=== PATIENT | female | born 1950 | race Caucasian/White ===

== ENCOUNTER 2022-09-18 20:44 | Outpatient (CLI) | payer MEDICARE, BC, SELFPAY ==
--- OUTSIDE RECORDS SUMMARY | 2022-09-18 20:46 | XMS_ITS | Encounter Summary ---
:1950 Author Organization [place] Address [address] [place] [address] Care Team Providers Name Role Phone Mahogany Peñaloza Primary Care Provider Lori Maloney MD Unavailable Marc Hicks PhD Unavailable Reason for Visit Reason Onset Date Comments Call Back 11/08/2021 mri today 11/08/21 Encounter Details Date Type Department Care Team Description 11/08/2021 [facility] Lori Maloney Call Back (mri today Neurology Clinic Kenny Brown 11/08/21 ) [address] Floor [id number] [place] [address] (Wo rk) [id number] [phone] Social History Tobacco Use Types Packs/Day Years Used Date Smoking Tobacco: Never Smokeless Tobacco: Never Alcohol Use Standard Drinks/Week Comments Not Currently 0 (1 standard drink = 0.6 oz pure alcoho l) Sex Assigned at Date Recorded Not on file documented as of this encounter Miscellaneous Notes Telephone Encounter - Naila Schwartz - 11/08/2021 12:14 PM CST [facility] Call Center Phone Message May a detailed message be left on voicemail: yes Reason for Call: Other: Pt callng in she has an MRI today and would like to know why the order is for W/O contrast when Dr Hicks recommended With contrast, please call back as soon as possible as MRI is today Action Taken: Message routed to: [facility] neurology Travel Screening: Not Applicable 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 documented in this encounter Plan of Treatment Upcoming Encounters Date Type Specialty Care Team Description 10/05/2022 Office Visit Neurology Lori Maloney Ma, MD [address] [place] [phone] (Wo rk) documented as of this encounter Visit Diagnoses Not on filedocumented in this encounter Care Teams Lumber Bearer Relationship Specialty Start Date End Date Mahogany Peñaloza PCP - General Internal Medicine 12/28/19 [facility] [address] [place] [address] Lori Maloney Assigned Neuroscience 08/12/20 MD Delisa Provider [address] [place] [address] Macr Hicks, Assigned Behavioral 09/10/21 PhD Health Provider [address] [place] [address] documented as of this encounter
--- OUTSIDE RECORDS SUMMARY | 2022-09-18 20:46 | XMS_ITS | Encounter Summary ---
:1950 Author Organization [place] Address [address] [place] [address]. [place] [address] Care Team Providers Name Role Phone Mahogany Peñaloza Primary Care Provider Lori Maloney MD Unavailable [phone] Encounter Details Date Type Department Care Team Description 07/28/2021 Travel Social History Tobacco Use Types Packs/Day Years Used Date Smoking Tobacco: Never Smokeless Tobacco: Never Alcohol Use Standard Drinks/Week Comments Not Currently 0 (1 standard drink = 0.6 oz pure alcoho l) Sex Assigned at Date Recorded Not on file COVID-19 Exposure Response Date Recorded In the last month, have you been in contact with No / Unsure 07/28/2021 12:11 PM CDT someone who was confirmed or suspected to have Coronavirus / COVID-19? documented as of this encounter Plan of Treatment Upcoming Encounters Date Type Specialty Care Team Description 10/05/2022 Office Visit Neurology Lori Maloney Ma, MD [address] [place] [address] (Wo rk) documented as of this encounter Visit Diagnoses Not on filedocumented in this encounter Care Teams Mammography Technician Relationship Specialty Start Date End Date Mahogany Peñaloza PCP - General Internal Medicine 12/28/19 [facility] [address] [place] [address] Lori Maloney Assigned Neuroscience 08/12/20 MD Delisa Provider [address] [place] [address] documented as of this encounter
--- OUTSIDE RECORDS SUMMARY | 2022-09-18 20:46 | XMS_ITS | Clinical Summary ---
:1950 Author Organization [place] Address [address] [place] [address] Care Team Providers Name Role Phone Anabela Mahogany Primary Care Provider Lori Maloney MD Unavailable [phone] Marc Hicks PhD Unavailable Allergies No known active allergies Medications Medication Sig Dispensed Refills Start Date End Date Status atenolol (TENORMIN) 25 0 11/30/2019 Active MG tablet lisinopril (ZESTRIL) 10 0 12/29/2019 Active MG tablet RESTASIS 0.05 % 0 07/16/2019 Act young ophthalmic emulsion ketoconazole (NIZORAL) 0 10/01/2019 Active 2 % external shampoo latanoprost (XALATAN) INSTILL 1 DROP IN 0 11/30/2019 Active 0.005 % ophthalmic BOTH EYES AT solution BEDTIME PAROEX 0.12 % solution 0 11/13/2019 Active betamethasone 0 10/01/2019 Activ e dipropionate (DIPROSONE) 0.05 % external lotion triamcinolone (KENALOG) APPLY TWICE DAILY 0 06/09/20 19 Active 0.1 % external cream TO RASH UP TO 2 WEEKS/MONTH NEEDED. amoxicillin-clavulanate Take 1 tablet by 20 tablet 0 0 Active (AUGMENTIN) 875-125 MG mouth 2 times tabletIndications: daily Throat pain Additional Information Patient not taking. Reported on 04/11/2021 diazepam (VALIUM) 2 MG Take one tab 30 2 tablet 0 09/18/2021 Active tabletIndications: Claustrophobia minutes before MRI. May repeat one tab in 30 min if needed. Do not drive arrange for a cdl b driver Active Problems Problem Noted Date Cognitive complaints 04/11/2021 Tinnitus 04/11/2021 Persistent insomnia 04/11/2021 Osteopenia 04/11/2021 Hypothyroidism 04/11/2021 Status post cataract extraction 04/11/2021 Chronically dry eyes 04/11/2021 Ascending aorta enlargement 04/11/2021 Anxiety 08/12/2013 Eczema 05/16/2010 Hyperlipidemia 02/20/2008 Episodic mood disorder 02/11/2008 Overview: Formatting of this note might be differe nt from the original. Seasonal affective d/o Malignant neoplasm of female breast 01/19/2003 Overview: Formatting of this note might be differe nt from the original. right lumpectomy 01/23 Family History Medical History Relation Comments Alzheimer Disease Brother Alzheimer Disease Mother Relation Status Comments Brother Mother Social History Tobacco Use Types Packs/Day Years Used Date Smoking Tobacco: Never Smokeless Tobacco: Never Alcohol Use Standard Drinks/Week Comments Not Currently 0 (1 standard drink = 0.6 oz pure alcoho l) Sex Assigned at Date Recorded Not on file Last Filed Vital Signs Vital Sign Reading Time Taken Comments Blood Pressure 135/78 04/11/2021 8:03 AM CDT Pulse 57 04/11/2021 8:03 AM CDT Temperature 37.3 ??C (99.2 ??F) 05/08/2020 10:55 AM CDT Respiratory Rate 16 12/29/2019 1:13 PM CDT Oxygen Saturation 100% 04/11/2021 8:03 AM CDT Inhaled Oxygen Concentration - - Weight 68 kg (149 lb 14.4 oz) 04/11/2021 8:03 AM CDT Height - - Body Mass Index - - Plan of Treatment Upcoming Encounters Date Type Specialty Care Team Description 10/05/2022 Office Visit Neurology Lori Maloney Ma, MD [address] [place], [place] [phone] (Wo rk) Health Maintenance Due Date Last Done Comments ADVANCE CARE PLANNING 1950 ANNUAL REVIEW OF HM ORDERS 1950 CT COLONOGRAPHY 1950 DEXA 1950 FIT-DNA (Cologuard) 1950 FIT 1950 FLEX SIG 1950 MAMMO SCREENING 1950 HEPATITIS C SCREENING 01/05/1970 LIPID 01/05/1997 MEDICARE ANNUAL WELLNESS 01/05/2017 VISIT FALL RISK ASSESSMENT 12/28/2020 12/29/2019, 12/29/2019 COVID-19 Vaccine (4 - 09/14/2021 07/20/2021, 12/31/2020, Booster for Pfizer series) 12/10/2020 PHQ-2 (once per calendar 10/21/2021 09/04/2021, 04/11/2021, year) 12/29/2019, Additional history exists INFLUENZA VACCINE (#1) 2022 08/08/2021, 07/27/2020, 08/24/2019, Additional history exists DTAP/TDAP/TD IMMUNIZATION 08/15/2022 08/15/2012, 08/15/2012 , (2 - Td or Tdap) 06/08/2003 COLONOSCOPY 09/28/2029 09/28/2019 COLORECTAL CANCER SCREENING 09/28/2029 Pneumococcal Vaccine: 65+ Completed 09/01/2018, 08/09/2017 Years ZOSTER IMMUNIZATION Completed 12/17/2018, 11/24/2018, 10/12/2018, Additional history exists IPV IMMUNIZATION Aged Out No longer eligi ble based on patient 's age to complete this topic MENINGITIS IMMUNIZATION Aged Out No longe r eligible based on patient 's age to complete this topic Insurance Payer Benefit Plan / Subscriber ID Effective Phone Address T ype Group Dates BC[employer] [place] [id number] 2017-Prese [phone] [address] [address] PPO BLUE nt 00 [place] [address] MEDICARE MEDICARE FOR HB [id number] 2019-Prese [phone] ATTN CLAIMS Medicare SUPPLEMENT nt 40 [address] [place] [address] Beatrice Hernandez Personal/Family Self 1950 [address] (Home) [address] [place] [address] Beatrice Hernandez Behavioral Self 1950 [address] (Home) [address] [place] [address] Care Teams Client Care Consultant Relationship Specialty Start Date End Date Mahogany Peñaloza PCP - General Internal Medicine 12/28/19 [facility] [address] [place] [address] Lori Maloney Assigned Neuroscience 08/12/20 MD Delisa Provider [address] [place] [id number] Marc Hicks, Christopher Behavioral 09/10/21 PhD Health Provider [address] [place] [phone]
--- OUTSIDE RECORDS SUMMARY | 2022-09-18 20:46 | XMS_ITS | Encounter Summary ---
:1950 Author Organization [place] Address [address] [place] [address] Care Team Providers Name Role Phone Prabha Peñalozaherine Primary Care Provider Lori Maloney MD Unavailable Reason for Referral Diagnostic Imaging MRI (Routine) - Closed Specialty Diagnoses / Procedures Referred By Contact Refer red To Contact Diagnoses Cognitive complaints Lori Maloney Procedures MRI Brain w/o contrast MD Delisa [address] [place] [address] Referral ID Status Reason Start Date Expiration Date Visits Requ ested Visits Authorized [id number] Closed 09/04/2021 09/04/2022 1 1 ERCIAL INSURANCE UNDERWRITER Reason for Visit Reason Comments RECHECK Family history of Alzheimer' s Encounter Details Date Type Department Care Team Description 09/04/2021 Virtual Visit [facility] Lori Maloney Cognitiv e complaints Neurology Clinic Kenny Brown (Primary Dx) [address] [place] [phone] Social History Tobacco Use Types Packs/Day Years Used Date Smoking Tobacco: Never Smokeless Tobacco: Never Alcohol Use Standard Drinks/Week Comments Not Currently 0 (1 standard drink = 0.6 oz pure alcoho l) Sex Assigned at Date Recorded Not on file documented as of this encounter Progress Lori Tenorio MD - 09/04/2021 1:00 PM CST Images from the original note were not included. Beatrice is a 71 year old who is being evaluated via a billable video visit. How would you like to obtain your AVS? MyChart If the video visit is dropped, the invitation should be resent by: Send to e- mail at: [email or web address] Will anyone else be joining your video visit? Yes: . How would they like to receive their invitation? Send to e-mail at: [email or web address] Video Start Time: 1:02 PM Video-Visit Details Type of service: Video Visit Video End Time: 1:36 PM Originating Location (pt. Location): Home Distant Location (provider location): [facility] Platform used for Video Visit: [employer] [facility] Physicians Beatrice Hernandez Age: [age] year old Date of : 1950 Requesting physician: Referred Self Mahogany Peñaloza Assessment and Plan: (R41.9) Cognitive complaints (primary encounter diagnosis) Comment: At this time the complaints seem to be mostly with visuospatial complexities. We will repeat MRI brain to look for cortical atrophy more prominent in the posterior circulation. No formal driving test for now the patient will avoid driving. I am not sure neuro-ophthalmology consult is needed as recommended by Dr Hicks and I know they are booked out a long ways and the patient has far to travel. I will send a message to Lory Elizabeth and Berny explaining the situation prior to ordering a consult. Total time caring for the patient on the day of the visit including video time and chart review was 49 minutes. Lori Maloney MD History of Present Illness: CC: Recheck Beatrice is a 71-year-old woman with some concerns about change in memory function that leads to a lot of anxiety. She has had a sleep study at home. 28 events per hour. She started on a CPAP and it helped. She was still waking up due to the pressure and gas. So she was switched to biPAP. Sleeping really well and much more tolerable. She feels more relaxed and less anxious. Downside she says her report events of awakening from sleep continue to occur. From a memory function standpoint she feels she is a little more forgetful. She is focusing a littlemore than she used to be. She is trying to say in the moment and doing one thing at a time. Trying to be more mindful. She sometimes has trouble remembering names. She often has to take a moment to focus her thoughts but when she does it is fine. She is self-limiting her driving. No driving at night, poor night vision. During the day she will avoid busy highways. Her drives her most places but if it is easy and close she might drive herself. Physical Exam: Pertinent History/Data for appointment: Neuropsych testing with Dr. Hicks results reviewed. Reports are abnormal. Mild changes with visually mediated abilities with deficits in complex visuospatial informaton. He recommended a neuro-ophtho consult but I amnot sure this is needed. The patient has an ophthalmologst who sees her regularly. I will review with Dr. Elizabeth and Berny. ERCIAL INSURANCE UNDERWRITER documented in this encounter Nursing Notes Chuck Brown - 09/04/2021 1:00 PM CST Patient stated that she has been seeing an ENT and was diagnosed with Sleep Apnea and has been on a BIPAP machine. Was on a CPAP but didn't work well for patient. ERCIAL INSURANCE UNDERWRITER documented in this encounter Plan of Treatment Upcoming Encounters Date Type Specialty Care Team Description 10/05/2022 Office Visit Neurology Lori Maloney Ma, MD [address] [place] [address] (Wo rk) documented as of this encounter Results MRI Brain w/o contrast (12/28/2021 3:11 PM COMMERCIAL INSURANCE UNDERWRITER) Anatomical Region Laterality Modality Head, SUBRAD MR NEURO, UMP MR NEURO, RAD MR Magnetic Resonance Specimen (Source) Anatomical Location Collection Method / Collectio n Time Received Time / Laterality Volume Impressions 12/29/2021 9:04 AM COMMERCIAL INSURANCE UNDERWRITER IMPRESSION: 1. No acute abnormality. 2. Volume loss and white matter T2 hyper intensities which likely represent chronic small vessel ischemic change. MACO LITTLEJOHN MD SYSTEM ID: ??[id number] Narrative 12/29/2021 9:04 AM COMMERCIAL INSURANCE UNDERWRITER MRI BRAIN WITHOUT CONTRAST ??12/28/2021 3:11 PM HISTORY: ??Memory loss; patient has some decline in visuospatial abilities. Cognitive complaints. TECHNIQUE: ??Multiplanar, multisequence MRI of the brain without gadolinium IV contrast material. ?? COMPARISON: ??Head MRI 01/10/2020. FINDINGS: Mild volume loss is present. S cattered frontoparietal predominantly matter T2 hyperintensities likely represent moderate chronic small vessel ischemic change. No evidence of acute ischemia, hemorrhage, mass, mass effect, or hydroc ephalus. Marrow signal is within normal limits. V isualized paranasal sinuses are unremarkable. Trace bilateral mastoi d cavity opacification. Procedure Note Maco Littlejohn MD - 12/29/2021F ormatting of this note might be different from the original. MRI BRAIN WITHOUT CONTRAST 12/28/2021 3:1 1 PM HISTORY: Memory loss; patient has some d ecline in visuospatial abilities. Cognitive complaints. TECHNIQUE: Multiplanar, multisequence MR I of the brain without gadolinium IV contrast material. COMPARISON: Head MRI 01/10/2020. FINDINGS: Mild volume loss is present. S cattered frontoparietal predominantly matter T2 hyperintensities likely represent moderate chronic small vessel ischemic change. No evidence of acute ischemia, hemorrhage, mass, mass effect, or hydroc ephalus. Marrow signal is within normal limits. V isualized paranasal sinuses are unremarkable. Trace bilateral mastoi d cavity opacification. IMPRESSION: 1. No acute abnormality. 2. Volume loss and white matter T2 hyper intensities which likely represent chronic small vessel ischemic change. MACO LITTLEJOHN MD SYSTEM ID: [id number] Lori Maloney MD IMG MRI ORDERABLES documented in this encounter Visit Diagnoses Diagnosis Cognitive complaints - Primary Other signs and symptoms involving cogni tion Cognitive complaints Other signs and symptoms involving cogni tion documented in this encounter Care Teams Business Process Lead Relationship Specialty Start Date End Date Mahogany Peñaloza PCP - General Internal Medicine 12/28/[address] [address] Lori Maloney Assigned Neuroscience 08/12/20 MD Delisa Provider [address] [place] [address] documented as of this encounter
--- OUTSIDE RECORDS SUMMARY | 2022-09-18 20:46 | XMS_ITS | Encounter Summary ---
:1950 Author Organization [place] Address [address] [place] [address] Care Team Providers Name Role Phone Mahogany Peñaloza Primary Care Provider Lori Maloney MD Unavailable [phone] Marc Hicks PhD Unavailable Encounter Details Date Type Department Care Team Description 01/10/2022 Travel Social History Tobacco Use Types Packs/Day Years Used Date Smoking Tobacco: Never Smokeless Tobacco: Never Alcohol Use Standard Drinks/Week Comments Not Currently 0 (1 standard drink = 0.6 oz pure alcoho l) Sex Assigned at Date Recorded Not on file COVID-19 Exposure Response Date Recorded In the last month, have you been in contact Unable to assess 01/10/2022 9:29 AM CDT with someone who was confirmed or suspected to have Coronavirus / COVID-19? documented as of this encounter Plan of Treatment Upcoming Encounters Date Type Specialty Care Team Description 10/05/2022 Office Visit Neurology Lori Maloney Ma, MD [address] [place], [place] [phone] (Wo rk) documented as of this encounter Visit Diagnoses Not on filedocumented in this encounter Care Teams Room Service Associate Relationship Specialty Start Date End Date Mahogany Peñaloza PCP - General Internal Medicine 12/28/19 [facility] [address] [place] [address] Lori Maloney Assigned Neuroscience 08/12/20 MD Delisa Provider [address] [place] [phone] Marc Hicks, Assigned Behavioral 09/10/21 PhD Health Provider [address] [place] [phone] documented as of this encounter
--- OUTSIDE RECORDS SUMMARY | 2022-09-18 20:46 | XMS_ITS | Encounter Summary ---
:1950 Author Organization [place] Address [address] [place] [address] Care Team Providers Name Role Phone Mahogany Peñaloza Primary Care Provider Lori Maloney MD Unavailable Marc Hicks PhD Unavailable Encounter Details Date Type Department Care Team Description 12/28/2021 Travel Social History Tobacco Use Types Packs/Day Years Used Date Smoking Tobacco: Never Smokeless Tobacco: Never Alcohol Use Standard Drinks/Week Comments Not Currently 0 (1 standard drink = 0.6 oz pure alcoho l) Sex Assigned at Date Recorded Not on file COVID-19 Exposure Response Date Recorded In the last month, have you been in contact with No / Unsure 12/28/2021 2:27 PM QUALITY TECHNICIAN [employer] someone who was confirmed or suspected to have Coronavirus / COVID-19? documented as of this encounter Plan of Treatment Upcoming Encounters Date Type Specialty Care Team Description 10/05/2022 Office Visit Neurology Lori Maloney Ma, MD [address] [place], [place] [phone] (Wo rk) documented as of this encounter Visit Diagnoses Not on filedocumented in this encounter Care Teams Auto Body Technician Relationship Specialty Start Date End Date Mahogany Peñaloza PCP - General Internal Medicine 12/28/19 [facility] [address] [place] [address] Lori Maloney Assigned Neuroscience 08/12/20 MD Delisa Provider [address] [place] [address] [phone] Marc Hicks, Assigned Behavioral 09/10/21 PhD Health Provider [address] [place] [address] documented as of this encounter
--- OUTSIDE RECORDS SUMMARY | 2022-09-18 20:46 | XMS_ITS | Encounter Summary ---
:1950 Author Organization [facility] Address [address] [place] [address] Care Team Providers Name Role Phone Prabha Peñalozaherine Primary Care Provider Lori Maloney MD Unavailable [phone] Reason for Visit Mental Health Outpatient (Routine) - Closed Specialty Diagnoses / Procedures Referred By Contact Refer red To Contact Diagnoses Cognitive complaints Lori Maloney MD [address] [place] [id number] Referral ID Status Reason Start Date Expiration Date Visits Requ ested Visits Authorized [id number] Closed 04/11/2021 04/11/2022 1 1 Encounter Details Date Type Department Care Team Description 07/28/2021 Office Visit [facility] Lori Maloney MD [address] [place] [id number] MCI (mild cognitive impairment) (Primary Dx); Neuropsychology Marc Hicks, PhD [address] [place] [address] Anxiety disorder, unspecified type [address] [place] [address] Social History Tobacco Use Types Packs/Day Years [...] / COVID-19? documented as of this encounter Progress Notes Marc Hicks, PhD - 07/28/2021 12:30 PM CDT Adult Neuropsychology Clinic [facility] NEUROPSYCHOLOGICAL EVALUATION RELEVANT HISTORY AND REASON FOR REFERRAL This is a report of neuropsychological consultation regarding Beatrice Hernandez, a 71-year-old, right-handed woman with 16 years of formal education. I saw her for an initial evaluation on 08/16/2020, onreferral from Dr. Lori Maloney. She had concerns about cognitive changes like forgetfulness, misplacing items, reduced sense of direction, and word-finding troubles. These issues have been noticed overrecent years, and there is a family history of Alzheimer's disease. Her mother at 88 after about 10 years of symptoms, and her brother had a very rapid course come on around age 70. More chronically, she suspects undiagnosed inattentive-type ADHD, given that her son carries this diagnosis and shesees many similarities in herself. Cognitive screening was within normal limits (Kokmen 35/38) [address] Dr[address] Lori Maloney for a neurologic evaluation in December 2019. My evaluation in July 2020 was via video. The data remained within normal limits, though there were few test results on the low end of average that I felt might represent a relative decline from premorbid functioning. She has an estimated [id number] cognitive baseline. There was also a question of the few lower scores being due to situational factors, like anxiousness or testing via video. Ms. Hernandez had specific concerns about poorer ability with directions, and her lowest performance was on a measure of visual reasoning. I wanted to see the data replicate in a second assessment before strongly inferring changes in cognitive capacity or presuming a decline in cerebral integrity. The differential included prodromal neurodegenerative syndromes versus normal aging with some interference from longstanding ADHD-like tende ncies, as well as somewhat anxious temperament. She saw Dr. Maloney for follow-up in March 2021. She agreed that reevaluation was warranted and placed the referral to see me again. In today???s interview, Ms. Hernandez tells me that she continues to have concerns about anxiety, though she does not feel like symptoms have changed to any degree. Anxiety is especially present at night and disrupts her sleep. She is especially nervous about developing Alzheimer???s disease, like hermother and brother. She has not pursued any treatments for anxiety. Cognitively, she finds herself to be scattered and easily off track, and she still has concerns about long-standing ADHD-like traits.She wonders if the typical stimulant medications used for ADHD could be helpful for somebody of her age. She also has concerns about word-finding lapses. She says the word might come to her a little more quickly if she is able to pull back for a second instead of trying to force it, but she still endsup having to give roundabout descriptions of many things instead of finding the exact word. Spatial reasoning skills are still poor, but this does not seem particularly different to her over the last year. She lives at home with her . He still works pressing department supervisor. She says she still doing the householdfinances well. She is managing her medications independently and says she has a good system for it. She still drives and has not had any accidents or near misses. She says she is no longer comfortable driving at night or in unfamiliar routes. She really does not drive to any extent outside of her hometown of [place]. Her drove her today but dropped her off and did not participate in the evaluation. She reports no neurologic events since I last saw her, such as stroke, seizure, or TBI. She occasionally has some stabbing pain near her forehead, but it is brief and minor. She does not have chronic migraines. She sometimes has some balance issues, but she thinks this is primarily a matter of visual concerns. She has double vision that is managed with prisms in her lenses. She also has dry eyes and glaucoma. She is having a harder time seeing at night and says she had to install higher wattage lightbulbs. At optometry evaluations, her eyeglasses prescription has not changed substantially. There have been no changes in her senses of smell or taste. Hearing acuity in her right ear seems to be worsethan that of the left ear. Her most recent neuroimaging is a brain MRI from 01/10/2020, which showed mild generalized cerebral atrophy and leukoaraiosis. She has been following the [employer] weight management program, and she is down about 10 pounds since May. She has not had a COVID-19 infection. She has been vaccinated and received a booster shot. She does not use tobacco, alcohol, or illicit drugs. She has not had any hallucinatory experiences. She uses CPAP at night area she says she takes his Zyrtec every night to try to help with sleep. Sheis again about trying to use something else. It is tough for her to get sleep because of anxious rumination. As noted, family history includes diagnoses of Alzheimer???s disease for her brother and mother. Hermother is was a slow and insidious onset. Her recollection is that her brother began showing signs in his late 60s, needed senior care placement because of significant problems with violent behavior s, and he around age 70. Additional psychosocial and educational background is available in my report from 08/16/2020. Her current medications include atenolol, lisinopril, latanoprost drops, and Restasis drops. BEHAVIORAL OBSERVATIONS Ms. Hernandez was polite and cooperative with the evaluation. She was mildly anxious and seemed fidgety in her chair. She was open and candid in the interview, and she demonstrated good insight into the referral concerns. Comprehension and retention of test instructions was normal. She consistently demonstrated significant difficulty on visually mediated tasks. Her effort and persistence were good. The test results are seen as valid estimations of her cognitive abilities. MEASURES ADMINISTERED The following measures were administered by a trained well drill operator helper cable tool, under my supervision: Orientation: Time, Place, Basic Personal Information, Recent US Presidents; Sarai Adult Intelligence Scales-IV: Vocabulary, Similarities, Matrix Reasoning, Digit Span, Coding; Prole Naming Test; Controlled Oral Word Association Test; Animal Naming Test; Complex Ideational Material; Karsten- Osterrieth Complex Figure Test; Clock Drawing; Judgment of Line Orientation; Claudia Visual Acuity Screen; [place]-Making Test; Test of Sustained Attention & Tracking; Repeatable Battery for the Assessment of Neuropsychological Status: Immediate and Delayed Stories; Laguna Verbal Learning Test-Revised; Ramírez Depression Inventory-II; Ramírez Anxiety Inventory; [place] Multiphasic Personality Inventory-3. RESULTS AND INTERPRETATION Orientation was within normal expectations for time, place, basic personal information, and basic cultural information. Abstract verbal analogical reasoning was average. Demonstrating vocabulary knowledge was high average. Visual reasoning through pattern identification was below average. Binocular, corrected, near-point visual acuity was 20/25 on Claudia screening. Visual perceptual matching and discrimination of variably oriented lines was average. Clock drawing was of borderline quality, with abnormal spacing of the numbers. Copying a complex geometric figure was exceptionally low, with errors in all areas of the figure, including gross distortions, lack of gestalt coherence, misplaced elements, incomplete elements, and missing elements. Speeded finger tapping was high average and bilaterally equivalent. Immediate auditory attention and working memory were average for repeating and rearranging digit strings. Oral comprehension and making inferences from sentences and brief paragraphs was normal. Confrontation naming was low normal. Category-based verbal fluency was low average, while letter-based verbal fluency was high average. Performances were average across a variety of brief verbal tasks requiring executive management of attention and concentration. Cognitive processing speed was below average on a timed curriculum development coordinator task. Visual scanning and graphomotor sequencing under simple conditions was low average. Scanning and sequencing under greater executive demands to control divided attention was low average. Immediate verbal memory for short stories was average, and delayed story recall was high average. Learning a word list over repeated readings was average. Delayed free recall of the list was average, and delayed recognition of the list was perfect. On brief self-report inventories, she endorsed minimal symptoms related to depression (BDI-II = 3) and minimal to borderline symptoms related to anxiety (ABELARDO = 6). Her response set to a longer questionnaire for objective assessment of personality functioning and emotional coping patterns (MMPI-3) was valid and interpretable, with no abnormal results among the embedded response validity scales. There were no elevations among the core clinical scales, but there were a few elevations across the varioussupplemental scales. She reported an above- average level of stress plus excessive worry and preoccupation. She is likely to ruminate or experience intrusive/obsessive thoughts, and she may feel incapable of controlling her anxiety levels. She reported being passive and submissive, not liking to be in charge, and being ready to give in to others. Overall, there were indications of generally being prone to negative emotional experiences like anxiety, insecurity, and worry. The primary diagnostic considerations would include generalized anxiety disorder, obsessive-compulsive disorder, and dependent personality disorder. The MMPI-3 does not independently render diagnoses but creates clinical hypotheses to be explored in the context of mental health treatments. IMPRESSIONS The neuropsychological results are abnormal. Baseline testing a year ago suggested mild changes in visually mediated abilities, and today???s data show clear and apparent deficits in complex visuospatial information processing and visuoconstructional capacity. The data strongly indicate that this is not a matter of visual acuity problems from glaucoma or needing prisms in her lenses, but instead reflects dysfunction in cortical processing. There has also been a notable change in her confrontation naming performance, which was nearly perfect last year but is now at the lower end of normal for her age. Her naming errors were not attributable to misperceptions and did not indicate visual agnosia; they were due to imprecise lexical retrieval. Basic attention, mental speed, and fine-motor speed are normal, though she has a harder time controlling attention and working quickly when there are visuospatial or graphomotor components. Likewise, executive functioning performances that are purely verbal are normal, while tests with visuospatial components yield notably poorer performances. Verbal intellect remains average to above average, while nonverbal reasoning is lower than expected. There are no indications of learning and memory dysfunction. She has long-standing concerns about anxiousness, likely consistent with generalized anxiety disorder, but I cannot rule out OCD. I am sure there are reciprocal interactions, but anxiety does not explain the demonstrated cognitive deficits. The data suggest changes in neurologic integrity primarily affecting posterior cortical visuospatialprocessing areas, or possibly deeper thalamic structures in the visual processing stream, along withleft anterior temporal cortical systems involved in lexical retrieval. Given the primacy of visuospatial concerns, evidence for growing executive functioning issues from frontal systems dysfunction is somewhat equivocal but cannot be excluded. The findings are concerning for an emerging neurologic syndrome, perhaps posterior cortical atrophy (ATTORNEY LAW CLERK, or ???visual variant Alzheimer???s?? ). Lewy body disease is less likely as she does not seem to show parkinsonism or other cardinal features of LBD, but the cognitive profile can be seen in that setting. Ms. Hernandez is not in a state of dementia. I think mild cognitive impairment (MCI) more closely matches the current situation. RECOMMENDATIONS 1. Continued neurologic care and monitoring are needed. I defer to Dr. Maloney on any additional workup, but I suggest a referral to Drs. Bridger Arrieta or [place] Elizabeth in Neuro-ophthalmology. Other considerations might include CSF evaluations to look for biomarkers of Alzheimer???s disease and updated neuroimaging with contrast and perhaps with post-processing analysis of regional brain volumes. 2. I am concerned about driving safety. I am glad she already limits the scope of her driving, but Ithink a formal driving safety evaluation through an Occupational Therapy clinic as necessary. 3. Oversight in medication management is encouraged. I would primarily be concerned about visuospatial issues interfering with setting up a pillbox or differentiating which pills she is selecting. 4. It would also be reasonable to have occasional oversight of complex tasks like her management of bill-paying. 5. I do not see anxiety as the primary factor behind her cognitive concerns, but her symptoms are still clinically significant and worthy of intervention. a. I would suggest referral to a psychiatrist about medication options, as well as referral to see apsychotherapist. b. She might benefit from seeing a provider in the Health Psychology division, as there are sure to be issues in adjustment to being diagnosed with a cognitive disorder. c. Sleep quality could also be addressed by psychiatric and psychotherapeutic care. 6. There are indications of changes in functioning over the last year. Continued serial evaluations in this clinic are encouraged. A return in about 12 months would be reasonable. Marc Hicks, PhD, LP, ABPP-CN Board Certified in Clinical Neuropsychology Licensed Psychologist [id number] Time spent: 44 minutes neurobehavioral status exam including interview, clinical assessment by licensed and board-certified neuropsychologist (CPT 77012, 18701). 118 minutes neuropsychological testing evaluation by licensed and board- certified neuropsychologist, including integration of patient data, i nterpretation of standardized test results and clinical data, clinical decision- making, treatment planning, report, and interactive feedback to the patient (CPT 01368, 07139). 235 minutes of psychological and neuropsychological test administration and scoring by special systems technician (CPT 23819, 55685). Diagnoses: G31.84, F41.9 documented in this encounter Nursing Notes Placido Tierney MA - 07/28/2021 12:30 PM CDT The patient was seen for neuropsychological evaluation at the request of Dr. Lori Maloney, for the purposes of diagnostic clarification and treatment planning. 235 minutes of test administration and scoring were provided by this check writer, Placido Tiernye. Please see Dr. Marc Hicks's report for a full interpretation of the findings. documented in this encounter Plan of Treatment Upcoming Encounters Date Type Specialty Care Team Description 10/05/2022 Office Visit Neurology Lori Maloney Ma, MD [address] [place] [address] [phone] (Wo rk) documented as of this encounter Procedures Procedure Name Priority Date/Time Associated Diagnosis Comme nts MD PSYCL/NRPSYCL TST TECH 2+ Routine 08/09/2021 1:24 PM MCI (m ild cognitive TST EA ADDL 30 MIN CDT impairment) Anxiety disorder, unspecified type MD PSYCL/NRPSYCL TST TECH 2+ Routine 08/09/2021 1:24 PM MCI (m ild cognitive TST 1ST 30 MIN CDT impairment) Anxiety disorder, unspecified type MD NEUROPSYCHOLOGICAL TST Routine 08/09/2021 1:24 PM MCI (mild cognitive EVAL PHYS/QHP EA ADDL HR CDT impairm ent) Anxiety disorder, unspecified type MD NEUROPSYCHOLOGICAL TST Routine 08/09/2021 1:24 PM MCI (mild cognitive EVAL PHYS/QHP 1ST HOUR CDT impairmen t) Anxiety disorder, unspecified type MD NEUROBEHAVIORAL STATUS Routine 08/09/2021 1:24 PM MCI (mild cognitive EXAM BY PHYS/OTHR HC CDT impairment) PROFESSIONAL, 1ST HOUR Anxiety disorder, unspecified type documented in this encounter Visit Diagnoses Diagnosis MCI (mild cognitive impairment) - Primar y Mild cognitive impairment, so stated Anxiety disorder, unspecified type documented in this encounter Care Teams Curb Machine Operator Relationship Specialty Start Date End Date Mahogany Peñaloza PCP - General Internal Medicine 12/28/19 [facility] [address] [place] [address] Lori Maloney Assigned Neuroscience 08/12/20 MD Delisa Provider [address] [place] [address] documented as of this encounter
--- OUTSIDE RECORDS SUMMARY | 2022-09-18 20:46 | XMS_ITS | Encounter Summary ---
:1950 Author Organization [facility] Address [address] [place] [address] Care Team Providers Name Role Phone Mahogany Peñaloza Primary Care Provider Lori Maloney MD Unavailable Marc Hicks PhD Unavailable Encounter Details Date Type Department Care Team Description 09/18/2021 [facility] Cassy Manjarrez rophobia (Primary Neurology Clinic Kailee Schmidt) [place] CUSTOMS OFFICER CLINICAL ASSOCIATE [id number] [place] [address] [phone] Social History Tobacco Use Types Packs/Day Years Used Date Smoking Tobacco: Never Smokeless Tobacco: Never Alcohol Use Standard Drinks/Week Comments Not Currently 0 (1 standard drink = 0.6 oz pure alcoho l) Sex Assigned at Date Recorded Not on file documented as of this encounter Plan of Treatment Upcoming Encounters Date Type Specialty Care Team Description 10/05/2022 Office Visit Neurology Lori Maloney Ma, MD [address] [place] [address] [phone] (Wo rk) documented as of this encounter Visit Diagnoses Diagnosis Claustrophobia - Primary Other isolated or specific phobias documented in this encounter Care Teams Aviation Ordnance Officer Relationship Specialty Start Date End Date Mahogany Peñaloza PCP - General Internal Medicine 12/28/19 [facility] [address] [place] [address] Lori Maloney Assigned Neuroscience 08/12/20 MD Delisa Provider [address] [place] [address] Marc Hicks, Assigned Behavioral 09/10/21 [facility] Health Provider [address] [place] [address] documented as of this encounter
--- OUTSIDE RECORDS SUMMARY | 2022-09-18 20:46 | XMS_ITS | Encounter Summary ---
:1950 Author Organization [place] Address [address] [place] [address] Care Team Providers Name Role Phone Mahogany Peñaloza Primary Care Provider Lori Maloney MD Unavailable Marc Hicks PhD Unavailable Reason for Referral Diagnostic Imaging MRI (Routine) - Closed Specialty Diagnoses / Procedures Referred By Contact Refer red To Contact Diagnoses Cognitive complaints Lori Maloney Procedures MRI Brain w/o contrast MD Delisa [address] [place] [address] 3765 5 Referral ID Status Reason Start Date Expiration Date Visits Requ ested Visits Authorized [id number] Closed 09/04/2021 09/04/2022 1 1 LE SELECTOR Reason for Visit Diagnostic Imaging MRI (Routine) - Closed Specialty Diagnoses / Procedures Referred By Contact Refer vanessa To Contact Diagnoses Cognitive complaints Lori Maloney Procedures MRI Brain w/o contrast MD Delisa [address] [place] [address] 5045 5 Referral ID Status Reason Start Date Expiration Date Visits Requ ested Visits Authorized [id number] Closed 09/04/2021 09/04/2022 1 1 Encounter Details Date Type Department Care Team Description 12/28/2021 Hospital Encounter [facility] Lori Maloney Cog nitive complaints [facility] [place] [address] [place] [address] [id number] Social History Tobacco Use Types Packs/Day Years Used Date Smoking Tobacco: Never Smokeless Tobacco: Never Alcohol Use Standard Drinks/Week Comments Not Currently 0 (1 standard drink = 0.6 oz pure alcoho l) Sex Assigned at Date Recorded Not on file COVID-19 Exposure Response Date Recorded In the last month, have you been in contact with No / Unsure 12/28/2021 2:27 PM BOTTLE SELECTOR someone who was confirmed or suspected to have Coronavirus / COVID-19? documented as of this encounter Medications at Time of Discharge Medication Sig Dispensed Refills Start Date End Date amoxicillin-clavulanate Take 1 tablet by 20 tablet 0 2019 (AUGMENTIN) 875-125 MG mouth 2 times daily tabletIndications: Throat pain atenolol (TENORMIN) 25 MG 0 11/30/2019 tablet betamethasone dipropionate 0 9 (DIPROSONE) 0.05 % external lotion diazepam (VALIUM) 2 MG Take one tab 30 2 tablet 0 09/18/20 21 tabletIndications: minutes before MRI. Claustrophobia May repeat one tab in 30 min if needed. Do not drive arrange for a gas truck driver ketoconazole (NIZORAL) 2 % 0 9 external shampoo latanoprost (XALATAN) 0.005 INSTILL 1 DROP IN 0 0 11/30/2019 % ophthalmic solution BOTH EYES AT BEDTIME lisinopril (ZESTRIL) 10 MG 0 0 tablet PAROEX 0.12 % solution 0 11/13/2019 RESTASIS 0.05 % ophthalmic 0 9 emulsion triamcinolone (KENALOG) 0.1 APPLY TWICE DAILY TO 0 06/09/2019 % external cream RASH UP TO 2 WEEKS/MONTH NEEDED. documented as of this encounter Plan of Treatment Upcoming Encounters Date Type Specialty Care Team Description 10/05/2022 Office Visit Neurology Lori Maloney Ma, MD [address] [place] [address] (Wo rk) documented as of this encounter Procedures Procedure Name Priority Date/Time Associated Diagnosis Comme nts MR BRAIN W/O Routine 12/28/2021 3:11 PM Cognitive complaints R esults for this CONTRAST BOTTLE SELECTOR procedure are i n the results section. documented in this encounter Results MRI Brain w/o contrast (12/28/2021 3:11 PM BOTTLE SELECTOR) Anatomical Region Laterality Modality Head, SUBRAD MR NEURO, UMP MR NEURO, RAD MR Magnetic Resonance Specimen (Source) Anatomical Location Collection Method / Collectio n Time Received Time / Laterality Volume Impressions 12/29/2021 9:04 AM BOTTLE SELECTOR IMPRESSION: 1. No acute abnormality. 2. Volume loss and white matter T2 hyper intensities which likely represent chronic small vessel ischemic change. MACO LITTLEJOHN MD SYSTEM ID: ??[id number] Narrative 12/29/2021 9:04 AM BOTTLE SELECTOR MRI BRAIN WITHOUT CONTRAST ??12/28/2021 3:11 PM [...] ischemic change. MACO LITTLEJOHN MD SYSTEM ID: [id number] Lori Maloney MD IMG MRI ORDERABLES documented in this encounter Visit Diagnoses Diagnosis Cognitive complaints Other signs and symptoms involving cogni tion documented in this encounter Care Teams Ventilating Engineer Relationship Specialty Start Date End Date Mahogany Peñaloza PCP - General Internal Medicine 12/28/19 [facility] [address] [place] [address] Lori Maloney Assigned Neuroscience 08/12/20 MD Delisa Provider [address] [place] [address] Marc Hicks, Assigned Behavioral 09/10/21 [facility] Health Provider [address] [place] [address] documented as of this encounter
--- OUTSIDE RECORDS SUMMARY | 2022-09-18 20:46 | XMS_ITS | Encounter Summary ---
:1950 Author Organization [place] Address [address] [place], [place] [id number] Care Team Providers Name Role Phone Mahogany Peñaloza Primary Care Provider Lori Maloney MD Unavailable [phone] Encounter Details Date Type Department Care Team Description 07/28/2021 [facility] Marc Hicks, Neuropsychology Ivette reece PhD [address] [place] [phone] [place] [address] [phone] Social History Tobacco Use Types Packs/Day Years [...] Progress Notes Marc Hicks, PhD - 07/28/2021 11:59 PM CDT NAME Beatrice Hernandez 1950 AGE 71 SEX F HANDEDNESS R EDUCATION 16 HU 07/28/2021 PROVIDER HUMBERTO ASKEW KB STATION OP ORIENTATION Time -1 Place Personal Info. Presidents WAIS-IV Raw SS Similarities 24 10 Vocabulary 47 13 Matrix Reasoning 7 6 Digit Span 27 11 RDS=9 Coding 30 5 COWAT PRW Raw 51 SS 14 %ile 90-94 ANIMAL FLUENCY Raw 16 SS 8 T 40 BOSTON NAMING TEST Raw 51 /60 SS 8 %ile 19-28 COMPLEX IDEATIONAL MATERIAL Raw 12 SS 12 T 53 CLOCK DRAWING Command Borderline NEVAEH H Raw 22 Ssa: 10 %ile 41-59 FINGER TAPPING Avg SSa T RH 53 10 62 LH 48.67 11 65 TRAIL MAKING TEST Time Errors SSa %ile A 52 0 7 11-18% B 151 0 7 11-18% PORTEUS MAZE TEST Test Age 7.5 NORBERTO-O COMPLEX FIGURE Raw T %ile Time to Copy 560 <1 Copy 9 <1 HVLT 6 Raw T Trial 1 5 Trial 2 9 Trial 3 9 Learning 4 Total Recall 23 48 Delayed Recall 8 48 Percent Retention 89% 51 True Positives 12 False Positives 0 Disc. Index 12 56 BDI-II Raw 3 Interp. Minimal ABELARDO Raw 6 Interp. Minimal MMPI-3 See report 0 RBANS Story B Raw Score zscore Imm. 20 11 0.46 Delay 11 13 0.81 TSAT Raw zscore Time 64 0.89 Error 3 -0.28 documented in this encounter Plan of Treatment Upcoming Encounters Date Type Specialty Care Team Description 10/05/2022 Office Visit Neurology Lori Maloney Ma, MD [address] [place] [address] (Wo rk) documented as of this encounter Visit Diagnoses Not on filedocumented in this encounter Care Teams Yarn Examiner Skeins Relationship Specialty Start Date End Date Mahogany Peñaloza PCP - General Internal Medicine 12/28/19 [facility] [address] [place] [address] Lori Maloney Assigned Neuroscience 08/12/20 MD Delisa Provider [address] [place] [address] documented as of this encounter
--- OUTSIDE RECORDS SUMMARY | 2022-09-18 20:47 | XMS_ITS | Encounter Summary ---
:1950 Author Organization [facility] Address [address] [place] [address]. [place] [address] Care Team Providers Name Role Phone Mahogany Peñaloza Primary Care Provider Lori Maloney MD Unavailable [phone] Encounter Details Date Type Department Care Team Description 11/05/2020 Travel Social History Tobacco Use Types Packs/Day Years Used Date Smoking Tobacco: Never Smokeless Tobacco: Never Alcohol Use Standard Drinks/Week Comments Not Currently 0 (1 standard drink = 0.6 oz pure alcoho l) Sex Assigned at Date Recorded Not on file COVID-19 Exposure Response Date Recorded In the last month, have you been in contact with No / Unsure 11/05/2020 9:29 PM SUPERVISOR ASSEMBLY someone who was confirmed or suspected to have Coronavirus / COVID-19? documented as of this encounter Plan of Treatment Upcoming Encounters Date Type Specialty Care Team Description 10/05/2022 Office Visit Neurology Lori Maloney Ma, MD [address] [place] [phone] (Wo rk) documented as of this encounter Visit Diagnoses Not on filedocumented in this encounter Care Teams Sales Representative [employer] Relationship Specialty Start Date End Date Mahogany Peñaloza PCP - General Internal Medicine 12/28/19 [facility] [address] [place] [address] Lori Maloney Assigned Neuroscience 08/12/20 MD Delisa Provider [address] [place] [address] documented as of this encounter
--- OUTSIDE RECORDS SUMMARY | 2022-09-18 20:47 | XMS_ITS | Encounter Summary ---
:1950 Author Organization [facility] Address [address] [place] [address]. [place] [address] Care Team Providers Name Role Phone Livangen Mahogany Primary Care Provider Reason for Visit Reason Comments Urgent Care Mass Swollen glands located on Lt lower jaw x5 days. Sx- hurts to swallow, hard lump, little p ain on Lt ear and side of tongue, sore throat. Denies fever Gastrointestinal Problem Diarrhea x1 yesterday Encounter Details Date Type Department Care Team Description 05/08/2020 Office Visit [facility] HowellHerber, Throat pain (Primary Urgent Care Tana sorto MD Dx) [address] [facility] [address] [place] [address] [id number] Social History Tobacco Use Types Packs/Day Years Used Date Smoking Tobacco: Never Smokeless Tobacco: Never Alcohol Use Standard Drinks/Week Comments Not Currently 0 (1 standard drink = 0.6 oz pure alcoho l) Sex Assigned at Date Recorded Not on file COVID-19 Exposure Response Date Recorded In the last month, have you been in contact with No / Unsure 05/08/2020 8:55 AM CDT someone who was confirmed or suspected to have Coronavirus / COVID-19? documented as of this encounter Last Filed Vital Signs Vital Sign Reading Time Taken Comments Blood Pressure 120/80 05/08/2020 10:55 AM CDT Pulse 78 05/08/2020 10:55 AM CDT Temperature 37.3 ??C (99.2 ??F) 05/08/2020 10:55 AM CDT Respiratory Rate - - Oxygen Saturation 100% 05/08/2020 10:55 AM CDT Inhaled Oxygen Concentration - - Weight - - Height - - Body Mass Index - - documented in this encounter Progress Notes Herber Howell MD - 05/08/2020 10:30 AM CDT SUBJECTIVE: Beatrice Hernandez is a 70 year old female presenting with a chief complaint of Chief Complaint Patient presents with ??? Urgent Care ??? Mass Swollen glands located on Lt lower jaw x5 days. Sx- hurts to swallow, hard lump, little pain on Lt ear and side of tongue, sore throat. Denies fever ??? Gastrointestinal Problem Diarrhea x1 yesterday No diarrhea today. She is having some problems swallowing because of the pain that she has a left side associated with this lump under her jaw. She also notes that her salivary gland seems to be elevated and twisted in her mouth under her tongue. She does not complain of significant pain when she is chewing chest when she swallows. No fever no chills She is an established patient of [facility]. Review of Systems HENT: Neck swelling All other systems reviewed and are negative. Past Medical History: Diagnosis Date ??? Glaucoma ??? Hypertension Family History Problem Relation Age of Onset ??? Alzheimer Disease Mother 65 ??? Alzheimer Disease Brother 65 Current Outpatient Medications Medication Sig Dispense Refill ??? amoxicillin-clavulanate (AUGMENTIN) 875-125 MG tablet Take 1 tablet by mouth 2 times daily 20 tablet 0 ??? atenolol (TENORMIN) 25 MG tablet ??? betamethasone dipropionate (DIPROSONE) 0.05 % external lotion ??? ketoconazole (NIZORAL) 2 % external shampoo ??? latanoprost (XALATAN) 0.005 % ophthalmic solution INSTILL 1 DROP IN BOTH EYES AT BEDTIME ??? lisinopril (ZESTRIL) 10 MG tablet ??? RESTASIS 0.05 % ophthalmic emulsion ??? triamcinolone (KENALOG) 0.1 % external cream APPLY TWICE DAILY TO RASH UP TO 2 WEEKS/MONTH NEEDED. ??? PAROEX 0.12 % solution Social History Tobacco Use ??? Smoking status: Never Smoker ??? Smokeless tobacco: Never Used Substance Use Topics ??? Alcohol use: Not Currently OBJECTIVE BP 120/80 (BP Location: Right arm, Patient Position: Chair, Cuff Size: Adult Large) Pulse 78 Temp 99.2 ??F (37.3 ??C) (Oral) SpO2 100% Physical Exam Vitals signs and nursing note reviewed. HENT: Nose: Nose normal. Eyes: Extraocular Movements: Extraocular movements intact. Pupils: Pupils are equal, round, and reactive to light. Neck: Musculoskeletal: Normal range of motion. Comments: [place] between the ear and the tip which underneath the jawline there is a swelling and tender firm mass. Oropharynx appears to be clear there does seem to be some deformity of the salivary opening under her tongue. She has no diffuse adenopathy in her neck. She is able to hold her oral secretions but she does have some pain when she does swallow. Cardiovascular: Rate and Rhythm: Normal rate. Pulmonary: Effort: Pulmonary effort is normal. Breath sounds: Normal breath sounds. Musculoskeletal: Normal range of motion. Skin: General: Skin is warm. Neurological: General: No focal deficit present. Mental Status: She is alert and oriented to person, place, and time. Psychiatric: Mood and Affect: Mood normal. Labs: Results for orders placed or performed in visit on 05/08/20 (from the past 24 hour(s)) Streptococcus A Rapid Scr w Reflx to PCR Specimen: Throat Result Value Ref Range Strep Specimen Description Throat Streptococcus Group A Rapid Screen Negative NEG^Negative X-Ray was not done. ASSESSMENT: ICD-10-CM 1. Throat pain R07.0 Streptococcus A Rapid Scr w Reflx to PCR Group A Streptococcus PCR Throat Swab amoxicillin-clavulanate (AUGMENTIN) 875-125 MG tablet Medical Decision Making: Differential Diagnosis: Salivary gland infection, abscess, infected congenital cyst, peritonsillar infection Serious Comorbid Conditions: Adult: None PLAN: 1. Augmentin 875 p.o. twice daily 10 days 2. She already has an ENT appointment in 3 days Followup: If not improving or if condition worsens, follow up with your Primary Care Provider Unknown whether the ENT at [facility] is connected to care everywhere. She does have an after visit summary that does show the medication she was placed on as well as her vital signs. There are no Patient Instructions on file for this visit. documented in this encounter Plan of Treatment Upcoming Encounters Date Type Specialty Care Team Description 10/05/2022 Office Visit Neurology Lori Maloney Ma, MD [address] [place] [address] (Wo rk) documented as of this encounter Procedures Procedure Name Priority Date/Time Associated Comments Diagnosis STREPTOCOCCUS A RAPID Routine 05/08/2020 11:00 Throat pain Re sults for this SCREEN W REFELX TO PCR AM CDT proce dure are in the results section. GROUP A STREPTOCOCCUS Routine 05/08/2020 11:00 Throat pain Re sults for this PCR THROAT SWAB AM CDT procedure ar e in the results section. documented in this encounter Results Group A Streptococcus PCR Throat Swab (05/08/2020 11:00 AM CDT) [facility]osp[facility] Method Time Signature Specimen Throat 05/08/2020 [place] Description 11:12 AM CLINICS CDT [place] Strep Group A Not Detected NDET^Not 05/08/2020 [place] O F PCR Detected 10:16 PM [facility] Comment: Group A Streptococcus DNA is not detecte d. FDA approved assay performed using [employer] id GeneXpert real-time PCR. Specimen Anatomical Collection Method Collection Time Receive d Time (Source) Location / / Volume Laterality Specimen from 05/08/2020 11:00 05/08/2020 throat AM CDT 11:01 AM CDT (specimen) Herber Howell MD LAB - MICRO GENERAL ORDERABL ES Performing Organization Address City/State/ZIP Code Phon e Number [facility] [address] [place] [address] [facility] [address] [place] [address] Streptococcus A Rapid Scr w Reflx to PCR (05/08/2020 11:00 AM CDT) [facility] Method Time Signature Strep Specimen Throat 05/08/2020 [place] Description 10:58 AM CDT [facility] Streptococcus Negative NEG^Negat 05/08/2020 [place] Group A Rapid young 11:12 AM CDT [facility] Comment: No Group A streptococcal antigen detecte d by immunoassay. Confirmatory testing in progress. Specimen Anatomical Collection Method Collection Time Receive d Time (Source) Location / / Volume Laterality Specimen from 05/08/2020 11:00 05/08/2020 throat AM CDT 11:01 AM CDT (specimen) Herber Howell MD LAB - MICRO GENERAL ORDERABL ES Performing Organization Address City/State/ZIP Code Phon e Number [facility] [address] [place] [address] documented in this encounter Visit Diagnoses Diagnosis Throat pain - Primary documented in this encounter Care Teams President & Ceo Relationship Specialty Start Date End Date Mahogany Peñaloza PCP - General Internal Medicine 12/28/19 [facility] [address] [place] [address] documented as of this encounter
--- OUTSIDE RECORDS SUMMARY | 2022-09-18 20:47 | XMS_ITS | Encounter Summary ---
:1950 Author Organization [place] Address [address] [place] [address] Care Team Providers Name Role Phone Mahogany Peñaloza Primary Care Provider Lori Maloney MD Unavailable [phone] Marc Hicks PhD Unavailable Reason for Visit Reason Onset Date Comments Forms 03/28/2020 medical records Encounter Details Date Type Department Care Team Description 03/28/2020 [facility] Neurology Lori Maloney Forms (medical [address] [facility] Debi Hercules MD records) 3rd Floor [address] [place] [address] [phone] (Wo rk) Social History Tobacco Use Types Packs/Day Years Used Date Smoking Tobacco: Never Smokeless Tobacco: Never Alcohol Use Standard Drinks/Week Comments Not Currently 0 (1 standard drink = 0.6 oz pure alcoho l) Sex Assigned at Date Recorded Not on file documented as of this encounter Miscellaneous Notes Telephone Encounter - Zhane Wing - 03/28/2020 2:19 PM CDT [facility] Call Center Phone Message May a detailed message be left on voicemail: yes Reason for Call: Other: Beatrice is calling in to check and see what information Dr Maloney needs from her past clinic. Please call back to discuss. Action Taken: Message routed to: [facility] neurology Travel Screening: Not Applicable documented in this encounter Plan of Treatment Upcoming Encounters Date Type Specialty Care Team Description 10/05/2022 Office Visit Neurology Lori Maloney Ma, MD [address] [place] [phone] (Wo rk) documented as of this encounter Visit Diagnoses Not on filedocumented in this encounter Care Teams Sdv Pilot/Navigator/Dds Operator Relationship Specialty Start Date End Date Mahogany Peñaloza PCP - General Internal Medicine 12/28/19 [facility] [address] [place] [address] Lori Maloney Assigned Neuroscience 08/12/20 MD Delisa Provider [address] [place] [phone] Marc Hicks, Assigned Behavioral 09/10/21 PhD Health Provider [address] [place] [phone] documented as of this encounter
--- OUTSIDE RECORDS SUMMARY | 2022-09-18 20:47 | XMS_ITS | Encounter Summary ---
:1950 Author Organization [facility] Address [address] [place] [address] Care Team Providers Name Role Phone Mahogany Peñaloza Primary Care Provider Reason for Visit Reason Onset Date Comments *-*INCOMING RECORDS*-* 12/29/2019 Encounter Details Date Type Department Care Team Description 12/29/2019 PRE VISIT [facility] Neurology Lori Maloney *-*INCOMING RECORDS*-* [address] [place] [address] Debi Hercules MD [address] [place] [address] [phone] (Wo rk) Social History Tobacco Use Types Packs/Day Years Used Date Smoking Tobacco: Never Smokeless Tobacco: Never Alcohol Use Standard Drinks/Week Comments Not Currently 0 (1 standard drink = 0.6 oz pure alcoho l) Sex Assigned at Date Recorded Not on file documented as of this encounter Miscellaneous Notes Telephone Encounter - Mayelin Keith - 12/28/2019 1:34 PM CDT RECORDS RECEIVED FROM: Self Date of Appt: 12/29/19 NOTES (FOR ALL VISITS) STATUS DETAILS OFFICE NOTE from referring provider N/A OFFICE NOTE from other specialist N/A DISCHARGE SUMMARY from hospital N/A DISCHARGE REPORT from the ER N/A OPERATIVE REPORT N/A MEDICATION LIST Care Everywhere IMAGING (FOR ALL VISITS) EMG N/A EEG N/A MRI (HEAD, NECK, SPINE) N/A LUMBAR PUNCTURE N/A [facility] Scan N/A CT (HEAD, NECK, SPINE) N/A Phone Call: 12/28/19 MV 1.43pm Contact Name Beatrice Hernandez Outcome Left voice mail for patient to see if she has outside neuro records documented in this encounter Plan of Treatment Upcoming Encounters Date Type Specialty Care Team Description 10/05/2022 Office Visit Neurology Lori Maloney Ma, MD [address] [place] [address] (Wo rk) documented as of this encounter Visit Diagnoses Not on filedocumented in this encounter Care Teams Marzipan Maker Relationship Specialty Start Date End Date Mahogany Peñaloza PCP - General Internal Medicine 12/28/19 [facility] [address] [place] [address] documented as of this encounter
--- OUTSIDE RECORDS SUMMARY | 2022-09-18 20:47 | XMS_ITS | Encounter Summary ---
:1950 Author Organization [facility] Address [address] [place] [address]. [place] [address] Care Team Providers Name Role Phone Mahogany Peñaloza Primary Care Provider Encounter Details Date Type Department Care Team Description 01/10/2020 Travel Social History Tobacco Use Types Packs/Day Years Used Date Smoking Tobacco: Never Smokeless Tobacco: Never Alcohol Use Standard Drinks/Week Comments Not Currently 0 (1 standard drink = 0.6 oz pure alcoho l) Sex Assigned at Date Recorded Not on file COVID-19 Exposure Response Date Recorded In the last month, have you been in contact with No / Unsure 01/10/2020 12:39 PM CDT someone who was confirmed or suspected to have Coronavirus / COVID-19? documented as of this encounter Plan of Treatment Upcoming Encounters Date Type Specialty Care Team Description 10/05/2022 Office Visit Neurology Lori Maloney Ma, MD [address] [place], [place] [phone] (Wo rk) documented as of this encounter Visit Diagnoses Not on filedocumented in this encounter Care Teams Power Shovel Operator Relationship Specialty Start Date End Date Mahogany Peñaloza PCP - General Internal Medicine 12/28/19 [facility] [address] [place] [address] documented as of this encounter
--- OUTSIDE RECORDS SUMMARY | 2022-09-18 20:47 | XMS_ITS | Encounter Summary ---
:1950 Author Organization [place] Address [address] [place] [address]. [place] [address] Care Team Providers Name Role Phone Mahogany Peñaloza Primary Care Provider Lori Maloney MD Unavailable [phone] Encounter Details Date Type Department Care Team Description 04/11/2021 Travel Social History Tobacco Use Types Packs/Day Years Used Date Smoking Tobacco: Never Smokeless Tobacco: Never Alcohol Use Standard Drinks/Week Comments Not Currently 0 (1 standard drink = 0.6 oz pure alcoho l) Sex Assigned at Date Recorded Not on file COVID-19 Exposure Response Date Recorded In the last month, have you been in contact with No / Unsure 04/11/2021 7:55 AM CDT someone who was confirmed or suspected to have Coronavirus / COVID-19? documented as of this encounter Plan of Treatment Upcoming Encounters Date Type Specialty Care Team Description 10/05/2022 Office Visit Neurology Lori Maloney Ma, MD [address] [place] [address] (Wo rk) documented as of this encounter Visit Diagnoses Not on filedocumented in this encounter Care Teams Radiochemical Technician Relationship Specialty Start Date End Date Mahogany Peñaloza PCP - General Internal Medicine 12/28/19 [facility] [address] [place] [address] Lori Maloney Assigned Neuroscience 08/12/20 MD Delisa Provider [address] [place] [address] documented as of this encounter
--- OUTSIDE RECORDS SUMMARY | 2022-09-18 20:47 | XMS_ITS | Encounter Summary ---
:1950 Author Organization [place] Address [address] [place] [id number] Care Team Providers Name Role Phone Mahogany Peñaloza Primary Care Provider Lori Maloney MD Unavailable Marc Hicks PhD Unavailable Reason for Visit Reason Onset Date Comments neuropsychological testing 06/21/2020 Encounter Details Date Type Department Care Team Description 06/21/2020 [facility] Neurology Lori Maloney neuropsychological testing 909 [facility] Debi Hercules MD 3rd Floor 909 [facility] [address] [place], [place] [phone] [facility] Social History Tobacco Use Types Packs/Day Years Used Date Smoking Tobacco: Never Smokeless Tobacco: Never Alcohol Use Standard Drinks/Week Comments Not Currently 0 (1 standard drink = 0.6 oz pure alcoho l) Sex Assigned at Date Recorded Not on file documented as of this encounter Miscellaneous Notes Telephone Encounter - Sandy Marcus - 06/21/2020 10:08 AM CDT [facility] Call Center Phone Message May a detailed message be left on voicemail: yes Reason for Call: Other: Patient calling in regards to neuropsychological testing that ordered last fall. Patient wondering if she can get scheduled. Sent over to the scheduling line but wanted to update Dr. Maloney that this still was not scheduled due to Covid. Patient is wondering if testing still needs to be done. Please advise. Action Taken: Other: NEUROLOGY Travel Screening: Not Applicable documented in this encounter Plan of Treatment Upcoming Encounters Date Type Specialty Care Team Description 10/05/2022 Office Visit Neurology Lori Maloney Ma, MD [address] [place] [address] (Wo rk) documented as of this encounter Visit Diagnoses Not on filedocumented in this encounter Care Teams Sprinkler Irrigation Equipment Mechanic Relationship Specialty Start Date End Date Mahogany Peñaloza PCP - General Internal Medicine 12/28/[address] [address] Lori Maloney Assigned Neuroscience 08/12/20 MD Delisa Provider [address] [place] [address] Marc Hicks, Assigned Behavioral 09/10/21 PhD Health Provider [address] [place] [address] documented as of this encounter
--- OUTSIDE RECORDS SUMMARY | 2022-09-18 20:47 | XMS_ITS | Clinical Summary ---
:1950 Author Organization [facility] [place] [address] Care Team Providers Name Role Phone Mahogany Peñaloza MD Primary Care Provider Allergies No known active allergies Medications Medication Sig Dispensed Refills Start Date End Date Status ASPIRIN 81 MG every other day 0 02/11/2008 Active TABIndications: Unspecified essential hypertension ORDER - MEDICATION Apply topically to affected area(s). Desonide LT/Ketoconzole CR 1:1 60 g 5 10/17/2011 Active ORDER Apply to affected area of face 1 to 2 times daily COMPOSERIndications: Eczema aspirin-acetaminophe Take 1 tablet by 0 08/06/2012 Active n-caffeine, mouth every 6 hours 250-250-65 mg, if needed for (EXCEDRIN) Headache. Max 250-250-65 mg tablet acetaminophen dose: 4000mg in 24 hrs. amitriptyline TAKE 1-4 TABLETS BY 360 tablet 3 06/29/2013 Active (ELAVIL) 10 mg MOUTH AT BEDTIME. tabletIndications: Insomnia, unspecified atenolol (TENORMIN) TAKE 1/2 TABLET BY 15 tablet 0 07/18/2013 Active 25 mg MOUTH ONCE DAILY. tabletIndications: Unspecified essential hypertension Calcium-Magnesium Take 2 tablets by 0 08/12/2013 Active tablet mouth. Eating more yogurt daily lisinopril Take 1 tablet by 90 tablet 3 08/12/2013 A ctive (PRINIVIL; ZESTRIL) mouth once daily. 10 mg tabletIndications: Unspecified essential hypertension atenolol (TENORMIN) Take 1 tablet by 90 tablet 3 08/12/2013 Active 25 mg mouth once daily. tabletIndications: Unspecified essential hypertension amitriptyline Take 1-4 tablets by 360 tablet 3 08/12/2013 Active (ELAVIL) 10 mg mouth at bedtime. tabletIndications: Anxiety ergocalciferol Take 1 capsule by 3 capsule 3 09/16/2013 Active (VITAMIN D) 50,000 mouth every 4 unit weeks. (dose capsuleIndications: decreased 09/16/13) Vitamin D deficiency rosuvastatin TAKE 1 TABLET(5 MG) 90 Tablet 0 08/08/2021 Active (CRESTOR) 5 mg BY MOUTH AT tabletIndications: BEDTIME. Hyperlipidemia, unspecified hyperlipidemia type Active Problems Problem Noted Date History of colon polyps 09/28/2019 Overview: Colonoscopy 09/2019 normal, repeat in 5 years Anxiety 08/12/2013 Eczema 05/16/2010 Contact dermatitis and other eczema, due to unspecifie d cause 03/03/2009 Overview: On face Disorder of bone and cartilage, unspecified 02/28/2008 Overview: Osteopenia 02/25 Other and unspecified hyperlipidemia 02/20/2008 Unspecified episodic mood disorder 02/11/2008 Overview: Seasonal affective d/o Malignant neoplasm of breast (female), unspecified sit e 01/19/2003 Overview: right lumpectomy 01/23 Unspecified essential hypertension Personal history of colonic polyps Overview: Hyperplastic polyps removed 08/24 Colonoscopy 05/2009 normal repeat in 5 ye ars Unspecified hypothyroidism Immunizations Name Administration Dates Next Due COVID-19 vaccine (SocialBro 12/31/2020, 12/10/2020 30mcg/0.3mL) PF, MDV Influenza A (H1N1), Inactivated 08/18/2009 Influenza RIV4 (Age 18+ Years) 08/24/2019 PRESERV FREE Influenza, High-dose Inactivated 09/01/2018, 08/09/2017 Influenza, High-dose Quadrivalent 07/27/2020 Inactivated Influenza, IIV3 (Age >=3 years) 07/17/2013, 08/06/2012, 07/22, 08/11/2010, 10/09/2005 Influenza, IIV4 10/02/2016 Pneumococcal Poly,23-Valent 09/01/2018 (Pneumovax) Pneumococcal conj 13-Valent (Prevnar 08/09/2017 13) Td (Age >=7 Years) 06/08/2003 Tdap 08/15/2012 Zoster (Shingrix-RZV, recombinant) 12/17/2018, 11/24/2018, 1 12/13/2017 Zoster (Zostavax-ZVL, live) 08/15/2012 Family History Medical History Relation Name Comments Psychiatric illness Brother 3 DEPRESSION, Alzheimer's Dz Cancer-prostate Brother 4 Cancer Father prostate d 93 yo Hypertension Father Stroke Mother TIA'S dementia d at 87 yo Relation Name Status Comments Brother 1 Alive Brother 2 Alive Brother 3 Brother 4 Father Maternal Grandfather Maternal Grandmother Mother Paternal Grandfather Paternal Grandmother Son Alive Social History Tobacco Use Types Packs/Day Years Used Date Never Smoker Smokeless Tobacco: Never Used Alcohol Use Standard Drinks/Week Comments Yes 1.7 (1 standard drink = 0.6 oz pure alco hol) once every 3 months Alcohol Habits Answer Date Recorded How often do you have a drink containing alcohol? Not asked How many drinks containing alcohol do you have on a Not aske d typical day when you are drinking? How often do you have six or more drinks on one Not asked occasion? Comment: once every 3 months 03/02/2009 Sex Assigned at Date Recorded Not on file Obstetrics History Para Term AB IAB SAB Ectopic Multiple Living Live Births 1 1 0 1 0 0 0 0 0 1 Date Outcome GA Total Labor/2nd/3rd Weight Sex Delivery Anes PTL Rosario A 1 A5 Name Clin Labor Last Filed Vital Signs Vital Sign Reading Time Taken Comments Blood Pressure 92/68 12/31/2013 5:15 PM CDT Pulse 69 12/31/2013 5:15 PM CDT Temperature 36.9 ??C (98.4 ??F) 12/31/2013 5:15 PM CDT Respiratory Rate 12 12/31/2013 5:15 PM CDT Oxygen Saturation 98% 10/11/2012 8:57 AM CORROSION CONTROL FITTER Inhaled Oxygen Concentration - - Weight 73.1 kg (161 lb 4 oz) 12/31/2013 5:15 PM CDT Height 159.4 cm (5' 2.75) 12/31/2013 5:15 PM CDT Body Mass Index 28.79 12/31/2013 5:15 PM CDT Plan of Treatment Health Maintenance Due Date Last Done Comments Depression screening for age 12+ 1964 BMI (ht and wt on same day) for 01/05/1970 age 18+ Hepatitis C screening for age 0301/05/1970 18-79 Mammogram for age 45-75 09/02/2015 09/02/2014, 08/12/2013, 08/20/2012, Additional history exists DEXA/DXA scan for age 65+ 01/05/2017 08/18/2013, 07/06/2010 , 02/20/2008 Medicare Wellness for age 65+ 01/05/2017 Lipids for age 45-75 08/12/2018 08/12/2013, 07/30/2012, 06/13/2011, Additional history exists COVID-19 vaccine series (4 - 09/14/2021 07/20/2021, 021, Booster for Pfizer series) 12/10/2020 Influenza for age 65+ 06/21/2022 07/27/2020, 08/24/2019, 09/01/2018, Additional history exists Tetanus booster 08/15/2022 08/15/2012, 06/08/2003 Colonoscopy through age 75 09/28/2024 09/28/2019, 9, 09/28/2019, Additional history exists Tdap Completed 08/15/2012 Pneumococcal series for age 65+ Completed 09/01/2018, 07/22 Zoster (shingles) series for age Completed 12/17/2018, 01/2019, 50+ 10/12/2018, Additional history exists Results Not on filefrom Last 3 Months Insurance Payer Benefit Plan / Subscriber ID Effective Dates Phone Addre ss Type Group BLUE CROSS BLUE CROSS [id number] 2017-Present [address] [address] [place], [place] MR PB ONLY [id number] [facility] [place]ZAN[place] (Home) [place], [place] [phone] (Work) Care Teams Media Technician Relationship Specialty Start Date End Date Mahogany Peñaloza MD PCP - General Internal Medicine 09/28/191999 [place] [address]
--- OUTSIDE RECORDS SUMMARY | 2022-09-18 20:47 | XMS_ITS | Encounter Summary ---
:1950 Author Organization [facility] Address [address] [place] [address]. [place] [address] Care Team Providers Name Role Phone Mahogany Peñaloza Primary Care Provider Lori Maloney MD Unavailable [phone] Encounter Details Date Type Department Care Team Description 02/24/2021 Travel Social History Tobacco Use Types Packs/Day Years Used Date Smoking Tobacco: Never Smokeless Tobacco: Never Alcohol Use Standard Drinks/Week Comments Not Currently 0 (1 standard drink = 0.6 oz pure alcoho l) Sex Assigned at Date Recorded Not on file COVID-19 Exposure Response Date Recorded In the last month, have you been in contact with No / Unsure 02/24/2021 5:01 PM CDT someone who was confirmed or suspected to have Coronavirus / COVID-19? documented as of this encounter Plan of Treatment Upcoming Encounters Date Type Specialty Care Team Description 10/05/2022 Office Visit Neurology Lori Maloney Ma, MD [address] [place] [address] (Wo rk) documented as of this encounter Visit Diagnoses Not on filedocumented in this encounter Care Teams Blade Aligner Relationship Specialty Start Date End Date Mahogany Peñaloza PCP - General Internal Medicine 12/28/19 [facility] [address] [place], [place] [id number] Lori Maloney Assigned Neuroscience 08/12/20 MD Delisa Provider [address] [place] [address] documented as of this encounter
--- OUTSIDE RECORDS SUMMARY | 2022-09-18 20:47 | XMS_ITS | Encounter Summary ---
:1950 Author Organization [facility] Address [address] [place] [address] Care Team Providers Name Role Phone Mahogany Peñaloza Primary Care Provider Reason for Referral Mental Health Outpatient (Routine) - Closed Specialty Diagnoses / Procedures Referred By Contact Refer red To Contact Diagnoses Cognitive changes Lori Maloney MD [address] [place] [address] Referral ID Status Reason Start Date Expiration Date Visits Requ ested Visits Authorized [id number] Closed 12/29/2019 12/28/2020 1 1 Diagnostic Imaging MRI (Routine) - Closed Specialty Diagnoses / Procedures Referred By Contact Refer red To Contact Diagnoses Cognitive changes Lori Maloney Procedures MRI Brain w/o contrast MD Delisa [address] [place] [address] 5 Referral ID Status Reason Start Date Expiration Date Visits Requ ested Visits Authorized [id number] Closed 12/29/2019 12/28/2020 1 1 Reason for Visit Reason Comments New Patient UMP NEW MEMORY LOSS ALZHEIME RS Encounter Details Date Type Department Care Team Description 12/29/2019 Office Visit Health Neurology Lori Maloney Cognitive changes [address] [place] [address] Debi Hercules MD (Primary Dx) 3rd Floor [address] [place] [address] [place], [place] [phone] (Wo rk) Social History Tobacco Use Types Packs/Day Years Used Date Smoking Tobacco: Never Smokeless Tobacco: Never Alcohol Use Standard Drinks/Week Comments Not Currently 0 (1 standard drink = 0.6 oz pure alcoho l) Sex Assigned at Date Recorded Not on file documented as of this encounter Last Filed Vital Signs Vital Sign Reading Time Taken Comments Blood Pressure 137/78 12/29/2019 1:13 PM CDT Pulse 59 12/29/2019 1:13 PM CDT Temperature - - Respiratory Rate 16 12/29/2019 1:13 PM CDT Oxygen Saturation 99% 12/29/2019 1:13 PM CDT Inhaled Oxygen Concentration - - Weight - - Height - - Body Mass Index - - documented in this encounter Patient Instructions Patient InstructionsLori Maloney MD - 12/29/2019 1:30 PM CDT We will send you for an MRI brain and neuropsychological testing and then we will review at your next appointment. documented in this encounter Progress Notes Lori Maloney MD - 12/29/2019 1:30 PM CDT Images from the original note were not included. [facility] Physicians Beatrice Hernandez Age: [age] year old Date of : 1950 Requesting physician: Referred Self Mahogany Peñaloza Chief Complaint: I am worried I have Alzheimers disease History of Present Illness: Ms Hernandez is a 69-year-old woman who presents today due to concerns regarding possible Alzheimersdisease. She is accompanied by her , Kavon. She is self-referred herself due to concern both she and her have for some change in memory function. She reports the following symptoms: She reports her concerns are that she doesn't have the balance she used to have She has poor night vision and she finds she has balance problems them and needs to be walked. No problems during te day She has trouble findings things around the house a such as her phone. She reports she doesn't put things in unusual places. She and her moved to [place] in 2002. She reports several years ago she lost her way downtown. Just one episode. She feels her sense of direction is worse. Her reports [place] walking trails and sometimes she gets she gets confused about which pond trail they are on within the last year. She reports she has a family history of Alzheimers in her mother and brother. Retired in 2017 a little prematurely because she noted that in the last 2-3 years of working she wasmaking mistakes. 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 She chose to retire. In the last year she notes trouble finding the right word. She couldn't remember the name paper clip. Her notes she recently will work around a word she can't find. Normal bladder function She is not sleeping well at night. She has a hard time turning her brain off and it has always been that way. This is not a new symptom. She is managing the family finances and is not making any mistakes. She has a BA from [employer]. She thinks she has ADD never diagnosed. She is driving in town only where she feels comfortable. This has been over the last year. She is tense when she drives and her reports he has noted her running a stop sign a time or two. Past Medical History: Diagnosis Date ??? Hypertension Glaucoma Past Surgical History: Procedure Laterality Date ??? CATARACT IOL, RT/LT ??? LASIK BILATERAL Social History Socioeconomic History ??? Marital status: Spouse name: Not on file ??? Number of children: Not on file ??? Years of education: Not on file ??? Highest education level: Not on file Occupational History ??? Not on file Social Needs ??? Financial resource strain: Not on file ??? Food insecurity Worry: Not on file Inability: Not on file ??? Transportation needs Medical: Not on file Non-medical: Not on file Tobacco Use ??? Smoking status: Never Smoker ??? Smokeless tobacco: Never Used Substance and Sexual Activity ??? Alcohol use: Not Currently ??? Drug use: Never ??? Sexual activity: Not on file Lifestyle ??? Physical activity Days per week: Not on file Minutes per session: Not on file ??? Stress: Not on file Relationships ??? Social connections Talks on phone: Not on file Gets together: Not on file Attends restoration service: Not on file Active member of club or organization: Not on file Attends meetings of clubs or organizations: Not on file Relationship status: Not on file ??? Intimate partner violence Fear of current or ex partner: Not on file Emotionally abused: Not on file Physically abused: Not on file Forced sexual activity: Not on file Other Topics Concern ??? Not on file Social History Narrative ??? Not on file Family History Problem Relation Age of Onset ??? Alzheimer Disease Mother 65 ??? Alzheimer Disease Brother 65 Current Outpatient Medications Medication Sig ??? atenolol (TENORMIN) 25 MG tablet ??? betamethasone dipropionate (DIPROSONE) 0.05 % external lotion ??? ketoconazole (NIZORAL) 2 % external shampoo ??? latanoprost (XALATAN) 0.005 % ophthalmic solution INSTILL 1 DROP IN BOTH EYES AT BEDTIME ??? lisinopril (ZESTRIL) 10 MG tablet ??? PAROEX 0.12 % solution ??? RESTASIS 0.05 % ophthalmic emulsion ??? triamcinolone (KENALOG) 0.1 % external cream APPLY TWICE DAILY TO RASH UP TO 2 WEEKS/MONTH NEEDED. No current facility-administered medications for this visit. No Known Allergies ROS: Please see HPI all other systems review and negative. See list at end of note Physical Examination: BP 137/78 (BP Location: Left arm, Patient Position: Chair, Cuff Size: Adult Regular) Pulse 59 Resp 16 SpO2 99% General Appearance: The patient is well groomed and cooperative with examination. She is in no acute distress Neurological Examination Cognition: oriented x3, attention and recall intact. No aphasia or dysarthria. Kokmen short test of mental status 8/8 orientation, 6/7 attention, 4/4 (1) registration, 3/4 calculation, 4/4 info, 3/3 abstract thinking, 4/4 construction, 3/4 recall total score 35/38 Cranial Nerves: 2-12 intact. Funduscopic examination is normal with sharp disc margins bilaterally. General Motor Survey: Normal muscle bulk, tone and strength in all four ext. No tremor Coordination: Finger to nose and heel knee huerta normal bilaterally. Normal alternating movements. Reflexes: Upper and lower extremity reflexes are within normal limits (+2) and bilaterally symmetric. Sensory Examination: Vibration: early extinction in the toes bilaterally, normal at ankles. Pinprick: normal Joint Position Sense: normal in all four ext Light Touch: normal in all four ext Gait: Normal gait which is stable on turns. Normal arm swing. Romberg negative. Cardiovascular Examination: Heart is regular in rate and rhythm to auscultation. No significant murmurs. No carotid bruits. No significant peripheral edema. Pedal pulses are palpable bilaterally. Musculoskeletal Examination: Neck is supple with full range of motion. No tenderness to palpation. Investigations: TSH 2.180 Free T4 1.09 Vitamin B12 686 NORA w/ reflex Detected. <1:80 Folate 08/27 Impression/Recommendations: 1. Cognitive changes, concern for MCI Ms. Hernandez is presenting with one years worth of slight change sin her cognition and a family history of Alzheimers disease. I am concerned this may represent the start of MCI. Considering her balance complaint we will also screen for NPH. I have ordered an MRI brain dn neuropsychological testing. No other testing needed at this time. She will continue to limit her driving. I will see her back after testing to review results. Lori Maloney MD [facility] Department of Neurology Pager [phone] Answers for HPI/ROS submitted by the patient on 12/29/2019 General Symptoms: No Skin Symptoms: No HENT Symptoms: No EYE SYMPTOMS: No HEART SYMPTOMS: No LUNG SYMPTOMS: No INTESTINAL SYMPTOMS: No URINARY SYMPTOMS: No GYNECOLOGIC SYMPTOMS: No BREAST SYMPTOMS: No SKELETAL SYMPTOMS: No BLOOD SYMPTOMS: No NERVOUS SYSTEM SYMPTOMS: No MENTAL HEALTH SYMPTOMS: No documented in this encounter Nursing Notes Kirsten Valdes - 12/29/2019 1:30 PM CDT Chief Complaint Patient presents with ??? New Patient UMP NEW MEMORY LOSS ALZHEIMERS Kirsten Valdes CMA documented in this encounter Plan of Treatment Upcoming Encounters Date Type Specialty Care Team Description 10/05/2022 Office Visit Neurology Amara Lori Ky Hercules MD [address] [place] [address] (Wo rk) Scheduled Referrals Name Type Priority Associated Diagnoses Order S chedule NEUROPSYCHOLOGY REFERRAL Referral Routine Cognitive change s Ordered: 12/29/2019 documented as of this encounter Results MRI Brain w/o contrast (01/10/2020 1:21 PM CDT) Anatomical Region Laterality Modality Head, SUBRAD MR NEURO, UMP MR NEURO, RAD MR Magnetic Resonance Specimen (Source) Anatomical Location Collection Method / Collectio n Time Received Time / Laterality Volume Impressions 01/10/2020 1:46 PM CDT Impression: 1. ??No acute intracranial pathology. 2. ??Leukoaraiosis with mild generalized cerebral atrophy. I have personally reviewed the examinati on and initial interpretation and I agree with the findings. PUNEET DUKES MD Narrative 01/10/2020 1:46 PM CDT MR BRAIN W/O CONTRAST 01/10/2020 1:21 PM Provided History: memory loss, and veda ce problems. ? NPH; Cognitive changes ICD-10: Cognitive changes Comparison: ??None available Technique: Sagittal T1-weighted and axia l T2-weighted, turboFLAIR and diffusion-weighted with ADC map images o f the brain were obtained without intravenous contrast. Findings: These images reveal no intracr anial mass lesion, mass effect, midline shift or abnormal extraa xial fluid collection. Moderate periventricular, subcortical an d deep white matter T2 hyperintensities, nonspecific which like ly represent chronic small vessel ischemic disease. Incidental cavu m septi pellucidi et vergae. The ventricles and sulci are normal for age. No abnormality of reduced diffusion. ??Normal intravascular flow v oids. Procedure Note Puneet Dukes MD - 01/10/2020Formatt ing of this note might be different from the original. MR BRAIN W/O CONTRAST 01/10/2020 1:21 PM Provided History: memory loss, and veda ce problems. ? NPH; Cognitive changes ICD-10: Cognitive changes Comparison: None available Technique: Sagittal T1-weighted and axia l T2-weighted, turboFLAIR and diffusion-weighted with ADC map images o f the brain were obtained without intravenous contrast. Findings: These images reveal no intracr anial mass lesion, mass effect, midline shift or abnormal extraa xial fluid collection. Moderate periventricular, subcortical an d deep white matter T2 hyperintensities, nonspecific which like ly represent chronic small vessel ischemic disease. Incidental cavu m septi pellucidi et vergae. The ventricles and sulci are normal for age. No abnormality of reduced diffusion. Normal intravascular flow voi ds. Impression: 1. No acute intracranial pathology. 2. Leukoaraiosis with mild generalized c erebral atrophy. I have personally reviewed the examinati on and initial interpretation and I agree with the findings. PUNEET DUKES MD Lori Maloney MD IMG MRI ORDERABLES documented in this encounter Visit Diagnoses Diagnosis Cognitive changes - Primary Other signs and symptoms involving cogni tion Cognitive changes Other signs and symptoms involving cogni tion documented in this encounter Care Teams Spares Scheduler Relationship Specialty Start Date End Date Mahogany Pñealoza PCP - General Internal Medicine 12/28/19 [facility] [address] [place] [address] documented as of this encounter
--- OUTSIDE RECORDS SUMMARY | 2022-09-18 20:47 | XMS_ITS | Encounter Summary ---
:1950 Author Organization [place] Address [address] [place] [address]. [place] [address] Care Team Providers Name Role Phone Mahogany Peñaloza Primary Care Provider Encounter Details Date Type Department Care Team Description 04/01/2020 Telephone [facility] Neuropsycho logLuda Grimaldo [address] [facility] 3rd Floor [place], [place] [phone] Social History Tobacco Use Types Packs/Day Years [...] Visit Neurology Lori Maloney Ma, MD [address] [place], [place] [phone] (Wo rk) documented as of this encounter Visit Diagnoses Not on filedocumented in this encounter Care Teams Vending Machine Collector Relationship Specialty Start Date End Date Mahogany Peñaloza PCP - General Internal Medicine 12/28/19 [facility] [address] [place] [address] documented as of this encounter
--- OUTSIDE RECORDS SUMMARY | 2022-09-18 20:47 | XMS_ITS | Encounter Summary ---
:1950 Author Organization [place] Address [address] [place] [id number] Care Team Providers Name Role Phone Anablea Mahogany Primary Care Provider Lori Maloney MD Unavailable [phone] Encounter Details Date Type Department Care Team Description 08/16/2020 Abstract [facility] Marc Hicks, Neuropsychology Ivette reece PhD [address] [place] [id number] [place] [phone] Social History Tobacco Use Types Packs/Day Years Used Date Smoking Tobacco: Never Smokeless Tobacco: Never Alcohol Use Standard Drinks/Week Comments Not Currently 0 (1 standard drink = 0.6 oz pure alcoho l) Sex Assigned at Date Recorded Not on file documented as of this encounter Progress Notes Marc Hicks, PhD - 08/16/2020 11:59 PM CDT Patient: Beatrice Hernandez : 54 [facility]: 08/16/20 Education: 16 Handedness: Right Provider: HUMBERTO Tabulating Supervisor: ALFIE Station: Outpatient Age: 70 Visit Type: (tel/vid) Video Platform (if video) [place] ORIENTATION WRAT-4 WAIS-IV Raw SS RDS Personal Info 3 Raw 70 Digit Span [address] 141 Vocabulary 47 13 Time 0 %ile 99.7 Matrix Reasoning 9 7 Est VIQ Presidents 4 Grade Equivalence >12.9 Similarities 23 9 105 [place] NAMING TEST COWAT ANIMAL FLUENCY Raw 59 Form CFL Raw 19 SS/MAS 16.00 Raw 42 SS/z 10 T/%ile 98 SS/MAS/z 12 T 48 Total Stim Correct 0 T/%ile 72-81 Total Phonemic Correct 0 COMPLEX IDEATIONAL MATERIAL CLOCK DRAWING RBANS LINE ORIENTATION Raw 12 Command 1-Normal Raw 17 SS 12 z 0.14 T 53 %ile 51-75 TSAT Total time 60 Z 1.00 Total Errors 0 Z 0.92 HVLT Trial 1 6 T-Score T-Score Trial 2 7 Total Recall 22 46 True Positives 11 Trial 3 9 Delayed Recall 6 40 False Positives 0 Learning 3 Percent Retention 67 40 Discrim. Index 11 53 RBANS STORY Total Immediate 21 z Score 0.74 Scaled Score 11 Total Delay 10 z Score 0.33 Scaled Score 11 BDI-II Total 0 Interpretation Minimal ABELARDO Total 7 Interpretation Minimal ER MINER BLASTING documented in this encounter Plan of Treatment Upcoming Encounters Date Type Specialty Care Team Description 10/05/2022 Office Visit Neurology Lori Maloney Ma, MD [address] [place] [phone] (Wo rk) documented as of this encounter Visit Diagnoses Not on filedocumented in this encounter Care Teams Director Of Adult Epilepsy Relationship Specialty Start Date End Date Mahogany Peñaloza PCP - General Internal Medicine 12/28/19 [facility] [address] [place] [address] Lori Maloney Assigned Neuroscience 08/12/20 MD Delisa Provider [address] [place] [phone] documented as of this encounter
--- OUTSIDE RECORDS SUMMARY | 2022-09-18 20:47 | XMS_ITS | Encounter Summary ---
:1950 Author Organization [place] Address [address] [place] [address]. [place] [address] Care Team Providers Name Role Phone Mahogany Peñaloza Primary Care Provider Encounter Details Date Type Department Care Team Description 12/29/2019 Travel Social History Tobacco Use Types Packs/Day [...] Visit Neurology Lori Maloney Ma, MD [address] [place], [place] [phone] (Wo rk) documented as of this encounter Visit Diagnoses Not on filedocumented in this encounter Care Teams Bulker Relationship Specialty Start Date End Date Mahogany Peñaloza PCP - General Internal Medicine 12/28/19 [facility] [address] [place] [address] documented as of this encounter
--- OUTSIDE RECORDS SUMMARY | 2022-09-18 20:47 | XMS_ITS | Encounter Summary ---
:1950 Author Organization [place] Address [address] [place] [address] Care Team Providers Name Role Phone Prabha Peñalozaherine Primary Care Provider Reason for Visit Diagnostic Imaging MRI (Routine) - Closed Specialty Diagnoses / Procedures Referred By Contact Refer red To Contact Diagnoses Cognitive changes Lori Maloney Procedures MRI Brain w/o contrast MD Delisa [address] [place] [address] Referral ID Status Reason Start Date Expiration Date Visits Requ ested Visits Authorized [id number] Closed 12/29/2019 12/28/2020 1 1 Encounter Details Date Type Department Care Team Description 01/10/2020 Ancillary Procedure [facility]ori Maloney [facility] MRI Debi Hercules MD [address] [place] [address] [place] [address] [phone] Social History Tobacco Use Types Packs/Day Years [...] / COVID-19? documented as of this encounter Miscellaneous Notes Result Encounter Note - Lori Maloney MD - 01/10/2020 1:00 PM CDT See My chart comment to patient Lori Maloney MD 01/12/2020 4:42 PM documented in this encounter Plan of Treatment Upcoming Encounters Date Type Specialty Care Team Description 10/05/2022 Office Visit Neurology Lori Maloney Ma, MD [address] [place] [address] (Wo rk) documented as of this encounter Procedures Procedure Name Priority Date/Time Associated Diagnosis Comme nts MR BRAIN W/O Routine 01/10/2020 1:21 PM Cognitive changes Resu lts for this CONTRAST CDT procedure are i n the results section. [...] with the findings. PUNEET DUKES MD Lori Debi Maloney MD IMG MRI ORDERABLES documented in this encounter Visit Diagnoses Diagnosis Cognitive changes Other signs and symptoms involving cogni tion documented in this encounter Care Teams Spiritual Minister Relationship Specialty Start Date End Date Mahogany Peñaloza PCP - General Internal Medicine 12/28/19 [facility] [address] [place] [address] documented as of this encounter
--- OUTSIDE RECORDS SUMMARY | 2022-09-18 20:47 | XMS_ITS | Encounter Summary ---
:1950 Author Organization [place] Address [address] [place] [address] Care Team Providers Name Role Phone Prabha Peñalozaherine Primary Care Provider Lori Maloney MD Unavailable [phone] Reason for Referral Mental Health Outpatient (Routine) - Closed Specialty Diagnoses / Procedures Referred By Contact Refer red To Contact Diagnoses Cognitive complaints Lori Maloney MD [address] [place] [address] Referral ID Status Reason Start Date Expiration Date Visits Requ ested Visits Authorized [id number] Closed 04/11/2021 04/11/2022 1 1 Reason for Visit Reason Comments RECHECK F/u after neuropsych testing Encounter Details Date Type Department Care Team Description 04/11/2021 Office Visit [facility] Lori Maloney Cognitive complaints Neurology [facility] Kenny Brown (Primary Dx) [address] [place] [address] [phone] Social History Tobacco Use Types Packs/Day Years [...] Pulse 57 04/11/2021 8:03 AM CDT Temperature - - Respiratory Rate - - Oxygen Saturation 100% 04/11/2021 8:03 AM CDT Inhaled Oxygen Concentration - - Weight 68 kg (149 lb 14.4 oz) 04/11/2021 8:03 AM CDT Height - - Body Mass Index - - documented in this encounter Progress Notes Lori Maloney MD - 04/11/2021 8:30 AM CDT Images from the original note were not included. [facility] Physicians Beatrice Hernandez Age: [age] year old Date of : 1950 Requesting physician: Referred Self Mahogany Peñaloza Assessment and Plan: (R41.9) Cognitive complaints (primary encounter diagnosis) Comment: I do not believe the patient has dementia. She sloan snot have significant impairment of iADLS. She has balance problems and visual problems that could be due to her visual problems. She will repeat testing with Dr Hicks to make sure aren't missing anything. I spent over 45 minutes iwith the patient in person reviewing her results and reassuring her that I see no dementia. She mentions a letter she received an I am not sure what she is reporting but I think it is a copy of the initial consult where I mentioned possibility of MCI and need for testing. I explained I do not see MCI as the diagnosis at this time. Plan: 1. NEUROPSYCHOLOGY REFERRAL Dr Hicks July 2022 Follow up with me afterwards to review results. Overall today I spent 56 minutes caring for the patient including record review, patient visit and documentation time. Lori Maloney MD History of Present Illness: CC: Return appointment Ms Hernandez is a 71-year-old who was seen last December with concerns on her part for failing memory in the setting of a a family history of dementia. Last year I ordered MRI brain and neuropsychological testing. Today I reviewed those results. No dementing illness nor MCI was confirmed. Dr Hicks did recommend repeat testing to see if the areas of poor performance were related to anxiety/ ADHD vs worsening degenerative disease. MRI brain showed a fair amount of vascular disease. No hydrocephalus. Current symptoms: She reports eye issues and problems with depth perception and reading issues due to needing prisms. She also reports her peripheral vision is narrowed and she has dry eyes. She has glaucoma. She reports she slips and falls more than she used to. She slips on icy side walks. When asked how many falls 2-3/ in a year. Some on ice, sometimes she trips of raised side walks. She has learned to take things slower. She notices she bites her tongue more than she used to. Can be either side or tip of tongue. She has a tendency looking for something but she has a hard time seeing it. Newer problem according to . May be vision related dark object on counter. Sometimes can't see something in refrigerator. Loses car keys, glasses and phone. She reports an episode of with cinder worker. Can't see battery wasn't in there. Went to ask for help and he pointed out it wasn't there. She is using CPAP. She thinks the CPAP helps her insomnia, RLS. She tolerates the mask. Sometimes forgetting words of things. Example: couldn't remember word for paperclip. Instead she describes the object. Her spouse, Kavon, reports she sometimes thinks he says something when he doesn't. Often at night when she is sleeping in front of TV and then she wakes up and asks him what he said. Physical Exam: BP 135/78 Pulse 57 Wt 68 kg (149 lb 14.4 oz) SpO2 100% 05/28 orientation 03/27 attention 01/22 information 01/22 registration 12/22 calculation 12/21 Abstract thinking 11/24 construction 11/24 Recall [place] Short test of Mental Status: 32 Pertinent History/Data for appointment: MR BRAIN W/O CONTRAST 01/10/2020 1:21 PM ?? Provided History: memory loss, and balance problems. ? NPH; Cognitive changes ICD-10: Cognitive changes ?? Comparison: None available ?? Technique: Sagittal T1-weighted and axial T2-weighted, turboFLAIR and diffusion-weighted with ADC map images of the brain were obtained without intravenous contrast. ?? Findings: These images reveal no intracranial mass lesion, mass effect, midline shift or abnormal extraaxial fluid collection. Moderate periventricular, subcortical and deep white matter T2 hyperintensities, nonspecific which likely represent chronic small vessel ischemic disease. Incidental cavum septi pellucidi et vergae. The ventricles and sulci are normal for age. No abnormality of reduced diffusion. Normal intravascular flow voids. ?? Impression: 1. No acute intracranial pathology. 2. Leukoaraiosis with mild generalized cerebral atrophy. ?? I have personally reviewed the examination and initial interpretation and I agree with the findings. ?? CRIS SNEED MD documented in this encounter Nursing Notes Mu Velasquez CMA - 04/11/2021 8:30 AM CDT Chief Complaint Patient presents with ??? RECHECK F/u after neuropsych testing Mu Velasquez CMA documented in this encounter Plan of Treatment Upcoming Encounters Date Type Specialty Care Team Description 10/05/2022 Office Visit Neurology Lori Maloney Ma, MD [address] [place] [phone] (Wo rk) Scheduled Referrals Name Type Priority Associated Diagnoses Order S chedule NEUROPSYCHOLOGY REFERRAL Referral Routine Cognitive compla ints Ordered: 04/11/2021 documented as of this encounter Visit Diagnoses Diagnosis Cognitive complaints - Primary Other signs and symptoms involving cogni tion documented in this encounter Care Teams Resource Manager Forester Relationship Specialty Start Date End Date Mahogany Peñaloza PCP - General Internal Medicine 12/28/19 [facility] [address] [place] [address] Lori Maloney Assigned Neuroscience 08/12/20 MD Delisa Provider [address] [place] [phone] documented as of this encounter
--- OUTSIDE RECORDS SUMMARY | 2022-09-18 20:47 | XMS_ITS | Encounter Summary ---
:1950 Author Organization [facility] Address [address] [place] [address] Care Team Providers Name Role Phone Mahogany Peñaloza Primary Care Provider Lori Maloney MD Unavailable [phone] Reason for Visit Mental Health Outpatient (Routine) - Closed Specialty Diagnoses / Referred By Referred To Procedures Contact Contact Clinical Neuropsychologist / Diagnoses Cognitive changes Confirmed email: [email or web address] Marc Redd Neuropsychology Procedures VIDEO VISIT LIAM Arellano, [address] [place] [phone] Referral ID Status Reason Start Date Expiration Date Visits Requ ested Visits Authorized [id number] Closed 08/16/2020 10/20/2020 1 1 Encounter Details Date Type Department Care Team Description 08/16/2020 Virtual Visit [facility] Lori Maloney MD [address] [place] [id number] Complaints of Neuropsychology Marc Hicks, PhD [address] [place] [phone] memory disturbance Gary (Primary Dx) [address] [place] [address] [address] [place] [address] Social History Tobacco Use Types Packs/Day Years Used Date Smoking Tobacco: Never Smokeless Tobacco: Never Alcohol Use Standard Drinks/Week Comments Not Currently 0 (1 standard drink = 0.6 oz pure alcoho l) Sex Assigned at Date Recorded Not on file documented as of this encounter Progress Notes Marc Hicks, PhD - 08/16/2020 8:00 AM CDT Beatrice Hernandez is a 70-year-old woman who is being evaluated via a billable video visit. Telemedicine services are necessary because of the COVID-19 pandemic. The patient has been notified of following: This video visit will be conducted via a call between you and your physician/provider. We have found that certain health care needs can be provided without the need for an in-person exam. This servicelets us provide the care you need with a video conversation. Video visits are billed at different rates depending on your insurance coverage. Please reach out to your insurance provider with any questions. If during the course of the call the provider feels a video visit is not appropriate, you will not be charged for this service. Patient has given verbal consent for Video visit? Yes Patient would like the video invitation sent by: Send to e-mail at: [email or web address] Will anyone else be joining your video visit? No Video-Visit Details Type of service: Video Conference Interview: Video Start Time: 8:11 AM Video End Time: 8:40 AM Formal Testing: Video Start Time: 8:43 AM Video End Time: 10:15 AM Originating Location (pt. Location): Home Distant Location (provider location): [facility] Platform used for Video Visit: [facility] NAME: Beatrice Hernandez : 1950 HU: 08/16/2020 Neuropsych[address] [id number] NEUROPSYCHOLOGICAL EVALUATION RELEVANT HISTORY AND REASON FOR REFERRAL This is a report of neuropsychological consultation regarding Beatrice Hernandez, a 70-year-old, right-handed woman with 16 years of formal education. She presents with concerns about cognitive changes like forgetfulness, misplacing items, reduced sense of direction, and word-finding troubles. These issues have been noticed over recent years, and there is a family history of Alzheimer's disease. Her mother at 88 after about 10 years of symptoms, and her brother had a very rapid course come on around age 70. More chronically, she suspects undiagnosed inattentive-type ADHD, given that her son carries this diagnosis and she sees many similarities in herself. Cognitive screening was within normal mendoza its (Kokmen 35/38) [address] Dr[address] Lori Maloney for a neurologic evaluation in December of this year. Dr. Maloney ordered neuropsychological evaluation of brain functioning in this context, to aid with diagnosis and treatment planning. In interview, Ms. Hernandez describes her presenting concerns as above. Of note, with Dr. 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 Today, she indicates this was not a matter of cognitive decline but more a matter of a new travel information center supervisor who had an incompatible personality and poor relationship with her. She tells me that her cognitive concerns began after her [facility]. They are not clearly progressive to her, and she feels like she is starting to develop strategies to better keep track of things. She lives at home with her of 29 years. She has a 26-year-old son who lives nearby, and her son has not made any comments about cognitive concerns. There have been no changes in her ability to manage the household finances. She remains independent for all medical management. She limits her driving because of changes in night vision, but she is otherwise comfortable with driving during the day. She does dislike heavy or dense traffic and has always been made nervous by coming through the [facility] area. Doing today's visit via video is better for her than driving into campus. She describes some concerns about changes with her balance. Mainly, she says she does not look whereshe is going and tends to trip or stumble. She twisted her ankle on some steps recently, and she attributes this to being overly distracted. She also recently switched from riding a bicycle to a recumbent tricycle, because she felt too unstable on a two-wheeled set up. There are no indications of tremors or parkinsonism. She has never had a stroke. She has never had a seizure. There is no history of TBI. She does not have problems with migraines. There is no known history of neurologic infections. She thinks her senses of smell and taste have maybe become a little less intense or dulled, but she isnot really sure. She reports some limited changes in hearing acuity that do not require hearing aids. She recently had a cataract surgery, with mixed results. 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 She has lost about 20 pounds since 2017, because she is less sedentary now that she is retired. She started using CPAP overnight this year, and her energy levels have also improved. She does not have problems with chronic pain. She frequently bicycles and has done long-distance events (e.g., RAGBRAI).She reports hypertension treated with medications since she was in her 20s, having a slightly enlarged heart, and a history of tachycardia. She occasionally experiences chest tightness. Sometimes it isquite short and sometimes it lasts up to 30 minutes and may include hyperventilation. With one of the longer events, she reportedly had a negative cardiac workup. She says the events do not correlate to stressors or other anxiety-inducing situations. She reports no history of clinically significant mental health concerns, though she says she probably should have sought out counseling or other help in 2017, due to increased stress with her boss and the rough end to her career. Presently, she just reports a fear of cognitive decline, though she saysit is not a severe issue. She has never had hallucinatory experiences. She reports brief issues withsuicidal ideation in the setting, but never any desires and certainly no actions. She reports no alcohol use and no history of alcohol problems. She does not use tobacco or illicit drugs. Regarding sleep, she says it has always been hard for her to calm her mind at night. CPAP has been helpful for sleep quality and restless legs. She does not have any sleep medications. There is no known history of early life medical complications or developmental abnormalities. She says there were never any specific academic delays, though as noted, she suspects inattentive-type ADHDthat was never diagnosed. She had to work harder than most students and felt she needed a lot of repetition of materials to be learned. Overall, she feels she did okay in school. She earned a bachelor's degree at [employer], usually earning Bs or Cs in most courses, but also some As in [place] courses. 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 As noted, family history includes diagnoses of Alzheimer's disease for her mother and brother, and adiagnosis of ADHD for her son. Her father at age 93, cognitively intact. There is no known history of psychiatric disease or significant mental health concerns of the family. BEHAVIORAL OBSERVATIONS Ms. Hernandez was polite and cooperative with the evaluation. She was open and candid in the interview, and she appeared to be a good historian. Her insight into the referral concern was good. Speech production was normal. Language comprehension was normal. She was alert and attentive. Thought processes were linear and goal-directed. Mood was neutral to slightly tense. Affective display was mood-congruent. Her effort and persistence were good throughout the evaluation. The test results may provide reasonable reflections of her cognitive abilities. However, the conditions of the assessment are not standard as the visit was conducted by videoconference instead of in person, which may render inaccurate any comparisons to standard normative data. MEASURES ADMINISTERED The following measures were administered by a trained precision market insights, under my direct supervision: Orientation: Time, Place, Basic Personal Information, Recent US Presidents; Wide Range Achievement Test 4: Word Reading; Sarai Adult Intelligence Scales-IV: Vocabulary, Similarities, Matrix Reasoning, Digit Span; Controlled Oral Word Association Test; Animal Naming Test; [place] Naming Test; ComplexIdeational Material; Test of Sustained Attention & Tracking; Clock Drawing; Laguna Verbal Learning Test-Revised; Repeatable Battery for the Assessment of Neuropsychological Status: Immediate and Delayed Stories, Judgment of Line Orientation; Ramírez Depression Inventory-II; Ramírez Anxiety Inventory. RESULTS AND INTERPRETATION Orientation was normal for time and place. For basic personal information, she misstated her age by 1 year. She was able to name 4 of the last 6 US presidents. Performance on a reading and pronunciation test that is validated for estimating premorbid intelligence was exceptionally high (>99th %ile). Demonstrating vocabulary knowledge was high average. Abstract verbal analogical reasoning was middle average. Visual reasoning through pattern identification was low average. Clock drawing was normal.Visual perceptual matching and discrimination of variably oriented lines was upper average. Immediate auditory attention and working memory were average for repeating and rearranging digit strings. Perf ormances were high average across a variety of brief verbal tasks requiring executive management of attention and concentration. Confrontation naming was strongly above average. Letter-based verbal fluency was high average. Category- based verbal fluency was average. Oral comprehension and making inferences from sentences and brief paragraphs was intact. Immediate verbal memory for short stories was average, and delayed story recall was average. Learning a word list over repeated readings was average. Delayed free recall of the list was low average and delayed recognition of the list was average. On brief self-report inventories, she endorsed no symptoms related to depression (BDI-II = 0) and minimal to borderline symptoms related to anxiety (ABELARDO = 7). IMPRESSIONS AND RECOMMENDATIONS In the context of nonstandard and limited assessment via video conference instead of in person (as necessitated by the current COVID-19 situation), the cognitive test results are within normal limits. She has an estimated utuf-gvzmr-bhqsfdm cognitive baseline (despite reported ADHD-based interference to academic achievement), and many results today are above average. They could be due to situational factors, but the few test results that are on the low end of average might represent a relative decline from premorbid functioning. Among her presenting concerns is a sense of poorer ability with directions, and her lowest performance today is on a measure of visual reasoning. I would want to see the data replicate in a second assessment before strongly inferring changes in cognitive capacity or presuming a decline in cerebral integrity. Prodromal neurologic conditions cannot be ruled out, but it is also possible that her presenting concerns are more about normal aging with some interference from erasmo gstanding ADHD-like tendencies, as well as somewhat anxious temperament. I defer to Dr. Maloney regarding any treatment options or further clinical workups. I cannot opine oncauses for her growing sense of imbalance. She should continue to stay as healthy and active as possible, and to continue using her CPAP overnight. She should keep working with her physicians to control cardiovascular risk factors. She reports no significant loss of ADL management, plus some development of strategies for getting around her cognitive concerns. Given her reported lifelong traits, she might want to look for additional tips and workarounds by self-directed study of books like Taking Charge of Adult ADHD by Dr. Trevon Winchester or Mastering Your Adult ADHD from [employer]?Treatments That Work?? series. I would like to reevaluate Ms. Hernandez against today???s baseline in about 9- 12 months, to assess for stability versus change in her test performances. I would always be happy to see her sooner or later than that, as clinically indicated. Marc Hicks, PhD, LP, ABPP-CN Board Certified in Clinical Neuropsychology Licensed Psychologist [id number] [address] [place] Department of Rehabilitation Medicine Division of Adult Neuropsychology [facility] Time spent: One hour neurobehavioral status exam including interview, clinical assessment by licensed and board-certified neuropsychologist (CPT 95765). 110 minutes neuropsychological testing evaluation by licensed and board-certified neuropsychologist, including integration of patient data, interpretation of standardized test results and clinical data, clinical decision-making, treatment planning, report, and interactive feedback to the patient (CPT 67489, 49457). 141 minutes of psychological and neuropsychological test administration and scoring by research laboratory technician (CPT 58723, CPT 77317). 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 Lori Maloney, for the purposes of diagnostic clarification and treatment planning. 141 minutes of test administration and scoring were provided by this data analyst report writer, Placido Tierney. Please see Dr. Marc Hicks's report for a full interpretation of the findings. documented in this encounter Plan of Treatment Upcoming Encounters Date Type Specialty Care Team Description 10/05/2022 Office Visit Neurology Lori Maloney Ma, MD [address] [place] [phone] (Wo rk) documented as of this encounter Procedures Procedure Name Priority Date/Time Associated Diagnosis Comme nts CT PSYCL/NRPSYCL TST TECH 2+ Routine 08/23/2020 4:34 PM Compla ints of memory TST EA ADDL 30 MIN ANALYTICAL CHEMISTRY TEACHER disturbance CT PSYCL/NRPSYCL TST TECH 2+ Routine 08/23/2020 4:34 PM Compla ints of memory TST 1ST 30 MIN ANALYTICAL CHEMISTRY TEACHER disturbance CT NEUROPSYCHOLOGICAL TST Routine 08/23/2020 4:34 PM Complaint s of memory EVAL PHYS/QHP EA ADDL HR ANALYTICAL CHEMISTRY TEACHER disturbance CT NEUROPSYCHOLOGICAL TST Routine 08/23/2020 4:34 PM Complaint s of memory EVAL PHYS/QHP 1ST HOUR ANALYTICAL CHEMISTRY TEACHER disturbance CT NEUROBEHAVIORAL STATUS Routine 08/23/2020 4:34 PM Complaint s of memory EXAM BY PHYS/OTHR HC ANALYTICAL CHEMISTRY TEACHER disturbance PROFESSIONAL, 1ST HOUR documented in this encounter Visit Diagnoses Diagnosis Complaints of memory disturbance - Prima ry Memory loss documented in this encounter Care Teams Resource Teacher Relationship Specialty Start Date End Date Mahogany Peñaloza PCP - General Internal Medicine 12/28/19 [facility] [address] [place] [address] Lori Maloney Assigned Neuroscience 08/12/20 MD Delisa Provider [address] [place], [place] [address] documented as of this encounter
--- OUTSIDE RECORDS SUMMARY | 2022-09-18 20:47 | XMS_ITS | Encounter Summary ---
:1950 Author Organization [facility] Address [address] [place] [address] Care Team Providers Name Role Phone Mahogany Peñaloza Primary Care Provider Lori Maloney MD Unavailable [phone] Marc Hicks PhD Unavailable Reason for Visit Reason Onset Date Comments Call Back 07/24/2021 Encounter Details Date Type Department Care Team Description 07/24/2021 [facility] Marc Hicks, Call Back Neuropsychology Ivette reece PhD [address] [place] [phone] Social History Tobacco Use Types Packs/Day Years Used Date Smoking Tobacco: Never Smokeless Tobacco: Never Alcohol Use Standard Drinks/Week Comments Not Currently 0 (1 standard drink = 0.6 oz pure alcoho l) Sex Assigned at Date Recorded Not on file documented as of this encounter Miscellaneous Notes Telephone Encounter - Samantha Kelley - 07/26/2021 4:39 PM CDT [facility] 07/26. Confirm pt is seeing Dr. Hicks. She saw Dr. Hicks last July. Telephone Encounter - Jean Sarah - 07/24/2021 9:08 AM CDT [facility] Phone Message May a detailed message be left on voicemail: yes Reason for Call: Other: Pt want to discuss getting Neuropsych test form the same person that gave test to her last time. Pt requests call back to discuss. Action Taken: Message routed to: [facility] Neuropsych Travel Screening: Not Applicable documented in this encounter Plan of Treatment Upcoming Encounters Date Type Specialty Care Team Description 10/05/2022 Office Visit Neurology Lori Maloney Ma, MD [address] [place] [phone] (Wo rk) documented as of this encounter Visit Diagnoses Not on filedocumented in this encounter Care Teams Junior Systems Administrator Relationship Specialty Start Date End Date Mahogany Peñaloza PCP - General Internal Medicine 12/28/19 [facility] [address] [place] [address] Lori Maloney Assigned Neuroscience 08/12/20 MD Delisa Provider [address] [place] [phone] Marc Hicks, Assigned Behavioral 09/10/21 [facility] [address] [place] [phone] documented as of this encounter
--- OUTSIDE RECORDS SUMMARY | 2022-09-18 20:47 | XMS_ITS | Encounter Summary ---
:1950 Author Organization [facility] Address [address] [place] [address]. [place] [address] Care Team Providers Name Role Phone Mahogany Peñaloza Primary Care Provider Encounter Details Date Type Department Care Team Description 05/08/2020 Travel Social History Tobacco Use Types Packs/Day [...] Visit Neurology Lori Maloney Ma, MD [address] [place], [place] [phone] (Wo rk) documented as of this encounter Visit Diagnoses Not on filedocumented in this encounter Care Teams Cardiopulmonary Technologist Chief Relationship Specialty Start Date End Date Mahogany Peñaloza PCP - General Internal Medicine 12/28/19 [facility] [address] [place] [address] documented as of this encounter
--- OUTSIDE RECORDS SUMMARY | 2022-09-18 20:47 | XMS_ITS | Encounter Summary ---
:1950 Author Organization [facility] Address [address] [facility] [place] [address] Care Team Providers Name Role Phone Unavailable Primary Care Provider Unavailable Encounter Details Date Type Department Care Team Description 12/31/[address] [facility] [employer] Nina Beltran, RN [address] [place] [address] Social History Tobacco Use Types Packs/Day Years Used Date Smoking Tobacco: Never Assessed Sex Assigned at Date Recorded Not on file documented as of this encounter Miscellaneous Notes Telephone Encounter - Nina Beltran, RN - 12/31/2015 12:39 AM CST Call Type: Triage Call Presenting Problem: Patient calling stating that suddenly in the last one hour she felt her heart beating faster and pounding in her chest. states feels some chest pain from this change but is not able to describe it. States they are in the process of moving and she hasn't had much sleep, has been working hard getting ready, also has decrease fluid intake. 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 Stated it was hard to read as it was very fast and irregular. Patient recently took 2 Amitriptyline and 1 atenolol. Patient hasn't slept yet tonight. They will head on in to ED. Triage Note: Guideline Title: Irregular Heartbeat Recommended Disposition: See ED Immediately Original Inclination: Wanted to speak with a nurse Override Disposition: Intended Action: Follow advice given Physician Contacted: No New onset of rapid pulse (greater than 120 beats/minute at rest) OR slow pulse (less than 50 beats per minute at rest) ? YES Loss of consciousness for any period of time ? NO New or worsening signs and symptoms that may indicate shock ? NO Signs of dehydration and pulse rate at rest greater than 100 beats/minute ? NO Currently having palpitations/irregular heartbeats AND severe breathing problems ? NO Has a pacemaker AND new symptoms of decreased cardiac output (episode of feeling faint, dizzy or fatigue, sudden slowing of pulse, or shortness of breath) ? NO Any other cardiac signs/symptoms for more than 5 minutes, now or within last hour. Pain is NOT associated with taking a deep breath or a productive cough, movement, or touch to a localized area on the chest or upper body. ? NO Known heart failure (HF) and new onset of palpitations or irregular pulse ? NO Sudden onset of rapid pulse (greater than 120 beats/minute at rest) OR slow pulse (less than 50 beats per minute at rest) with heat exposure (high temperature, high humidity, strenuous exercise) ? NO Physician Instructions: Care Advice: Another adult should drive. RONMENTAL SPECIALIST documented in this encounter Plan of Treatment Upcoming Encounters Date Type Specialty Care Team Description 10/05/2022 Office Visit Neurology Lori Maloney Ma, MD [address] [place], [place] [phone] (Wo rk) documented as of this encounter Visit Diagnoses Not on filedocumented in this encounter
--- OUTSIDE RECORDS SUMMARY | 2022-09-18 20:47 | XMS_ITS | Encounter Summary ---
:1950 Author Organization [facility] Address [address] [place] [address]. [place] [address] Care Team Providers Name Role Phone Mahogany Peñaloza Primary Care Provider Encounter Details Date Type Department Care Team Description 12/28/2019 Travel Social History Tobacco Use Types Packs/Day Years Used Date Smoking Tobacco: Never Assessed Sex Assigned at Date Recorded Not on file documented as of this encounter Plan of Treatment Upcoming Encounters Date Type Specialty Care Team Description 10/05/2022 Office Visit Neurology Lori Maloney Ma, MD [address] [place] [address] (Wo rk) documented as of this encounter Visit Diagnoses Not on filedocumented in this encounter Care Teams Animal Husbandman Relationship Specialty Start Date End Date Mahogany Peñaloza PCP - General Internal Medicine 12/28/19 [facility] [address] [place] [address] documented as of this encounter
--- NOTE | 2022-10-09 08:33 | W.PM.SLEEP ---
Sleep Study Details Details Interpreting Provider: Sean Garcia MD Date of Sleep Study: 09/18/22 Sleep Study Details: STUDY TYPE:? Hospital with CPAP ? BMI:? 21 ORDERING PROVIDER:? Amado INDICATION:? Previous positive sleep study ? SLEEP SUMMARY:? Total sleep time 387, efficiency 82.3, arousal index 16.9 RESPIRATORY SUMMARY:? Mean oxygen awake 98 asleep 96 minimum 79. 5.1 minutes oxygen between 80 and 88% The overall AHI for this study is 7.4 Titration was achieved at EPAP of 8, minimum pressure support 3 maximum pressure support of 15 this decreased AHI to 2.8 and included nonsupine REM sleep PERIODIC LIMB MOVEMENTS OF SLEEP:? Index 62.4, index with arousal 5.3 CARDIAC:? Awake 59, asleep 51. No arrhythmias noted IMPRESSION:? This is a relatively successful titration and EPAP of 8 with minimum pressure support 3 max pressure support of 15. This decreased AHI to 2.8 and included REM stage sleep but in the nonsupine position RECOMMENDATION: Initiate ASV with EPAP of 8, minimum pressure support 3 max of 15 backup rate of 12. Close follow-up is recommended as we did not obtain a lot of supine sleep during this titration study
== END 2022-09-18 20:45 | disposition home or self-care (01) ==
LOC: SLEEP 20:45
PROVIDERS: PCP Internal Medicine; Visit Provider Otolaryngology
DX: G47.33 Obstructive sleep apnea (adult) (pediatric) (principal)
CPT/HCPCS: 95810; 95811

== ENCOUNTER 2022-10-25 10:51 | Outpatient (CLI) | payer MEDICARE, BC, SELFPAY ==
[2022-10-25 12:24] LABS: Cholesterol* 153 mg/dL (90-199); HDL Cholesterol* 60 mg/dL (>=50); LDL Cholesterol Calculated 79 mg/dL (<100); Triglycerides* 68 mg/dL (40-149)
[2022-10-25 17:45] LABS: Chloride* 105 mmol/L (96-114)
[2022-10-25 17:46] LABS: Potassium* 4.9 mmol/L (3.6-5.1); Sodium* 141 mmol/L (135-149)
[2022-10-25 17:48] LABS: Creatinine* 0.8 mg/dL (0.5-1.5); Estimated Glomerular Filt Rate 79 ml/min
[2022-10-25 17:49] LABS: Blood Urea Nitrogen* 24 mg/dL (7-30); Calcium* 9.9 mg/dL (8.4-10.6); Carbon Dioxide* 29 mmol/L (20-32); Glucose* 103 mg/dL (60-115)
== END 2022-10-25 10:52 | disposition home or self-care (01) ==
PROVIDERS: PCP Internal Medicine; Visit Provider Internal Medicine
DX: I10 Essential (primary) hypertension (principal); M81.0 Age-related osteoporosis without current pathological fracture; Z13.6 Encounter for screening for cardiovascular disorders
CPT/HCPCS: 80048; 80061

== ENCOUNTER 2023-01-09 13:26 | Outpatient (CLI) | payer MEDICARE, BC, SELFPAY ==
--- NOTE | 2023-01-09 13:45 | MR_ITS ---
[address] [address] Phone:?[phone] Fax:?[phone] Referring Physician Information: Darnell Navarro M.D. [address] [facility] [address] Phone:?[phone] Fax:?[phone] Patient:Shayy Hernandez D.O.B:?1950 Sex:?Female Phone:?[phone] [facility] MRN:?[id number] Exam Date:?01/09/2023 ? EXAM: MRI of the LEFT KNEE, without contrast CLINICAL HISTORY: Left knee pain. Evaluate for meniscal tear. COMPARISONS: Plain radiographs 01/02/2023. TECHNICAL: MR sequences of the left knee: sagittals: PD, PDFS coronals: PD, STIR axials: PD, T2 FS CONTRAST: None SEDATION: None FINDINGS: Bones: No fracture, bone marrow contusion, or other suspicious bone marrow signal abnormality. 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 Retinacula: The medial and lateral retinacula are intact. Fat pads: The infrapatellar, quadriceps, and prefemoral fat pads are unremarkable. Knee joint: Effusion: Physiologic amount of joint fluid. Popliteal cyst: None. Intra-articular bodies: None. Posteromedial corner: The semimembranosus and pes anserine tendons are intact. Medial compartment: Medial meniscus: Free edge fraying of the body and posterior horn of the medial meniscus. No unstable medial meniscal tear is seen. Cartilage: Intact. Lateral compartment: Lateral meniscus: Free edge fraying of the body and posterior horn of the lateral meniscus. No unstable lateral meniscal tear is seen. Cartilage: 1.0 x 1.0 cm area of full-thickness chondral loss over the posterior portion of the lateral tibial plateau without bony reactive changes. Ligaments: Anterior cruciate ligament: Intact. Posterior cruciate ligament: Intact. Medial collateral ligament: Thickening of the proximal portion of the superficial component of the medial collateral ligament. An associated 1.1 x 1.1 x 0.5 cm calcification posterior to this is consistent with Hany-Stieda. Posterior oblique ligament: Intact. Fibular collateral ligament: Intact. Posterolateral corner: The distal biceps femoris tendon, iliotibial band, popliteus tendon, popliteus muscle, popliteofibular ligament, and arcuate ligament are intact. Extensor mechanism: Patellar tendon: Intact. Quadriceps tendon: Intact. IMPRESSION: 1. 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 2. 1.0 x 1.0 cm area of full-thickness chondral loss over the posterior portion of the lateral tibial plateau without bony reactive changes. 3. Free edge fraying of the body and posterior horn of the medial meniscus. No unstable medial meniscal tear. 4. Free edge fraying of the body and posterior horn of the lateral meniscus. No unstable lateral meniscal tear. 5. Sequela of chronic sprain/partial tear injury of the proximal portion of the superficial component of the medial collateral ligament with associated Hany-Stieda. No acute ligamentous injury. RCB Electronically signed on 01/09/2023 3:38:00 PM by Bran Caldwell M.D.
== END 2023-01-09 13:27 | disposition home or self-care (01) ==
LOC: MRI 13:27
PROVIDERS: PCP Internal Medicine; Visit Provider Orthopaedic Surgery
DX: M25.562 Pain in left knee (principal); M22.42 Chondromalacia patellae, left knee; S83.412A Sprain of medial collateral ligament of left knee, initial encounter
CPT/HCPCS: 73721

== ENCOUNTER 2023-03-20 09:22 | Outpatient (CLI) | payer MEDICARE, BC, SELFPAY ==
--- NOTE | 2023-03-20 09:45 | CRLHL7_ITS ---
For Patients: As a result of the Cures Act, medical imaging exams and procedure reports are released immediately into your electronic medical record. You may view this report before your referring provider. If you have questions, please contact your health care provider. DIGITAL DIAGNOSTIC BILATERAL MAMMOGRAM USING TOMOSYNTHESIS AND COMPUTER-AIDED DETECTION CLINICAL HISTORY: RIGHT breast lump. COMPARISON: 11/20/2021, 12/22/2020, 03/21/2020, 01/14/2019. TECHNIQUE: Digital BILATERAL mammogram in four projections. Tomosynthesis and CAD utilized. BREAST COMPOSITION: There are areas of scattered fibroglandular density. FINDINGS: 3D CC/MLO BILATERAL mammogram images submitted. Post lumpectomy changes on the RIGHT with dystrophic calcification associated with chronic fat necrosis. No suspicious findings. Negative LEFT breast mammogram. IMPRESSION: No evidence of malignancy. Stable densely calcified fat necrosis RIGHT breast. RECOMMENDATIONS: Clinical follow-up and annual mammogram. Results and recommendations discussed with the patient. BI-RADS Category 2: Benign A lay language report of this examination will be provided to the patient. Dictated by Hema Lowe MD @ 03/20/2023 10:48:01 AM jj/Dictated by: Hema Lowe MD @ 03/20/2023 10:48:00 AM (Electronically Signed)
== END 2023-03-20 09:23 | disposition home or self-care (01) ==
PROVIDERS: PCP Internal Medicine; Visit Provider Internal Medicine
DX: N63.10 Unspecified lump in the right breast, unspecified quadrant (principal); Z85.3 Personal history of malignant neoplasm of breast
CPT/HCPCS: 77066; G0279

== ENCOUNTER 2023-11-18 07:00 | Outpatient (CLI) | payer MEDICARE, BC, SELFPAY ==
--- OUTSIDE RECORDS SUMMARY | 2023-11-18 07:03 | XMS_ITS | Encounter Summary ---
Author Name Unknown Organization [facility] Address [address] [place] [address] Care Team Providers Care Rod Welder Name Role Phone Mahogany Peñaloza MD Primary Care Provider Lori Maloney MD Unavailable [phone] Marc Hicks PhD Unavailable [phone] Abdiel Harris MD Unavailable Encounter Details Date Type Department Care Team (Late st Contact Info) Description 04/24/2022 [facility] Medical Advice [facility] Clinic [address] [place] [address] Maria R Soto, AUSTEN Social History Tobacco Use Types Packs/Day Years Used Date Smoking Tobacco: Never Smokeless Tobacco: Never Alcohol Use Standard Drinks/Week Comments Not Currently 0 (1 standard drink = 0.6 oz pur e alcohol) PHQ-2 Answer Date Recorded PHQ-2 Score 0 09/04/2021 Sex and Gender Information Value Date Recorded Sex Assigned at Not on file Gender Identity Female 09/24/2021 9:02 PM COLOR STRAINER Sexual Orientation Not on file documented as of this encounter Plan of Treatment Not on file documented as of this encounter Visit Diagnoses Not on filedocumented in this encounter Care Teams Rod Welder Relationship Specialty Start Date End Date Mahogany Peñaloza MD [facility] [address] [place] [address] PCP - General Internal Medicine 12/28/19 Lori Maloney MD [address] [place] [address] [phone] Assigned Neuroscience Provider 08/12/20 03/08/23 Marc Hicks, PhD [address] [place] [address] [id number] Assigned Behavioral Health Provider 09/10/21 01/25/23 Abdiel Harris MD [facility] NEUROLOGICAL [facility] [address] [address] [address] Physician Neurology 06/06/23 documented as of this encounter
--- OUTSIDE RECORDS SUMMARY | 2023-11-18 07:03 | XMS_ITS | Encounter Summary ---
Author Name Unknown Organization [facility] Address [address] [place] [address] Care Team Providers Care Head Of Cytogenetics Name Role Phone Mahogany Peñaloza MD Primary Care Provider Lori Maloney MD Unavailable [phone] Marc Hicks PhD Unavailable [phone] Abdiel Harris MD Unavailable Reason for Visit * Reason Onset Date Comments Forms 03/28/2020 medical records Encounter Details Date Type Department Care Team (Late st Contact Info) Description 03/28/2020 [facility] Neurology [address] [place] [address] [address] [place] [address] Lori Maloney MD [address] [place] [address] [phone] Forms (medical records) Social History Tobacco Use Types Packs/Day Years Used Date Smoking Tobacco: Never Smokeless Tobacco: Never Alcohol Use Standard Drinks/Week Comments Not Currently 0 (1 standard drink = 0.6 oz pur e alcohol) PHQ-2 Answer Date Recorded PHQ-2 Score 0 12/29/2019 Sex and Gender Information Value Date Recorded Sex Assigned at Not on file Gender Identity Female 09/24/2021 9:02 PM FIRE PROTECTION SPECIALIST Sexual Orientation Not on file documented as of this encounter Miscellaneous Notes * Telephone Encounter - Zhane Wing - 03/28/2020 2:19 PM CDT Health Call Center Phone Message May a detailed message be left on voicemail: yes Reason for Call: Other: Beatrice is calling in to check and see what information Dr Maloney needs from her past clinic. Please call back to discuss. Action Taken: Message routed to: [facility] neurology Travel Screening: Not Applicable documented in this encounter Plan of Treatment Not on file documented as of this encounter Visit Diagnoses Not on filedocumented in this encounter Care Teams Head Of Cytogenetics Relationship Specialty Start Date End Date Mahogany Peñaloza MD [facility] [address] [place] [address] PCP - General Internal Medicine 12/28/19 Lori Maloney MD [address] [place] [phone] Assigned Neuroscience Provider 08/12/20 03/08/23 Marc Hicks, PhD [address] [place] [address] Assigned Behavioral Health Provider 09/10/21 01/25/23 Abdiel Harris MD [facility] NEUROLOGICAL [facility] [address] [address] Physician Neurology 06/06/23 documented as of this encounter
--- OUTSIDE RECORDS SUMMARY | 2023-11-18 07:03 | XMS_ITS | Encounter Summary ---
Author Name Unknown Organization [facility] Address [address] [place] [address] Care Team Providers Care Engraver Copperplate Name Role Phone Mahogany Peñaloza MD Primary Care Provider Lori Maloney MD Unavailable [phone] Marc Hicks PhD Unavailable [phone] Abdiel Harris MD Unavailable Encounter Details Date Type Department Care Team (Late st Contact Info) Description 01/12/2020 [facility] Medical Advice [facility] Neurology [address] [place] [address] 3rd [place] [address] Lori Maloney MD [address] [place] [address] Social History Tobacco Use Types Packs/Day Years Used Date Smoking Tobacco: Never Smokeless Tobacco: Never Alcohol Use Standard Drinks/Week Comments Not Currently 0 (1 standard drink = 0.6 oz pur e alcohol) PHQ-2 Answer Date Recorded PHQ-2 Score 0 12/29/2019 Sex and Gender Information Value Date Recorded Sex Assigned at Not on file Gender Identity Female 09/24/2021 9:02 PM PRINT CONTROLLER Sexual Orientation Not on file COVID-19 Exposure Response Date Recorded In the last month, have you been in contact with someone who was confirmed or suspected to have Coronavirus / COVID-19? No / Unsure 01/10/2020 12:39 PM CDT documented as of this encounter Plan of Treatment Not on file documented as of this encounter Visit Diagnoses Not on filedocumented in this encounter Care Teams Engraver Copperplate Relationship Specialty Start Date End Date Mahogany Peñaloza MD [facility] [address] [place] [address] PCP - General Internal Medicine 12/28/19 Lori Maloney MD [address] [place] [address] [id number] Assigned Neuroscience Provider 08/12/20 03/08/23 Marc Hicks, PhD [address] [place] [address] [id number] Assigned Behavioral Health Provider 09/10/21 01/25/23 Abdiel Harris MD [facility] NEUROLOGICAL [facility] [address] [address] Physician Neurology 06/06/23 documented as of this encounter
--- OUTSIDE RECORDS SUMMARY | 2023-11-18 07:03 | XMS_ITS | Encounter Summary ---
Author Name Unknown Organization [facility] Address [address] [place] [address] Care Team Providers Care Singer And Unloader Name Role Phone Mahogany Peñaloza MD Primary Care Provider Abdiel Harris MD Unavailable Reason for Visit * Reason Onset Date Comments Call Back 06/20/2023 Questions regard ing appointment Encounter Details Date Type Department Care Team (Late st Contact Info) Description 06/20/2023 [facility] Neuropsychology [address] [address] Marc Hicks, PhD [address] [place] [address] Call Back (Questions regarding appointment) Social History Tobacco Use Types Packs/Day Years Used Date Smoking Tobacco: Never Smokeless Tobacco: Never Alcohol Use Standard Drinks/Week Comments Not Currently 0 (1 standard drink = 0.6 oz pur e alcohol) PHQ-2 Answer Date Recorded PHQ-2 Score 0 09/04/2021 Sex and Gender Information Value Date Recorded Sex Assigned at Not on file Gender Identity Female 09/24/2021 9:02 PM SLATE WORKER Sexual Orientation Not on file documented as of this encounter Miscellaneous Notes * Telephone Encounter - Paty Davis Fransico - 06/20/2023 9:31 AM CDT [facility] Call Center Phone Message May a detailed message be left on voicemail: yes Reason for Call: Other: Patient is wondering if large print materials would be available and also she needs light at 75 watt or higher for reading and can bring her own lamp if needed. Action Taken: Other: Neuropsychology Travel Screening: Not Applicable documented in this encounter Plan of Treatment Not on file documented as of this encounter Visit Diagnoses Not on filedocumented in this encounter Care Teams Singer And Unloader Relationship Specialty Start Date End Date Mahogany Peñaloza MD [facility] [address] [address] PCP - General Internal Medicine 12/28/19 Abdiel Harris MD [facility] NEUROLOGICAL [facility] [address] [address] [address] Physician Neurology 06/06/23 documented as of this encounter
--- OUTSIDE RECORDS SUMMARY | 2023-11-18 07:03 | XMS_ITS | Encounter Summary ---
Author Name Unknown Organization [facility] Address [address] [place] [address] Care Team Providers Care Postmaster Name Role Phone Mahogany Peñaloza MD Primary Care Provider Lori Maloney MD Unavailable [phone] Marc Hicks PhD Unavailable [phone] Abdiel Harris MD Unavailable Encounter Details Date Type Department Care Team (Late st Contact Info) Description 09/11/2021 [facility] Medical Advice [facility] Neurology Clinic [address] [place] [address] Maria R Soto, AUSTEN Social [...] file Gender Identity Female 09/24/2021 9:02 PM PIANO AND ORGAN REFINISHER Sexual Orientation Not on file documented as of this encounter Plan of Treatment Not on file documented as of this encounter Visit Diagnoses Not on filedocumented in this encounter Care Teams Postmaster Relationship Specialty Start Date End Date Mahogany Peñaloza MD [facility] [address] [place] [address] PCP - General Internal Medicine 12/28/19 Lori Maloney MD [address] [place] [address] [phone] Assigned Neuroscience Provider 08/12/20 03/08/23 Marc Hicks, PhD [address] [place] [address] [phone] Assigned Behavioral Health Provider 09/10/21 01/25/23 Abdiel Harris MD [facility] NEUROLOGICAL [facility] [address] [address] [address] Physician Neurology 06/06/23 documented as of this encounter
--- OUTSIDE RECORDS SUMMARY | 2023-11-18 07:03 | XMS_ITS | Encounter Summary ---
Author Name Unknown Organization [facility] Address [address] [place] [address] Care Team Providers Care Braid Folder Name Role Phone Mahogany Peñaloza MD Primary Care Provider [phone] Abdiel Harris MD Unavailable Reason for Visit * Reason Onset Date Comments Appointment 06/17/2023 Scheduling evalu ation Encounter Details Date Type Department Care Team (Late st Contact Info) Description 06/17/2023 Telephone [facility] Neuropsychology [address] [address] None Appointment (Scheduling evaluation) Social History Tobacco Use Types Packs/Day Years Used Date Smoking Tobacco: Never Smokeless Tobacco: Never Alcohol Use Standard Drinks/Week Comments Not Currently 0 (1 standard drink = 0.6 oz pur e alcohol) PHQ-2 Answer Date Recorded PHQ-2 Score 0 09/04/2021 Sex and Gender Information Value Date Recorded Sex Assigned at Not on file Gender Identity Female 09/24/2021 9:02 PM FLUTE POLISHER Sexual Orientation Not on file documented as of this encounter Miscellaneous Notes * Telephone Encounter - Javed Wing - 06/18/2023 1:13 PM CDT Per Eldon Schilling, airfield operations specialist - We can try and accommodate that request. However, since the appointment isn't for seven months, we won't have our staffing schedule solidified until much closer to the appointment. Called patient to relay above. Left detailed message. Javed Wing on 06/18/2023 at 1:16 PM * Telephone Encounter - Donnyhuan Javed - 06/17/2023 10:52 AM CDT Patient Contacted to schedule the following: Appointment type: Neuropsych Eval Provider: Dr. Hicks, [facility] or Return date: First available Specialty phone number: [phone] Additional appointment(s) needed: N/A Additional Notes: N/A Spoke with patient, scheduled on 01/17/2024 at 12:30pm with Dr. Hicks at the [facility]. Patient requestedthe same tech as last time. Processing Lead found Placido Bone in the notes. Forwarding to clinical team to seeif we can accommodate this request. Javed Wing on 06/17/2023 at 10:57 AM * Telephone Encounter - Paulina Denny - 06/17/2023 8:42 AM CDT [facility] Phone Message May a detailed message be left on voicemail: yes Reason for Call: Other: Patient called requesting to schedule Neuropsychology evaluation from referral, patient states she is available for a phone call before 12 pm. Patient states she would like toschedule with the same permit technician she had seen last time. Action Taken: Message routed to: [facility] ([facility]): Neuropsychology Travel Screening: Not Applicable documented in this encounter Plan of Treatment Not on file documented as of this encounter Visit Diagnoses Not on filedocumented in this encounter Care Teams Braid Folder Relationship Specialty Start Date End Date Mahogany Peñaloza MD [facility] [address] [place] [address] PCP - General Internal Medicine 12/28/19 Abdiel Harris MD [facility] NEUROLOGICAL [facility] [id number] [address] Physician Neurology 06/06/23 documented as of this encounter
--- OUTSIDE RECORDS SUMMARY | 2023-11-18 07:03 | XMS_ITS | Encounter Summary ---
Author Name Unknown Organization [facility] Address [address] [place] [address] Care Team Providers Care Homicide Investigator Name Role Phone Mahogany Peñaloza MD Primary Care Provider Abdiel Harris MD Unavailable Encounter Details Date Type Department Care Team (Late st Contact Info) Description 11/01/2023 Telephone [facility] Neuropsychology [address] [address] Marc Hicks, PhD [address] [place] [address] Social History Tobacco Use Types Packs/Day Years Used Date Smoking Tobacco: Never Smokeless Tobacco: Never Alcohol Use Standard Drinks/Week Comments Not Currently 0 (1 standard drink = 0.6 oz pur e alcohol) PHQ-2 Answer Date Recorded PHQ-2 Score 0 09/04/2021 Adolescent Education Answer Date Record ed Getting School Help Needed Not on file 08/06 Sex and Gender Information Value Date Recorded Sex Assigned at Not on file Gender Identity Female 09/24/2021 9:02 PM INSTALLATION SERVICE REPRESENTATIVE Sexual Orientation Not on file documented as of this encounter Miscellaneous Notes * Telephone Encounter - Jacqueline Correa - 11/01/2023 11:36 AM CST Spoke to patient in regards canceling and reschedule appointment with . Station Worker not jaqui toschedule patient referral expiring soon. Pt aware stated she will reach out to ordering provider torequest a new referral. Jacqueline Correa on 11/01/2023 at 11:38 AM ALLATION SERVICE REPRESENTATIVE documented in this encounter Plan of Treatment Not on file documented as of this encounter Visit Diagnoses Not on filedocumented in this encounter Care Teams Homicide Investigator Relationship Specialty Start Date End Date Mahogany Peñaloza MD [facility] [address] [place] [address] PCP - General Internal Medicine 12/28/19 Abdiel Harris MD [facility]ICAL [facility] [address] [address] [address] Physician Neurology 06/06/23 documented as of this encounter
--- OUTSIDE RECORDS SUMMARY | 2023-11-18 07:03 | XMS_ITS | Encounter Summary ---
Author Name Unknown Organization [facility] Address [address] [place] [address] Care Team Providers Care Capture Manager Name Role Phone Mahogany Peñaloza MD Primary Care Provider Lori Maloney MD Unavailable [phone] Marc Hicks PhD Unavailable [phone] Abdiel Harris MD Unavailable Reason for Visit * Reason Onset Date Comments neuropsychological testing 06/21/2020 Encounter Details Date Type Department Care Team (Late st Contact Info) Description 06/21/2020 [facility] Neurology [address] [place] [address] [address] [place] [address] Lori Maloney MD [address] [place] [address] [phone] neuropsychological testing Social History Tobacco Use Types Packs/Day Years Used Date Smoking Tobacco: Never Smokeless Tobacco: Never Alcohol Use Standard Drinks/Week Comments Not Currently 0 (1 standard drink = 0.6 oz pur e alcohol) PHQ-2 Answer Date Recorded PHQ-2 Score 0 12/29/2019 Sex and Gender Information Value Date Recorded Sex Assigned at Not on file Gender Identity Female 09/24/2021 9:02 PM BUSINESS PERFORMANCE ANALYST Sexual Orientation Not on file documented as of this encounter Miscellaneous Notes * Telephone Encounter - Sandy Marcus - 06/21/2020 10:08 AM CDT Health Call Center Phone Message May [...] on filedocumented in this encounter Care Teams Capture Manager Relationship Specialty Start Date End Date Mahogany Peñaloza MD [facility] [address] [address] PCP - General Internal Medicine 12/28/19 Lori Maloney MD [address] [place] [address] Assigned Neuroscience Provider 08/12/20 03/08/23 Marc Hicks, PhD [address] [place] [address] Assigned Behavioral Health Provider 09/10/21 01/25/23 Abdiel Harris MD [facility]UR[facility]ICAL [facility]IC [address] [address] Physician Neurology 06/06/23 documented as of this encounter
--- OUTSIDE RECORDS SUMMARY | 2023-11-18 07:03 | XMS_ITS | Encounter Summary ---
Author Name Unknown Organization [facility] Address [address] [place] [address] Care Team Providers Care Director Product Safety Name Role Phone Mahogany Peñaloza MD Primary Care Provider [phone] Lori Maloney MD Unavailable [phone] Marc Hicks PhD Unavailable [phone] Abdiel Harris MD Unavailable Encounter Details Date Type Department Care Team (Late st Contact Info) Description 11/13/2021 [facility] [address] [place] [address] Maria R Soto, [place] Social [...] file Gender Identity Female 09/24/2021 9:02 PM BIOASSAYIST Sexual Orientation Not on file documented as of this encounter Plan of Treatment Not on file documented as of this encounter Visit Diagnoses Not on filedocumented in this encounter Care Teams Director Product Safety Relationship Specialty Start Date End Date Mahogany Peñaloza MD [facility] [address] [place] [address] PCP - General Internal Medicine 12/28/19 Lori Maloney MD [address] [place] [address] [id number] Assigned Neuroscience Provider 08/12/20 03/08/23 Marc Hicks, PhD [address] [place] [address] [id number] Assigned Behavioral Health Provider 09/10/21 01/25/23 Abdiel Harris MD [facility] NEUROLOGICAL [facility] [address] [address] Physician Neurology 06/06/23 documented as of this encounter
--- OUTSIDE RECORDS SUMMARY | 2023-11-18 07:03 | XMS_ITS | Clinical Summary ---
Author Name Unknown Organization [facility] Address [address] [place] [address] Care Team Providers Care Imaging System Administrator Name Role Phone Mahogany Peñaloza MD Primary Care Provider Abdiel Harris MD Unavailable Allergies No known active allergies Medications Medication Sig Dispensed Refills Start Date End Date Status atenolol (TENORMIN) 25 MG tablet 0 11/30/2019 Active lisinopril (ZESTRIL) 10 MG tablet 0 12/29/2019 Active RESTASIS 0.05 % ophthalmic emulsion 0 07/16/2019 Activ e ketoconazole (NIZORAL) 2 % external shampoo 0 10/01/2019 Active latanoprost (XALATAN) 0.005 % ophthalmic solution INSTILL 1 DROP IN BOTH EYES AT BEDTIME 0 11/30/2019 Active PAROEX 0.12 % solution 0 11/13/2019 Active betamethasone dipropionate (DIPROSONE) 0.05 % external lotion 0 10/01/2019 Active triamcinolone (KENALOG) 0.1 % external cream APPLY TWICE DAILY TO RASH UP TO 2 WEEKS/MONTH NEEDED. 0 06/09/2019 Active amoxicillin-clavulan ate (AUGMENTIN) 875-125 MG tabletIndications:Th roat pain Take 1 tablet by mouth 2 times daily 20 tablet 0 05/08/2020 Active Additional Information Patient not taking.Reported on 04/11/2021 diazepam (VALIUM) 2 MG tabletIndications:Cl austrophobia Take one tab 30 minutes before MRI. May repeat one tab in 30 min if needed. Do not drive arrange for a route delivery service driver 2 tablet 0 09/18/2021 Active Active Problems Problem Noted Date Diagnosed Date Cognitive complaints 04/11/2021 Tinnitus 04/11/2021 Persistent insomnia 04/11/2021 Osteopenia 04/11/2021 Hypothyroidism 04/11/2021 Status post cataract extraction 04/11/2021 Chronically dry eyes 04/11/2021 Ascending aorta enlargement (H24) 04/11/2021 Anxiety 08/12/2013 Eczema 05/16/2010 Hyperlipidemia 02/20/2008 Episodic mood disorder (H24) 02/11/2008 Overview: Seasonal affective d/o Malignant neoplasm of female breast 01/19/2003 Overview: right lumpectomy 01/23 Encounters Date Type Department Care Team Description 11/01/2023 Telephone [facility] Neuropsychology [address] [address] Marc Hicks, PhD from Last 3 Months Family History Medical History Relation Comments Alzheimer [...] file Gender Identity Female 09/24/2021 9:02 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 Sexual Orientation Not on file Last Filed Vital Signs Vital Sign Reading Time Taken Comments Blood Pressure 135/78 04/11/2021 8:03 AM CDT Pulse 57 04/11/2021 8:03 AM CDT Temperature 37.3 ??C (99.2 ??F) 05/08/2020 10:55 AM C DT Respiratory Rate 16 12/29/2019 1:13 PM CDT Oxygen Saturation 100% 04/11/2021 8:03 AM CDT Inhaled Oxygen Concentration - - Weight 68 kg (149 lb 14.4 oz) 04/11/2021 8:03 AM CDT Height - - Body Mass Index - - Plan of Treatment Health Maintenance Due Date Last Done Comments ADVANCE CARE PLANNING 1950 ANNUAL REVIEW OF HM ORDERS 1952 CT COLONOGRAPHY 1952 DEXA 1952 FIT 1952 FLEX SIG 1950 MAMMO SCREENING 1952 sDNA (Cologuard) 1952 HEPATITIS C SCREENING 01/05/1970 LIPID 01/05/1997 RSV VACCINE ( & 60+) (1 - 1-dose 60+ series) 2012 MEDICARE ANNUAL WELLNESS VISIT 01/05/2017 FALL RISK ASSESSMENT 12/28/2020 12/29/2019, 12/29/19 INFLUENZA VACCINE (#1) 2023 , 08/08/2021, 07/27/2020, Additional history exists COVID-19 Vaccine (2022- season) 2023 05/09/2023, 07/23/2022, 04/11/2022, Additional history exists PHQ-2 (once per calendar year) 2023 09/04/2021, 04/11/2021, 12/29/2019, Additional history exists COLONOSCOPY 09/28/2029 09/28/2019 COLORECTAL CANCER SCREENING 09/28/2029 DTAP/TDAP/TD IMMUNIZATION (4 - Td or Tdap) 01/09/2032 01/08/2022, 08/15/2012, 08/15/2012, Additional history exists Pneumococcal Vaccine: 65+ Years Completed 09/01/2018, 08/09/2017 ZOSTER IMMUNIZATION Completed 12/17/2018, 11/24/2018, 10/12/2018, Additional history exists HPV IMMUNIZATION Aged Out No longer e ligible based on patient's age to complete this topic IPV IMMUNIZATION Aged Out No longer e ligible based on patient's age to complete this topic MENINGITIS IMMUNIZATION Aged Out No l onger eligible based on patient's age to complete this topic RSV MONOCLONAL ANTIBODY Aged Out No l onger eligible based on patient's age to complete this topic Care Teams Imaging System Administrator Relationship Specialty Start Date End Date Mahogany Peñaloza MD [facility] [address] [place] [address] PCP - General Internal Medicine 12/28/19 Abdiel Harris MD [facility] NEUROLOGICAL [facility] [address] [address] Physician Neurology 06/06/23
--- OUTSIDE RECORDS SUMMARY | 2023-11-18 07:03 | XMS_ITS | Referral Summary ---
Author Name Unknown Organization [facility] Address [address] [place] [address] Care Team Providers Care Warp Coiler Name Role Phone Mahogany Peñaloza MD Primary Care Provider [phone] Abdiel Harris MD Unavailable Encounters Date Type Department Care Team Description 11/01/2023 Telephone [facility] Neuropsychology [address] [place] [address] Marc Hicks, PhD from Last 3 Months Allergies No known active allergies Medications Medication [...] needed. 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 [address] [place] [address] PCP - General Internal Medicine 12/28/19 Abdiel Harris MD [facility] [address] [address] [address] Physician Neurology 06/06/23
--- OUTSIDE RECORDS SUMMARY | 2023-11-18 07:03 | XMS_ITS | Encounter Summary ---
Author Name Unknown Organization [facility] Address [address] [place] [address] Care Team Providers Care Electrical Design Technician Name Role Phone Mahogany Peñaloza MD Primary Care Provider Abdiel Harris MD Unavailable Reason for Referral * Mental Health Outpatient (Routine: Next available opening) - Pending Review Specialty Diagnoses / Procedures Referred By Tamanna hector Referred To Contact Neuropsychology Diagnoses Mild cognitive impairment Mild dementia (H) Visual disturbance Abdiel Harris MD [facility] [address] [address] [facility] Neuropsychology [address] [place] [id number] Referral ID Status Reason Start Date Expiration Date V isits Requested Visits Authorized [id number] Pending Review 06/06/2023 06/05/2024 1 1 Question Answer Preferred Location: [facility] Neuropsychology [facility] Scheduling Instructions: Please call to schedule your appointment Additional Information: Neuropsychology Evaluation ? compare prior NPT results / Mild cognitive impairment vs mild dementia. Visual disturbance ? 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 Comments Referred by: Dr. Abdiel Harris @ [facility] Neurological [facility] Fx: [phone] Please call to schedule your appointment Encounter Details Date Type Department Care Team (Late st Contact Info) Description 06/06/2023 Transcribe Orders GENERIC EXTERNAL DATA DEPARTMENT Provider, Generic External Data Mild cognitive impairment (Primary Dx); Mild dementia (H); Visual disturbance Social History Tobacco Use Types Packs/Day Years Used Date Smoking Tobacco: Never Smokeless Tobacco: Never Alcohol Use Standard Drinks/Week Comments Not Currently 0 (1 standard drink = 0.6 oz pur e alcohol) PHQ-2 Answer Date Recorded PHQ-2 Score 0 09/04/2021 Sex and Gender Information Value Date Recorded Sex Assigned at Not on file Gender Identity Female 09/24/2021 9:02 PM 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 Sexual Orientation Not on file documented as of this encounter Plan of Treatment Scheduled Referrals Name Type Priority Associated Diagnoses Order Schedule Adult Neuropsychology Referral Referral Routine: Next available opening Mild cognitive impairment Mild dementia (H) Visual disturbance Expected: 06/06/2023 (Approximate), Expires: 06/06/2024 documented as of this encounter Visit Diagnoses Diagnosis Mild cognitive impairment- Primary Mild cognitive impairment, so stated Mild dementia (H) Dementia, unspecified, without behavioral disturbance Visual disturbance Unspecified visual disturbance documented in this encounter Care Teams Electrical Design Technician Relationship Specialty Start Date End Date Mahogany Peñaloza MD [facility] [address] [place] [address] PCP - General Internal Medicine 12/28/19 Abdiel Harris MD [facility] [address] [address] Physician Neurology 06/06/23 documented as of this encounter
--- OUTSIDE RECORDS SUMMARY | 2023-11-18 07:03 | XMS_ITS | Encounter Summary ---
Author Name Unknown Organization [facility] Address [address] [place] [address] Care Team Providers Care Division Operations Specialist Name Role Phone Mahgoany Peñaloza MD Primary Care Provider Lori Maloney MD Unavailable [phone] Marc Hicks PhD Unavailable [phone] Abdiel Harris MD Unavailable Reason for Visit * Reason Onset Date Comments Call Back 11/08/2021 mri today Encounter Details Date Type Department Care Team (Late st Contact Info) Description 11/08/2021 Telephone [facility] [address] [place] [address] Lori Maloney MD [address] [place] [address] Call Back (mri today 11/08/21 ) Social History Tobacco Use Types Packs/Day Years Used Date Smoking Tobacco: Never Smokeless Tobacco: Never Alcohol Use Standard Drinks/Week Comments Not Currently 0 (1 standard drink = 0.6 oz pur e alcohol) PHQ-2 Answer Date Recorded PHQ-2 Score 0 09/04/2021 Sex and Gender Information Value Date Recorded Sex Assigned at Not on file Gender Identity Female 09/24/2021 9:02 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 Sexual Orientation Not on file documented as of this encounter Miscellaneous Notes * Telephone Encounter - Naila Schwartz - 11/08/2021 12:14 PM CST M [facility] Call Center Phone Message May a detailed [...] Center ([facility]): neurology Travel Screening: Not Applicable LLATE CONFEREE documented in this encounter Plan of Treatment Not on file documented as of this encounter Visit Diagnoses Not on filedocumented in this encounter Care Teams Division Operations Specialist Relationship Specialty Start Date End Date Mahogany Peñaloza MD [facility] [address] [place] [address] PCP - General Internal Medicine 12/28/19 Lori Maloney MD [address] [place] [address] Assigned Neuroscience Provider 08/12/20 03/08/23 Marc Hicks, PhD [address] [place] [address] Assigned Behavioral Health Provider 09/10/21 01/25/23 Abdiel Harris MD [facility] [address] [address] Physician Neurology 06/06/23 documented as of this encounter
--- OUTSIDE RECORDS SUMMARY | 2023-11-18 07:03 | XMS_ITS | Clinical Summary ---
Author Name Unknown Organization [facility] Address [place], [place] [address] Care Team Providers Care Garnishment Specialist Name Role Phone Mahogany Peñaloza MD Primary Care Provider [phone] Allergies No known active allergies Medications Medication Sig Dispensed Refills Start Date End Date Status ASPIRIN 81 MG TABIndications:Unspe cified essential hypertension every other day 0 02/11/2008 Active ORDER - MEDICATION ORDER COMPOSERIndications: Eczema Apply topically to affected area(s). Desonide LT/Ketoconzole CR 1:1 Apply to affected area of face 1 to 2 times daily 60 g 5 10/17/2011 Active aspirin-acetaminophe n-caffeine, 250-250-65 mg, (EXCEDRIN) 250-250-65 mg tablet Take 1 tablet by mouth every 6 hours if needed for Headache. Max acetaminophen dose: 4000mg in 24 hrs. 0 08/06/2012 Active amitriptyline (ELAVIL) 10 mg tabletIndications:In somnia, unspecified TAKE 1-4 TABLETS BY MOUTH AT BEDTIME. 360 tablet 3 06/29/2013 Active atenolol (TENORMIN) 25 mg tabletIndications:Un specified essential hypertension TAKE 1/2 TABLET BY MOUTH ONCE DAILY. 15 tablet 0 07/18/2013 Active Calcium-Magnesium tablet Take 2 tablets by mouth. Eating more yogurt daily 0 08/12/2013 Active lisinopril (PRINIVIL; ZESTRIL) 10 mg tabletIndications:Un specified essential hypertension Take 1 tablet by mouth once daily. 90 tablet 3 08/12/2013 Active atenolol (TENORMIN) 25 mg tabletIndications:Un specified essential hypertension Take 1 tablet by mouth once daily. 90 tablet 3 08/12/2013 Active amitriptyline (ELAVIL) 10 mg tabletIndications:An xiety Take 1-4 tablets by mouth at bedtime. 360 tablet 3 08/12/2013 Active ergocalciferol (VITAMIN D) 50,000 unit capsuleIndications:V itamin D deficiency Take 1 capsule by mouth every 4 weeks. (dose decreased 09/16/13) 3 capsule 3 09/16/2013 Active rosuvastatin (CRESTOR) 5 mg tabletIndications:Hy perlipidemia, unspecified hyperlipidemia type TAKE 1 TABLET(5 MG) BY MOUTH AT BEDTIME. 90 Tablet 0 08/08/2021 Active Active Problems Problem Noted Date Diagnosed Date History of colon polyps 09/28/2019 Overview: Colonoscopy 09/2019 normal, repeat in 5 years Anxiety 08/12/2013 Eczema 05/16/2010 Contact dermatitis and other eczema, due to unspecified cause 03/03/2009 Overview: On face Disorder of bone and cartilage, unspecified 02/18 Overview: Osteopenia 02/25 Other and unspecified hyperlipidemia 02/20/2008 Unspecified episodic mood disorder 02/11/2008 Overview: Seasonal affective d/o Malignant neoplasm of breast (female), unspecifi ed site 01/19/2003 Overview: right lumpectomy 01/23 Unspecified essential hypertension Personal history of colonic polyps Overview: Hyperplastic polyps removed 08/24 Colonoscopy 05/2009 normal repeat in 5 years Unspecified hypothyroidism Immunizations Name Administration Dates Next Due COVID-19 vaccine (Channel Breeze 30mcg/0.3mL) HARPAL JOHNSON 12/31/2020,12/10/2020 Influenza A (H1N1), Inactivated 08/18/2009 Influenza RIV4 (Age 18+ Year s) PRESERV FREE 08/24/2019 Influenza, High-dose Inactivated 09/01/2018,07/22 Influenza, High-dose Quadriv alent Inactivated 07/27/2020 Influenza, IIV3 (Age >=3 years) 07/17/20 13,08/06/2012,08/09/2011,2009,10/09/2005 Influenza, IIV4 10/02/2016 Pneumococcal Poly,23-Valent (Pneumovax) 09/01/2018 Pneumococcal conj 13-Valent (Prevnar 13) 08/09/2017 Td (Age >=7 Years) 06/08/2003 Tdap 08/15/2012 Zoster (Shingrix-RZV, recombinant) 12/17/2018,,10/12/2018 Zoster (Zostavax-ZVL, live) 08/15/2012 Family History Medical History Relation Name Comments Psychiatric illness Brother 3 DEPRESSI ON, Alzheimer's Dz Cancer-prostate Brother 4 Cancer Father prostate d 93 y o Hypertension Father Stroke Mother TIA'S dementia d at 87 yo Relation Name Status Comments Brother 1 Alive Brother 2 Alive Brother 3 Brother 4 Father Maternal Grandfather Maternal Grandmother Mother Paternal Grandfather Paternal Grandmother Son Alive Social History Tobacco Use Types Packs/Day Years Used Date Smoking Tobacco: Never Smokeless Tobacco: Never Alcohol Use Standard Drinks/Week Comments Yes 1.7 (1 standard drink = 0.6 oz p ure alcohol) once every 3 months Social Connections Answer Date Recorded Frequency of Communication with Friends and Fami ly Not on file 10/21/2021 Financial Resource Strain Answer Date R ecorded Difficulty of Paying Living Expenses Not on file 10/21/2021 Difficulty of Paying Living Expenses Not on file 10/21/2021 Sex and Gender Information Value Date Recorded Sex Assigned at Not on file Gender Identity Not on file Sexual Orientation Not on file Obstetrics History Para Term AB IAB SAB Ectopic Multiple Livin g Live Births 1 1 0 1 0 0 0 0 0 1 Date Outcome GA Total Labor Labor/2nd/3rd Weight Sex Delivery Anes PTL Rosario A1 A5 Name Cl in Last Filed Vital Signs Vital Sign Reading Time Taken Comments Blood Pressure 92/68 12/31/2013 5:15 PM CDT Pulse 69 12/31/2013 5:15 PM CDT Temperature 36.9 ??C (98.4 ??F) 12/31/2013 5:15 PM CD T Respiratory Rate 12 12/31/2013 5:15 PM CDT Oxygen Saturation 98% 10/11/2012 8:57 AM POWER DISTRIBUTOR Inhaled Oxygen Concentration - - Weight 73.1 kg (161 lb 4 oz) 12/31/2013 5:15 PM CDT Height 159.4 cm (5' 2.75) 12/31/2013 5:15 PM CD T Body Mass Index 28.79 12/31/2013 5:15 PM CDT Plan of Treatment Health Maintenance Due Date Last Done Comments Depression screening for age 12+ 1964 BMI (ht and wt on same day) for age 18+ 01/05/1970 Hepatitis C screening for ag e 18-79 01/05/1970 Mammogram for age 45-75 09/02/2015 09/02/20 14, 08/12/2013, 08/20/2012, Additional history exists DEXA/DXA scan for age 65+ 01/05/20172012, 07/06/2010, 02/20/2008 Medicare Wellness for age 65+ 01/05/2017 Lipids for age 45-75 08/12/2018 08/12/2013, 07/30/2012, 06/13/2011, Additional history exists Tetanus booster 08/15/2022 08/15/2012, 06/08/2003 COVID-19 vaccine series ( season) 2023 07/20/2021, 12/31/2020, 12/10/2020 Influenza for age 65+ 06/21/2023 07/27/2020 , 08/24/2019, 09/01/2018, Additional history exists Colonoscopy through age 75 09/28/202409/28, 09/28/2019, 09/28/2019, Additional history exists Tdap Completed 08/15/2012 Pneumococcal series for age 65+ Completed , 08/09/2017 Zoster (shingles) series for age 50+ Completed 12/17/2018, 11/24/2018, 10/12/2018, Additional history exists Care Teams Garnishment Specialist Relationship Specialty Start Date End Date Mahogany Peñaloza MD [address] [facility][1] [place] [address] PCP - General Internal Medicine 09/28/19
--- OUTSIDE RECORDS SUMMARY | 2023-11-18 07:03 | XMS_ITS | Encounter Summary ---
Author Name Unknown Organization [facility] Address [address] [place] [address] Care Team Providers Care Glycerin Operator Name Role Phone Mahogany Peñaloza MD Primary Care Provider [phone] Abdiel Harris MD Unavailable Encounter Details Date Type Department Care Team (Late st Contact Info) Description 06/05/2023 Medical Correspondence [facility] [address] [place] [address] Outside, Provider Social History Tobacco Use Types Packs/Day Years Used Date Smoking Tobacco: Never Smokeless Tobacco: Never Alcohol Use Standard Drinks/Week Comments Not Currently 0 (1 standard drink = 0.6 oz pur e alcohol) PHQ-2 Answer Date Recorded PHQ-2 Score 0 09/04/2021 Sex and Gender Information Value Date Recorded Sex Assigned at Not on file Gender Identity Female 09/24/2021 9:02 PM 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 Sexual Orientation Not on file documented as of this encounter Plan of Treatment Not on file documented as of this encounter Visit Diagnoses Not on filedocumented in this encounter Care Teams Glycerin Operator Relationship Specialty Start Date End Date Mahogany Peñaloza MD [facility] [address] [place] [address] PCP - General Internal Medicine 12/28/19 Abdiel Harris MD [facility] NEUROLOGICAL [facility] [id number] [place] [address] Physician Neurology 06/06/23 documented as of this encounter
--- OUTSIDE RECORDS SUMMARY | 2023-11-18 07:03 | XMS_ITS | Encounter Summary ---
Author Name Unknown Organization [facility] Address [address] [place] [address] Care Team Providers Care Member Services Representative Name Role Phone Mahogany Peñaloza MD Primary Care Provider Lori Maloney MD Unavailable [phone] Marc Hicks PhD Unavailable [phone] Abdiel Harris MD Unavailable Reason for Visit * Reason Onset Date Comments Call Back 07/24/2021 Encounter Details Date Type Department Care Team (Late st Contact Info) Description 07/24/2021 Telephone [facility] Neuropsychology [address] [address] Marc Hicks, PhD [address] [place] [address] Call Back Social History Tobacco Use Types Packs/Day Years Used Date Smoking Tobacco: Never Smokeless Tobacco: Never Alcohol Use Standard Drinks/Week Comments Not Currently 0 (1 standard drink = 0.6 oz pur e alcohol) PHQ-2 Answer Date Recorded PHQ-2 Score 0 04/11/2021 Sex and Gender Information Value Date Recorded Sex Assigned at Not on file Gender Identity Female 09/24/2021 9:02 PM GEOTHERMAL OPERATIONS 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 Confirm pt is seeing Dr. Hicks. She saw Dr. Hicks last July. * Telephone Encounter - Jean Sarah - 07/24/2021 9:08 AM CDT [facility] Call Center Phone Message May a [...] on filedocumented in this encounter Care Teams Member Services Representative Relationship Specialty Start Date End Date Mahogany Peñaloza MD [facility] [address] [address] PCP - General Internal Medicine 12/28/19 Lori Maloney MD [address] [place] [address] Assigned Neuroscience Provider 08/12/20 03/08/23 Marc Hicks, PhD [address] [place] [address] Assigned Behavioral Health Provider 09/10/21 01/25/23 Abdiel Harris MD [facility] NEUROLOGICAL [facility] [address] [address] Physician Neurology 06/06/23 documented as of this encounter
--- OUTSIDE RECORDS SUMMARY | 2023-11-18 07:03 | XMS_ITS | Encounter Summary ---
Author Name Unknown Organization [facility] Address [address] [place] [address] Care Team Providers Care Validation Engineer Name Role Phone Mahogany Peñaloza MD Primary Care Provider Lori Maloney MD Unavailable Marc Hicks PhD Unavailable [phone] Abdiel Harris MD Unavailable Encounter Details Date Type Department Care Team (Late st Contact Info) Description 01/03/2022 [facility] [facility] [address] [place] [address] Maria R Soto, AUSTEN Social [...] file Gender Identity Female 09/24/2021 9:02 PM EMERGENCY WORKER Sexual Orientation Not on file COVID-19 Exposure Response Date Recorded In the last month, have you been in contact with someone who was confirmed or suspected to have Coronavirus / COVID-19? No / Unsure 12/28/2021 2:27 PM EMERGENCY WORKER documented as of this encounter Plan of Treatment Not on file documented as of this encounter Visit Diagnoses Not on filedocumented in this encounter Care Teams Validation Engineer Relationship Specialty Start Date End Date Mahogany Peñaloza MD [facility] [address] [place] [address] PCP - General Internal Medicine 12/28/19 Lori Maloney MD [address] [place] [address] Assigned Neuroscience Provider 08/12/20 03/08/23 Marc Hicks, PhD [address] [place] [address] Assigned Behavioral Health Provider 09/10/21 01/25/23 Abdiel Harris MD [facility] [address] [address] Physician Neurology 06/06/23 documented as of this encounter
--- NOTE | 2023-11-18 07:15 | CRLHL7_ITS ---
For Patients: As a result of the Century Cures Act, medical imaging exams and procedure reports are released immediately into your electronic medical record. You may view this report before your referring provider. If you have questions, please contact your health care provider. INDICATION: Low back pain. COMPARISON: 10/11/2023. Technique Sagittal T1, T2, and STIR sequences. Axial T1 and T2 weighted sequences. FINDINGS: Lumbar scoliotic curvature convex to the right. In sagittal plane, normal alignment. No fractures. No vertebral body loss of height. No spondylolisthesis. No ligamentous injury. No suspicious osseous lesions. Normal conus terminates at L2. [id number] L1-2: No spinal canal neural foraminal narrowing. L2-3: Disc degeneration posted disc bulge. No narrowing of spinal canal. No neural foraminal narrowing. Mild facet arthropathy. L3-4: Disc degeneration. Loss disc height. Diffuse disc bulge eccentric to the right. No narrowing of the spinal canal. Mild narrowing of bilateral foramina. Mild facet arthropathy. L4-5: Disc degeneration and loss disc height. Diffuse disc bulge eccentric to the right. Superimposed right paracentral disc protrusion measures approximately 3 mm short axis. No narrowing of spinal canal. Mild narrowing of the right neural foramen. No narrowing of the left neural foramen. Mild facet arthropathy. L5-S1: Disc degeneration. Diffuse disc bulge eccentric to the right. No narrowing of the spinal canal. No impingement of the traversing S1 nerve roots. Mild narrowing of the right neural foramen. No narrowing of the left neural foramen. Degenerative changes of the SI joints. IMPRESSION: 1. Lumbar curve convex to the right. 2. Otherwise normal alignment. No fractures. 3. Lumbar spondylosis. 4. At L3-4, mild narrowing of the bilateral neural foramina 5. At L4-5, disc degeneration. Diffuse disc bulge. Right paracentral disc protrusion. No narrowing of the spinal canal. Mild narrowing of the right neuroforamen. 6. At L5-S1, mild narrowing of the right neural foramina Dictated by Darío Elizabeth MD @ 11/18/2023 12:12:47 PM (Electronically Signed)
== END 2023-11-18 07:01 | disposition home or self-care (01) ==
LOC: MRI 07:01
PROVIDERS: PCP Internal Medicine; Visit Provider Family Medicine
DX: M54.50 Low back pain, unspecified (principal); M47.896 Other spondylosis, lumbar region; M51.36 Other intervertebral disc degeneration, lumbar region; M51.26 Other intervertebral disc displacement, lumbar region
CPT/HCPCS: 72148

== ENCOUNTER 2023-12-31 06:45 | Outpatient (CLI) | payer MEDICARE, BC, SELFPAY ==
[2023-12-31 07:58] LABS: Chloride* 105 mmol/L (96-114); Potassium* 4.2 mmol/L (3.6-5.1); Sodium* 139 mmol/L (135-149)
[2023-12-31 08:01] LABS: Anion Gap 10 mEq/L (7-15); Blood Urea Nitrogen* 21 mg/dL (7-30); Calcium* 10.1 mg/dL (8.4-10.6); Carbon Dioxide* 24 mmol/L (20-32); Cholesterol* 171 mg/dL (90-199); Creatinine* 0.6 mg/dL (0.5-1.5); Estimated Glomerular Filt Rate 96 ml/min; Glucose* 100 mg/dL (60-115); Triglycerides* 81 mg/dL (40-149)
[2023-12-31 08:02] LABS: HDL Cholesterol* 55 mg/dL (>=50); LDL Cholesterol Calculated 99 mg/dL (<100)
[2023-12-31 08:19] LABS: Vitamin D 25 Hydroxy* 92 ng/mL (30-80)
== END 2023-12-31 06:46 | disposition home or self-care (01) ==
PROVIDERS: PCP Internal Medicine; Visit Provider Internal Medicine
DX: M81.0 Age-related osteoporosis without current pathological fracture (principal); I67.9 Cerebrovascular disease, unspecified; I10 Essential (primary) hypertension
CPT/HCPCS: 36415; 80048; 80061; 82306

== ENCOUNTER 2024-01-27 09:00 | Outpatient (RCR) | payer MEDICARE, BC, SELFPAY ==
--- NOTE | 2023-12-20 12:46 | PT.OPEX ---
PT [place] Outpatient Eval PT [facility] Outpatient Eval Start: 12/20/23 07:50 Freq: Status: Active Protocol: Document 12/20/23 07:56 GERMANIA (Rec: 12/20/23 12:11 GERMANIA [id number]) E-signed By Kristine Burch, PT Physical Therapy Outpatient Evaluation Insurance Information Recert Due Date 03/15/24 Insurance Name Medicare B,Blue Cross/Blue Shield Medical Diagnosis Back pain Treating Diagnosis Back pain, poor postural positioning, core and LE weakness, limited lumbar ROM Referring MD Taveras Subjective Subjective Beatrice reports to PT with primary complaint of low back pain with initial onset around the middle of October following repetitive lifting. She was seen in urgent care and by Dr. Taveras. Nitin prescribed tylenol 2x/day and flexeril. She continues to still take the tylenol which has been helping some with pain about 3-4/10 at the worst . She denies radicular symptoms at this time however was present during initial onset of pain. Pain now localized to L lower lumbar region. She has continued to do exercises for core, low back and knee that she was given in the past however would like to make sure those are what she should continue to do at this time. Currently having difficulty with dressing/bathing and repetitive lifting. She is very cautious when she moves or picks objects up now in order to not flare up her back . PMH: unremarkable MRI 11/18/23: 1. Lumbar curve convex to the right. 2. Otherwise normal alignment. No fractures. 3. Lumbar spondylosis. 4. At L3-4, mild narrowing of the bilateral neural foramina 5. At L4-5, disc degeneration. Diffuse disc bulge. Right paracentral disc protrusion. No narrowing of the spinal canal. Mild narrowing of the right neuroforamen. 6. At L5-S1, mild narrowing of the right neural foramina Pain Comments Date of Last Physician Visit 11/28/23 Current Work Status Retired Precautions Therapy Limitations/Systems Review Not Limited Objective Other/Pertinent Objective Standing: R ASIS ~1 higher than L, R lateral shift, flexed hip posturing, slight rounded shoulders with thoracic kyphosis Lumbar ROM: -Flx: mid huerta -Ext: 50% -R Rot: 50% -L Rot: 100% -R Sidebend: 50% -L Sidebend: 100% Hip ROM: grossly WNL except tight into terminal hip extension Selwyn test: + psoas and rectus femoris L LE Strength (R/L): -Hip Abd: R: 4-/5, L: 3+/5 -Hip Add: R: 4+/5, L: 4+/5 -Hip Ext: R: 4/5, L: 4-/5 -Hip Flx: R: 4-/5, L: 4-/5 Functional Test Performed & Score Oswestry: 15, 30% Assessment Assessment/Impression Patient is a 73 year old female presenting to physical therapy for evaluation and treatment of low back pain. Patient presents with back pain, poor postural positioning with leg length discrepency and R lateral shift, core and LE weakness, limited lumbar ROM. These impairments are limiting the patients ability to stand, walk, squat/bend repetitively and play with grandchildren. Patient appears motivated to participate in PT and presents with good prognosis to improve mobility, strength, proprioception and return to functional activities with skilled physical therapy intervention. Primary Functional Limitations stand, walk, squat/bend repetitively and play with grandchildren Plan of Care Rehabilitation Potential Good Physical Therapy Goals In 6 weeks (01/31/24) Pt will demonstrate good squatting mechanics without cuing and with <2/10 pain in order to lift and play with grandchildren Pt will be able to perform all ADLs with <2/10 low back pain In 12 weeks (03/13/24) Pt will demonstrate at least 4 /5 hip strength in order to reduce strain to lumbar Pt will be independent with HEP and self management of symptoms Pt will exhibit 20% improvement on the Modified Oswestry Outcome measure to demonstrate functional improvement and progress towards goals. Treatment Plan/Direct Interventions Ice/Cold/Vasopneumatic,Joint Mobilization,Manual Therapy, Neuromuscular Re-ed,Self-Care/ Home Management,Therapeutic Activities,Therapeutic Exercises Frequency/Duration Every other week for 3-4 sessions Patient Will Be Discharged From Therapy Completion of LTG(s), Independent w/HEP, Independently Progressing Evaluation Billing Untimed Code Treatment Minutes 28 Complexity Low Certification Information Initial Certification Date 12/20/23 Ending Certification Date 03/15/24 Provider Signature Shows Agreement With POC & Medical Necessity Physician Signature & Date Requested Please Sign/Date Here Physician Comment/Change : Physician NPI Number #
== END 2024-01-27 10:40 | disposition home or self-care (01) ==
PROVIDERS: PCP Internal Medicine; Visit Provider Family Medicine
DX: M54.9 Dorsalgia, unspecified (principal); R29.3 Abnormal posture; Z74.09 Other reduced mobility; R29.898 Other symptoms and signs involving the musculoskeletal system; M62.81 Muscle weakness (generalized); Z51.89 Encounter for other specified aftercare
CPT/HCPCS: 97110; 97161

== ENCOUNTER 2024-04-01 13:26 | Outpatient (CLI) | payer MEDICARE, BC, SELFPAY ==
--- OUTSIDE RECORDS SUMMARY | 2024-04-01 13:28 | XMS_ITS | Encounter Summary ---
Author Organization [facility] Address [address] [place] [address] Care Team Providers Care Coat Examiner Name Role Phone Mahogany Peñaloza MD Primary Care Provider Lori Maloney MD Unavailable [phone] Marc Hicks PhD Unavailable [phone] Abdiel Harris MD Unavailable Reason for Visit * Reason Onset Date Comments Call Back 11/08/2021 mri today Encounter Details Date Type Department Care Team (Late st Contact Info) Description 11/08/2021 Telephone [facility] [address] [place] [address] Lori Maloney MD [address] [place] [address] Call Back (mri today 11/08/21 ) [...] file Gender Identity Female 09/24/2021 9:02 PM COUNTER HELPER Sexual Orientation Not on file documented as of this encounter Miscellaneous Notes * Telephone Encounter - Naila Schwartz - 11/08/2021 12:14 PM CST [facility] Call Center Phone Message May a [...] Center ([facility]): neurology Travel Screening: Not Applicable TER HELPER documented in this encounter Plan of Treatment Not on file documented as of this encounter Visit Diagnoses Not on filedocumented in this encounter Care Teams Coat Examiner Relationship Specialty Start Date End Date Mahogany Peñaloza MD [facility] [address] [place] [address] PCP - General Internal Medicine 12/28/19 Lori Maloney MD [address] [place] [address] Assigned Neuroscience Provider 08/12/20 03/08/23 Marc Hicks, PhD [address] [place] [address] Assigned Behavioral Health Provider 09/10/21 01/25/23 Abdiel Harris MD [facility] [address] [address] Physician Neurology 06/06/23 documented as of this encounter
--- OUTSIDE RECORDS SUMMARY | 2024-04-01 13:28 | XMS_ITS | Encounter Summary ---
Author Organization [facility] Address [address] [place] [address] Care Team Providers Care Lock Stitch Channeler Name Role Phone Mahogany Peñaloza MD Primary Care Provider Lori Maloney MD Unavailable [phone] Marc Hicks PhD Unavailable [phone] Abdiel Harris MD Unavailable Encounter Details Date Type Department Care Team (Late st Contact Info) Description 01/03/2022 [facility] [address] [place] [address] Maria R Soto, AUSTEN Social [...] file Gender Identity Female 09/24/2021 9:02 PM RESPIRATORY SUPERVISOR Sexual Orientation Not on file COVID-19 Exposure Response Date Recorded In the last month, have you been in contact with someone who was confirmed or suspected to have Coronavirus / COVID-19? No / Unsure 12/28/2021 2:27 PM RESPIRATORY SUPERVISOR documented as of this encounter Plan of Treatment Not on file documented as of this encounter Visit Diagnoses Not on filedocumented in this encounter Care Teams Lock Stitch Channeler Relationship Specialty Start Date End Date Mahogany Peñaloza MD [facility] [address] [place] [address] PCP - General Internal Medicine 12/28/19 Lori Maloney MD [address] [place] [address] Assigned Neuroscience Provider 08/12/20 03/08/23 Marc Hicks, PhD [address] [place] [address] Assigned Behavioral Health Provider 09/10/21 01/25/23 Abdiel Harris MD [facility] [address] [address] Physician Neurology 06/06/23 documented as of this encounter
--- OUTSIDE RECORDS SUMMARY | 2024-04-01 13:28 | XMS_ITS | Encounter Summary ---
Author Organization [facility] Address [address] [place] [address] Care Team Providers Care Residential Manager Name Role Phone Mahogany Peñaloza MD Primary Care Provider Lori Maloney MD Unavailable [phone] Marc Hicks PhD Unavailable [phone] Abdiel Harris MD Unavailable Reason for Visit * Reason Onset Date Comments neuropsychological testing 06/21/2020 Encounter Details Date Type Department Care Team (Late st Contact Info) Description 06/21/2020 [facility] Neurology [address] [facility] [facility] [address]rd [place] [address] Lori Maloney MD [address] [place] [id number] neuropsychological testing Social History Tobacco Use Types Packs/Day Years Used Date Smoking Tobacco: Never Smokeless Tobacco: Never Alcohol Use Standard Drinks/Week Comments Not Currently 0 (1 standard drink = 0.6 oz pur e alcohol) PHQ-2 Answer Date Recorded PHQ-2 Score 0 12/29/2019 Sex and Gender Information Value Date Recorded Sex Assigned at Not on file Gender Identity Female 09/24/2021 9:02 PM DOCK SUPERINTENDENT Sexual Orientation Not on file documented as [...] on filedocumented in this encounter Care Teams Residential Manager Relationship Specialty Start Date End Date Mahogany Peñaloza MD [facility] & [address] [address] PCP - General Internal Medicine 12/28/19 Lori Maloney MD [address] [place] [address] Assigned Neuroscience Provider 08/12/20 03/08/23 Marc Hicks, PhD [address] [place] [address] Assigned Behavioral Health Provider 09/10/21 01/25/[address] [facility] [address] [address] [address] Physician Neurology 06/06/23 documented as of this encounter
--- OUTSIDE RECORDS SUMMARY | 2024-04-01 13:28 | XMS_ITS | Encounter Summary ---
Author Organization [facility] Address [address] [place] [address] Care Team Providers Care Special Education Preschool Teacher Name Role Phone Mahogany Peñaloza MD Primary Care Provider [phone] Lori Maloney MD Unavailable [phone] Marc Hicks PhD Unavailable [phone] Abdiel Harris MD Unavailable Encounter Details Date Type Department Care Team (Late st Contact Info) Description 09/11/2021 [facility] [address] [address] Maria R Soto, AUSTEN Social History [...] file Gender Identity Female 09/24/2021 9:02 PM EQUIPMENT MONITOR PHOTOTYPESETTING Sexual Orientation Not on file documented as of this encounter Plan of Treatment Not on file documented as of this encounter Visit Diagnoses Not on filedocumented in this encounter Care Teams Special Education Preschool Teacher Relationship Specialty Start Date End Date Mahogany Peñaloza MD [facility] [address] [place], [place] [phone] PCP - General Internal Medicine 12/28/19 Lori Maloney MD [address] [place] [address] Assigned Neuroscience Provider 08/12/20 03/08/23 Marc Hicks, PhD [address] [place] [address] Assigned Behavioral Health Provider 09/10/21 01/25/23 Abdiel Harris MD [facility] NEUROLOGICAL [facility] [address] [address] [address] Physician Neurology 06/06/23 documented as of this encounter
--- OUTSIDE RECORDS SUMMARY | 2024-04-01 13:28 | XMS_ITS | Clinical Summary ---
Author Organization [facility] Address [address] [place] [address] Care Team Providers Care Electronic Security Specialist Name Role Phone Mahogany Peñaloza MD Primary Care Provider Abdiel Harris MD Unavailable Allergies No known active allergies Medications Medication Sig Dispensed Refills Start Date End Date Status atenolol (TENORMIN) 25 MG tablet 11/30/2019 Active lisinopril (ZESTRIL) 10 MG tablet 12/29/2019 Active RESTASIS 0.05 % ophthalmic emulsion 07/16/2019 Activ e ketoconazole (NIZORAL) 2 % external shampoo 10/01/2019 Active latanoprost (XALATAN) 0.005 % ophthalmic solution INSTILL 1 DROP IN BOTH EYES AT BEDTIME 11/30/2019 Active PAROEX 0.12 % solution 11/13/2019 Active betamethasone dipropionate (DIPROSONE) 0.05 % external lotion 10/01/2019 Active triamcinolone (KENALOG) 0.1 % external cream APPLY TWICE DAILY TO RASH UP TO 2 WEEKS/MONTH NEEDED. 06/09/2019 Active amoxicillin-clavulan ate (AUGMENTIN) 875-125 MG tabletIndications:Th roat pain Take 1 tablet by mouth 2 times daily 20 tablet 05/08/2020 Active Additional Information Patient not taking.Reported on 04/11/2021 diazepam (VALIUM) 2 MG tabletIndications:Cl austrophobia Take one tab 30 minutes before MRI. May repeat one tab in 30 min if needed. Do not drive arrange for a catering truck driver 2 tablet 09/18/2021 Active Active Problems Problem Noted Date Diagnosed Date Cognitive complaints 04/11/2021 Tinnitus 04/11/2021 Persistent insomnia 04/11/2021 Osteopenia 04/11/2021 Hypothyroidism 04/11/2021 Status post cataract extraction 04/11/2021 Chronically dry eyes 04/11/2021 Ascending aorta enlargement (H24) 04/11/2021 Anxiety 08/12/2013 Eczema 05/16/2010 Hyperlipidemia 02/20/2008 Episodic mood disorder (H24) 02/11/2008 Overview: Seasonal affective d/o Malignant neoplasm of female breast 01/19/2003 Overview: right lumpectomy 01/23 Family History Medical History [...] file Gender Identity Female 09/24/2021 9:02 PM SUPERVISOR [employer]BESTOS TEXTILE Sexual Orientation Not on file Last Filed [...] DEXA 1952 FIT 1952 FLEX SIG 1952 GLUCOSE 1952 LIPID 1952 MAMMO SCREENING 1952 sDNA (Cologuard) 1952 HEPATITIS C SCREENING 01/05/1970 RSV VACCINE ( & 60+) (1 - 1-dose 60+ series) 2012 MEDICARE ANNUAL WELLNESS VISIT 01/05/2017 FALL RISK ASSESSMENT 12/28/2020 12/29/2019, 12/29/19 COVID-19 Vaccine ( season) 2023 05/09/2023, 07/23/2022, 04/11/2022, Additional history exists PHQ-2 (once per calendar year) 2023 09/04/2021, 04/11/2021, 12/29/2019, Additional history exists INFLUENZA VACCINE (Season Ended) 2024 07/23/2022, 08/08/2021, 07/27/2020, Additional history exists COLONOSCOPY 09/28/2029 09/28/2019 COLORECTAL [...] age to complete this topic Care Teams Electronic Security Specialist Relationship Specialty Start Date End Date Mahogany Peñaloza MD [facility] [address] [place] [address] PCP - General Internal Medicine 12/28/[address] [facility] NEUROLOGICAL [facility] [address] [address] Physician Neurology 06/06/23
--- OUTSIDE RECORDS SUMMARY | 2024-04-01 13:28 | XMS_ITS | Clinical Summary ---
Author Organization [facility] Address [place], [place] [address] Care Team Providers Care Supervisor Picking Crew Name Role Phone Mahogany Peñaloza MD Primary Care Provider [phone] Allergies No known active allergies Medications Medication [...] MG) BY MOUTH AT BEDTIME. 90 Tablet 08/08/2021 Active Active Problems Problem Noted Date [...] Name Administration Dates Next Due COVID-19 vaccine (InHomeVest 30mcg/0.3mL) HARPAL JOHNSON 12/31/2020,12/10/2020 Influenza A (H1N1), [...] Outcome GA Total Labor Labor/2nd/3rd Weight Sex Type Anes PTL Rosario A1 A5 Name Clin Last Filed Vital Signs Vital Sign Reading Time Taken Comments Blood Pressure 92/68 12/31/2013 5:15 PM CDT Pulse 69 12/31/2013 5:15 PM CDT Temperature 36.9 ??C (98.4 ??F) 12/31/2013 5:15 PM CD T Respiratory Rate 12 12/31/2013 5:15 PM CDT Oxygen Saturation 98% 10/11/2012 8:57 AM INVOICE CLERK Inhaled Oxygen Concentration - - Weight 73.1 kg (161 lb 4 oz) 12/31/2013 5:15 PM CDT Height 159.4 cm (5' 2.75) 12/31/2013 5:15 PM CD T Body Mass Index 28.79 12/31/2013 5:15 PM CDT Plan of Treatment Upcoming Encounters Date Type Department Care Team (Late st Contact Info) Description 04/01/2024 3:00 PM CDT Ancillary Procedure [facility] [address] [place] [id number] Health Maintenance Due Date Last Done Comments [...] 07/20/2021, 12/31/2020, 12/10/2020 Influenza for age 65+ 06/21/2024 07/27/2020 , 08/24/2019, 09/01/2018, Additional history exists Colonoscopy through age 75 09/28/202409/28, 09/28/2019, 09/28/2019, Additional history exists Tdap Completed 08/15/2012 Pneumococcal series for age 65+ Completed 8, 08/09/2017 Zoster (shingles) series for age 50+ Completed 12/17/2018, 11/24/2018, 10/12/2018, Additional history exists Procedures Procedure Name Priority Date/Time Associated Diagnosis Comments COLONOSCOPY SCREENING Routine 09/28/2019 10:17 AM INVOICE CLERK History of colon polyps SCAN-MAMMOGRAPHY REPORT 09/02/2014 12:00 AM INVOICE CLERK XR DXA BONE DENSITY 2 SITES AXIAL Routine 08/18/2013 4:48 PM CDT DISORDER BONE AND CARTILAGE, UNSPEC LDL CHOLESTEROL,DIRECT Routine 08/12/2013 8:08 PM CDT HYPERLIPIDEMIA from Last 3 Months or Most Recently Relevant to Health Maintenance Results * COLONOSCOPY SCREENING (09/28/2019 10:17 AM INVOICE CLERK) Adan Valenzuela MD GI PROCEDURE ORD * SCAN-MAMMOGRAPHY REPORT (09/02/2014 12:00 AM INVOICE CLERK) Anatomical Region Laterality Modality Other Narrative 09/07/2014 6:43 AM INVOICE CLERK Procedure Note Scanner - 09/02/2014 12:00 AM CST Scanner OTHER * (ABNORMAL) XR DXA BONE DENSITY 2 SITES (08/18/2013 4:48 PM CDT) Anatomical Region Laterality Modality Spine, HIPS, HIPL, HIPR Other Narrative 08/19/2013 4:49 PM CDT Please see scanned document for results of this study. Procedure Note Ibis Peña - 08/19/2013 Please see scanned document for results of this study. Shireen Lewis NP DEXA * LDL CHOLESTEROL,DIRECT (08/12/2013 8:08 PM CDT) LDL CHOLESTEROL,D IRECT 138 Undefined mg/dL [facility] Comment: ?RISK CATEGORY LDL GOAL ?(mg/dL) ? Vascular disease and/or diabetes (<100) ? Multiple (2+) risk factors ? (<130) ? 0-1 risk factor ?(<160) Blood specimen (specimen) BLOOD SPECIMEN / Unknown 08/12/2013 8:08 PM CDT 08/12/2013 7:48 PM CDT Shireen Lewis ADVICE NURSE CHEMISTRY [facility] INTERNAL ZIP [address] [place] [address] from Last 3 Months or Most Recently Relevant to Health Maintenance Care Teams Supervisor Picking Crew Relationship Specialty Start Date End Date Mahogany Peñaloza MD [address] [facility] [place] [address] PCP - General Internal Medicine 09/28/19
--- OUTSIDE RECORDS SUMMARY | 2024-04-01 13:28 | XMS_ITS | Encounter Summary ---
Author Organization [place] Address [address] [place] [address] Care Team Providers Care Welding Supervisor Name Role Phone Mahogany Peñaloza MD Primary Care Provider [phone] Lori Maloney MD Unavailable [phone] Marc Hicks PhD Unavailable [phone] Abdiel Harris MD Unavailable Reason for Visit * Reason Onset Date Comments Forms 03/28/2020 medical records Encounter Details Date Type Department Care Team (Late st Contact Info) Description 03/28/2020 [facility] Neurology [address] [place] [address] [address] [place] [address] Lori Maloney MD [address] [place] [address] [phone] Forms (medical records) Social History Tobacco Use Types Packs/Day Years Used Date Smoking Tobacco: Never Smokeless Tobacco: Never Alcohol Use Standard Drinks/Week Comments Not Currently 0 (1 standard drink = 0.6 oz pur e alcohol) PHQ-2 Answer Date Recorded PHQ-2 Score 0 12/29/2019 Sex and Gender Information Value Date Recorded Sex Assigned at Not on file Gender Identity Female 09/24/2021 9:02 PM COSMETIC COUNSELOR Sexual Orientation Not on file documented as [...] on filedocumented in this encounter Care Teams Welding Supervisor Relationship Specialty Start Date End Date Mahogany Peñaloza MD [facility] [address] [place] [address] PCP - General Internal Medicine 12/28/19 Lori Maloney MD [address] [place] [address] [phone] Assigned Neuroscience Provider 08/12/20 03/08/23 Marc Hicks, PhD [address] [place] [address] [phone] Assigned Behavioral Health Provider 09/10/21 01/25/23 Abdiel Harris MD [facility] NEUROLOGICAL [facility] [address] [address] [address] Physician Neurology 06/06/23 documented as of this encounter
--- OUTSIDE RECORDS SUMMARY | 2024-04-01 13:28 | XMS_ITS | Referral Summary ---
Author Organization [place] Address [address] [place] [address] Care Team Providers Care Manufacturing Recruiter Name Role Phone Mahogany Peñaloza MD Primary [...] needed. Do not drive arrange for a tractor driver 2 tablet 09/18/2021 Active Active Problems [...] file Gender Identity Female 09/24/2021 9:02 PM PIE CRUST MIXER Sexual Orientation Not on file Last Filed [...] of Treatment Not on file Care Teams Manufacturing Recruiter Relationship Specialty Start Date End Date Mahogany Peñaloza MD [facility] [address] [place] [address] PCP - General Internal Medicine 12/28/19 Abdiel Harris MD [facility] NEUROLOGICAL [facility] [address] [address] [facility] [address] [place] [address] Physician Neurology 06/06/23
--- OUTSIDE RECORDS SUMMARY | 2024-04-01 13:28 | XMS_ITS | Encounter Summary ---
Author Organization [place] Address [address] [place] [address] Care Team Providers Care Set Up Mechanic Name Role Phone Mahogany Peñaloza MD Primary Care Provider [phone] Lori Maloney MD Unavailable [phone] Marc Hicks PhD Unavailable [phone] Abdiel Harris MD Unavailable Encounter Details Date Type Department Care Team (Late st Contact Info) Description 04/24/2022 [facility] [place] [place] [facility] Neurology Clinic [address] [address] Maria R Soto, [place] Social [...] file Gender Identity Female 09/24/2021 9:02 PM BIOLOGICAL SCIENCE TECHNICIAN FISH Sexual Orientation Not on file documented as of this encounter Plan of Treatment Not on file documented as of this encounter Visit Diagnoses Not on filedocumented in this encounter Care Teams Set Up Mechanic Relationship Specialty Start Date End Date Mahogany Peñaloza MD [facility] [address] [place], [place] [phone] PCP - General Internal Medicine 12/28/19 Lori Maloney MD [address] [place] [address] Assigned Neuroscience Provider 08/12/20 03/08/23 Marc Hicks, PhD [address] [place] [address] Assigned Behavioral Health Provider 09/10/21 01/25/23 Abdiel Harris MD [facility] NEUROLOGICAL [facility] [address] [address] Physician Neurology 06/06/23 documented as of this encounter
--- OUTSIDE RECORDS SUMMARY | 2024-04-01 13:28 | XMS_ITS | Encounter Summary ---
Author Organization [place] Address [address] [place] [address] Care Team Providers Care Handle Sewer Name Role Phone Mahogany Peñaloza MD Primary Care Provider Lori Maloney MD Unavailable + [phone] Marc Hicks PhD Unavailable [phone] Abdiel Harris MD Unavailable Encounter Details Date Type Department Care Team (Late st Contact Info) Description 01/12/2020 [facility] Medical Advice [facility] Neurology [address] [place] [address] 3rd [place] [address] Lori Maloney MD [address] [place] [address] [phone] Social History Tobacco Use Types Packs/Day Years Used Date Smoking Tobacco: Never Smokeless Tobacco: Never Alcohol Use Standard Drinks/Week Comments Not Currently 0 (1 standard drink = 0.6 oz pur e alcohol) PHQ-2 Answer Date Recorded PHQ-2 Score 0 12/29/2019 Sex and Gender Information Value Date Recorded Sex Assigned at Not on file Gender Identity Female 09/24/2021 9:02 PM PHLEBOTOMY DIRECTOR Sexual Orientation Not on file COVID-19 Exposure [...] on filedocumented in this encounter Care Teams Handle Sewer Relationship Specialty Start Date End Date Mahogany Peñaloza MD [facility] [address] [place] [address] PCP - General Internal Medicine 12/28/19 Lori Maloney MD [address] [place] [address] [phone] Assigned Neuroscience Provider 08/12/20 03/08/23 Marc Hicks, PhD [address] [place] [address] [id number] Assigned Behavioral Health Provider 09/10/21 01/25/23 Abdiel Harirs MD [facility] NEUROLOGICAL [facility] [address] [address] Physician Neurology 06/06/23 documented as of this encounter
--- OUTSIDE RECORDS SUMMARY | 2024-04-01 13:28 | XMS_ITS | Encounter Summary ---
Author Organization [place] Address [address] [place] [address] Care Team Providers Care Oncology Admin Name Role Phone Mahogany Peñaloza MD Primary Care Provider [phone] Lori Maloney MD Unavailable [phone] Marc Hicks PhD Unavailable [phone] Abdiel Harris MD Unavailable Reason for Visit * Reason Onset Date Comments Call Back 07/24/2021 Encounter Details Date Type Department Care Team (Late st Contact Info) Description 07/24/2021 Telephone [facility] Neuropsychology [address] [address] Marc Hicks, PhD [address] [place] [address] [phone] Call Back Social History Tobacco Use Types Packs/Day Years Used Date Smoking Tobacco: Never Smokeless Tobacco: Never Alcohol Use Standard Drinks/Week Comments Not Currently 0 (1 standard drink = 0.6 oz pur e alcohol) PHQ-2 Answer Date Recorded PHQ-2 Score 0 04/11/2021 Sex and Gender Information Value Date Recorded Sex Assigned at Not on file Gender Identity Female 09/24/2021 9:02 PM FRONT OFFICE REPRESENTATIVE Sexual Orientation Not on file documented as of this encounter Miscellaneous Notes * Telephone Encounter - Samantha Kelley - 07/26/2021 4:39 PM CDT LVM 07/26. Confirm pt is seeing Dr. Hicks. She saw Dr. Hicks last July. * Telephone Encounter - Jean Sarah - 07/24/2021 9:08 AM CDT [facility] Call Center Phone Message May a [...] on filedocumented in this encounter Care Teams Oncology Admin Relationship Specialty Start Date End Date Mahogany Peñaloza MD [facility] & [address] [address] PCP - General Internal Medicine 12/28/19 Lori Maloney MD [address] [place] [address] Assigned Neuroscience Provider 08/12/20 03/08/23 Marc Hicks, PhD [address] [place] [address] Assigned Behavioral Health Provider 09/10/21 01/25/23 Abdiel Harris MD [facility] NEUROLOGICAL [address] [address] Physician Neurology 06/06/23 documented as of this encounter
--- NOTE | 2024-04-01 14:00 | CRLHL7_ITS ---
For Patients: As a result of the Century Cures Act, medical imaging exams and procedure reports are released immediately into your electronic medical record. You may view this report before your referring provider. If you have questions, please contact your health care provider. BILATERAL SCREENING MAMMOGRAM WITH COMPUTER-AIDED DETECTION AND TOMOSYNTHESIS TECHNIQUE: CC and MLO views were obtained. These mammographic images have been obtained using full-field digital technique. These mammographic images were interpreted with the benefit of computer-aided detection. Breast Tomosynthesis was used in this interpretation. COMPARISON FILM: 03/20/23, 11/20/21, 12/22/20. FINDINGS: There are scattered areas of fibroglandular density. IMPRESSION: There is no radiographic evidence for malignancy. ASSESSMENT: BI-RADS Category 2: Benign RECOMMENDATION: Routine screening mammogram in 1 year. A lay language report of this examination will be provided to the patient. Hema Lowe M.D. Diagnostic Radiologist [email or web address] SP/Dictated by: Hema Lowe MD @ 04/06/2024 10:30:00 AM (Electronically Signed)
== END 2024-04-01 13:27 | disposition home or self-care (01) ==
PROVIDERS: PCP Internal Medicine; Visit Provider Internal Medicine
DX: I77.89 Other specified disorders of arteries and arterioles (principal); Z12.31 Encounter for screening mammogram for malignant neoplasm of breast; I34.0 Nonrheumatic mitral (valve) insufficiency; I71.9 Aortic aneurysm of unspecified site, without rupture
CPT/HCPCS: 77063; 77067; 93306

== ENCOUNTER 2024-10-23 22:01 | Observation (INO) | payer MEDICARE, BC, SELFPAY ==
--- OUTSIDE RECORDS SUMMARY | 2024-10-23 22:04 | XMS_ITS | Clinical Summary ---
Author Organization [employer] [facility] Address [place], [place] [address] Care Team Providers Care Sculpture Conservator Name Role Phone Mahogany Peñaloza MD Primary Care Provider [phone] Allergies No known active allergies Medications ASPIRIN 81 MG TABIndications:Uns pecified essential hypertension every other day 0 02/11/20 08 Active ORDER - MEDICATION ORDER COMPOSERIndication s:Eczema Apply topically to affected area(s). Desonide LT/Ketoconzole CR 1:1 Apply to affected area of face 1 to 2 times daily 60 g 5 10/17/20 11 Active aspirin-acetaminop hen-caffeine, 250-250-65 mg, (EXCEDRIN) 250-250-65 mg tablet Take 1 tablet by mouth every 6 hours if needed for Headache. Max acetaminophen dose: 4000mg in 24 hrs. 0 08/06/20 12 Active amitriptyline (ELAVIL) 10 mg tabletIndications: Insomnia, unspecified TAKE 1-4 TABLETS BY MOUTH AT BEDTIME. 360 tablet 3 06/29/20 13 Active atenolol (TENORMIN) 25 mg tabletIndications: Unspecified essential hypertension TAKE 1/2 TABLET BY MOUTH ONCE DAILY. 15 tablet 0 07/18/20 13 Active Calcium-Magnesium tablet Take 2 tablets by mouth. Eating more yogurt daily 0 08/12/20 13 Active lisinopril (PRINIVIL; ZESTRIL) 10 mg tabletIndications: Unspecified essential hypertension Take 1 tablet by mouth once daily. 90 tablet 3 08/12/20 13 Active atenolol (TENORMIN) 25 mg tabletIndications: Unspecified essential hypertension Take 1 tablet by mouth once daily. 90 tablet 3 08/12/20 13 Active amitriptyline (ELAVIL) 10 mg tabletIndications: Anxiety Take 1-4 tablets by mouth at bedtime. 360 tablet 3 08/12/20 13 Active ergocalciferol (VITAMIN D) 50,000 unit capsuleIndications :Vitamin D deficiency Take 1 capsule by mouth every 4 weeks. (dose decreased 09/16/13) 3 capsule 3 09/16/20 13 Active rosuvastatin (CRESTOR) 5 mg tabletIndications: Hyperlipidemia, unspecified hyperlipidemia type TAKE 1 TABLET(5 MG) BY MOUTH AT BEDTIME. 90 Tablet 08/08/20 21 Active polyethylene glycol-electrolyte (GOLYTELY) 236-22.74-6.74 -5.86 gram suspensionIndicati ons:Encounter for screening colonoscopy Drink 2 liters (half the bottle) the day before colonoscopy and 2 liters (remaining prep) 6 hours prior to colonoscopy appointment. 4000 mL 09/23/20 24 Active Active Problems Problem Noted Date Diagnosed Date History of colon polyps 09/28/2019 Overview (09/28/2019): Colonoscopy 09/2019 normal, repeat in 5 years Anxiety 08/12/2013 Eczema 05/16/2010 Contact dermatitis and other eczema, due to unspecified cause 03/03/2009 Overview (03/03/2009): On face Disorder of bone and cartilage, unspecified 02/18 Overview (02/28/2008): Osteopenia 02/25 Other and unspecified hyperlipidemia 02/20/2008 Unspecified episodic mood disorder 02/11/2008 Overview (02/11/2008): Seasonal affective d/o Malignant neoplasm of breast (female), unspecifi ed site 01/19/2003 Overview (03/02/2009): right lumpectomy 01/23 Unspecified essential hypertension Personal history of colonic polyps Overview (06/14/2009): Hyperplastic polyps removed 08/24 Colonoscopy 05/2009 normal repeat in 5 years Unspecified hypothyroidism Encounters Date Type Department Care Team Description 10/20/2024 Telephone [facility] [address] [place] [address] Adan Valenzuela MD Appointment Reminder (Colonoscopy at [facility]) 09/23/2024 Telephone [facility] [address] [place] [address] Adan Valenzuela MD Need Meds 09/02/2024 Orders Only [facility] [address] [facility] [address] Adan Valenzuela MD <No scans attached> from Last 3 Months Immunizations Name Administration Dates Next Due COVID-19 vaccine (Concept.io 30mcg/0.3mL) HARPAL JOHNSON 12/31/2020,12/10/2020 Influenza A (H1N1), [...] Paying Living Expenses Not on file 10/21/2021 Comments No Sex and Gender Information Value Date Recorded Sex Assigned at Not on file Legal Sex Female 6:13 AM BUSINESS MANAGEMENT INTERN Gender Identity Not on file Sexual Orientation Not on file 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 Not on file Not on file Not on file Obstetrics History Para Term [...] 69 12/31/2013 5:15 PM CDT Temperature 36.9 C (98.4 F) 12/31/2013 5:15 PM CDT Respiratory Rate 12 12/31/2013 5:15 PM CDT Oxygen Saturation 98% 10/11/2012 8:57 AM BUSINESS MANAGEMENT INTERN Inhaled Oxygen Concentration - - Weight 73.1 kg (161 lb 4 oz) 12/31/2013 5:15 PM CDT Height 159.4 cm (5' 2.75) 12/31/2013 5:15 PM CD T Body Mass Index 28.79 12/31/2013 5:15 PM CDT Plan of Treatment Scheduled Procedures Name Priority Associated Diagnoses Date/Ti me SURGICAL PROCEDURE (TYPE PROCEDURE DESCRIPTION BELOW) Encounter for screening colonoscopy Health Maintenance Due Date Last Done Comments [...] 08/15/2012, 06/08/2003 COVID-19 vaccine series ( season) 2024 07/20/2021, 12/31/2020, 12/10/2020 Influenza for age 65+ 06/21/2024 07/27/2020 , 08/24/2019, 09/01/2018, Additional history exists Colonoscopy through age 75 09/28/202409/28, 09/28/2019, 09/28/2019, Additional history exists RSV vaccine for adults or (1 - 1-dose 75+ series) 01/05/2027 Tdap Completed 08/15/2012 Pneumococcal series for age 50+ Completed 8, 08/09/2017 Zoster (shingles) series for age 50+ Completed 12/17/2018, 11/24/2018, 10/12/2018, Additional history exists Procedures Procedure Name Priority Date/Time Associated Diagnosis Comments COLONOSCOPY SCREENING Routine 09/28/2019 10:17 AM BUSINESS MANAGEMENT INTERN History of colon polyps SCAN-MAMMOGRAPHY REPORT 09/02/2014 12:00 AM BUSINESS MANAGEMENT INTERN XR DXA BONE DENSITY 2 SITES AXIAL Routine 08/18/2013 4:48 PM CDT DISORDER BONE AND CARTILAGE, UNSPEC LDL CHOLESTEROL,DIRECT Routine 08/12/2013 8:08 PM CDT HYPERLIPIDEMIA from Last 3 Months or Most Recently Relevant to Health Maintenance Results * COLONOSCOPY SCREENING (09/28/2019 10:17 AM BUSINESS MANAGEMENT INTERN) us Adan Valenzuela MD GI PROCEDURE ORD Final Re sult * SCAN-MAMMOGRAPHY REPORT (09/02/2014 12:00 AM BUSINESS MANAGEMENT INTERN) Anatomical Region Laterality Modality Other Narrative 09/07/2014 6:43 AM BUSINESS MANAGEMENT INTERN Procedure Note Scanner - 09/02/2014 12:00 AM CST us Scanner OTHER Final Result * (ABNORMAL) XR DXA BONE DENSITY 2 SITES (08/18/2013 4:48 PM CDT) Anatomical Region Laterality Modality Spine, HIPS, HIPL, HIPR Other Narrative 08/19/2013 4:49 PM CDT Please see scanned document for results of this study. Procedure Note Ibis Peña E - 08/19/2013 Please see scanned document for results of this study. Shireen Lewis NP DEXA Final Result * LDL CHOLESTEROL,DIRECT (08/12/2013 8:08 PM CDT) LDL CHOLESTEROL,D IRECT 138 Undefined mg/dL [facility] Comment: RISK CATEGORY LDL GOAL (mg/dL) Vascular disease and/or diabetes (<100) Multiple (2+) risk factors (<130) 0-1 risk factor (<160) Blood specimen (specimen) BLOOD SPECIMEN / Unknown 08/12/2013 8:08 PM CDT 08/12/2013 7:48 PM CDT Shireen Lewis NP CHEMISTRY Final Result [facility] INTERNAL ZIP [address] [place] [address] from Last 3 Months or Most Recently Relevant to Health Maintenance Insurance [employer] [place] [employer] [place] ONLY Care Teams Sculpture Conservator Relationship Specialty Start Date End Date Mahogany Peñaloza MD [address] [place] [address] [phone] PCP - General Internal Medicine 09/28/19
--- OUTSIDE RECORDS SUMMARY | 2024-10-23 22:04 | XMS_ITS | Encounter Summary ---
Author Organization [place] Address [address] [place] [address] Care Team Providers Care Induction Furnace Operator Name Role Phone Mahogany Peñaloza MD Primary Care Provider Lori Maloney MD Unavailable [phone] Marc Hicks PhD Unavailable [phone] Abdiel Harris MD Unavailable Reason for Visit * Reason Onset Date Comments Call Back 07/24/2021 Encounter Details Date Type Department Care Team (Late st Contact Info) Description 07/24/2021 Telephone [facility] Neuropsychology [address] [address] Marc Hicks, PhD [address] [place] [address] Call Back Social History Tobacco Use Types Packs/Day Years Used Date Smoking Tobacco: Never Smokeless Tobacco: Never Alcohol Use Standard Drinks/Week Comments Not Currently 0 (1 standard drink = 0.6 oz pur e alcohol) PHQ-2 Answer Date Recorded PHQ-2 Score 0 04/11/2021 Comments Unknown Sex and Gender Information Value Date Recorded Sex Assigned at Not on file Legal Sex Female 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 Confirm pt is seeing Dr. Hicks. She saw Dr. Hicks last July. * Telephone Encounter - Jean Sarah - 07/24/2021 9:08 AM CDT Health Call Center Phone Message [...] on filedocumented in this encounter Care Teams Induction Furnace Operator Relationship Specialty Start Date End Date Mahogany Peñaloza MD [facility] [address] [place] [address] PCP - General Internal Medicine 12/28/19 Lori Maloney MD [address] [place] [address] Assigned Neuroscience Provider 08/12/20 03/08/23 Marc Hicks, PhD [address] [place] [address] Assigned Behavioral Health Provider 09/10/21 01/25/23 Abdiel Harris MD [facility] NEUROLOGICAL [facility] [address] [address] [address] Physician Neurology 06/06/23 documented as of this encounter
--- OUTSIDE RECORDS SUMMARY | 2024-10-23 22:04 | XMS_ITS | Encounter Summary ---
Author Organization [place] Address [address] [place] [address] Care Team Providers Care Forcer Maker Name Role Phone Mahogany Peñaloza MD Primary Care Provider [phone] Abdiel Harris MD Unavailable Reason for Visit * Reason Onset Date Comments Call Back 06/20/2023 Questions regard ing appointment Encounter Details Date Type Department Care Team (Late st Contact Info) Description 06/20/2023 [facility] [place] [facility] Neuropsychology [address] [address] Marc Hicks, PhD [address] [place] [address] Call Back (Questions regarding appointment) Social History Tobacco Use Types Packs/Day Years Used Date Smoking Tobacco: Never Smokeless Tobacco: Never Alcohol Use Standard Drinks/Week Comments Not Currently 0 (1 standard drink = 0.6 oz pur e alcohol) PHQ-2 Answer Date Recorded PHQ-2 Score 0 09/04/2021 Comments Unknown Sex and Gender Information Value Date Recorded Sex Assigned at Not on file Legal Sex Female 4:38 AM JOURNALISTS AND OTHER WRITERS Gender Identity Female 09/24/2021 9:02 PM JOURNALISTS AND OTHER WRITERS Sexual Orientation Not on file Occupation Industry Job Start Date Job End Date retired Not on file Not on file Not on file documented as of this encounter Miscellaneous Notes * Telephone Encounter - Paty Davis Fransico - 06/20/2023 9:31 AM CDT [facility] Call Center Phone Message May a [...] on filedocumented in this encounter Care Teams Forcer Maker Relationship Specialty Start Date End Date Mahogany Peñaloza MD [facility] [address] [place] [address] PCP - General Internal Medicine 12/28/19 Abdiel Harris MD [facility] NEUROLOGICAL [facility] [id number] [address] Physician Neurology 06/06/23 documented as of this encounter
--- OUTSIDE RECORDS SUMMARY | 2024-10-23 22:04 | XMS_ITS | Encounter Summary ---
Author Organization [place] Address [address] [place] [address] Care Team Providers Care Diesel Maintenance Technician Name Role Phone Mahogany Peñaloza MD Primary Care Provider Lori Maloney MD Unavailable [phone] Marc Hicks PhD Unavailable [phone] Abdiel Harris MD Unavailable Reason for Visit * Reason Onset Date Comments neuropsychological testing 06/21/2020 Encounter Details Date Type Department Care Team (Late st Contact Info) Description 06/21/2020 Telephone [facility] Neurology [address] [facility] 3rd [place] [address] Lori Maloney MD [address] [place] [address] neuropsychological testing Social History Tobacco Use Types Packs/Day Years Used Date Smoking Tobacco: Never Smokeless Tobacco: Never Alcohol Use Standard Drinks/Week Comments Not Currently 0 (1 standard drink = 0.6 oz pur e alcohol) PHQ-2 Answer Date Recorded PHQ-2 Score 0 12/29/2019 Comments Unknown Sex and Gender Information Value Date Recorded Sex Assigned at Not on file Legal Sex Female 4:38 AM BEHAVIORAL HEALTH ASSOCIATE Gender Identity Female 09/24/2021 9:02 PM BEHAVIORAL HEALTH ASSOCIATE Sexual Orientation Not on file Occupation Industry Job Start Date Job End Date retired Not on file Not on file Not on file documented as of this encounter Miscellaneous Notes * Telephone Encounter - Sandy Marcus - 06/21/2020 10:08 AM CDT [facility] Call Center Phone Message May a [...] on filedocumented in this encounter Care Teams Diesel Maintenance Technician Relationship Specialty Start Date End Date Mahogany Peñaloza MD [address] [address] PCP - General Internal Medicine 12/28/19 Lori Maloney MD [address] [place] [address] [phone] Assigned Neuroscience Provider 08/12/20 03/08/23 Marc Hicks, PhD [address] [place] [address] [phone] Assigned Behavioral Health Provider 09/10/21 01/25/23 Abdiel Harris MD [facility] NEUROLOGICAL [facility] [address] [address] [address] Physician Neurology 06/06/23 documented as of this encounter
--- OUTSIDE RECORDS SUMMARY | 2024-10-23 22:04 | XMS_ITS | Encounter Summary ---
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 Gender Identity Female 09/24/2021 9:02 PM SHORT STORY WRITER Sexual Orientation Not on file Occupation Industry Job Start Date Job End Date retired Not on file Not on file Not on file documented as of this encounter Plan of Treatment Not on file documented as of this encounter Visit Diagnoses Not on filedocumented in this encounter Care Teams Distillery Manager Relationship Specialty Start Date End Date Mahogany Peñaloza MD [facility] [address] [place] [address] PCP - General Internal Medicine 12/28/19 Lori Maloney MD [address] [place] [address] Assigned Neuroscience Provider 08/12/20 03/08/23 Marc Hicks, PhD [address] [place] [address] Assigned Behavioral Health Provider 09/10/21 01/25/23 Abdiel Harris MD [facility] [address] [address] Physician Neurology 06/06/23 documented as of this encounter
--- OUTSIDE RECORDS SUMMARY | 2024-10-23 22:04 | XMS_ITS | Encounter Summary ---
Author Organization [place] Address [address] [place] [address] Care Team Providers Care Lab Courier Name Role Phone Mahogany Peñaloza MD Primary Care Provider [phone] Loir Maloney MD Unavailable [phone] Marc Hicks PhD Unavailable [phone] Abdiel Harris MD Unavailable Encounter Details Date Type Department Care Team (Late st Contact Info) Description 01/12/2020 [facility] [place] Medical Advice [facility] Neurology [address] [place] [address] [address] [place] [address] Lori Maloney MD [address] [place] [address] Social History Tobacco Use Types Packs/Day Years Used Date Smoking Tobacco: Never Smokeless Tobacco: Never Alcohol Use Standard Drinks/Week Comments Not Currently 0 (1 standard drink = 0.6 oz pur e alcohol) PHQ-2 Answer Date Recorded PHQ-2 Score 0 12/29/2019 Comments Unknown Sex and Gender Information Value Date Recorded Sex Assigned at Not on file Legal Sex Female 4:38 AM SKIP PIT WORKER Gender Identity Female 09/24/2021 9:02 PM SKIP PIT WORKER Sexual Orientation Not on file Occupation Industry Job Start Date Job End Date retired Not on file Not on file Not on file COVID-19 Exposure Response Date Recorded In the last month, have you been in contact with someone who was confirmed or suspected to have Coronavirus / COVID-19? No / Unsure 01/10/2020 12:39 PM CDT documented as of this encounter Plan of Treatment Not on file documented as of this encounter Visit Diagnoses Not on filedocumented in this encounter Care Teams Lab Courier Relationship Specialty Start Date End Date Mahogany Peñaloza MD [facility] [address] [place] [address] PCP - General Internal Medicine 12/28/19 Lori Maloney MD [address] [place] [address] 419355 Assigned Neuroscience Provider 08/12/20 03/08/23 Marc Hicks, PhD [address] [place] [address] Assigned Behavioral Health Provider 09/10/21 01/25/23 Abdiel Harris MD [facility] NEUROLOGICAL [facility] [address] [address] Physician Neurology 06/06/23 documented as of this encounter
--- OUTSIDE RECORDS SUMMARY | 2024-10-23 22:04 | XMS_ITS | Referral Summary ---
Author Organization [place] Address [address] [place] [address] Care Team Providers Care Fulling Mill Operator Name Role Phone Mahogany Peñaloza MD Primary Care Provider Abdiel Harris MD Unavailable Allergies No known active allergies Medications atenolol (TENORMIN) 25 MG tablet 0 Active lisinopril (ZESTRIL) 10 MG tablet 0 Active RESTASIS 0.05 % ophthalmic emulsion 9 Active ketoconazole (NIZORAL) 2 % external shampoo 9 Active latanoprost (XALATAN) 0.005 % ophthalmic solution INSTILL 1 DROP IN BOTH EYES AT BEDTIME 0 Active PAROEX 0.12 % solution 0 Active betamethasone dipropionate (DIPROSONE) 0.05 % external lotion 9 Active triamcinolone (KENALOG) 0.1 % external cream APPLY TWICE DAILY TO RASH UP TO 2 WEEKS/MONTH NEEDED. 9 Active amoxicillin-clav ulanate (AUGMENTIN) 875-125 MG tabletIndication s:Throat pain Take 1 tablet by mouth 2 times daily 20 tablet 0 Active Additional Information Patient not taking.Reported on 04/11/2021 diazepam (VALIUM) 2 MG tabletIndication s:Claustrophobia Take one tab 30 minutes before MRI. May repeat one tab in 30 min if needed. Do not drive arrange for a ice cream truck driver 2 tablet 1 Active Active Problems Problem Noted Date Diagnosed Date Cognitive complaints 04/11/2021 Tinnitus 04/11/2021 Persistent insomnia 04/11/2021 Osteopenia 04/11/2021 Hypothyroidism 04/11/2021 Status post cataract extraction 04/11/2021 Chronically dry eyes 04/11/2021 Ascending aorta enlargement 04/11/2021 Anxiety 08/12/2013 Eczema 05/16/2010 Hyperlipidemia 02/20/2008 Episodic mood disorder 02/11/2008 Overview (04/11/2021): Seasonal affective d/o Malignant neoplasm of female breast 01/19/2003 Overview (04/11/2021): right lumpectomy 01/23 Social History Tobacco Use Types Packs/Day Years Used Date Smoking Tobacco: Never Smokeless Tobacco: Never Alcohol Use Standard Drinks/Week Comments Not Currently 0 (1 standard drink = 0.6 oz pur e alcohol) PHQ-2 Answer Date Recorded PHQ-2 Score 0 09/04/2021 Adolescent Education Answer Date Record ed Getting School Help Needed Not on file 08/06 Comments Unknown Sex and Gender Information Value Date Recorded Sex Assigned at Not on file Legal Sex Female 4:38 AM FABRIC SOURCER Gender Identity Female 09/24/2021 9:02 PM FABRIC SOURCER Sexual Orientation Not on file Occupation Industry Job Start Date Job End Date retired Not on file Not on file Not on file Last Filed Vital Signs Vital Sign Reading Time Taken Comments Blood Pressure 135/78 04/11/2021 8:03 AM CDT Pulse 57 04/11/2021 8:03 AM CDT Temperature 37.3 C (99.2 F) 05/08/2020 10:55 AM CDT Respiratory Rate 16 12/29/2019 1:13 PM CDT Oxygen Saturation 100% 04/11/2021 8:03 AM CDT Inhaled Oxygen Concentration - - Weight 68 kg (149 lb 14.4 oz) 04/11/2021 8:03 AM CDT Height - - Body Mass Index - - Plan of Treatment Not on file Insurance [facility] [place] [facility]UE MEDICARE [facility]UE MEDICARE BCBS [place] [employer] MEDICARE Care Teams Fulling Mill Operator Relationship Specialty Start Date End Date Mahogany Peñaloza MD [facility] [address] [place] [address] PCP - General Internal Medicine 12/28/19 Abdiel Harris MD [facility] [address] [address] [address] Physician Neurology 06/06/23
--- OUTSIDE RECORDS SUMMARY | 2024-10-23 22:04 | XMS_ITS | Encounter Summary ---
Author Organization [place] Address [address] [place] [address] Care Team Providers Care Slide Machine Tender Name Role Phone Mahogany Peñaloza MD Primary Care Provider Lori Maloney MD Unavailable [phone] Marc Hicks PhD Unavailable [phone] Abdiel Harris MD Unavailable Reason for Visit * Reason Onset Date Comments Forms 03/28/2020 medical records Encounter Details Date Type Department Care Team (Late st Contact Info) Description 03/28/2020 Telephone [facility] Neurology [address] [facility] [address] 3rd [place] [address] Lori Maloney MD [address] [place] [phone] Forms (medical records) Social History Tobacco Use Types Packs/Day Years Used Date Smoking Tobacco: Never Smokeless Tobacco: Never Alcohol Use Standard Drinks/Week Comments Not Currently 0 (1 standard drink = 0.6 oz pur e alcohol) PHQ-2 Answer Date Recorded PHQ-2 Score 0 12/29/2019 Comments Unknown Sex and Gender Information Value Date Recorded Sex Assigned at Not on file Legal Sex Female 4:38 AM LAST TRIMMER Gender Identity Female 09/24/2021 9:02 PM LAST TRIMMER Sexual Orientation Not on file Occupation Industry Job Start Date Job End Date retired Not on file Not on file Not on file documented as of this encounter Miscellaneous Notes * Telephone Encounter - Zhane Wing - 03/28/2020 2:19 PM CDT [facility] Call Center Phone Message May a [...] on filedocumented in this encounter Care Teams Slide Machine Tender Relationship Specialty Start Date End Date Mahogany Peñaloza MD [facility] [address] [place] [address] PCP - General Internal Medicine 12/28/19 Lori Maloney MD [address] [place] [address] Assigned Neuroscience Provider 08/12/20 03/08/23 Marc Hicks, PhD [address] [place] [address] Assigned Behavioral Health Provider 09/10/21 01/25/23 Abdiel Harris MD [facility] [address] [address] Physician Neurology 06/06/23 documented as of this encounter
--- OUTSIDE RECORDS SUMMARY | 2024-10-23 22:04 | XMS_ITS | Encounter Summary ---
Author Organization [place] Address [address] [place] [address] Care Team Providers Care Returned Telephone Equipment Appraiser Name Role Phone Mahogany Peñaloza MD Primary Care Provider Lori Maloney MD Unavailable [phone] Marc Hicks PhD Unavailable [phone] Abdiel Harris MD Unavailable Encounter Details Date Type Department Care Team (Late st Contact Info) Description 04/24/2022 [facility] Medical Advice [facility]rology Clinic [address] [place] [address] Maria R Soto, [place] Social [...] on file Legal Sex Female 4:38 AM PHYSICIANS ASSISTANT Gender Identity Female 09/24/2021 9:02 PM PHYSICIANS ASSISTANT Sexual Orientation Not on file Occupation Industry Job Start Date Job End Date retired Not on file Not on file Not on file documented as of this encounter Plan of Treatment Not on file documented as of this encounter Visit Diagnoses Not on filedocumented in this encounter Care Teams Returned Telephone Equipment Appraiser Relationship Specialty Start Date End Date Mahogany Peñaloza MD [facility] [address] [place] [address] PCP - General Internal Medicine 12/28/19 Lori Maloney MD [address] [place] [address] Assigned Neuroscience Provider 08/12/20 03/08/23 Marc Hicks, PhD [address] [place] [address] Assigned Behavioral Health Provider 09/10/21 01/25/23 Abdiel Harris MD [facility] NEUROLOGICAL [facility] [address] [address] Physician Neurology 06/06/23 documented as of this encounter
--- OUTSIDE RECORDS SUMMARY | 2024-10-23 22:04 | XMS_ITS | Encounter Summary ---
Author Organization [place] Address [address] [place] [address] Care Team Providers Care Hospitality Director Name Role Phone Mahogany Peñaloza MD Primary Care Provider [phone] Lori Maloney MD Unavailable [phone] Marc Hicks PhD Unavailable [phone] Abdiel Harris MD Unavailable Encounter Details Date Type Department Care Team (Late st Contact Info) Description 01/03/2022 [facility] [place] Medical Advice [facility] [address] [place] [address] Maria R Soto, [place] Social [...] on file Legal Sex Female 4:38 AM LURER Gender Identity Female 09/24/2021 9:02 PM LURER Sexual Orientation Not on file Occupation Industry Job Start Date Job End Date retired Not on file Not on file Not on file COVID-19 Exposure Response Date Recorded In the last month, have you been in contact with someone who was confirmed or suspected to have Coronavirus / COVID-19? No / Unsure 12/28/2021 2:27 PM LURER documented as of this encounter Plan of Treatment Not on file documented as of this encounter Visit Diagnoses Not on filedocumented in this encounter Care Teams Hospitality Director Relationship Specialty Start Date End Date Mahogany Peñaloza MD [facility] [address] [place] [address] PCP - General Internal Medicine 12/28/19 Lori Maloney MD [address] [place] [address] Assigned Neuroscience Provider 08/12/20 03/08/23 Marc Hicks, PhD [address] [place] [address] Assigned Behavioral Health Provider 09/10/21 01/25/23 Abdiel Harris MD [facility] NEUROLOGICAL [facility] [address] [address] [address] Physician Neurology 06/06/23 documented as of this encounter
--- OUTSIDE RECORDS SUMMARY | 2024-10-23 22:04 | XMS_ITS | Encounter Summary ---
Author Organization [place] Address [address] [place] [address] Care Team Providers Care Paying Teller Name Role Phone Mahogany Peñaloza MD Primary Care Provider Lori Maloney MD Unavailable [phone] Marc Hicks PhD Unavailable [phone] Abdiel Harris MD Unavailable Encounter Details Date Type Department Care Team (Late st Contact Info) Description 09/11/2021 [facility] [place] Medical Advice [facility] [address] [place] [address] Maria R Soto, [place] Social [...] on file Legal Sex Female 4:38 AM CHERRY SORTER Gender Identity Female 09/24/2021 9:02 PM CHERRY SORTER Sexual Orientation Not on file Occupation Industry Job Start Date Job End Date retired Not on file Not on file Not on file documented as of this encounter Plan of Treatment Not on file documented as of this encounter Visit Diagnoses Not on filedocumented in this encounter Care Teams Paying Teller Relationship Specialty Start Date End Date Mahogany Peñaloza MD [facility] [address] [place] [address] PCP - General Internal Medicine 12/28/19 Lori Maloney MD [address] [place] [address] Assigned Neuroscience Provider 08/12/20 03/08/23 Marc Hicks, PhD [address] [place] [address] Assigned Behavioral Health Provider 09/10/21 01/25/23 Abdiel Harris MD [facility]UROLOGICAL [facility] [address] [address] Physician Neurology 06/06/23 documented as of this encounter
--- OUTSIDE RECORDS SUMMARY | 2024-10-23 22:04 | XMS_ITS | Continuity of Care Document ---
Author Name [email or web address] Address Unknown Organization Unknown Address Unknown Procedures FILTER APPLIED:Only known Procedures with Onset Date within the last 5 years Procedure Date Procedure Provider Magen marte Information Status ROUTINE VENIPUNCTURE (36925) Completed LIPID PANEL (99036) Comp leted METABOLIC PANEL TOTAL CA (97206) Completed VITAMIN D 25 HYDROXY (10722) Completed PT EVAL LOW COMPLEX 20 MIN (96089) Completed THERAPEUTIC EXERCISES (78616) Completed MRI LUMBAR SPINE W/O DYE (16635) Completed Encounters FILTER APPLIED:Only known Encounters with Admission Date within the last 5 years Encounter Location Admission Discharge Billing Code Life Insurance Agent Ada guzman Outpatient [facility] Outpatient [facility] Peñaloza Outpatient [facility] Outpatient Outpatient [facility]
--- OUTSIDE RECORDS SUMMARY | 2024-10-23 22:04 | XMS_ITS | Clinical Summary ---
Author Organization [place] Address [address] [place] [address] Care Team Providers Care Communications Supervisor Name Role Phone Mahogany Peñaloza MD Primary Care Provider [phone] Abdiel Harris MD Unavailable Allergies No known [...] needed. Do not drive arrange for a otr company driver 2 tablet 1 Active Active Problems Problem Noted Date Diagnosed Date Cognitive complaints 04/11/2021 Tinnitus 04/11/2021 Persistent insomnia 04/11/2021 Osteopenia 04/11/2021 Hypothyroidism 04/11/2021 Status post cataract extraction 04/11/2021 Chronically dry eyes 04/11/2021 Ascending aorta enlargement 04/11/2021 Anxiety 08/12/2013 Eczema 05/16/2010 Hyperlipidemia 02/20/2008 Episodic mood disorder 02/11/2008 Overview (04/11/2021): Seasonal affective d/o Malignant neoplasm of female breast 01/19/2003 Overview (04/11/2021): right lumpectomy 01/23 Family History Medical History [...] on file Legal Sex Female 4:38 AM BALLOON ARTIST Gender Identity Female 09/24/2021 9:02 PM BALLOON ARTIST Sexual Orientation Not on file Occupation Industry [...] GLUCOSE 1952 LIPID 1952 MAMMO SCREENING 1952 TSH W/FREE T4 REFLEX 1952 sDNA (Cologuard) 1950 HEPATITIS C SCREENING 01/05/1970 MEDICARE ANNUAL WELLNESS VISIT 01/05/2017 FALL RISK ASSESSMENT 12/28/2020 12/29/2019, 12/29/19 20 PHQ-2 (once per calendar year) 2023 09/04/2021, 04/11/2021, 12/29/2019, Additional history exists COVID-19 Vaccine ( season) 2024 01/09/2024, 08/29/2023, 05/09/2023, Additional history exists INFLUENZA VACCINE (#1) 2024 , 07/23/2022, 08/08/2021, Additional history exists RSV VACCINE (1 - 1-dose 75+ series) 01/05/2027 COLONOSCOPY 09/28/2029 09/28/2019 COLORECTAL CANCER SCREENING 09/28/2029 DTAP/TDAP/TD IMMUNIZATION (3 - Td or Tdap) 01/09/2032 01/08/2022, 08/15/2012, 06/08/2003 Pneumococcal Vaccine: 50+ Years Completed 09/01/2018, 08/09/2017 ZOSTER IMMUNIZATION Completed 12/17/2018, 11/24/2018, 10/12/2018, Additional history exists HPV IMMUNIZATION Aged Out No longer e ligible based on patient's age to complete this topic MENINGITIS IMMUNIZATION Aged Out No l onger eligible based on patient's age to complete this topic RSV MONOCLONAL ANTIBODY Aged Out No l onger eligible based on patient's age to complete this topic Insurance BCBS [place] [employer] MEDICARE [facility] MEDICARE BC [place] [employer] MEDICARE Care Teams Communications Supervisor Relationship Specialty Start Date End Date Mahogany Peñaloza MD [facility] [address] [place] [address] PCP - General Internal Medicine 12/28/19 Abdiel Harris MD [facility] NEUROLOGICAL [facility] [address] [address] Physician Neurology 06/06/23
--- OUTSIDE RECORDS SUMMARY | 2024-10-23 22:04 | XMS_ITS | Encounter Summary ---
Author Organization [place] Address [address] [place] [address] Care Team Providers Care Coffee Roaster Helper Name Role Phone Mahogany Peñaloza MD Primary Care Provider Lori Maloney MD Unavailable [phone] Marc Hicks PhD Unavailable [phone] Abdiel Harris MD Unavailable Reason for Visit * Reason Onset Date Comments Call Back 11/08/2021 mri today Encounter Details Date Type Department Care Team (Late st Contact Info) Description 11/08/2021 Telephone [facility] Neurology Clinic [address] [address] Lori Maloney MD [address] [place] [address] Call Back (mri today 11/08/21 ) [...] on file Legal Sex Female 4:38 AM DIRECTOR PAYER Gender Identity Female 09/24/2021 9:02 PM DIRECTOR PAYER Sexual Orientation Not on file Occupation Industry Job Start Date Job End Date retired Not on file Not on file Not on file documented as of this encounter Miscellaneous Notes * Telephone Encounter - Naila Schwartz - 11/08/2021 12:14 PM CST [facility] Call Center Phone Message May a [...] Center ([facility]): neurology Travel Screening: Not Applicable CTOR PAYER documented in this encounter Plan of Treatment Not on file documented as of this encounter Visit Diagnoses Not on filedocumented in this encounter Care Teams Coffee Roaster Helper Relationship Specialty Start Date End Date Mahogany Peñaloza MD [facility] & [address] [address] PCP - General Internal Medicine 12/28/19 Lori Maloney MD [address] [place] [address] Assigned Neuroscience Provider 08/12/20 03/08/23 Marc Hicks, PhD [address] [place] [address] Assigned Behavioral Health Provider 09/10/21 01/25/23 Abdiel Harris MD [facility] NEUROLOGICAL [facility] [address] [address] Physician Neurology 06/06/23 documented as of this encounter
[2024-10-23 22:08] VITALS: BP 131/80; PULSE 61; RESP 16; O2SAT 95; BMI 22.1
--- NOTE | 2024-10-23 22:25 | CRLHL7_ITS ---
For Patients: As a result of the Century Cures Act, medical imaging exams and procedure reports are released immediately into your electronic medical record. You may view this report before your referring provider. If you have questions, please contact your health care provider. Indication: Left-sided symptoms, slurred speech Technique: Noncontrast CT through the head with multiplanar reformats Comparison: None Findings: Brain: No acute hemorrhage. No acute infarct. No significant mass effect or midline shift. No gross evidence of a mass lesion or cerebral edema. Severe chronic microvascular ischemic disease. Mild global parenchymal volume loss. Ventricles: No acute abnormality appreciated. Orbits, sinuses, mastoids: No acute abnormality appreciated. Calvarium and soft tissues: No acute abnormality appreciated. Impression: Severe chronic senescent changes with no acute intracranial abnormality appreciated. If there is continued clinical concern for significant intracranial pathology, MRI would be recommended for further evaluation. Please note that all CT scans at this facility use dose modulation, iterative reconstruction, and/or weight-based dosing when appropriate to reduce radiation dose to as low as reasonably achievable. Dictated by Monroe Oneal MD @ 10/23/2024 11:57:57 PM (Electronically Signed)
--- NOTE | 2024-10-23 22:37 | CRLHL7_ITS ---
For Patients: As a result of the Century Cures Act, medical imaging exams and procedure reports are released immediately into your electronic medical record. You may view this report before your referring provider. If you have questions, please contact your health care provider. CLINICAL HISTORY: Left-sided stroke symptoms with slurred speech. TECHNIQUE: Standard helical CT image acquisition through the head following the administration of intravenous contrast was performed. 3D and MIP reconstructions were performed at a separate workstation and permanently archived. COMPARISON: None available. FINDINGS: Scattered intracranial atherosclerotic disease without proximal large vessel occlusion or flow-limiting luminal stenosis. No evidence of cerebral aneurysm. No findings to suggest an arterial-venous shunting lesion. The major dural venous sinuses and deep venous system are patent. IMPRESSION: Scattered intracranial atherosclerotic disease without proximal large vessel occlusion or flow-limiting luminal stenosis. Please note that all CT scans at this facility use dose modulation, iterative reconstruction, and/or weight-based dosing when appropriate to reduce radiation dose to as low as reasonably achievable. Dictated by Jb Bustos MD @ 10/24/2024 10:57:34 AM (Electronically Signed)
--- NOTE | 2024-10-23 22:37 | CRLHL7_ITS ---
For Patients: As a result of the Century Cures Act, medical imaging exams and procedure reports are released immediately into your electronic medical record. You may view this report before your referring provider. If you have questions, please contact your health care provider. CLINICAL HISTORY: Left-sided stroke symptoms, slurred speech. TECHNIQUE: Standard helical CT image acquisition through the neck was performed after intravenous contrast bolus enhancement. 3D and MIP reconstructions were performed at a separate workstation and permanently archived. COMPARISON: None available. FINDINGS: The origins of the great vessels from the aortic arch are patent. The common carotid arteries are patent. Mild (<50%) stenoses of the bilateral proximal ICAs, by NASCET criteria, with an ulcerative plaque of the proximal right ICA just distal carotid bulb. The more distal cervical segments of the ICAs are patent. The origins and cervical segments of the vertebral arteries are patent. IMPRESSION: Mild (<50%) stenoses of the bilateral proximal ICAs, by NASCET criteria, with an ulcerative plaque of the proximal right ICA just distal carotid bulb. Please note that all CT scans at this facility use dose modulation, iterative reconstruction, and/or weight-based dosing when appropriate to reduce radiation dose to as low as reasonably achievable. Dictated by bJ Bustos MD @ 10/24/2024 10:53:44 AM (Electronically Signed)
[2024-10-23 23:08] LABS: Basophils Absolute Auto 0.02 K/uL (0.00-0.30); Basophils Percent Auto 0.3 % (0.0-3.0); Eosinophils Percent Auto 1.4 % (0.0-7.0); Hematocrit 41.7 % (33.0-51.0); Hemoglobin* 13.2 gm/dL (12.0-16.0); Immature Granulocytes Abs Auto 0.01 K/uL (0.00-0.30); Immature Granulocytes Pct Auto 0.1 %; Lymphocytes Absolute Auto 2.21 K/uL (0.90-2.90); Lymphocytes Percent Auto 31.7 % (20-44); Mean Corpuscular HGB Conc 32 gm/dL (32-36); Mean Corpuscular Hemoglobin 31 pg (26-34); Mean Corpuscular Volume 97 fL (80-100); Neutrophils Absolute Auto 3.94 K/uL (1.7-7.0); Neutrophils Percent Auto 56.5 % (42.0-72.0); Platelet Count* 264 K/uL (140-440); RDW Coefficient of Variation % 12.8 % (11.5-15.5); Red Blood Count 4.32 m/uL (4.00-5.20); White Blood Count* 6.98 K/uL (4.50-11.00)
[2024-10-23 23:11] LABS: Slide Review Reflex No
--- NOTE | 2024-10-23 23:24 | ED.GENADULT ---
HPI - General Adult General Date Seen: 10/23/24 <Emmanuelle Cheng MD - Last Filed: 10/31/24 11:32> Chief complaint: Neuro Symptoms/Altered Deficit <Emmanuelle Cheng MD - Last Filed: 10/31/24 11:32> Stated complaint: Chest pain, sudden weakness, sweating <Emmanuelle Cheng MD - Last Filed: 10/31/24 11:32> Time Seen by Provider: 10/23/24 22:09 <Emmanuelle Cheng MD - Last Filed: 10/31/24 11:32> History of Present Illness HPI narrative: Patient is a 74-year-old woman here with her for evaluation of some left-sided symptoms that started around 915 or 930 when they were walking through [place]. She notes that she felt suddenly weak on the left side, she continued to walk but her says it seem like her left knee was giving out on her and she had to hold onto the cart. She feels like the weakness is somewhat improved but continues to feel like there is tingling on the left side and that her tremor is worse on the left. She notes that the left side of her face feels kind of tingly as well although there has not been any noted weakness there. She has not had speech difficulties. Denies headache. No trauma. She is not anticoagulated, denies prior history of stroke for cardiovascular disease. She does have a history of hypertension. She notes that at the time of onset of these symptoms she broke out into a sweat. She had a fleeting pain in her left chest although this resolved. <Emmanuelle Cheng MD - Last Filed: 10/31/24 11:32> Related Data Home medications: Home Medications ?Medication ?Instructions ?Recorded ?Confirmed cyclosporine 0.05 % eye drops in a 1 drp ophthalmic (eye) BID 10/25/22 10/24/24 dropperette (Restasis) latanoprost 0.005 % eye drops 1 drp ophthalmic (eye) HS 10/25/22 10/24/24 melatonin 5 mg tablet,immediate 5 mg PO HS 10/25/22 10/24/24 and extended release multivitamin (Multiple Vitamins 1 tab PO QAM 10/25/22 10/24/24 tablet) omega-3 fatty acids 1,250 mg 1,250 mg PO BID 10/25/22 10/24/24 capsule donepezil 10 mg tablet 10 mg PO DAILY 05/14/24 10/24/24 sennosides 8.6 mg tablet (senna) 8.6 mg PO DAILY PRN 05/14/24 10/24/24 gabapentin 100 mg capsule 400 mg PO HS 10/06/24 10/24/24 acetaminophen 500 mg tablet 1,000 mg PO DAILY 10/24/24 10/24/24 atenolol 25 mg tablet 100 mg PO DAILY 10/24/24 10/24/24 diphenhydramine 25 2 tab PO HS 10/24/24 10/24/24 mg-acetaminophen 500 mg tablet (Tylenol PM Extra Strength) lecanemab-irmb IV Q14D 10/24/24 lisinopril 10 mg tablet 10 mg PO DAILY 10/24/24 10/24/24 rosuvastatin 5 mg tablet 5 mg PO DAILY 10/24/24 10/24/24 Previous Rx's ?Medication ?Instructions ?Recorded alendronate 70 mg tablet 70 mg PO QWEEK #12 tabs 01/07/24 <Emmanuelle Cheng MD - Last Filed: 10/31/24 11:32> Allergies/adverse reactions: Allergies Allergy/AdvReac Type Severity Reaction Status Date / Time amoxicillin Allergy Intermediate vomiting Verified 10/24/24 00:37 diarrhea clavulanic acid Allergy Mild Verified 10/24/24 00:37 <Emmanuelle Cheng MD - Last Filed: 10/31/24 11:32> Review of Systems Status of ROS: Reports: 10 or more systems reviewed and unremarkable except as noted in History and below <Emmanuelle Cheng MD - Last Filed: 10/31/24 11:32> [facility] Surgical History: Surgical History 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 - Corneal transplant status (ICD-10) History of bilateral cataract extraction ?Z98.41 - Cataract extraction status, right eye (ICD-10) ?Z98.42 - Cataract extraction status, left eye (ICD-10) History of tonsillectomy ?Z90.89 - Acquired absence of other organs (ICD-10) History of hemorrhoidectomy ?Z98.890 - Other specified postprocedural states (ICD-10) <Emmanuelle Cheng MD - Last Filed: 10/31/24 11:32> Family History: Family History Brother Alzheimers disease, Onset Age: 50 Mother Alzheimers disease, Onset Age: 80 <Emmanuelle Cheng MD - Last Filed: 10/31/24 11:32> Social History: Social History What is your current living situation?: I presently have a place to live Problems where you live: no known problems Problems where you live details: N/A In the past 12 months, utilities in danger of being shut off: no In past 12 months, lack of transportation kept you from medical appts, meetings, work, or getting things needed for daily living: no In the past 12 mos, have been you worried that your food would run out before you had money to buy more?: never true In the past 12 mos, the food you bought just didn't last and you didn't have money to buy more?: never true Highest level of school completed/degree received: Bachelor's degree Smoking Status: Never smoker Second hand tobacco smoke exposure: No How often do you have a drink containing alcohol: never How often do you have six or more drinks on one occasion: Never AUDIT-C Alcohol total score: 0 Non-prescribed substance use: denies use How often does anyone, including family, friends and others, physically hurt you: never How often does anyone, including family, friends and others, insult or talk down to you: never How often does anyone, including family, friends and others, threaten you with harm: never How often does anyone, including family, friends and others, scream or curse at you: never service: No <Emmanuelle Cheng MD - Last Filed: 10/31/24 11:32> Exam Narrative: Exam Narrative: Vital signs reviewed In general, alert, nontoxic elderly woman. She is conversant and cooperative. Head: Normocephalic, atraumatic. Eyes: Sclera clear. Pupils equal and reactive. Extraocular movements are full. ENT: Mucous membranes moist. Neck: Supple without adenopathy. Heart: Regular rate and rhythm without murmur. Lungs: Clear. No increased work of breathing, crackles or wheezes. Abdomen: Soft, nontender to palpation. Extremities: Well perfused, pulses intact. No significant edema. Neurologic: Alert, conversant. Speech fluent, face symmetric. Her strength is 5 of 5 in bilateral upper and lower extremities. On finger-nose testing, she has tremulousness noted primarily in the left hand an arm, less so on the right. She does not have ataxia however. In the legs, she has difficulty with heel-huerta testing due to tremulousness in both legs. The left may be slightly worse than the right. Strength is intact. She notes paresthesias with light touch over her face, arm and leg on the left. She does not have any true numbness. Skin: Warm, dry well perfused. Affect: Normal. <Emmanuelle Cheng MD - Last Filed: 10/31/24 11:32> Const: Vital Signs, click to edit/add: Vital Signs - 24 hr 10/23/24 22:08 10/24/24 01:32 10/24/24 01:32 Pulse Rate [Pulse Oximeter] 61 61 60 Respiratory Rate 16 16 Blood Pressure [Ri ght Upper Arm] 131/80 135/69 Pulse Oximetry 95 97 Oxygen Delivery Me thod Room Air Room Air <Emmanuelle Cheng MD - Last Filed: 10/31/24 11:32> Vital Signs, click to edit/add: Vital Signs - 24 hr 10/23/24 22:08 10/24/24 01:32 10/24/24 01:32 Pulse Rate [Pulse Oximeter] 61 61 60 Respiratory Rate 16 16 Blood Pressure [Ri ght Upper Arm] 131/80 135/69 Pulse Oximetry 95 97 Oxygen Delivery Me thod Room Air Room Air <Chuck Felder MD - Last Filed: 10/24/24 02:36> Course Course ED Course: Following initial evaluation, I did elect to call a stroke code. She went over for noncontrast head CT, we did not have an IV in place at that time as she notes she is a ?hard stick. Initial attempt at IV had failed. I spoke with Dr. Joseph, on-call for Neurology. I reviewed her noncontrast head CT which did not show evidence of intracranial hemorrhage by my review. Dr. Joseph likewise felt it was negative. Final radiology read is pending. Dr. Joseph evaluated her as well. I ordered an EKG which by my review shows a sinus rhythm, ventricular rate of 63. Her T-wave amplitude in V2 relative to the QRS complex is large, but I do not see T-wave changes in any other anterior leads, I do not see any ST elevation or depression. Troponin is pending. She does not have chest pain at this time. Dr. Joseph does not feel there is anything here that suggests need for thrombolytics. She did suggest starting her on a baby aspirin, admission overnight with MRI tomorrow. She understands that we may or may not have the ability to do an MRI tomorrow depending on radiology staffing. If MRI is not available, then neuro can reassess tomorrow and if she is stable and improving, this could be arranged for as an outpatient. CT angiogram is still pending and if there findings here we will reassess. Labs thus far show a white blood cell count of 7 and a normal hemoglobin. Everything else is pending at this time. Remainder of her labs are unremarkable. Metabolic panel shows BUN of 17, creatinine of 1.2, normal electrolytes including magnesium at 1.9. Will get a 2nd troponin. Still working on IV. She has been accepted by the hospitalist pending normal CTA without acute large vessel occlusion. <Emmanuelle Cheng MD - Last Filed: 10/31/24 11:32> Reevaluation(s) Time of Reevaluation #1: 01:50 <Chuck Felder MD - Last Filed: 10/24/24 02:36> Reevaluation #1: CTA without evidence for large vessel occlusion, stable for admission. <Chcuk Felder MD - Last Filed: 10/24/24 02:36> Vital Signs Vital signs: Initial Vital Signs Pulse Rate 61 10/23/24 22:08 Respiratory Rate 16 10/23/24 22:08 Blood Pressure 131/80 10/23/24 22:08 Blood Pressure Mean 97 10/23/24 22:08 Blood Pressure Position Supine 10/23/24 22:08 Pulse Oximetry 95 10/23/24 22:08 Oxygen Delivery Method Room Air 10/23/24 22:08 Vital Signs Pulse Rate 61 10/23/24 22:08 Respiratory Rate 16 10/23/24 22:08 Blood Pressure 131/80 10/23/24 22:08 Pulse Oximetry 95 10/23/24 22:08 Oxygen Delivery Method Room Air 10/23/24 22:08 Temperature 98.5 F 10/24/24 11:20 Pulse Rate 58 L 10/24/24 11:20 Respiratory Rate 14 10/24/24 11:20 Blood Pressure 133/75 10/24/24 11:20 Pulse Oximetry 98 10/24/24 11:20 Oxygen Delivery Method Room Air 10/24/24 11:20 <Emmanuelle Cheng MD - Last Filed: 10/31/24 11:32> Initial Vital Signs Pulse Rate 61 10/23/24 22:08 Respiratory Rate 16 10/23/24 22:08 Blood Pressure 131/80 10/23/24 22:08 Blood Pressure Mean 97 10/23/24 22:08 Blood Pressure Position Supine 10/23/24 22:08 Pulse Oximetry 95 10/23/24 22:08 Oxygen Delivery Method Room Air 10/23/24 22:08 Vital Signs Pulse Rate 61 10/23/24 22:08 Respiratory Rate 16 10/23/24 22:08 Blood Pressure 131/80 10/23/24 22:08 Pulse Oximetry 95 10/23/24 22:08 Oxygen Delivery Method Room Air 10/23/24 22:08 Temperature 98.5 F 10/24/24 11:20 Pulse Rate 58 L 10/24/24 11:20 Respiratory Rate 14 10/24/24 11:20 Blood Pressure 133/75 10/24/24 11:20 Pulse Oximetry 98 10/24/24 11:20 Oxygen Delivery Method Room Air 10/24/24 11:20 <Chuck Felder MD - Last Filed: 10/24/24 02:36> Medications Administered Medications: Discontinued Medications Generic Name Dose Route Start Last Admin Trade Name Darnellq PRN Reason Stop Dose Admin Aspirin 81 mg 10/24/24 00:39 10/24/24 01:16 Aspirin 81 Mg Tab.Chew PO 10/24/24 00:40 81 mg ONCE ONE Administration Aspirin 81 mg 10/24/24 09:00 10/24/24 08:46 Aspirin 81 Mg Tab.Chew PO 81 mg DAILY HOSSEIN Administration Sodium Chloride 5 ml 10/24/24 09:00 10/24/24 08:46 Sodium Chloride 0.9 % (Flush) 10 Ml Syringe IVF 5 ml BID HOSSEIN Administration <Emmanuelle Cheng MD - Last Filed: 10/31/24 11:32> Discontinued Medications Generic Name Dose Route Start Last Admin Trade Name Epifanio PRN Reason Stop Dose Admin Aspirin 81 mg 10/24/24 00:39 10/24/24 01:16 Aspirin 81 Mg Tab.Chew PO 10/24/24 00:40 81 mg ONCE ONE Administration Aspirin 81 mg 10/24/24 09:00 10/24/24 08:46 Aspirin 81 Mg Tab.Chew PO 81 mg DAILY HOSSEIN Administration Sodium Chloride 5 ml 10/24/24 09:00 10/24/24 08:46 Sodium Chloride 0.9 % (Flush) 10 Ml Syringe IVF 5 ml BID HOSSEIN Administration <Chuck Felder MD - Last Filed: 10/24/24 02:36> Medical Decision Making Lab Data Labs: Lab Results 10/23/24 10/24/24 10/24/24 Range/Units 23:00 01:11 01:23 WBC 6.98 (4.50-11.00) K/uL RBC 4.32 (4.00-5.20) m/uL Hgb 13.2 (12.0-16.0) gm/dL Hct 41.7 (33.0-51.0) % MCV 97 (80-100) fL MCH 31 (26-34) pg MCHC 32 (32-36) gm/dL RDW Coeff of Jacek 12.8 (11.5-15.5) % Plt Count 264 (140-440) K/uL Neut % (Auto) 56.5 (42.0-72.0) % Lymph % (Auto) 31.7 (20-44) % [place] % (Auto) 10.0 (0.0-11.0) % Eos % (Auto) 1.4 (0.0-7.0) % Baso % (Auto) 0.3 (0.0-3.0) % Neut # (Auto) 3.94 (1.7-7.0) K/uL Lymph # (Auto) 2.21 (0.90-2.90) K/uL [place] # (Auto) 0.70 (0.00-0.90) K/UL Eos # (Auto) 0.10 (0.00-0.50) K/uL Baso # (Auto) 0.02 (0.00-0.30) K/uL Abs Immat Gran (auto) 0.01 (0.00-0.30) K/uL Imm/Tot Granulo (auto) 0.1 % Sodium 135 (135-149) mmol/L Potassium 4.2 (3.6-5.1) mmol/L Chloride 104 (96-114) mmol/L Carbon Dioxide 21 (20-32) mmol/L Anion Gap 10 (7-15) mEq/L BUN 17 (7-30) mg/dL Creatinine 1.2 (0.5-1.5) mg/dL Estimated Creat Clear 35.05 Estimated GFR 48 ml/min Glucose 114 (60-115) mg/dL Hemoglobin A1c 5.5 (0-5.6) % Calcium 9.1 (8.4-10.6) mg/dL Magnesium 1.9 (1.5-2.6) mg/dL Troponin I < 0.01 L (0.01-0.04) ng/mL Triglycerides 150 H (40-149) mg/dL Cholesterol 180 (90-199) mg/dL LDL Cholesterol, Calc 99 (<100) mg/dL HDL Cholesterol 51 (>=50) mg/dL POC Troponin I Cancelled <Emmanuelle Cheng MD - Last Filed: 10/31/24 11:32> Lab Results 10/23/24 10/24/24 10/24/24 Range/Units 23:00 01:11 01:23 WBC 6.98 (4.50-11.00) K/uL RBC 4.32 (4.00-5.20) m/uL Hgb 13.2 (12.0-16.0) gm/dL Hct 41.7 (33.0-51.0) % MCV 97 (80-100) fL MCH 31 (26-34) pg MCHC 32 (32-36) gm/dL RDW Coeff of Jacek 12.8 (11.5-15.5) % Plt Count 264 (140-440) K/uL Neut % (Auto) 56.5 (42.0-72.0) % Lymph % (Auto) 31.7 (20-44) % [place] % (Auto) 10.0 (0.0-11.0) % Eos % (Auto) 1.4 (0.0-7.0) % Baso % (Auto) 0.3 (0.0-3.0) % Neut # (Auto) 3.94 (1.7-7.0) K/uL Lymph # (Auto) 2.21 (0.90-2.90) K/uL [place] # (Auto) 0.70 (0.00-0.90) K/UL Eos # (Auto) 0.10 (0.00-0.50) K/uL Baso # (Auto) 0.02 (0.00-0.30) K/uL Abs Immat Gran (auto) 0.01 (0.00-0.30) K/uL Imm/Tot Granulo (auto) 0.1 % Sodium 135 (135-149) mmol/L Potassium 4.2 (3.6-5.1) mmol/L Chloride 104 (96-114) mmol/L Carbon Dioxide 21 (20-32) mmol/L Anion Gap 10 (7-15) mEq/L BUN 17 (7-30) mg/dL Creatinine 1.2 (0.5-1.5) mg/dL Estimated Creat Clear 35.05 Estimated GFR 48 ml/min Glucose 114 (60-115) mg/dL Hemoglobin A1c 5.5 (0-5.6) % Calcium 9.1 (8.4-10.6) mg/dL Magnesium 1.9 (1.5-2.6) mg/dL Troponin I < 0.01 L (0.01-0.04) ng/mL Triglycerides 150 H (40-149) mg/dL Cholesterol 180 (90-199) mg/dL LDL Cholesterol, Calc 99 (<100) mg/dL HDL Cholesterol 51 (>=50) mg/dL POC Troponin I Cancelled <Chuck Felder MD - Last Filed: 10/24/24 02:36> Discharge Plan Discharge Clinical Impression: Weakness of left side of body <Emmanuelle Cheng MD - Last Filed: 10/31/24 11:32> Patient Disposition: Admitted As Observation <Emmanuelle Cheng MD - Last Filed: 10/31/24 11:32> Condition: Improved <Emmanuelle Cheng MD - Last Filed: 10/31/24 11:32> Activity Level: Activity as Tolerated <Emmanuelle Cheng MD - Last Filed: 10/31/24 11:32> Activity as Tolerated <Chuck Felder MD - Last Filed: 10/24/24 02:36> Discharge Diet: Regular <Emmanuelle Cheng MD - Last Filed: 10/31/24 11:32> Regular <Chuck Felder MD - Last Filed: 10/24/24 02:36>
[2024-10-23 23:41] LABS: Chloride* 104 mmol/L (96-114); Potassium* 4.2 mmol/L (3.6-5.1); Sodium* 135 mmol/L (135-149)
[2024-10-23 23:44] LABS: Anion Gap 10 mEq/L (7-15); Blood Urea Nitrogen* 17 mg/dL (7-30); Calcium* 9.1 mg/dL (8.4-10.6); Carbon Dioxide* 21 mmol/L (20-32); Creatinine* 1.2 mg/dL (0.5-1.5); Est. Creatinine Clearance* 35.05; Estimated Glomerular Filt Rate 48 ml/min; Glucose* 114 mg/dL (60-115)
[2024-10-23 23:45] LABS: Magnesium* 1.9 mg/dL (1.5-2.6)
--- OUTSIDE RECORDS SUMMARY | 2024-10-23 23:45 | XMS_ITS | Encounter Summary ---
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 [address] [place] [address] PCP - General Internal Medicine 12/28/19 Lori Maloney MD [address] [place] [id number] Assigned Neuroscience Provider 08/12/20 03/08/23 Marc Hicks, PhD [address] [place] [id number] Assigned Behavioral Health Provider 09/10/21 01/25/23 Abdiel Harris MD [facility] NEUROLOGICAL [facility] [address] [address] Physician Neurology 06/06/23 documented as of this encounter
--- OUTSIDE RECORDS SUMMARY | 2024-10-23 23:45 | XMS_ITS | Encounter Summary ---
Author Organization [facility] Address [address] [place] [address] Care Team Providers Care Legal Administrative Assistant Name Role Phone Mahogany Peñaloza MD Primary Care Provider [phone] Abdiel Harris MD Unavailable Reason for Visit * Reason Onset Date Comments Call Back 06/20/2023 Questions regard ing appointment Encounter Details Date Type Department Care Team (Late st Contact Info) Description 06/20/2023 [facility] Neuropsychology [address] [address] Marc Hicks, PhD [address] [place] [address] Call Back (Questions regarding appointment) Social [...] on file 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 [address] [place] [address] PCP - General Internal Medicine 12/28/19 Abdiel Harris MD [facility] NEUROLOGICAL [facility] [id number] [address] Physician Neurology 06/06/23 documented as of this encounter
--- OUTSIDE RECORDS SUMMARY | 2024-10-23 23:45 | XMS_ITS | Encounter Summary ---
Author Organization [facility] Address [address] [place] [address] Care Team Providers Care Lapel Padder Name Role Phone Mahogany Peñaloza MD Primary Care Provider [phone] Lori Maloney MD Unavailable [phone] Marc Hicks PhD Unavailable [phone] Abdiel Harris MD Unavailable Encounter Details Date Type Department Care Team (Late st Contact Info) Description 04/24/2022 [facility] [place] [facility] [place] [facility] [address] [place] [address] Maria R Soto, [place] Social [...] on file 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 Gender Identity Female 09/24/2021 9:02 PM PUBLIC WELFARE WORKER Sexual Orientation Not on file Occupation Industry Job Start Date Job End Date retired Not on file Not on file Not on file documented as of this encounter Plan of Treatment Not on file documented as of this encounter Visit Diagnoses Not on filedocumented in this encounter Care Teams Lapel Padder Relationship Specialty Start Date End Date Mahogany Peñaloza MD [facility] [address] [place] [address] PCP - General Internal Medicine 12/28/19 Lori Maloney MD [address] [place] [address] Assigned Neuroscience Provider 08/12/20 03/08/23 Marc Hicks, PhD [address] [place] [id number] Assigned Behavioral Health Provider 09/10/21 01/25/23 Abdiel Harris MD [facility] NEUROLOGICAL [facility] [address] [address] Physician Neurology 06/06/23 documented as of this encounter
--- OUTSIDE RECORDS SUMMARY | 2024-10-23 23:45 | XMS_ITS | Clinical Summary ---
Author Organization [facility] Address [place], [place] [address] Care Team Providers Care Park Worker Name Role Phone Mahogany Peñaloza MD Primary Care Provider [phone] Allergies No known active allergies Medications ASPIRIN [...] Encounters Date Type Department Care Team Description 10/23/2024 Office Visit [facility] [address] [place] [address] Latasha Gifford MD Telehealth ([facility]) 10/20/2024 Telephone [facility] [address] [place] [address] Adan Valenzuela MD Appointment Reminder (Colonoscopy at [facility]) 09/23/2024 Telephone [facility] [address] [place] [address] Adan Valenzuela MD Need Meds 09/02/2024 Orders Only [facility] [address] [place] [address] Adan Valenzuela MD <No scans attached> from Last 3 Months Immunizations Name Administration Dates Next Due COVID-19 vaccine (Pixelpipe 30mcg/0.3mL) HARPAL JOHNSON 12/31/2020,12/10/2020 Influenza A (H1N1), [...] on file Legal Sex Female 6:13 AM STACKER OPERATOR Gender Identity Not on file Sexual Orientation Not on file 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 on file [...] CDT Oxygen Saturation 98% 10/11/2012 8:57 AM STACKER OPERATOR Inhaled Oxygen Concentration - - Weight 73.1 [...] Comments COLONOSCOPY SCREENING Routine 09/28/2019 10:17 AM STACKER OPERATOR History of colon polyps SCAN-MAMMOGRAPHY REPORT 09/02/2014 12:00 AM STACKER OPERATOR XR DXA BONE DENSITY 2 SITES AXIAL Routine 08/18/2013 4:48 PM CDT DISORDER BONE AND CARTILAGE, UNSPEC LDL CHOLESTEROL,DIRECT Routine 08/12/2013 8:08 PM CDT HYPERLIPIDEMIA from Last 3 Months or Most Recently Relevant to Health Maintenance Results * COLONOSCOPY SCREENING (09/28/2019 10:17 AM STACKER OPERATOR) us Adan Valenzuela MD GI PROCEDURE ORD Final Re sult * SCAN-MAMMOGRAPHY REPORT (09/02/2014 12:00 AM STACKER OPERATOR) Anatomical Region Laterality Modality Other Narrative 09/07/2014 6:43 AM STACKER OPERATOR Procedure Note Scanner - 09/02/2014 12:00 AM CST us Scanner OTHER Final Result * (ABNORMAL) XR DXA BONE DENSITY 2 SITES (08/18/2013 4:48 PM CDT) Anatomical Region Laterality Modality Spine, HIPS, HIPL, HIPR Other Narrative 08/19/2013 4:49 PM CDT Please see scanned document for results of this study. Procedure Note AydinDevinmichael Ibis Jaret - 08/19/2013 Please see scanned document for results of this study. us Shireen Lewis LINE MANAGER DEXA Final Result * LDL CHOLESTEROL,DIRECT (08/12/2013 8:08 PM CDT) LDL CHOLESTEROL,D IRECT 138 Undefined mg/dL [facility] Comment: RISK CATEGORY LDL GOAL (mg/dL) Vascular disease and/or diabetes (<100) Multiple (2+) risk factors (<130) 0-1 risk factor (<160) Blood specimen (specimen) BLOOD SPECIMEN / Unknown 08/12/2013 8:08 PM CDT 08/12/2013 7:48 PM CDT us Shireen Lewis LINE MANAGER CHEMISTRY Final Result [facility] INTERNAL ZIP [id number] [place] [address] from Last 3 Months or Most Recently Relevant to Health Maintenance Insurance [employer]UE [employer] [place] BLUE MR PB ONLY Care Teams Park Worker Relationship Specialty Start Date End Date Mahogany Peñaloza MD [address] [place] [address] PCP - General Internal Medicine 09/28/19
--- OUTSIDE RECORDS SUMMARY | 2024-10-23 23:45 | XMS_ITS | Encounter Summary ---
Author Organization [facility] Address [address] [place] [address] Care Team Providers Care Box Closing Machine Operator Name Role Phone Mahogany Pñealoza MD Primary Care Provider Lori Maloney MD Unavailable [phone] Marc Hicks PhD Unavailable [phone] Abdiel Harris MD Unavailable Encounter Details Date Type Department Care Team (Late st Contact Info) Description 01/03/2022 [facility] [address] [place] [address] Maria R Soto, AUSTEN Social [...] on file Legal Sex Female 4:38 AM PLATE STACKER Gender Identity Female 09/24/2021 9:02 PM PLATE STACKER Sexual Orientation Not on file Occupation Industry Job Start Date Job End Date retired Not on file Not on file Not on file COVID-19 Exposure Response Date Recorded In the last month, have you been in contact with someone who was confirmed or suspected to have Coronavirus / COVID-19? No / Unsure 12/28/2021 2:27 PM PLATE STACKER documented as of this encounter Plan of Treatment Not on file documented as of this encounter Visit Diagnoses Not on filedocumented in this encounter Care Teams Box Closing Machine Operator Relationship Specialty Start Date End Date Mahogany Peñaloza MD [facility] [address] [place] [address] PCP - General Internal Medicine 12/28/19 Lori Maloney MD [address] [place] [address] Assigned Neuroscience Provider 08/12/20 03/08/23 Marc Hicks, PhD [address] [place] [address] Assigned Behavioral Health Provider 09/10/21 01/25/23 Abdiel Harris MD [facility] NEUROLOGICAL [facility] [address] [address] [address] Physician Neurology 06/06/23 documented as of this encounter
--- OUTSIDE RECORDS SUMMARY | 2024-10-23 23:45 | XMS_ITS | Encounter Summary ---
Author Organization [facility] Address [address] [place] [address] Care Team Providers Care Hot Stone Setter Name Role Phone Mahogany Peñaloza MD Primary Care Provider Lori [place] MD Unavailable [phone] Marc Hicks PhD Unavailable [phone] Abdiel Harris MD Unavailable Encounter Details Date Type Department Care Team (Late st Contact Info) Description 11/13/2021 [facility] Medical Advice [facility] Neurology Clinic [address] [place] [address] Maria R Soto, AUSTEN Social [...] on file Legal Sex Female 4:38 AM LIQUID LOADER Gender Identity Female 09/24/2021 9:02 PM LIQUID LOADER Sexual Orientation Not on file Occupation Industry Job Start Date Job End Date retired Not on file Not on file Not on file documented as of this encounter Plan of Treatment Not on file documented as of this encounter Visit Diagnoses Not on filedocumented in this encounter Care Teams Hot Stone Setter Relationship Specialty Start Date End Date Mahogany Peñaloza MD [facility] [address] [place] [address] PCP - General Internal Medicine 12/28/19 Lori Maloney MD [address] [place] [address] Assigned Neuroscience Provider 08/12/20 03/08/23 Marc Hicks, PhD [address] [place] [address] Assigned Behavioral Health Provider 09/10/21 01/25/23 Abdiel Harris MD [facility] NEUROLOGICAL [facility] [address] [address] Physician Neurology 06/06/23 documented as of this encounter
--- OUTSIDE RECORDS SUMMARY | 2024-10-23 23:45 | XMS_ITS | Encounter Summary ---
Author Organization [facility] Address [address] [place] [address] Care Team Providers Care Hospital Technician Name Role Phone Mahogany Peñaloza MD Primary Care Provider [phone] Lori Mal[place] MD Unavailable [phone] Marc Hicks PhD Unavailable [phone] Abdiel Harris MD Unavailable Reason for Visit * Reason Onset Date Comments Call Back 11/08/2021 mri today Encounter Details Date Type Department Care Team (Late st Contact Info) Description 11/08/[address] [facility] Neurology Clinic [address] [address] Lori Maloney MD [address] [place] [address] Call Back (mri today 11/08/21 ) [...] on file Legal Sex Female 4:38 AM BLOCKER AND POLISHER Gender Identity Female 09/24/2021 9:02 PM BLOCKER AND POLISHER Sexual Orientation Not on file Occupation Industry Job Start Date Job End Date retired Not on file Not on file Not on file documented as of this encounter Miscellaneous Notes * Telephone Encounter - Naila Schwartz - 11/08/2021 12:14 PM CST [facility] Call Center Phone Message May [...] Center ([facility]): neurology Travel Screening: Not Applicable KER AND POLISHER documented in this encounter Plan of Treatment Not on file documented as of this encounter Visit Diagnoses Not on filedocumented in this encounter Care Teams Hospital Technician Relationship Specialty Start Date End Date Mahogany Peñaloza MD [facility] & [address] [address] PCP - General Internal Medicine 12/28/19 Lori Maloney MD [address] [place] [address] Assigned Neuroscience Provider 08/12/20 03/08/23 Marc Hicks, PhD [address] [place] [address] Assigned Behavioral Health Provider 09/10/21 01/25/23 Abdiel Harris MD [facility] NEUROLOGICAL [facility] [address] [address] Physician Neurology 06/06/23 documented as of this encounter
--- OUTSIDE RECORDS SUMMARY | 2024-10-23 23:45 | XMS_ITS | Clinical Summary ---
Author Organization [facility] Address [address] [place] [address] Care Team Providers Care Software Project Lead Name Role Phone Mahogany Peñaloza MD Primary [...] needed. Do not drive arrange for a transit bus driver 2 tablet 1 Active Active Problems [...] on file Legal Sex Female 4:38 AM CLOSING SUPERVISOR Gender Identity Female 09/24/2021 9:02 PM CLOSING SUPERVISOR Sexual Orientation Not on file Occupation Industry [...] age to complete this topic Insurance BCBS [place] BLUE MEDICARE [facility] MEDICARE BC [place] BLUE MEDICARE Care Teams Software Project Lead Relationship Specialty Start Date End Date Mahogany Peñaloza MD [facility] [address] [place] [address] PCP - General Internal Medicine 12/28/19 Abdiel Harris MD [facility] NEUROLOGICAL [facility] [address] [address] Physician Neurology 06/06/23
--- OUTSIDE RECORDS SUMMARY | 2024-10-23 23:45 | XMS_ITS | Referral Summary ---
Author Organization [facility] Address [address] [place] [address] Care Team Providers Care On Air Host Name Role Phone Mahogany Peñaloza MD Primary Care Provider [phone] Abdiel Harris MD Unavailable Allergies No known [...] needed. Do not drive arrange for a delivery driver/customer service 2 tablet 1 Active Active Problems Problem [...] on file Legal Sex Female 4:38 AM EVP Gender Identity Female 09/24/2021 9:02 PM EVP Sexual Orientation Not on file Occupation Industry [...] Plan of Treatment Not on file Insurance [facility] [place] BLUE MEDICARE [facility] [place] BLUE MEDICARE BCBS [place] MEDICARE Care Teams On Air Host Relationship Specialty Start Date End Date Mahogany Peñaloza MD [facility] [address] [place] [address] PCP - General Internal Medicine 12/28/19 Abdiel Harris MD [facility] NEUROLOGICAL [facility] [address] [address] [address] Physician Neurology 06/06/23
--- OUTSIDE RECORDS SUMMARY | 2024-10-23 23:46 | XMS_ITS | Encounter Summary ---
Author Organization [facility] Address [address] [place] [address] Care Team Providers Care Dot Compliance Specialist Name Role Phone Mahogany Peñaloza MD Primary Care Provider Lori Mal[place] MD Unavailable [phone] Marc Hicks PhD Unavailable [phone] Abdiel Harris MD Unavailable Encounter Details Date Type Department Care Team (Late st Contact Info) Description 01/12/2020 [facility] Medical Advice [facility] Neurology [address] [place] [address] [address] [place] [address] Lori Maloney MD [address] [place] [address] Social History Tobacco Use Types Packs/Day Years Used Date Smoking Tobacco: Never Smokeless Tobacco: Never Alcohol Use Standard Drinks/Week Comments Not Currently 0 (1 standard drink = 0.6 oz pur e alcohol) PHQ-2 Answer Date Recorded PHQ-2 Score 0 12/29/2019 Comments Unknown Sex and Gender Information Value Date Recorded Sex Assigned at Not on file Legal Sex Female 4:38 AM VISUAL SPECIALIST Gender Identity Female 09/24/2021 9:02 PM VISUAL SPECIALIST Sexual Orientation Not on file Occupation Industry [...] on filedocumented in this encounter Care Teams Dot Compliance Specialist Relationship Specialty Start Date End Date Mahogany Peñaloza MD [facility] [address] [place] [address] PCP - General Internal Medicine 12/28/19 Lori Maloney MD [address] [place] [address] 159035 Assigned Neuroscience Provider 08/12/20 03/08/23 Marc Hicks, PhD [address] [place] [address] Assigned Behavioral Health Provider 09/10/21 01/25/23 Abdiel Harris MD [facility] NEUROLOGICAL [facility] [address] [address] [address] Physician Neurology 06/06/23 documented as of this encounter
--- OUTSIDE RECORDS SUMMARY | 2024-10-23 23:46 | XMS_ITS | Encounter Summary ---
Author Organization [facility] Address [address] [place] [address] Care Team Providers Care Personal Trainer Name Role Phone Mahogany Peñaloza MD Primary Care Provider Lori Maloney MD Unavailable [phone] Marc Hicks PhD Unavailable [phone] Abdiel Harris MD Unavailable Reason for Visit * Reason Onset Date Comments neuropsychological testing 06/21/2020 Encounter Details Date Type Department Care Team (Late st Contact Info) Description 06/21/2020 Telephone [facility] Neurology [address] [facility] 3rd [place] [address] Lori Maloney MD [address] [place] [address] neuropsychological testing Social History Tobacco [...] on file Legal Sex Female 4:38 AM SEWER 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 LAYER HELPER Gender Identity Female 09/24/2021 9:02 PM SEWER PIPE LAYER HELPER Sexual Orientation Not on file Occupation Industry Job Start Date Job End Date retired Not on file Not on file Not on file documented as of this encounter Miscellaneous Notes * Telephone Encounter - Sandy Marcus - 06/21/2020 10:08 AM CDT [facility] Call Center Phone Message May a [...] on filedocumented in this encounter Care Teams Personal Trainer Relationship Specialty Start Date End Date Mahogany Peñaloza MD [address] [address] PCP - General Internal Medicine 12/28/19 Lori Maloney MD [address] [place] [address] 740555 Assigned Neuroscience Provider 08/12/20 03/08/23 Marc Hicks, PhD [address] [place] [address] Assigned Behavioral Health Provider 09/10/21 01/25/23 Abdiel Harris MD [facility] NEUROLOGICAL [facility] [address] [address] [address] Physician Neurology 06/06/23 documented as of this encounter
--- OUTSIDE RECORDS SUMMARY | 2024-10-23 23:46 | XMS_ITS | Continuity of Care Document ---
Author Name [email or web address] Address Unknown Organization Unknown Address Unknown Procedures FILTER APPLIED:Only known Procedures with Onset Date within the last 5 years Procedure Date Procedure Provider Magen marte Information Status ROUTINE VENIPUNCTURE (04366) Completed LIPID PANEL (53789) Comp leted METABOLIC PANEL TOTAL CA (60681) Completed VITAMIN D 25 HYDROXY (61996) Completed PT EVAL LOW COMPLEX 20 MIN (70767) Completed THERAPEUTIC EXERCISES (56292) Completed MRI LUMBAR SPINE W/O DYE (61236) Completed Encounters FILTER APPLIED:Only known Encounters with Admission Date within the last 5 years Encounter Location Admission Discharge Billing Code Urban Designer Ada guzman Outpatient [facility] Outpatient Roro Peñaloza Outpatient [facility] Outpatient Outpatient [facility]
--- OUTSIDE RECORDS SUMMARY | 2024-10-23 23:46 | XMS_ITS | Encounter Summary ---
Author Organization [facility] Address [address] [place] [address] Care Team Providers Care Roller Checker Name Role Phone Mahogany Peñaloza MD Primary Care Provider Lori Maloney MD Unavailable [phone] Marc Hicks PhD Unavailable [phone] Abdiel Harris MD Unavailable Reason for Visit * Reason Onset Date Comments Forms 03/28/2020 medical records Encounter Details Date Type Department Care Team (Late st Contact Info) Description 03/28/2020 Telephone [facility] Neurology [address] [facility] 3rd [place] [address] Lori Maloney MD [address] [place] [phone] Forms (medical records) Social History Tobacco Use Types Packs/Day Years Used Date Smoking Tobacco: Never Smokeless Tobacco: Never Alcohol Use Standard Drinks/Week Comments Not Currently 0 (1 standard drink = 0.6 oz pur e alcohol) PHQ-2 Answer Date Recorded PHQ-2 Score 0 12/29/2019 Comments Unknown Sex and Gender Information Value Date Recorded Sex Assigned at Not on file Legal Sex Female 4:38 AM RV BODY MECHANIC Gender Identity Female 09/24/2021 9:02 PM RV BODY MECHANIC Sexual Orientation Not on file Occupation Industry Job Start Date Job End Date retired Not on file Not on file Not on file documented as of this encounter Miscellaneous Notes * Telephone Encounter - Zhane Wing - 03/28/2020 2:19 PM CDT [facility] Call Center Phone Message May [...] on filedocumented in this encounter Care Teams Roller Checker Relationship Specialty Start Date End Date Mahogany Peñaloza MD [facility] [address] [place] [address] PCP - General Internal Medicine 12/28/19 Lori Maloney MD [address] [place] [address] Assigned Neuroscience Provider 08/12/20 03/08/23 Marc Hicks, PhD [address] [place] [address] Assigned Behavioral Health Provider 09/10/21 01/25/23 Abdiel Harris MD [facility] [address] [address] Physician Neurology 06/06/23 documented as of this encounter
--- OUTSIDE RECORDS SUMMARY | 2024-10-23 23:46 | XMS_ITS | Encounter Summary ---
Author Organization [facility] Address [address] [place] [address] Care Team Providers Care Transmission Inspector Name Role Phone Mahogany Peñaloza MD Primary Care Provider Lori Maloney MD Unavailable [phone] Marc Hicks PhD Unavailable [phone] Abdiel Harris MD Unavailable Reason for Visit * Reason Onset Date Comments Call Back 07/24/2021 Encounter Details Date Type Department Care Team (Late st Contact Info) Description 07/24/2021 Telephone [facility] Neuropsychology [address] [address] Marc Hicks, PhD [address] [place] [address] Call Back Social History Tobacco Use Types Packs/Day Years Used Date Smoking Tobacco: Never Smokeless Tobacco: Never Alcohol Use Standard Drinks/Week Comments Not Currently 0 (1 standard drink = 0.6 oz pur e alcohol) PHQ-2 Answer Date Recorded PHQ-2 Score 0 04/11/2021 Comments Unknown Sex and Gender Information Value Date Recorded Sex Assigned at Not on file Legal Sex Female 4:38 AM NURSERY ATTENDANT Gender Identity Female 09/24/2021 9:02 PM NURSERY ATTENDANT Sexual Orientation Not on file Occupation Industry [...] on filedocumented in this encounter Care Teams Transmission Inspector Relationship Specialty Start Date End Date Mahogany Peñaloza MD [facility] [address] [place] [address] PCP - General Internal Medicine 12/28/19 Lori Maloney MD [address] [place] [address] Assigned Neuroscience Provider 08/12/20 03/08/23 Marc Hicks, PhD [address] [place] [address] Assigned Behavioral Health Provider 09/10/21 01/25/23 Abdiel Harris MD [facility] NEUROLOGICAL [facility] [address] [address] Physician Neurology 06/06/23 documented as of this encounter
[2024-10-24] VITALS (12 sets, daily range): BP systolic 114–144; BP diastolic 59–79; PULSE 57–62; RESP 14–16; TEMP 36.3–36.9; O2SAT 97–100; BMI 22.2
--- NOTE | 2024-10-24 00:54 | CRLHL7_ITS ---
For Patients: As a result of the Century Cures Act, medical imaging exams and procedure reports are released immediately into your electronic medical record. You may view this report before your referring provider. If you have questions, please contact your health care provider. INDICATION: Stroke. TECHNIQUE: Multiplanar multisequence noncontrast MR images of the brain. COMPARISON: CT brain 10/23/2024. FINDINGS: Mild to moderate diffuse cerebral volume loss. No mass effect or midline shift. Cavum septum pellucidum. Patchy FLAIR hyperintensities in the supratentorial white-matter, typical for moderate chronic microvascular ischemic changes. No diffusion restriction to suggest acute infarction. Punctate susceptibility right middle frontal gyrus may represent a chronic microhemorrhage or mineralization. No recent intracranial hemorrhage or pathologic extra-axial fluid collection. The major arterial flow voids of the skullbase are preserved. Thinning of the ocular lenses. Mild paranasal sinus mucosal thickening. Trace mastoid fluid bilaterally. IMPRESSION: 1. No acute intracranial abnormality. 2. Moderate chronic microvascular ischemic changes and mild to moderate diffuse cerebral volume loss. Dictated by Eleazar Lee MD @ 10/24/2024 1:12:36 PM (Electronically Signed)
--- NOTE | 2024-10-24 00:59 | W.PM.THH&P_ITS ---
Telehealth- H&P: HPI History of Present Illness Date Seen: 10/24/24 Chief complaint: Chest pain, sudden weakness, sweating Narrative: Beatrice Hernandez is seen as an Interactive Telehealth visit. Beatrice Hernandez is a 74 year old female who has a past medical history notable for essential tremor, mild dementia, hypertension and LEON who presented for left-sided weakness. the patient reports that when she was in her usual state of health until around 7 PM this evening. She was at [employer] when she suddenly had difficulty using her left side. She broke out into a sweat. She felt her left side was clumsy and felt like she was about to give out. She grabbed onto the shopping cart and was able to stop from falling. Her drove her from the [employer] to the emergency department, upon arrival to the emergency department she was back to her baseline. She denies any headache. She denies any visual changes. She denies any trouble with speech. She did not have any numbness in the little left side although she noted some tingling/paresthesias on that side. She also feels like she had a bit of a tremor in her left upper extremity. No prior history of stroke or TIA. She did report to the ER that she had a fleeting pain sensation in the left side of her chest but this resolved with the numbness. Of note she reports she is on a clinical trial for Alzheimer's and they are monitoring closely for intracranial hemorrhage. Review of Systems Status of ROS: Reports: 10 or more systems reviewed and unremarkable except as noted in History and below PFSH PFS Surgical History 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 - Corneal transplant status (ICD-10) History of bilateral cataract extraction ?Z98.41 - Cataract extraction status, right eye (ICD-10) ?Z98.42 - Cataract extraction status, left eye (ICD-10) History of tonsillectomy ?Z90.89 - Acquired absence of other organs (ICD-10) History of hemorrhoidectomy ?Z98.890 - Other specified postprocedural states (ICD-10) Family History Brother Alzheimers disease, Onset Age: 50 Mother Alzheimers disease, Onset Age: 80 Social History What is your current living situation?: I presently have a place to live Problems where you live: no known problems Problems where you live details: N/A In the past 12 months, utilities in danger of being shut off: no In past 12 months, lack of transportation kept you from medical appts, meetings, work, or getting things needed for daily living: no In the past 12 mos, have been you worried that your food would run out before you had money to buy more?: never true In the past 12 mos, the food you bought just didn't last and you didn't have money to buy more?: never true Highest level of school completed/degree received: Bachelor's degree Smoking Status: Never smoker Second hand tobacco smoke exposure: No How often do you have a drink containing alcohol: never How often do you have six or more drinks on one occasion: Never AUDIT-C Alcohol total score: 0 Non-prescribed substance use: denies use How often does anyone, including family, friends and others, physically hurt you : never How often does anyone, including family, friends and others, insult or talk down to you: never How often does anyone, including family, friends and others, threaten you with harm: never How often does anyone, including family, friends and others, scream or curse at you: never service: No Meds Home Medications and Allergies Home Medications ?Medication ?Instructions ?Recorded ?Confirmed ?Type cyclosporine 0.05 % eye drops in a 1 drp ophthalmic (eye) BID 10/25/22 10/06/24 History dropperette (Restasis) latanoprost 0.005 % eye drops 1 drp ophthalmic (eye) 10/25/22 10/06/24 History melatonin 5 mg tablet,immediate 5 mg PO QHS 10/25/22 10/06/24 History and extended release multivitamin (Multiple Vitamins 1 tab PO QAM 10/25/22 10/06/24 History tablet) omega-3 fatty acids 1,250 mg 1,250 mg PO QDAY 10/25/22 10/06/24 History capsule donepezil 10 mg tablet 5 mg PO QHS 05/14/24 10/06/24 History sennosides 8.6 mg tablet (senna) 8.6 mg PO QDAY PRN 05/14/24 10/06/24 History acetaminophen [Tylenol 8 Hour] 2 tab PO BID 10/06/24 10/06/24 History gabapentin 100 mg capsule mg PO 10/06/24 10/06/24 History Allergies Allergy/AdvReac Type Severity Reaction Status Date / Time amoxicillin Allergy Intermediate vomiting Verified 10/24/24 00:37 diarrhea clavulanic acid Allergy Mild Verified 10/24/24 00:37 Exam Narrative Exam Narrative: Physical Exam GENERAL: ?vital signs reviewed, well developed and nourished, in no distress HEENT: pupils are equal round and reactive to light, extraocular movements are grossly within normal limits and oral mucosa is moist. NECK: Supple without lymphadenopathy or thyromegaly according to nursing staff examination observation HEART: Regular rate and rhythm without any rubs, murmurs, or gallops. LUNGS: Clear to auscultation bilaterally with good air movement throughout ABDOMEN: Observation from nurse assisted exam, abdomen appears soft, nontender, and nondistended with Positive bowel sounds noted. EXTREMITIES: Strength and sensation is observed to be grossly within normal limits in the upper and lower extremities.? No focal strength deficit is observed. SKIN:? Observed warm and dry with color normal Const Vital Signs, click to edit/add: Vital Signs - 24 hr 10/23/24 22:08 Pulse Rate [Pulse Oximeter] 61 Respiratory Rate 16 Blood Pressure [Right Upper Arm] 131/80 Pulse Oximetry 95 Oxygen Delivery Method Room Air Hospitalist - H&P: Result Labs Labs: Short CBC 10/23/24 Range/Units 23:00 WBC 6.98 (4.50-11.00) K/uL Hgb 13.2 (12.0-16.0) gm/dL Hct 41.7 (33.0-51.0) % Plt Count 264 (140-440) K/uL BMP 10/23/24 23:00 Sodium 135 Potassium 4.2 Chloride 104 Carbon Dioxide 21 BUN 17 Creatinine 1.2 Glucose 114 Calcium 9.1 Assessment and Plan Assessment and plan (1) Weakness of left side of body: Status: Acute (2) Essential tremor: Problem comment: Diagnosed by Dr. Abdiel Harris [facility], 02/10 (who increased her atenolol) Status: Chronic (3) Dementia: Problem comment: Started with subjective memory complaints, seen 01/08, MMSE 29/30 with normal clock face 01/17/21, seen by Dr. Lori Maloney, [facility], 01/07 and 04/10 who felt that she did not have dementia, and had her seen by Marc Hicks, PhD, Clinical neuropsychiatry at the [facility] 09/09, who felt that the probable diagnosis was concerns about normal aging with some interference from longstanding ADHD like tendencies as well as somewhat anxious temperament, Dementia diagnosed with Neuropsychometric testing through [facility] 05/13 (and they started Donepezil 05/13), being assessed by [facility] 06/13 for lecanemab infusion which started Fall 2023 Status: Acute (4) Essential hypertension: Problem comment: Dxed in her 's Status: Acute (5) Obstructive sleep apnea treated with continuous positive airway pressure (CPAP): Problem comment: Followed by Dr. Garcia, ENT/Sleep, since home sleep study 06/09, AHI 28, on CPAP, now on BiPap Status: Chronic Plan Suspected ischemic stroke Left-sided weakness Patient seen by neurology via telehealth, per ER provider report plan for aspirin, statin, typical post ischemic stroke care CTA head and neck are pending CT head with no acute bleed Permissive hypertension with a goal blood pressure 220/120 or lower Patient was not a candidate for thrombolytics due to resolution of symptoms MRI in a.m. Monitor on telemetry Echocardiogram Check A1c and lipid panel Aspirin 81 mg daily, atorvastatin After MRI discussed with stroke neurology regarding dual antiplatelet therapy Essential hypertension Hold home medicines for permissive hypertension Alzheimer's dementia Currently on a clinical trial, she request that details of this hospitalization before done to Dr. Harris her neurologist LEON CPAP Prior to admission home medications that were felt to be needed immediately have been ordered. The remainder of the home medications will await pharmacy reconciliation and will be ordered by the attending provider in the a.m. Telehealth Visit: Today's History and Physical is provided via interactive telehealth by Dr. Judd Brian MD. Patient is located at [facility]. Provider is located at [facility]. Nursing staff assisted with the patient's exam. The visit being done today meets criteria for a telehealth visit and the patient or patients parent/guardian is aware the visit is a telehealth visit. Start Time: 321 End Time: 337 Medical Complexity: High ~~~~~~~~~~~~~~~~ Dr. Judd Brian ~~~~~~~~~~~~~~~~ Disclaimer: This note may contain dictation using voice recognition software. As a result, there may be errors that have gone undetected. Please consider this when interpreting information found in this note. Telehealth: Statement Statement Telehealth Visit: Today's History and Physical is provided via interactive telehealth by Judd Brian MD.? Patient is located at [facility].? Provider is located at [facility].? Nursing staff assisted with the patient's exam. The visit being done today meets criteria for a telehealth visit and the patient or patient?s parent/guardian is aware the visit is a telehealth visit.
[2024-10-24] MEDS: ASPIRIN 81 MG TAB.CHEW PO ×2 (01:16→08:46)
[2024-10-24 01:26] LABS: Cholesterol* 180 mg/dL (90-199); HDL Cholesterol* 51 mg/dL (>=50); Hemoglobin A1C* 5.5 % (0-5.6); LDL Cholesterol Calculated 99 mg/dL (<100); Triglycerides* 150 mg/dL (40-149)
[2024-10-24 01:40] LABS: Troponin I* < 0.01 ng/mL (0.01-0.04)
--- NOTE | 2024-10-24 03:47 | PM.IMHP1 ---
Hospitalist- H&P: HPI History of Present Illness Date Seen: 10/24/24 Chief complaint: Chest pain, sudden weakness, sweating Narrative: Beatrice Hernandez is a 74 year old female [facility] Surgical History 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 - Corneal transplant status (ICD-10) History of bilateral cataract extraction ?Z98.41 - Cataract extraction status, right eye (ICD-10) ?Z98.42 - Cataract extraction status, left eye (ICD-10) History of tonsillectomy ?Z90.89 - Acquired absence of other organs (ICD-10) History of hemorrhoidectomy ?Z98.890 - Other specified postprocedural states (ICD-10) Family History Brother Alzheimers disease, Onset Age: 50 Mother Alzheimers disease, Onset Age: 80 Social History What is your current living situation?: I presently have a place to live Problems where you live: no known problems Problems where you live details: N/A In the past 12 months, utilities in danger of being shut off: no In past 12 months, lack of transportation kept you from medical appts, meetings, work, or getting things needed for daily living: no In the past 12 mos, have been you worried that your food would run out before you had money to buy more?: never true In the past 12 mos, the food you bought just didn't last and you didn't have money to buy more?: never true Highest level of school completed/degree received: Bachelor's degree Smoking Status: Never smoker Second hand tobacco smoke exposure: No How often do you have a drink containing alcohol: never How often do you have six or more drinks on one occasion: Never AUDIT-C Alcohol total score: 0 Non-prescribed substance use: denies use How often does anyone, including family, friends and others, physically hurt you: never How often does anyone, including family, friends and others, insult or talk down to you: never How often does anyone, including family, friends and others, threaten you with harm: never How often does anyone, including family, friends and others, scream or curse at you: never service: No Meds Home Medications and Allergies Home Medications ?Medication ?Instructions ?Recorded ?Confirmed ?Type cyclosporine 0.05 % eye drops in a 1 drp ophthalmic (eye) BID 10/25/22 07/04/25 History dropperette (Restasis) latanoprost 0.005 % eye drops 1 drp ophthalmic (eye) HS 10/25/22 07/04/25 History melatonin 5 mg tablet,immediate 5 mg PO HS 10/25/22 07/04/25 History and extended release multivitamin (Multiple Vitamins 1 tab PO QAM 10/25/22 07/04/25 History tablet) omega-3 fatty acids 1,250 mg 1,250 mg PO BID 10/25/22 07/04/25 History capsule donepezil 10 mg tablet 10 mg PO DAILY 05/14/24 07/04/25 History sennosides 8.6 mg tablet (senna) 8.6 mg PO DAILY PRN 05/14/24 07/04/25 History gabapentin 100 mg capsule 400 mg PO HS 10/06/24 07/04/25 History acetaminophen 500 mg tablet 1,000 mg PO DAILY 10/24/24 07/04/25 History diphenhydramine 25 2 tab PO HS 10/24/24 07/04/25 History mg-acetaminophen 500 mg tablet (Tylenol PM Extra Strength) lecanemab-irmb IV Q14D 10/24/24 07/04/25 History alendronate 70 mg tablet 70 mg PO QWEEK #12 tabs 02/11/25 07/04/25 Rx lisinopril 10 mg tablet 10 mg PO DAILY #90 tabs 02/11/25 07/04/25 Rx propylene glycol [Systane Balance] ophthalmic (eye) QID 02/11/25 07/04/25 History atenolol 100 mg tablet 100 mg PO QDAY #90 tabs 03/02/25 07/04/25 Rx prednisolone acetate 1 % eye 1 drp ophthalmic (eye) QAM 04/20/25 07/04/25 History drops,suspension hydrocortisone 2.5 % topical cream 1 applic topical BID PRN itching 07/03/25 07/04/25 Rx #20 grams Allergies Allergy/AdvReac Type Severity Reaction Status Date / Time amoxicillin Allergy Intermediate vomiting Verified 07/04/25 09:18 diarrhea clavulanic acid Allergy Mild Verified 07/04/25 09:18 Exam Const: Vital Signs, click to edit/add: Vital Signs - 24 hr 10/23/24 22:08 10/24/24 01:32 10/24/24 01:45 Temperature Pulse Rate [Pulse Oximeter] 61 60 61 Respiratory Rate 16 16 16 Blood Pressure [Le ft Arm] Blood Pressure [Ri ght Upper Arm] 131/80 135/69 133/76 Pulse Oximetry 95 97 97 Oxygen Delivery Me thod Room Air Room Air Room Air 10/24/24 02:10 10/24/24 02:49 10/24/24 02:49 Temperature 97.4 F L Pulse Rate [Pulse Oximeter] 61 58 L Respiratory Rate 16 16 16 Blood Pressure [Le ft Arm] 142/79 H Blood Pressure [Ri ght Upper Arm] 115/69 Pulse Oximetry 97 100 100 Oxygen Delivery Me thod Room Air Room Air Room Air Hospitalist - H&P: Result Labs Labs: Short CBC 10/23/24 Range/Units 23:00 WBC 6.98 (4.50-11.00) K/uL Hgb 13.2 (12.0-16.0) gm/dL Hct 41.7 (33.0-51.0) % Plt Count 264 (140-440) K/uL BMP 10/23/24 23:00 Sodium 135 Potassium 4.2 Chloride 104 Carbon Dioxide 21 BUN 17 Creatinine 1.2 Glucose 114 Calcium 9.1 Cardiac Enzymes 10/24/24 Range/Units 01:11 Troponin I < 0.01 L (0.01-0.04) ng/mL
--- NOTE | 2024-10-24 05:48 | PC.NURSE ---
Shift note: Patient arrived at the unit at 0230 on a wheelchair. Conscious, alert and oriented 4x. Presented with hx of left sided weakness which resolved before she arrived. Neuro checks intact, able to close and open eyes, smile with symmetrical facial expression,no facial droop or weakness at one side, equal strength in all extremities, and intact mental status though baseline dementia. She denied any pain, SOB, difficulty swallowing. Systolic Bp has been with 140s. No fever recorded. Pt has adequate sleep.
[2024-10-24] MEDS: SODIUM CHLORIDE 0.9 % (FLUSH) 10 ML SYRINGE 5 ML IVF (08:46)
--- NOTE | 2024-10-24 14:03 | P.DS_ITS ---
DS: Providers Provider Date Seen: 10/24/24 Date of admission: 10/24/24 02:32 Primary care physician: Mahogany Peñaloza MD Admitting Clinician: Judd Brian MD Consults: 10/24/24 00:51 Consult to Physical Therapy [CONS] Routine Comment: Reason(s) for PT Consult:: Evaluate and Treat Any Restrictions?:: No Restrictions Consult to Speech Therapy [CONS] Routine Comment: Reason(s) for Speech Consult:: Speech/Swallowing Eval 10/24/24 00:52 Consult to Occupational Therapy [CONS] Routine Comment: Reason(s) for OT Consult:: Evaluate and Treat Any Restrictions?:: No Restrictions Attending Physician on discharge: Judd Brian MD DS: Diagnosis Discharge Diagnosis (1) Weakness of left side of body: Status: Acute Problem details: Uncertain whether this was true weakness. By arrival in the hospital no objective neurologic findings. No symptoms since hospitalization. CT, CTA, MRI of the brain all normal except for chronic changes. (2) Essential tremor: Status: Chronic Problem details: Diagnosed by Dr. Abdiel Harris, [facility], 02/10 (who increased her atenolol) (3) Dementia: Status: Acute Problem details: Started with subjective memory complaints, seen 01/08, MMSE 29/30 with normal clock face 01/17/21, seen by Dr. Lori Maloney, [facility], 01/07 and 04/10 who felt that she did not have dementia, and had her seen by Marc Hicks, PhD, Clinical neuropsychiatry at the [facility] 09/09, who felt that the probable diagnosis was concerns about normal aging with some interference from longstanding ADHD like tendencies as well as somewhat anxious temperament, Dementia diagnosed with Neuropsychometric testing through [facility] 05/13 (and they started Donepezil 05/13), being assessed by [facility] 06/13 for lecanemab infusion which started Fall 2023 DS: Summary Hospital Course Hospital Course: Beatrice Hernandez is seen as an Interactive Telehealth visit. Beatrice Hernandez is a 74 year old female who has a past medical history notable for essential tremor, mild dementia, hypertension and LEON who presented for left-sided weakness. the patient reports that when she was in her usual state of health until around 7 PM this evening. She was at [employer] when she suddenly had difficulty using her left side. She broke out into a sweat. She felt her left side was clumsy and felt like she was about to give out. She grabbed onto the shopping cart and was able to stop from falling. Her drove her from the [facility] to the emergency department, upon arrival to the emergency department she was back to her baseline. She denies any headache. She denies any visual changes. She denies any trouble with speech. She did not have any numbness in the little left side although she noted some tingling/paresthesias on that side. She also feels like she had a bit of a tremor in her left upper extremity. No prior history of stroke or TIA. She did report to the ER that she had a fleeting pain sensation in the left side of her chest but this resolved with the numbness. Of note she reports she is on a clinical trial for Alzheimer's treatment with lecanumab and they are monitoring with serial MRI. Next MRI is due this week. 10/24/2024: She reports since being in the hospital she has been feeling fine. She has had no weakness or clumsiness with her left hand or leg. She is not having any troubles with speech or swallowing. She reports feeling entirely well. No fever, cold, cough, shortness of breath, chest pain, palpitations, nausea, vomiting, abdominal pain. She is anxious to go home Status at Discharge Functional status at discharge: independent ambulation Overall status at discharge: patient is back to baseline Time Spent with Patient Time attestation: Total time spent providing and/or coordinating discharge services: 45 minutes Exam Narrative: Exam Narrative: She is alert and appears in no distress. Speech is normal. She has surprisingly good recall of recent events given diagnosis of dementia. Speech is fluent. Head is without trauma. Pupils are equal round reactive to light. Extraocular movements are full. Visual hernandez intact. No facial asymmetry. Oropharynx is normal. Respirations unlabored. Cardiovascular: Regular rate and rhythm. Abdomen is soft without tenderness. Upper extremities have symmetric and full strength in shoulder flexion and extension, wrist flexion extension, elbow flexion and extension, finger extension. Ubwhqg-vyyb-xyfkeo is accurate. She has a fine resting tremor of her left upper extremity predominantly. Lower extremity strength testing shows 5/5 strength in hip flexion, knee flexion and extension, ankle dorsiflexion and plantar flexion bilaterally. Const: Vital Signs, click to edit/add: Vital Signs - 24 hr 10/23/24 22:08 10/24/24 01:32 10/24/24 01:45 Temperature Pulse Rate Pulse Rate [Pulse Oximeter] 61 60 61 Respiratory Rate 16 16 16 Blood Pressure [Le ft Arm] Blood Pressure [Ri ght Upper Arm] 131/80 135/69 133/76 Pulse Oximetry 95 97 97 [facility] Room [facility] Room Air 10/24/24 02:10 10/24/24 02:38 10/24/24 02:49 Temperature 97.4 F L 97.4 F L Pulse Rate 59 L Pulse Rate [Pulse Oximeter] 61 58 L 58 L Respiratory Rate 16 16 16 Blood Pressure [Le ft Arm] 142/79 H 142/79 H Blood Pressure [Ri ght Upper Arm] 115/69 Pulse Oximetry 97 98 100 Oxygen Delivery [facility] Room Air Room Air Room Air 10/24/24 02:49 10/24/24 03:00 10/24/24 03:38 Temperature 97.5 F L Pulse Rate Pulse Rate [Pulse Oximeter] 59 L Respiratory Rate 16 16 Blood Pressure [Le ft Arm] 142/78 H Blood Pressure [Ri ght Upper Arm] Pulse Oximetry 100 97 98 Oxygen Delivery [facility] Room Air Room Air 10/24/24 03:38 10/24/24 03:38 10/24/24 03:55 Temperature 97.7 F Pulse Rate 59 L 59 L Pulse Rate [Pulse Oximeter] 59 L Respiratory Rate 16 16 Blood Pressure [Le ft Arm] 144/78 H Blood Pressure [Ri ght Upper Arm] Pulse Oximetry 98 98 Oxygen Delivery [facility] Room Air Room Air 10/24/24 05:17 10/24/24 07:00 10/24/24 08:07 Temperature 97.5 F L 98.3 F Pulse Rate 59 L 59 L Pulse Rate [Pulse Oximeter] 59 L 62 Respiratory Rate 16 14 Blood Pressure [Le ft Arm] 142/78 H 114/59 L Blood Pressure [Ri ght Upper Arm] Pulse Oximetry 97 97 [facility] Room Air 10/24/24 08:07 10/24/24 08:07 10/24/24 08:07 Temperature 98.3 F Pulse Rate Pulse Rate [Pulse Oximeter] 62 62 Respiratory Rate 14 14 Blood Pressure [Le ft Arm] 114/59 L Blood Pressure [Ri ght Upper Arm] Pulse Oximetry 97 97 Oxygen Delivery [facility] Room Air 10/24/24 11:20 Temperature 98.5 F Pulse Rate Pulse Rate [Pulse Oximeter] 58 L Respiratory Rate 14 Blood Pressure [Le ft Arm] 133/75 Blood Pressure [Ri ght Upper Arm] Pulse Oximetry 98 Oxygen Delivery [facility] Room Air Documenting provider has reviewed patient's vital signs: yes DS: Data Data Completed and Pending Labs on day of discharge: Labs from last 24 hours 10/24/24 10/24/24 10/23/24 01:23 01:11 23:00 WBC 6.98 RBC 4.32 Hgb 13.2 Hct 41.7 MCV 97 MCH 31 MCHC 32 RDW Coeff of Jacek 12.8 Plt Count 264 Neut % (Auto) 56.5 Lymph % (Auto) 31.7 Irwin % (Auto) 10.0 Eos % (Auto) 1.4 Baso % (Auto) 0.3 Neut # (Auto) 3.94 Lymph # (Auto) 2.21 Irwin # (Auto) 0.70 Eos # (Auto) 0.10 Baso # (Auto) 0.02 Abs Immat Gran (auto) 0.01 Imm/Tot Granulo (auto) 0.1 Sodium 135 Potassium 4.2 Chloride 104 Carbon Dioxide 21 Anion Gap 10 BUN 17 Creatinine 1.2 Estimated Creat Clear 35.05 Estimated GFR 48 Glucose 114 Hemoglobin A1c 5.5 Calcium 9.1 Magnesium 1.9 Troponin I < 0.01 L Triglycerides 150 H Cholesterol 180 LDL Cholesterol, Calc 99 HDL Cholesterol 51 POC Troponin I Cancelled Imaging CTA head: Radiologist's impression: CLINICAL HISTORY: Left-sided stroke symptoms with slurred speech. TECHNIQUE: Standard helical CT image acquisition through the head following the administration of intravenous contrast was performed. 3D and MIP reconstructions were performed at a separate workstation and permanently archived. COMPARISON: None available. FINDINGS: Scattered intracranial atherosclerotic disease without proximal large vessel occlusion or flow-limiting luminal stenosis. No evidence of cerebral aneurysm. No findings to suggest an arterial-venous shunting lesion. The major dural venous sinuses and deep venous system are patent. IMPRESSION: Scattered intracranial atherosclerotic disease without proximal large vessel occlusion or flow-limiting luminal stenosis. CTA neck: Radiologist's impression: CLINICAL HISTORY: Left-sided stroke symptoms, slurred speech. TECHNIQUE: Standard helical CT image acquisition through the neck was performed after intravenous contrast bolus enhancement. 3D and MIP reconstructions were performed at a separate workstation and permanently archived. COMPARISON: None available. FINDINGS: The origins of the great vessels from the aortic arch are patent. The common carotid arteries are patent. Mild (<50%) stenoses of the bilateral proximal ICAs, by NASCET criteria, with an ulcerative plaque of the proximal right ICA just distal carotid bulb. The more distal cervical segments of the ICAs are patent. The origins and cervical segments of the vertebral arteries are patent. IMPRESSION: Mild (<50%) stenoses of the bilateral proximal ICAs, by NASCET criteria, with an ulcerative plaque of the proximal right ICA just distal carotid bulb. MRI brain: Radiologist's impression: INDICATION: Stroke. TECHNIQUE: Multiplanar multisequence noncontrast MR images of the brain. COMPARISON: CT brain 10/23/2024. FINDINGS: Mild to moderate diffuse cerebral volume loss. No mass effect or midline shift. Cavum septum pellucidum. Patchy FLAIR hyperintensities in the supratentorial white-matter, typical for moderate chronic microvascular ischemic changes. No diffusion restriction to suggest acute infarction. Punctate susceptibility right middle frontal gyrus may represent a chronic microhemorrhage or mineralization. No recent intracranial hemorrhage or pathologic extra-axial fluid collection. The major arterial flow voids of the skullbase are preserved. Thinning of the ocular lenses. Mild paranasal sinus mucosal thickening. Trace mastoid fluid bilaterally. IMPRESSION: 1. No acute intracranial abnormality. 2. Moderate chronic microvascular ischemic changes and mild to moderate diffuse cerebral volume loss. Discharge Plan Discharge Disposition: Home, Self-Care Date of Admission: 10/24/24 02:32 Attending Provider on Discharge: Selwyn Sims Primary Care Provider: Mahogany Peñaloza Condition: Improved Anticipated Discharge Date/Time: 10/24/24 13:59 Discharge Medications: Continued latanoprost 0.005 % drops 1 drp ophthalmic (eye) HS cyclosporine [Restasis] 0.05 % dropperette 1 drp ophthalmic (eye) BID alendronate 70 mg tablet 70 mg PO QWEEK Qty: 12 3RF Patient Comments: Takes on weekend, Saturday or Saturday sennosides [senna] 8.6 mg tablet 8.6 mg PO DAILY PRN donepezil 10 mg tablet 10 mg PO DAILY omega-3 fatty acids 1,250 mg capsule 1,250 mg PO BID multivitamin [Multiple Vitamins] Tablet 1 tab PO QAM melatonin 5 mg tablet, IR and ER, biphasic 5 mg PO HS gabapentin 100 mg capsule 400 mg PO HS acetaminophen 500 mg tablet 1,000 mg PO DAILY diphenhydramine-acetaminophen [Tylenol PM Extra Strength] 25-500 mg tablet 2 tab PO HS lecanemab-irmb IV Q14D Rx Instructions: EVERY OTHER WEEK, CLINICAL TRIAL atenolol 25 mg tablet 100 mg PO DAILY lisinopril 10 mg tablet 10 mg PO DAILY rosuvastatin 5 mg tablet 5 mg PO DAILY Discharge Orders: Discharge Order (Routine); Ordered 10/24/24 Ordered By: Selwyn Sims Additional Instructions: [facility] to see if you need a repeat MRI of your brain. If you continue to have left-sided symptoms make an appointment with [facility] as well. Activity Level: Activity as Tolerated Discharge Diet: Regular Follow Up Appointments: Mahogany Peñaloza MD [Primary Care Provider] - (as needed) Forms: [facility] Info Instructions
--- NOTE | 2024-10-24 14:38 | REH.OT ---
OT unable to see as Pt has discharged.
--- NOTE | 2024-10-24 15:10 | PC.NURSE ---
Discharge: Patient appropriate and cooperative, alert and oriented, slightly off on time. Patient vitally stable, lungs clear, BS WNL, IV removed, catheter intact. Neuros intact. Patient denies pain and is independent in room. Patient tolerating regular diet, urinating well, and had 1 BM. Tele=NSR. Patient signed belongings sheet and discharge form. Patient has no further questions regarding discharge. Patient left the floor by foot, picked up by her son at 1457.
== END 2024-10-24 14:57 | disposition home or self-care (01) ==
LOC: ED 10-24 00:50 → MEDSURG 10-24 02:32
PROVIDERS: Admitting Provider Internal Medicine; Emergency Provider Emergency Medicine; PCP Internal Medicine; Visit Provider Internal Medicine
DX: R53.1 Weakness (principal); F03.90 Unspecified dementia, unspecified severity, without behavioral disturbance, psychotic disturbance, mood disturbance, and anxiety; G25.0 Essential tremor; I10 Essential (primary) hypertension; G47.33 Obstructive sleep apnea (adult) (pediatric)
CPT/HCPCS: 36415; 70450; 70496; 70498; 70551; 80048; 80061; 83036; 83735; 84484; 85025; 93005; 97110; 97162; 99284; 99285; A9270; G0378; Q9967

== ENCOUNTER 2024-12-25 17:54 | Emergency (ER) | payer MEDICARE, BC, SELFPAY ==
--- OUTSIDE RECORDS SUMMARY | 2024-12-25 17:56 | XMS_ITS | Encounter Summary ---
Author Organization [place] Address [address] [address] Care Team Providers Care Natural Resources Technician Name Role Phone Mahogany Peñaloza MD Primary Care Provider [phone] Abdiel Harris MD Unavailable Reason for Referral * Consultation (Routine) - Pending Review Specialty Diagnoses / Procedures Referred By Contac t Referred To Contact Diagnoses Alzheimer's disease, familial (H) Abdiel Harris MD [facility] NEUROLOGICAL [facility] [address] [address] [address] Phone: tel: fax: Referral ID Status Reason Start Date Expiration Date V isits Requested Visits Authorized [id number] Pending Review 12/11/2024 12/11/2025 1 1 Scheduling Instructions Call patient to schedule Question Answer Preferred Location: [facility] [phone] Scheduling Instructions: Please call to schedule your appointment Has the patient been diagnosed with any positive neuro-cognitive impairment?: No Primary objective or goal of consultation: Other - Use Comments - Referral/Consultation What is the name of the person that should be contacted to schedule the appt? Please call patient to schedule What is the relationship to the patient? Self What is the best number to reach them at?: [phone] Additional Information: Patient's secondary number is [phone] Comments Please be aware that coverage of these services is subject to the terms and limitations of your health insurance plan. Call member services at your health plan with any benefit or coverage questions. 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 Sexual Orientation Not on file Occupation Industry Job Start Date Job End Date retired Not on file Not on file Not on file documented as of this encounter Plan of Treatment Scheduled Referrals Name Type Priority Associated Diagnoses Orde r Schedule Memory Clinic Referral Referral Routine Alzheimer's disease, familial (H) Ordered: 12/11/2024 documented as of this encounter Visit Diagnoses Diagnosis Alzheimer's disease, familial (H)- Primary Alzheimer's disease documented in this encounter Care Teams Natural Resources Technician Relationship Specialty Start Date End Date Mahogany Peñaloza MD [facility] [address] [place] [address] PCP - General Internal Medicine 12/28/19 Abdiel Harris MD [facility] NEUROLOGICAL [address] [address] Physician Neurology 06/06/23 documented as of this encounter
--- OUTSIDE RECORDS SUMMARY | 2024-12-25 17:57 | XMS_ITS | Encounter Summary ---
Author Organization [place] Address [address] [place] [address] Care Team Providers Care Retirement Officer Name Role Phone Mahogany Peñaloza MD Primary Care Provider Lori Maloney MD Unavailable [phone] Marc Hicks PhD Unavailable [phone] Abdiel Harris MD Unavailable Reason for Visit * Reason Onset Date Comments Call Back 07/24/2021 Encounter Details Date Type Department Care Team (Late st Contact Info) Description 07/24/2021 Telephone [facility] Neuropsychology [address] [address] Marc Hicks, PhD [address] [place] [address] Call Back Social History Tobacco Use Types Packs/Day Years Used Date Smoking Tobacco: Never Smokeless Tobacco: Never Alcohol Use Standard Drinks/Week Comments Not Currently 0 (1 standard drink = 0.6 oz pur e alcohol) PHQ-2 Answer Date Recorded PHQ-2 Score 0 04/11/2021 Comments Unknown Sex and Gender Information Value Date Recorded Sex Assigned at Not on file 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 Gender Identity Female 09/24/2021 9:02 PM SPECIALIZED DEVELOPER Sexual Orientation Not on file Occupation Industry [...] on filedocumented in this encounter Care Teams Retirement Officer Relationship Specialty Start Date End Date Mahogany Peñaloza MD [facility] [address] [place] [address] PCP - General Internal Medicine 12/28/19 Lori Maloney MD [address] [place] [address] Assigned Neuroscience Provider 08/12/20 03/08/23 Marc Hicks, PhD [address] [place] [address] Assigned Behavioral Health Provider 09/10/21 01/25/23 Abdiel Harris MD [facility] NEUROLOGICAL [facility] [address] [address] [address] Physician Neurology 06/06/23 documented as of this encounter
--- OUTSIDE RECORDS SUMMARY | 2024-12-25 17:57 | XMS_ITS | Clinical Summary ---
Author Organization [facility] Address [address] [place] [address] Care Team Providers Care Belt Worker Name Role Phone Mahogany Peñaloza MD Primary Care Provider [phone] Allergies No known active allergies Medications ASPIRIN [...] Date History of colon polyps 09/28/2019 Overview (10/28/2024): Colonoscopy 09/2019 normal, repeat in 5 years Colonoscopy 10/2024 normal, repeat in 7 years Anxiety 08/12/2013 Eczema 05/16/2010 Contact dermatitis [...] Encounters Date Type Department Care Team Description 10/28/2024 7:45 AM DIAMOND SAW OPERATOR - 10/28/2024 11:59 PM DIAMOND SAW OPERATOR Hospital Encounter Adan Valenzuela MD 10/28/2024 [facility] [address] [place] [address] Adan Valenzuela MD 1 scan: (1-Ord) [facility] 10/28/2024 Orders Only [facility] [address] [facility] [address] [place] [id number] Adan Valenzuela MD <No scans attached> 10/28/2024 Surgery [facility] [address] [facility] [address] [place] [address] Adan Valenzuela MD colonoscopy, screening 10/27/2024 Telephone [facility] [address] [place] [address] Adan Valenzuela MD Questions 10/23/2024 Office Visit [facility] [address] [place] [address] Latasha Gifford MD Telehealth ([facility]) 10/20/2024 Telephone [facility] [address] [place] [address] Adan Valenzuela MD Appointment Reminder (Colonoscopy at [facility]) from Last 3 Months Immunizations Name Administration Dates Next Due COVID-19 vaccine ([employer] 30mcg/0.3mL) HARPAL JOHNSON 12/31/2020,12/10/2020 Influenza A (H1N1), [...] on file Legal Sex Female 6:13 AM DIAMOND SAW OPERATOR Gender Identity Not on file Sexual Orientation Not on file 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 on file Not on file [...] CDT Oxygen Saturation 98% 10/11/2012 8:57 AM DIAMOND SAW OPERATOR Inhaled Oxygen Concentration - - Weight [...] 01/05/1970 Hepatitis C screening for ag e 18[birth year]01[birth year]05[birth year]1970 RSV vaccine for adults or (1 - Risk 60-74 years 1-dose series) 2012 Mammogram for age 45-75 09/02/2015 09/02/20 14, [...] Additional history exists Colonoscopy through age 75 10/28/203110/28, 09/28/2019, 09/28/2019, Additional history exists Tdap Completed 08/15/2012 Pneumococcal series for age 50+ Completed 8, 08/09/2017 Zoster (shingles) series for age 50+ Completed 12/17/2018, 11/24/2018, 10/12/2018, Additional history exists Procedures Procedure Name Priority Date/Time Associated Diagnosis Comments COLONOSCOPY SCREENING Routine 10/28/2024 12:00 AM DIAMOND SAW OPERATOR Encounter for screening colonoscopy SCAN-MAMMOGRAPHY REPORT 09/02/2014 12:00 AM DIAMOND SAW OPERATOR XR DXA BONE DENSITY 2 SITES AXIAL Routine 08/18/2013 4:48 PM CDT DISORDER BONE AND CARTILAGE, UNSPEC LDL CHOLESTEROL,DIRECT Routine 08/12/2013 8:08 PM CDT HYPERLIPIDEMIA SURGICAL PROCEDURE (TYPE PROCEDURE DESCRIPTION BELOW) Encounter for screening colonoscopy from Last 3 Months or Most Recently Relevant to Health Maintenance Results * COLONOSCOPY SCREENING (10/28/2024 12:00 AM DIAMOND SAW OPERATOR) us Adan Valenzuela MD GI PROCEDURE ORD Final Re sult * SCAN-MAMMOGRAPHY REPORT (09/02/2014 12:00 AM DIAMOND SAW OPERATOR) Anatomical Region Laterality Modality Other Narrative 09/07/2014 6:43 AM DIAMOND SAW OPERATOR Procedure Note Scanner - 09/02/2014 12:00 [...] results of this study. us Shireen Lewis NP DEXA Final Result * LDL CHOLESTEROL,DIRECT (08/12/2013 8:08 PM CDT) LDL CHOLESTEROL,D IRECT 138 Undefined mg/dL [facility] Comment: RISK CATEGORY LDL GOAL (mg/dL) Vascular disease and/or diabetes (<100) Multiple (2+) risk factors (<130) 0-1 risk factor (<160) Blood specimen (specimen) BLOOD SPECIMEN / Unknown 08/12/2013 8:08 PM CDT 08/12/2013 7:48 PM CDT Shireen Lewis COMPLIANCE ENG[employer] CHEMISTRY Final Result [facility] INTERNAL ZIP [id number] [place] [address] from Last 3 Months or Most Recently Relevant to Health Maintenance Insurance [employer] BLUE MR [place] ONLY Care Teams Belt Worker Relationship Specialty Start Date End Date Mahogany Peñaloza MD [address] [place] [address] PCP - General Internal Medicine 09/28/19
--- OUTSIDE RECORDS SUMMARY | 2024-12-25 17:57 | XMS_ITS | Encounter Summary ---
Author Organization [place] Address [address] [place] [address] Care Team Providers Care Security And Privacy Consultant Name Role Phone Mahogany Peñaloza MD Primary Care Provider Lori Maloney MD Unavailable [phone] Marc Hicks PhD Unavailable [phone] Abdiel Harris MD Unavailable Encounter Details Date Type Department Care Team (Late st Contact Info) Description 09/11/2021 [facility] Medical Advice [facility] [address] [place] [address] Maria R Soto, [place] Social [...] on file Legal Sex Female 4:38 AM INTERNAL MEDICINE VETERINARY TECHNICIAN Gender Identity Female 09/24/2021 9:02 PM INTERNAL MEDICINE VETERINARY TECHNICIAN Sexual Orientation Not on file Occupation Industry Job Start Date Job End Date retired Not on file Not on file Not on file documented as of this encounter Plan of Treatment Not on file documented as of this encounter Visit Diagnoses Not on filedocumented in this encounter Care Teams Security And Privacy Consultant Relationship Specialty Start Date End Date Mahogany Peñaloza MD [facility] [address] [place] [address] PCP - General Internal Medicine 12/28/19 Lori Maloney MD [address] [place] [address] Assigned Neuroscience Provider 08/12/20 03/08/23 Marc Hicks, PhD [address] [place] [address] Assigned Behavioral Health Provider 09/10/21 01/25/23 Abdiel Harris MD [facility] NEUROLOGICAL [facility] [address] [address] Physician Neurology 06/06/23 documented as of this encounter
--- OUTSIDE RECORDS SUMMARY | 2024-12-25 17:57 | XMS_ITS | Encounter Summary ---
Author Organization [facility] Address [address] [place] [address] Care Team Providers Care Helpdesk Analyst Name Role Phone Mahogany Peñaloza MD Primary Care Provider [phone] Lori Maloney MD Unavailable [phone] Marc Hicks PhD Unavailable [phone] Abdiel Harris MD Unavailable Encounter Details Date Type Department Care Team (Late st Contact Info) Description 01/12/2020 [facility] [place] [facility] Neurology [address] [place] [address] [address] [place] [address] Lori Maloney MD [address] [place] [address] Social History Tobacco Use Types Packs/Day Years Used Date Smoking Tobacco: Never Smokeless Tobacco: Never Alcohol Use Standard Drinks/Week Comments Not Currently 0 (1 standard drink = 0.6 oz pur e alcohol) PHQ-2 Answer Date Recorded PHQ-2 Score 0 12/29/2019 Comments Unknown Sex and Gender Information Value Date Recorded Sex Assigned at Not on file Legal Sex Female 4:38 AM OPERATIONS PROFESSIONAL Gender Identity Female 09/24/2021 9:02 PM OPERATIONS PROFESSIONAL Sexual Orientation Not on file Occupation Industry [...] on filedocumented in this encounter Care Teams Helpdesk Analyst Relationship Specialty Start Date End Date Mahogany Peñaloza MD [facility] [address] [place] [address] PCP - General Internal Medicine 12/28/19 Lori Maloney MD [address] [place] [address]385 Assigned Neuroscience Provider 08/12/20 03/08/23 Marc Hicks, PhD [address] [place] [address] Assigned Behavioral Health Provider 09/10/21 01/25/23 Abdiel Harris MD [facility] NEUROLOGICAL [facility] [address] [address] [address] Physician Neurology 06/06/23 documented as of this encounter
--- OUTSIDE RECORDS SUMMARY | 2024-12-25 17:57 | XMS_ITS | Clinical Summary ---
Author Organization [facility] Address [address] [facility] , [address] [place] [address] Phone Care Team Providers Care Fire Control Technician Name Role Phone Chico Reid MD [phone] Conditions or Problems Problem Name Problem Code Onset Date Status Entry Date Provider Comment Standard Description Annotate Dementia in other diseases classified elsewhere, mild, without behavioral disturbance, psychotic disturbance, mood disturbance, and anxiety 97281047 (SNOMED CT) 04/16 Active 05/06 Sury Julieta Dementia Alzheimer's disease - and family h/o AD G30.8 (ICD-10-CM ) 02/13 Active 02/13 Abdiel Harris MD Other Alzheimer's disease Unspecified dementia, mild, without behavioral disturbance, psychotic disturbance, mood disturbance, and anxiety 87301351 (SNOMED CT) 04/16 Inactive 05/06 Margaret Jaime Dementia Dementia in conditions classified elsewhere without behavioral disturbance 322609108 (SNOMED CT) 04/16 Inactive 05/06 Emmanuelle Frances Armerding Dementia associated with another disease Mild cognitive impairment vs mild dementia 262162206 (SNOMED CT) 06/05 Active 06/05 Abdiel Harris MD Mild neurocognitive disorder Other Alzheimer's disease - in her family 04703875 (SNOMED CT) 02/13 Inactive 02/13 Abdiel Harris MD Alzheimer's disease 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 In addition take 100 mg per night and may increase by 100 mg per night as needed until restless leg and anxiety controlled or until 600 mg/night. Maximum dose of 900/day gabapentin [id number] Denise MIKE-Alfredo CETIRIZINE HCL 10 MG TABS cetirizine 13353106956 Denise MIKE-Alfredo GABAPENTIN 100 MG CAPS Take 3 caps in the morning, 1 cap midday and 2 caps in the evening. gabapentin 57880582737 Denise MIKE-Alfredo GABAPENTIN 100 MG CAPS 1 capsule by mouth as directed : 1 to 3 caps during the day time as needed anxiety and tremor. In addition take 100 mg per night and may increase by 100 mg per night as needed until restless leg and anxiety controlled or until 600 mg/night gabapentin 04715795209 Abdiel Harris MD GABAPENTIN 100 MG CAPS Take 1 to 3 caps during the day time as needed for anxiety and tremor. In addition take 100 mg per night and may increase by 100 mg per night as needed until restless leg and anxiety controlled or until 600 mg/night. Maximum dose of 900/day gabapentin 18031673958 Abdiel Harris MD DONEPEZIL HCL 10 MG TABS (one) tablet by mouth every morning by mouth donepezil 77435996818 Abdiel Harris MD GABAPENTIN 100 MG CAPS 1 capsule by mouth as directed : 1 to 3 caps during the day time as needed anxiety and tremor. In addition take 100 mg per night and may increase by 100 mg per night as needed until restless leg and anxiety controlled or until 600 mg/night gabapentin 42480928932 Abdiel Harris MD ATENOLOL 25 MG TABS Take 4 tablet by mouth once a day atenolol 47997698569 Denise Adiaroel Stewartil PA-C DONEPEZIL HCL 10 MG TABS Take 1/2 tablet by mouth every night at bedtime for 30 days, then take 1 tablet by mouth every night at bedtime donepezil 06459777740 Denise Adiasury Stewartil PA-C LISINOPRIL 2.5 MG TABS lisinopril 37493563010 Denisesatinder SunAdia Terryil PA-C ATENOLOL 50 MG TABS Take 2 tablet by mouth every evening or 100 mg per night atenolol 88701742209 Denise Adiasury Stewartil PA-C LISINOPRIL 2.5 MG TABS lisinopril 65588229815 Denise Adiasury Stewartil PA-C ROSUVASTATIN CALCIUM 5 MG TABS rosuvastatin 90445671711 Denise Adiasury Talamantes PA-C RESTASIS 0.05 % EMUL INSTILL 1 DROP INTO BOTH EYES TWICE DAILY cyclosporine 24303017564 Denise Adiabrian Talamantes PA-C LISINOPRIL 10 MG TABS lisinopril 58632832097 Denise Talamantes PA-C LATANOPROST 0.005 % SOLN latanoprost 00114460113 Denise Adiasury Stewartil PA-C ATENOLOL 25 MG TABS Take 3 tablet by mouth every evening atenolol 16866020471 Denise Adiabrian Talamantes PA-C ALENDRONATE SODIUM 70 MG TABS Take 1 tablet by mouth once a week alendronate 25872118921 Denise Talamantes PA-C TYLENOL 325 MG TABS 2 tab BID acetaminophen 03510803683 Denise Talamantes PA-C ASPIRIN 325 MG TABS 1 tab daily aspirin 88829582562 Denise Talamantes PA-C CETIRIZINE HCL 10 MG TABS cetirizine 82654620604 Denise Talamantes PA-C MULTI-VITAMIN TABS multivitamin 41431242244 Denise Talamantes PA-C FISH OIL 500 MG CAPS omega 0-tqv-qkj-fish oil 23272367449 Dneise Talamantes PA-C MELATONIN TR 1 MG CR-TABS 5 mg qhs melatonin 94557854273 Denise Talamantes PA-C ATENOLOL 25 MG TABS TAKE THREE TABLETS BY MOUTH DAILY atenolol 28963674283 Abdiel Harris MD ATENOLOL 50 MG TABS Take 2 tablet by mouth every evening or 100 mg per night atenolol 67489204364 Abdiel Harris MD ATENOLOL 25 MG TABS Take 2 tablet by mouth once a day May increase to 3 tabs or 75 mg per day after 10 days if tremor not better atenolol 31251397274 Abdiel Harris MD ATENOLOL 25 MG TABS TAKE THREE TABLETS BY MOUTH DAILY atenolol 63924868661 Abdiel Harris MD LISINOPRIL 2.5 MG TABS lisinopril 58928307453 Abdiel Harris MD LISINOPRIL 2.5 MG TABS lisinopril 60753096069 Abdiel Harris MD ATENOLOL 25 MG TABS Take 2 tablet by mouth once a day May increase to 3 tabs or 75 mg per day after 10 days if tremor not better atenolol 68336689587 Abdiel Harris MD Medications Administered No information available. Allergies, Adverse Reactions, Alerts Allergy Name Reaction Description Start Date Severity Status Provider ENVIRONMENTAL ALLERGIES Mild Active Denise Talamantes PA-C Results Date Name Value Unit Range Flag Description Internal Other: Verbal Autho rization/Emergency Contact - OBS VERBAL_EMER DONE Verbal authorization and emergency contact Lab Report: TSH TSH 2.08 u[iU]/mL 0.40-4.50 N Thyrotropi n [Units/volume] in Serum or Plasma Office Visit: Office Visit f ax DEMENTIA2 Assessment of cognition performed and results reviewed. Total score [MMSE] [id number] Normal Total scor e [MoCA] MMSE SCORE 29 Total scor e [MMSE] Lab Report: [employer] AD DETECT( R) APOE ISOFORM, PLASMA [id number] E3/E4 GE use only - for [employer] import when terms are not otherwise specified Internal Other: Authorizatio n - OBS [email or web address] Yes Authoriza tion: Release of Information - Authorize [facility] - Payment and Healthcare Operations ROIAUTHOTHER Yes Authoriz ation: Release of Information - Authorize Others/Insurance - Payment and Healthcare Operations HIECONSENT Yes Consent To Release information to the Health Information Exchange (HIE) [email or web address] Yes Authorizat ion: Authorization for [facility] to leave messages, voicemail, send text messages, send emails AUTHRELHCARE Yes Authoriz ation: Release/Retrieval of Information to/from Healthcare Facilities, Pharmacy Benefit Payers and Providers AUTHPRIVPRAC Yes Authoriz ation: Notice of privacy practices AUTHBENEFIT Yes Authoriza tion: Assignment of Benefits and Payment Agreement Office Visit: Office Visit f ax MEDS REVIEW Done Documenta tion of current medications (procedure) Plan of Care Type Date Detail Appointment 10:00 AM [address], [address], [place], [address], Appointment 09:00 AM [address], [address], [place], [address], Appointment 11:00 AM Abdiel Harris MD, [address], [address], [place], [address], Appointment 09:30 AM [address], [place], [address], Appointment 09:00 AM [address], [place], [address], Appointment 09:30 AM [address], [place], [address], Appointment 11:00 AM Denise Talamantes PA-C, [address], [place] [address], [place], [address], Appointment 11:20 [place], [address], Suite [facility], [place], [address], Appointment 09:00 AM [address], [place], [address], Referral Other Referral Referral Other Referral Referral Other Referral Referral Psychiatry Refer ral Referral Other Referral Referral excluded fr om report: Referral Other Referral Referral excluded fr om report: Referral Other Referral Referral excluded fr om report: Referral Other Referral Referral excluded fr om report: Referral Other Referral Referral Other Referral Referral Other Referral Referral excluded fr om report: Referral Other Referral Referral Other Referral Referral excluded fr om report: Pending order Follow up Pending order Follow up Pending order Leqembi (lecanem ab) Infusion Pending order Follow up ANASTASIA Pending order Follow up ANASTASIA Pending order MRI-Brain W/O Pending order MRI-Brain W/O Pending order Follow up Pending order Patient Instruct ions Pending order Follow up with N eurologist or ANASTASIA Pending order MRI-Brain W/O Pending order MRI-Brain W/O Pending Order exclud ed from report: Pending order MRI-Brain W/O Pending order Patient Instruct ions Pending order Patient Instruct ions Pending order Follow up ANASTASIA Pending order Leqembi (lecanem ab) Infusion Pending order Follow up ANASTASIA Pending order Alzheimer Treatm ent Education with ANASTASIA Pending order Alzheimer Treatm ent Education with ANASTASIA Pending order MRI-Brain W/O Pending order Patient Instruct ions Pending order PET Scan Beta-am yloid Pending order AD-Detect Apolip oprotein E (ApoE) Isoform Plasma Pending order Patient Instruct ions Pending order Patient Instruct ions Pending order Follow up ANASTASIA Pending order Patient Instruct ions Pending order Patient Instruct ions Pending order Instructions for Staff Pending order Patient Instruct ions Pending order Follow up ANASTASIA Pending order Neuropsychology Evaluation Pending order Follow up with N eurologist or ANASTASIA Pending order Instructions for Staff Pending order TSH Procedures Code Procedure Name Date Entry Date ORDERS Follow up ORDERS Follow up with Neurologist or ANASTASIA ORDERS Other Referral ORDERS Other Referral ORDERS Patient Instructions ORDERS Psychiatry Referral ORDERS Other Referral [id number] MRI-Brain W/O [id number] MRI-Brain W/O CPT-05453 MRI Brain W/O ORDERS Other Referral [id number] Documentation of current medicatio ns ORDERS Follow up ANASTASIA ORDERS Patient Instructions ORDERS Other Referral ORDERS Alzheimer Treatment Education with ANASTASIA 14/07/06 CPT-96157 MRI Brain W/O [id number] MRI-Brain W/O ORDERS Patient Instructions [id number] Documentation of current medicatio ns ORDERS Other Referral ORDERS PET Scan Beta-amyloid 05/06 ORDERS Follow up ANASTASIA ORDERS Patient Instructions ORDERS Patient Instructions ORDERS AD-Detect Apolipopro tein E (ApoE) Isoform Plasma ORDERS Neuropsychology Evaluation 2 CPT-37192 Npsy Interview w/Provider - 1st hour 2023 CPT-57054 Npsy Interp/Rpt by Provider - 1st hour 13/04/27 CPT-30935 Npsy Interp/Rpt by Provider - 3 hours 01/24/27 CPT-83288 Npsy Test by Tech (2+ Tests) - 1st 30 min CPT-06218 Npsy Test by Tech (2+ Tests) - 2.5 hours ORDERS Patient Instructions ORDERS Patient Instructions ORDERS Patient Instructions ORDERS Follow up ANASTASIA [facility] 139[address]-2 MMSE ORDERS Instructions for Staff 01/12 ORDERS Follow up with Neurologist or ANASTASIA [facility]-[id number] Documentation of current medicatio ns ORDERS Instructions for Staff 02/13 [facility]-[id number] Documentation of current medicatio ns ORDERS TSH Vital Signs Date Name Value Unit Description Heart Rate 68 /min pulse rate Immunizations No information available. Advance Directives No information available.
--- OUTSIDE RECORDS SUMMARY | 2024-12-25 17:57 | XMS_ITS | Encounter Summary ---
Author Organization [facility] Address [address] [place] [address] Care Team Providers Care Shank Tapper Name Role Phone Mahogany Peñaloza MD Primary Care Provider Lori Maloney MD Unavailable [phone] Marc Hicks PhD Unavailable [phone] Abdiel Harris MD Unavailable Encounter Details Date Type Department Care Team (Late st Contact Info) Description 01/03/2022 [facility] [place] Medical Advice [facility] Neurology Clinic [address] [place] [address] Maria R Soto, [place] Social [...] on file Legal Sex Female 4:38 AM METAL MACHINE OPERATOR Gender Identity Female 09/24/2021 9:02 PM METAL MACHINE OPERATOR Sexual Orientation Not on file Occupation Industry Job Start Date Job End Date retired Not on file Not on file Not on file COVID-19 Exposure Response Date Recorded In the last month, have you been in contact with someone who was confirmed or suspected to have Coronavirus / COVID-19? No / Unsure 12/28/2021 2:27 PM METAL MACHINE OPERATOR documented as of this encounter Plan of Treatment Not on file documented as of this encounter Visit Diagnoses Not on filedocumented in this encounter Care Teams Shank Tapper Relationship Specialty Start Date End Date Mahogany Peñaloza MD [facility] [address] [place] [address] PCP - General Internal Medicine 12/28/19 Lori Maloney MD [address] [place] [address] Assigned Neuroscience Provider 08/12/20 03/08/23 Marc Hicks, PhD [address] [place] [address] Assigned Behavioral Health Provider 09/10/21 01/25/23 Abdiel Harris MD [facility] NEUROLOGICAL [facility] [address] [address] [address] Physician Neurology 06/06/23 documented as of this encounter
--- OUTSIDE RECORDS SUMMARY | 2024-12-25 17:57 | XMS_ITS | Clinical Summary ---
Author Organization [facility] Address [address] [place] [address] Care Team Providers Care Vice President Biostatistics Name Role Phone Mahogany Peñaloza MD Primary [...] needed. Do not drive arrange for a hazardous materials driver 2 tablet 1 Active Active Problems Problem Noted Date Diagnosed Date Cognitive complaints 04/11/2021 Tinnitus 04/11/2021 Persistent insomnia 04/11/2021 Osteopenia 04/11/2021 Hypothyroidism 04/11/2021 Status post cataract extraction 04/11/2021 Chronically dry eyes 04/11/2021 Ascending aorta enlargement 04/11/2021 Anxiety 08/12/2013 Eczema 05/16/2010 Hyperlipidemia 02/20/2008 Episodic mood disorder 02/11/2008 Overview (04/11/2021): Seasonal affective d/o Malignant neoplasm of female breast 01/19/2003 Overview (04/11/2021): right lumpectomy 01/23 Encounters Date Type Department Care Team Description 12/11/2024 Orders Only GENERIC EXTERNAL DATA DEPARTMENT Abdiel Harris MD Alzheimer's disease, familial (H) (Primary Dx) 12/07/2024 Medical Correspondence [facility] Information Management [address] [place] [address] [address] [place] [address] Scan, Non-Provider from Last 3 Months Family History Medical [...] on file Legal Sex Female 4:38 AM TRAILER PARK MANAGER Gender Identity Female 09/24/2021 9:02 PM TRAILER PARK MANAGER Sexual Orientation Not on file Occupation Industry [...] OF HM ORDERS 1952 CT COLONOGRAPHY 1952 FIT 1952 FLEX SIG 1952 GLUCOSE 1952 LIPID 1952 MAMMO SCREENING 1952 TSH W/FREE T4 REFLEX 1952 sDNA (Cologuard) 1952 HEPATITIS C SCREENING 01/05/1970 MEDICARE ANNUAL WELLNESS VISIT 01/05/2017 FALL RISK ASSESSMENT 12/28/2020 12/29/2019, 12/29/19 COVID-19 Vaccine ( season) 2024 01/09/2024, 08/29/2023, 05/09/2023, Additional history exists INFLUENZA VACCINE (#1) 2024 , 07/23/2022, 08/08/2021, Additional history exists PHQ-2 (once per calendar year) 2024 09/04/2021, 04/11/2021, 12/29/2019, Additional history exists RSV VACCINE (1 - 1-dose 75+ series) 01/05/2027 DEXA 08/18/2028 08/18/2013 COLONOSCOPY 09/28/2029 09/28/2019 COLORECTAL CANCER SCREENING 09/28/2029 [...] on patient's age to complete this topic Procedures Procedure Name Priority Date/Time Associated Diagnosis Comments MRI IMAGING - HIM SCAN 09/28/2024 12:00 AM TRAILER PARK MANAGER from Last 3 Months Results * MRI Imaging - HIM Scan (09/28/2024 12:00 AM TRAILER PARK MANAGER) Anatomical Region Laterality Modality Other 09/28/2024 Provider Outside [facility] MRI ORDERABLES Final Result from Last 3 Months Insurance [facility] [employer] [facility] Address: [address] [address] [place] [address] MEDICARE [facility] [employer] MEDICARE [facility] MEDICARE Care Teams Vice President Biostatistics Relationship Specialty Start Date End Date Mahogany Peñaloza MD [address] [id number] PCP - General Internal Medicine 12/28/19 Abdiel Harris MD [facility] NEUROLOGICAL [facility] [address] [address] [id number] Physician Neurology 06/06/23
--- OUTSIDE RECORDS SUMMARY | 2024-12-25 17:57 | XMS_ITS | Encounter Summary ---
Author Organization [facility] Address [address] [place] [address] Care Team Providers Care Wool Shearer Name Role Phone Mahogany Peñaloza MD Primary Care Provider [phone] Lori Maloney MD Unavailable [phone] Marc Hicks PhD Unavailable [phone] Abdiel Harris MD Unavailable Reason for Visit * Reason Onset Date Comments Call Back 11/08/2021 mri today Encounter Details Date Type Department Care Team (Late st Contact Info) Description 11/08/2021 Telephone [facility] Neurology Clinic [address] [address] Lori Maloney MD [address] [place] [address] Call Back (mri today 11/08/21 ) [...] on file Legal Sex Female 4:38 AM 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 Gender Identity Female 09/24/2021 9:02 PM 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 Sexual Orientation Not on file Occupation Industry Job Start Date Job End Date retired Not on file Not on file Not on file documented as of this encounter Miscellaneous Notes * Telephone Encounter - Naila Schwartz - 11/08/2021 12:14 PM CST [facility] Call Center Phone Message May a [...] Center ([facility]): neurology Travel Screening: Not Applicable HEMICAL LABORATORY TECHNICIAN documented in this encounter Plan of Treatment Not on file documented as of this encounter Visit Diagnoses Not on filedocumented in this encounter Care Teams Wool Shearer Relationship Specialty Start Date End Date Mahogany Peñaloza MD [facility] & [address] [address] PCP - General Internal Medicine 12/28/19 Lori Maloney MD [address] [place] [address] Assigned Neuroscience Provider 08/12/20 03/08/23 Marc Hicks, PhD [address] [place] [address] Assigned Behavioral Health Provider 09/10/21 01/25/23 Abdiel Harris MD [facility] NEUROLOGICAL [facility] [address] [address] Physician Neurology 06/06/23 documented as of this encounter
--- OUTSIDE RECORDS SUMMARY | 2024-12-25 17:57 | XMS_ITS | Encounter Summary ---
Author Organization [facility] Address [address] [place] [address] Care Team Providers Care Siebel Consultant Name Role Phone Mahogany Peñaloza MD Primary Care Provider Lori Maloney MD Unavailable [phone] Marc Hicks PhD Unavailable [phone] Abdiel Harris MD Unavailable Encounter Details Date Type Department Care Team (Late st Contact Info) Description 04/24/2022 [facility] [place] Medical Advice [facility] Neurology Clinic [address] [place] [address] Maria R Soto, [place] Social [...] on file Legal Sex Female 4:38 AM A/C TECHNICIAN Gender Identity Female 09/24/2021 9:02 PM A/C TECHNICIAN Sexual Orientation Not on file Occupation Industry Job Start Date Job End Date retired Not on file Not on file Not on file documented as of this encounter Plan of Treatment Not on file documented as of this encounter Visit Diagnoses Not on filedocumented in this encounter Care Teams Siebel Consultant Relationship Specialty Start Date End Date Mahogany Peñaloza MD [facility] [address] [place] [address] PCP - General Internal Medicine 12/28/19 Lori Maloney MD [address] [place] [address] Assigned Neuroscience Provider 08/12/20 03/08/23 Marc Hicks, PhD [address] [place] [address] Assigned Behavioral Health Provider 09/10/21 01/25/23 Abdiel Harris MD [facility] NEUROLOGICAL [facility] [address] [address] Physician Neurology 06/06/23 documented as of this encounter
--- OUTSIDE RECORDS SUMMARY | 2024-12-25 17:57 | XMS_ITS | Encounter Summary ---
Author Organization [facility] Address [address] [place] [address] Care Team Providers Care Canadian Bacon Tier Name Role Phone Mahogany Peñaloza MD Primary Care Provider Lori Maloney MD Unavailable [phone] Marc Hicks PhD Unavailable [phone] Abdiel Harris MD Unavailable Reason for Visit * Reason Onset Date Comments Forms 03/28/2020 medical records Encounter Details Date Type Department Care Team (Late st Contact Info) Description 03/28/2020 Telephone [facility] [address]rd [place] [address] Lori Maloney MD [address] [place] [address] [phone] Forms (medical records) Social History Tobacco Use Types Packs/Day Years Used Date Smoking Tobacco: Never Smokeless Tobacco: Never Alcohol Use Standard Drinks/Week Comments Not Currently 0 (1 standard drink = 0.6 oz pur e alcohol) PHQ-2 Answer Date Recorded PHQ-2 Score 0 12/29/2019 Comments Unknown Sex and Gender Information Value Date Recorded Sex Assigned at Not on file Legal Sex Female 4:38 AM HEAD NURSE Gender Identity Female 09/24/2021 9:02 PM HEAD NURSE Sexual Orientation Not on file Occupation Industry Job Start Date Job End Date retired Not on file Not on file Not on file documented as of this encounter Miscellaneous Notes * Telephone Encounter - Zhane Wing - 03/28/2020 2:19 PM CDT [facility] Phone Message May a [...] on filedocumented in this encounter Care Teams Canadian Bacon Tier Relationship Specialty Start Date End Date Mahogany Peñaloza MD [facility] [address] [place] [address] PCP - General Internal Medicine 12/28/19 Lori Maloney MD [address] [place] [address] Assigned Neuroscience Provider 08/12/20 03/08/23 Marc Hicks, PhD [address] [place] [id number] Assigned Behavioral Health Provider 09/10/21 01/25/23 Abdiel Harris MD [facility] [address] [address] Physician Neurology 06/06/23 documented as of this encounter
--- OUTSIDE RECORDS SUMMARY | 2024-12-25 17:57 | XMS_ITS ---
Author Organization [facility] Address [address] [facility] , [facility] [address] [place] [address] Phone Care Team Providers Care Gear Lapper Name Role Phone Albin PA-Alfredo, Denise Womackth Unavailable Conditions or Problems No information available. Medications Medication Instructions Start Date Stop Date Generic Name NDC Provider GABAPENTIN 100 MG CAPS Take 1 to 3 caps during the day time as needed for anxiety and tremor. In addition take 100 mg per night and may increase by 100 mg per night as needed until restless leg and anxiety controlled or until 600 mg/night. Maximum dose of 900/day 5 gabapentin [id number] Denise Adia Cherucheril PA-C CETIRIZINE HCL 10 MG TABS cetirizine [id number] Denise Adia Cherucheril PA-C GABAPENTIN 100 MG CAPS Take 3 caps in the morning, 1 cap midday and 2 caps in the evening. 7 gabapentin [id number] Denise Adia Sofiaucheril PA-C Medications Administered No information available. Allergies, Adverse Reactions, Alerts No information available. Results Date Name Value Unit Range Flag Description Office Visit: Office Visit f ax MEDS REVIEW Done Documenta tion of current medications (procedure) Plan of Care Type Date Detail Appointment 10:00 AM [address], [place] [address], [place], [address], Appointment 09:00 AM [address], [address], [address], Appointment 11:00 AM Abdiel Harris MD, [address], [address], [place], [address], Appointment 09:30 AM [address], [place], [address], Appointment 09:00 AM [address], [place], [address], Appointment 09:30 AM [address], [place], [address], Appointment 11:00 AM Denise Talamantes PA-C, [address], [address], [place], [address], Appointment 11:20 [place], [address], [address], [place], [address], Appointment 09:00 AM [address], [place], [address], Referral Other Referral Referral Other Referral Referral Other Referral Referral Psychiatry Refer ral Referral Other Referral Referral excluded fr om report: Referral Other Referral Referral excluded fr om report: Referral Other Referral Referral excluded fr om report: Pending order Follow up Pending order Follow up Pending order Follow up ANASTASIA Pending order Follow up ANASTASIA Pending order MRI-Brain W/O Pending order MRI-Brain W/O Pending order Patient Instruct ions Procedures Code Procedure Name Date Entry Date ORDERS Other Referral ORDERS Other Referral ORDERS Patient Instructions ORDERS Psychiatry Referral ORDERS Other Referral Vital Signs No information available. Immunizations No information available. Advance Directives No information available.
--- OUTSIDE RECORDS SUMMARY | 2024-12-25 17:57 | XMS_ITS | Encounter Summary ---
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 Gender Identity Female 09/24/2021 9:02 PM BLACK AND WHITE PRINTER OPERATOR Sexual Orientation Not on file Occupation Industry Job Start Date Job End Date retired Not on file Not on file Not on file documented as of this encounter Plan of Treatment Not on file documented as of this encounter Visit Diagnoses Not on filedocumented in this encounter Care Teams Supervisor Cold Rolling Relationship Specialty Start Date End Date Mahogany Peñaloza MD [facility] [address] [place] [address] PCP - General Internal Medicine 12/28/19 Abdiel Harris MD [facility] [address] [address] [address] Physician Neurology 06/06/23 documented as of this encounter
--- OUTSIDE RECORDS SUMMARY | 2024-12-25 17:57 | XMS_ITS | Encounter Summary ---
Author Organization [facility] Address [address] [place] [address] Care Team Providers Care Unit Nurse Name Role Phone Mahogany Peñaloza MD Primary Care Provider Lori Maloney MD Unavailable [phone] Marc Hicks PhD Unavailable [phone] Abdiel Harris MD Unavailable Reason for Visit * Reason Onset Date Comments neuropsychological testing 06/21/2020 Encounter Details Date Type Department Care Team (Late st Contact Info) Description 06/21/2020 Telephone [facility] [address] [facility] 3rd [place] [address] Lori Maloney MD [address] [place] [address] neuropsychological testing Social History Tobacco [...] on file Legal Sex Female 4:38 AM WHIZZER OPERATOR Gender Identity Female 09/24/2021 9:02 PM WHIZZER OPERATOR Sexual Orientation Not on file Occupation Industry Job Start Date Job End Date retired Not on file Not on file Not on file documented as of this encounter Miscellaneous Notes * Telephone Encounter - Sandy Marcus - 06/21/2020 10:08 AM CDT [facility] Call Center Phone Message [...] on filedocumented in this encounter Care Teams Unit Nurse Relationship Specialty Start Date End Date Mahogany Peñaloza MD [address] [address] PCP - General Internal Medicine 12/28/19 Lori Maloney MD [address] [place] [address] [id number] Assigned Neuroscience Provider 08/12/20 03/08/23 Marc Hicks, PhD [address] [place] [address] [id number] Assigned Behavioral Health Provider 09/10/21 01/25/23 Abdiel Harris MD [facility] NEUROLOGICAL [facility] [address] [address] [address] Physician Neurology 06/06/23 documented as of this encounter
--- OUTSIDE RECORDS SUMMARY | 2024-12-25 17:57 | XMS_ITS | Encounter Summary ---
Author Organization [facility] Address [address] [place] [address] Care Team Providers Care Conformal Pad Former Name Role Phone Mahogany Peñaloza MD Primary Care Provider [phone] Lori Maloney MD Unavailable [phone] Marc Hicks PhD Unavailable [phone] Abdiel Harris MD Unavailable Encounter Details Date Type Department Care Team (Late st Contact Info) Description 11/13/2021 [facility] [address] [place] [address] Maria R Soto, [place] Social [...] file Legal Sex Female 4:38 AM HEAD SUGAR REPROCESS OPERATOR Gender Identity Female 09/24/2021 9:02 PM HEAD SUGAR REPROCESS OPERATOR Sexual Orientation Not on file Occupation Industry Job Start Date Job End Date retired Not on file Not on file Not on file documented as of this encounter Plan of Treatment Not on file documented as of this encounter Visit Diagnoses Not on filedocumented in this encounter Care Teams Conformal Pad Former Relationship Specialty Start Date End Date Mahogany Peñaloza MD [facility] [address] [place] [address] PCP - General Internal Medicine 12/28/19 Lori Maloney MD [address] [place] [address] Assigned Neuroscience Provider 08/12/20 03/08/23 Marc Hicks, PhD [address] [place] [address] Assigned Behavioral Health Provider 09/10/21 01/25/[address] Abd[address] Harris [address] [facility] [address] [address] Physician Neurology 06/06/23 documented as of this encounter
--- OUTSIDE RECORDS SUMMARY | 2024-12-25 17:58 | XMS_ITS | Encounter Summary ---
Author Organization [facility] Address [address] [place] [address] Care Team Providers Care Roof Truss Machine Tender Name Role Phone Mahogany Peñaloza MD Primary Care Provider Abdiel Harris MD Unavailable Reason for Visit * Reason Onset Date Comments Call Back 06/20/2023 Questions regard ing appointment Encounter Details Date Type Department Care Team (Late st Contact Info) Description 06/20/2023 [facility] Neuropsychology [address] [address] Marc Hicks, PhD [address] [place] [address] Call Back (Questions regarding appointment) Social [...] on file Legal Sex Female 4:38 AM ACTIVITIES ATTENDANT Gender Identity Female 09/24/2021 9:02 PM ACTIVITIES ATTENDANT Sexual Orientation Not on file Occupation Industry Job Start Date Job End Date retired Not on file Not on file Not on file documented as of this encounter Miscellaneous Notes * Telephone Encounter - Paty Davis Franscio - 06/20/2023 9:31 AM CDT [facility] Call Center Phone Message May [...] on filedocumented in this encounter Care Teams Roof Truss Machine Tender Relationship Specialty Start Date End Date Mahogany Peñaloaz MD [facility] [address] [place] [address] PCP - General Internal Medicine 12/28/19 Abdiel Harris MD [facility] NEUROLOGICAL [facility] [address] [address] Physician Neurology 06/06/23 documented as of this encounter
[2024-12-25 18:03] VITALS: BP 119/80; PULSE 59; RESP 16; TEMP 36.5; O2SAT 97; BMI 22.1
--- NOTE | 2024-12-25 19:37 | ED.GENADULT ---
HPI - General Adult General Chief complaint: Headache/Migraine Stated complaint: Infusion Patient, weakness arms, legs Time Seen by Provider: 12/25/24 19:25 History of Present Illness HPI narrative: Very pleasant 74-year-old female with a previous history of dementia, tremor, hypertension, COPD, anxiety, presenting to the ER today with her for evaluation of headache. She does have a history of Alzheimer's and is on a study drug, through a program through her Neurology Clinic at [facility]. A known side effect of her medication is the potential for spontaneous intracranial hemorrhage. She gets occasional surveillance brain imaging to look for hemorrhage and has not had any hemorrhage yet. Today she has a fairly generalized headache which is not normal for her. In addition to that she has a little bit more shaky than normal (has she does have some chronic tremor but feels a little bit more tremulous today than normal). She tried to contact her neurologist and they told her to come to the ER to get a head CT because of the risk for bleeding. She has no recent fall or head trauma. No associated neck pain. No focal numbness or weakness in her arms or legs. The patient does note that about a month or 2 ago she had an episode where she got shaky and dizzy and did develop some focal numbness in her left leg. During that episode she was hospitalized here in [place] and had a workup, including MRI, that was normal. She subsequently had resolution of symptoms and has been back to baseline for the past month or so. She does not have any fever. No earache. No nasal congestion. No recent cough. No sore throat. Related Data Home Medications ?Medication ?Instructions ?Recorded ?Confirmed cyclosporine 0.05 % eye drops in a 1 drp ophthalmic (eye) BID 10/25/22 10/24/24 dropperette (Restasis) latanoprost 0.005 % eye drops 1 drp ophthalmic (eye) HS 10/25/22 10/24/24 melatonin 5 mg tablet,immediate 5 mg PO HS 10/25/22 10/24/24 and extended release multivitamin (Multiple Vitamins 1 tab PO QAM 10/25/22 10/24/24 tablet) omega-3 fatty acids 1,250 mg 1,250 mg PO BID 10/25/22 10/24/24 capsule donepezil 10 mg tablet 10 mg PO DAILY 05/14/24 10/24/24 sennosides 8.6 mg tablet (senna) 8.6 mg PO DAILY PRN 05/14/24 10/24/24 gabapentin 100 mg capsule 400 mg PO HS 10/06/24 10/24/24 acetaminophen 500 mg tablet 1,000 mg PO DAILY 10/24/24 10/24/24 atenolol 25 mg tablet 100 mg PO DAILY 10/24/24 10/24/24 diphenhydramine 25 2 tab PO HS 10/24/24 10/24/24 mg-acetaminophen 500 mg tablet (Tylenol PM Extra Strength) lecanemab-irmb IV Q14D 10/24/24 rosuvastatin 5 mg tablet 5 mg PO DAILY 10/24/24 10/24/24 Previous Rx's ?Medication ?Instructions ?Recorded alendronate 70 mg tablet 70 mg PO QWEEK #12 tabs 01/07/24 lisinopril 10 mg tablet 10 mg PO DAILY #90 tabs 12/17/24 Allergies Allergy/AdvReac Type Severity Reaction Status Date / Time amoxicillin Allergy Intermediate vomiting Verified 10/24/24 00:37 diarrhea clavulanic acid Allergy Mild Verified 10/24/24 00:37 PFSH PFS Surgical History 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 - Corneal transplant status (ICD-10) History of bilateral cataract extraction ?Z98.41 - Cataract extraction status, right eye (ICD-10) ?Z98.42 - Cataract extraction status, left eye (ICD-10) History of tonsillectomy ?Z90.89 - Acquired absence of other organs (ICD-10) History of hemorrhoidectomy ?Z98.890 - Other specified postprocedural states (ICD-10) Family History Brother Alzheimers disease, Onset Age: 50 Mother Alzheimers disease, Onset Age: 80 Social History What is your current living situation?: I presently have a place to live Problems where you live: no known problems Problems where you live details: N/A In the past 12 months, utilities in danger of being shut off: no In past 12 months, lack of transportation kept you from medical appts, meetings, work, or getting things needed for daily living: no In the past 12 mos, have been you worried that your food would run out before you had money to buy more?: never true In the past 12 mos, the food you bought just didn't last and you didn't have money to buy more?: never true Highest level of school completed/degree received: Bachelor's degree Smoking Status: Never smoker Second hand tobacco smoke exposure: No How often do you have a drink containing alcohol: never How often do you have six or more drinks on one occasion: Never AUDIT-C Alcohol total score: 0 Non-prescribed substance use: denies use How often does anyone, including family, friends and others, physically hurt you: never How often does anyone, including family, friends and others, insult or talk down to you: never How often does anyone, including family, friends and others, threaten you with harm: never How often does anyone, including family, friends and others, scream or curse at you: never service: No Exam Narrative: Exam Narrative: Constitutional: Appears well-developed and well-nourished. Alert. Conversant. Non toxic. HENT: Head: Atraumatic. No depressed skull fracture, Raccoon Eyes, Jimenez's sign, or hemotympanum. Face normal. TMs normal TMs normal bilaterally. Nose: Nose normal. Mouth/Throat: Oral mucosa is clear and moist. no trismus. Pharynx normal. Tonsils symmetric. No tonsillar enlargement, erythema, or exudate. Eyes: Conjunctivae normal. EOM normal. Pupils equal, round, and reactive to light. No scleral icterus. Neck: Normal range of motion. Neck supple. No tracheal deviation present. Cardiovascular: Normal rate, regular rhythm. No gallop. No friction rub. No murmur heard. Symmetric radial artery pulses Pulmonary/Chest: Effort normal. No stridor. No respiratory distress. No wheezes. No rales. No rhonchi . No tenderness. Abdominal: Soft. Bowel sounds normal. No distension. No mass. No tenderness. No rebound. No guarding. Musculoskeletal: RUE: Normal range of motion. No tenderness. No deformity LUE: Normal range of motion. No tenderness. No deformity RLE: Normal range of motion. No edema. No tenderness. No deformity LLE: Normal range of motion. No edema. No tenderness. No deformity Neurological: Mental status normal. Attention normal. Alert and oriented x3. GCS 15. Despite reported history of dementia, speech is fluent and memory is Memory normal. She provides the vast majority of her own history. Speech fluent. Cognition normal. Cranial Nerves intact II-XII except I did not formally test gag or visual acuity. EOMI. Palate elevates symmetrically and tongue protrudes in the midline. Strength: 5/5 trapezius on the right and left 5/5 deltoid on the right and left 5/5 biceps on the right and left 5/5 triceps on the right and left 5/5 curriculum assistant on the right and left 5/5 thumb opposition on the right and left 5/5 finger abduction on the right and left 5/5 hip flexors (L3) on the right and left 5/5 quadriceps (L4) on the right and left 5/5 tibialis anterior on the right and left 5/5 EHL (L5) on the right and left 5/5 gastrocnemius (S1) on the right and left 5/5 hamstring on the right and left Sensation intact to light touch in both upper extremities (C4-T1) Sensation intact to light touch in Both lower extremities (L4-S1). Finger to nose and coordination normal. Gait normal. Skin: Skin is warm and dry. No rash noted. No pallor. Normal capillary refill. Psychiatric: Normal mood. Normal affect. Const: Vital Signs, click to edit/add: Vital Signs - 24 hr 12/25/24 18:03 Temperature 97.7 F Pulse Rate [Pulse Oximeter] 59 L Respiratory Rate 16 Blood Pressure [Ri ght Upper Arm] 119/80 Pulse Oximetry 97 Oxygen Delivery Me thod Room Air Course Vital Signs Vital signs: Initial Vital Signs Temperature 97.7 F 12/25/24 18:03 Temperature Source Temporal Artery Scan 12/25/24 18:03 Pulse Rate 59 L 12/25/24 18:03 Respiratory Rate 16 12/25/24 18:03 Blood Pressure 119/80 12/25/24 18:03 Blood Pressure Mean 93 12/25/24 18:03 Blood Pressure Position Sitting 12/25/24 18:03 Pulse Oximetry 97 12/25/24 18:03 Oxygen Delivery Method Room Air 12/25/24 18:03 Vital Signs Temperature 97.7 F 12/25/24 18:03 Pulse Rate 59 L 12/25/24 18:03 Respiratory Rate 16 12/25/24 18:03 Blood Pressure 119/80 12/25/24 18:03 Pulse Oximetry 97 12/25/24 18:03 Oxygen Delivery Method Room Air 12/25/24 18:03 Temperature 97.7 F 12/25/24 18:03 Pulse Rate 59 L 12/25/24 18:03 Respiratory Rate 16 12/25/24 18:03 Blood Pressure 119/80 12/25/24 18:03 Pulse Oximetry 97 12/25/24 18:03 Oxygen Delivery Method Room Air 12/25/24 18:03 Medical Decision Making MDM Narrative Medical decision making narrative: Ths patient presents with a headache. A broad differential diagnosis was considered including tension, migraine, analgesic rebound, occipital neuralgia, etc. Other less common but serious causes considered included meningitis, encephalitis, subarachnoid bleed, stroke, tumor, etc. The patient has no signs of serious headache etiologies at this point. CT scan is obtained because of the risk for intracranial bleeding on her dementia medication. Fortunately head CT is normal. Headache was not abrupt in onset or associated with any loss of consciousness, neck stiffness, focal deficits. At this point I think that she is low risk for subarachnoid hemorrhage and would hold off on further workup with lumbar puncture or CT angiogram . Discussed with the patient her further workup including labs, and additional imaging to look for other causes of headache and her shakiness. They are reassured by her normal head CT and would rather discharge home with a course for watchful waiting. They really suspect that the shakiness and headache or probably side effects of her dementia med and will likely resolve on its own, as symptoms have in the past. Patient's questions were answered and they feel improved after above interventions in ED. Supportive outpatient management is therefore indicated. Headache precautions given for home. Imaging Data CT scan - head: Attestation: I have reviewed the pertinent imaging results. Radiologist's impression: IMPRESSION: No acute intracranial abnormality. Moderate parenchymal volume loss and chronic small-vessel ischemic changes. No significant changes compared to the prior study. Discharge Plan Discharge Clinical Impression: Headache, Tremor Patient Disposition: Home w/ Parent or Adult Condition: Stable Instructions: Acute Headache (DC) Additional Instructions: As we discussed, please come back to the ER right away if you have any concerns especially worsening headache, or if you have new symptoms such as fever or confusion or stroke symptoms. Please recheck with your regular doctor or your neurologist [facility] clinic within the next 5-7 days Prescriptions: No Action latanoprost 0.005 % drops 1 drp ophthalmic (eye) HS cyclosporine [Restasis] 0.05 % dropperette 1 drp ophthalmic (eye) BID alendronate 70 mg tablet 70 mg PO QWEEK Qty: 12 3RF Patient Comments: Takes on , Saturday or Saturday sennosides [senna] 8.6 mg tablet 8.6 mg PO DAILY PRN donepezil 10 mg tablet 10 mg PO DAILY omega-3 fatty acids 1,250 mg capsule 1,250 mg PO BID multivitamin [Multiple Vitamins] Tablet 1 tab PO QAM melatonin 5 mg tablet, IR and ER, biphasic 5 mg PO HS gabapentin 100 mg capsule 400 mg PO HS acetaminophen 500 mg tablet 1,000 mg PO DAILY diphenhydramine-acetaminophen [Tylenol PM Extra Strength] 25-500 mg tablet 2 tab PO HS lecanemab-irmb IV Q14D Rx Instructions: EVERY OTHER WEEK, CLINICAL TRIAL atenolol 25 mg tablet 100 mg PO DAILY rosuvastatin 5 mg tablet 5 mg PO DAILY lisinopril 10 mg tablet 10 mg PO DAILY Qty: 90 3RF Follow Up/Referrals: Mahogany Peñaloza MD [Primary Care Provider] - Stand Alone Forms: GreenNote Info Instructions
--- OUTSIDE RECORDS SUMMARY | 2024-12-25 20:14 | XMS_ITS | Encounter Summary ---
Author Organization [facility] Address [address] [place] [address] Care Team Providers Care Drawer In Stitch Bonding Machine Name Role Phone Mahogany Peñaloza MD Primary Care Provider Lori Maloney MD Unavailable [phone] Marc Hicks PhD Unavailable [phone] Abdiel Harris MD Unavailable Reason for Visit * Reason Onset Date Comments Call Back 07/24/2021 Encounter Details Date Type Department Care Team (Late st Contact Info) Description 07/24/2021 Telephone [facility] Neuropsychology [address] [address] Marc Hicks, PhD [address] [place] [address] Call Back Social History Tobacco Use Types Packs/Day Years Used Date Smoking Tobacco: Never Smokeless Tobacco: Never Alcohol Use Standard Drinks/Week Comments Not Currently 0 (1 standard drink = 0.6 oz pur e alcohol) PHQ-2 Answer Date Recorded PHQ-2 Score 0 04/11/2021 Comments Unknown Sex and Gender Information Value Date Recorded Sex Assigned at Not on file Legal Sex Female 4:38 AM HAND BRIM IRONER Gender Identity Female 09/24/2021 9:02 PM HAND BRIM IRONER Sexual Orientation Not on file Occupation Industry [...] on filedocumented in this encounter Care Teams Drawer In Stitch Bonding Machine Relationship Specialty Start Date End Date Mahogany Peñaloza MD [facility] [address] [place] [address] PCP - General Internal Medicine 12/28/19 Lori Maloney MD [address] [place] [address] Assigned Neuroscience Provider 08/12/20 03/08/23 Marc Hicks, PhD [address] [place] [address] Assigned Behavioral Health Provider 09/10/21 01/25/23 Abdiel Harris MD [facility] NEUROLOGICAL [facility] [address] [address] Physician Neurology 06/06/23 documented as of this encounter
--- OUTSIDE RECORDS SUMMARY | 2024-12-25 20:15 | XMS_ITS | Encounter Summary ---
Author Organization [place] Address [address] [place] [address] Care Team Providers Care Relay Checker Name Role Phone Mahogany Peñaloza MD Primary Care Provider [phone] Abdiel Harris MD Unavailable Reason for Referral * Consultation (Routine) - Pending Review Specialty Diagnoses / Procedures Referred By Contac t Referred To Contact Diagnoses Alzheimer's disease, familial (H) Abdiel Harris MD [facility] NEUROLOGICAL [facility] [address] [address] [address] Phone: tel: fax: Referral ID Status Reason Start Date Expiration Date V isits Requested Visits Authorized [id number] Pending Review 12/11/2024 12/11/2025 1 1 Scheduling Instructions Call patient to schedule Question Answer Preferred Location: [facility] [phone] Scheduling Instructions: Please call to schedule your [...] the best number to reach them at?: [phone] Additional Information: Patient's secondary number is [phone] Comments Please be aware that coverage of these services is subject to the terms and limitations of your health insurance plan. Call member services at your health plan with any benefit or coverage questions. [facility] - [phone] Please call to schedule your appointment METRY MONITOR Encounter Details Date Type Department Care Team (Late st Contact Info) Description 12/11/2024 Orders Only GENERIC EXTERNAL DATA DEPARTMENT Abdiel Harris MD [facility] NEUROLOGICAL [address] [address] Alzheimer's disease, familial (H) (Primary Dx) Social [...] on file Legal Sex Female 4:38 AM TELEMETRY MONITOR Gender Identity Female 09/24/2021 9:02 PM TELEMETRY MONITOR Sexual Orientation Not on file Occupation Industry [...] disease documented in this encounter Care Teams Relay Checker Relationship Specialty Start Date End Date Mahogany Peñaloza MD [facility] [address] [place] [address] PCP - General Internal Medicine 12/28/19 Abdiel Harris MD [facility] NEUROLOGICAL [address] [address] Physician Neurology 06/06/23 documented as of this encounter
--- OUTSIDE RECORDS SUMMARY | 2024-12-25 20:15 | XMS_ITS | Encounter Summary ---
Author Organization [facility] Address [address] [place] [address] Care Team Providers Care Instructional Services Librarian Name Role Phone Mahogany Peñaloza MD Primary Care Provider [phone] Lori Maloney MD Unavailable [phone] Marc Hicks PhD Unavailable [phone] Abdiel Harris MD Unavailable Encounter Details Date Type Department Care Team (Late st Contact Info) Description 01/03/2022 [facility] Medical Advice [facility] Neurology Clinic [address] [place] [address] Maria R Soto, [place] Social [...] on file Legal Sex Female 4:38 AM SHOT BLASTER Gender Identity Female 09/24/2021 9:02 PM SHOT BLASTER Sexual Orientation Not on file Occupation Industry Job Start Date Job End Date retired Not on file Not on file Not on file COVID-19 Exposure Response Date Recorded In the last month, have you been in contact with someone who was confirmed or suspected to have Coronavirus / COVID-19? No / Unsure 12/28/2021 2:27 PM SHOT BLASTER documented as of this encounter Plan of Treatment Not on file documented as of this encounter Visit Diagnoses Not on filedocumented in this encounter Care Teams Instructional Services Librarian Relationship Specialty Start Date End Date Mahogany Peñaloza MD [facility] [address] [place] [address] PCP - General Internal Medicine 12/28/19 Lori Maloney MD [address] [place] [address] Assigned Neuroscience Provider 08/12/20 03/08/23 Marc Hicks, PhD [address] [place] [address] Assigned Behavioral Health Provider 09/10/21 01/25/23 Abdiel Harris MD [facility] NEUROLOGICAL [facility] [address] [address] [address] Physician Neurology 06/06/23 documented as of this encounter
--- OUTSIDE RECORDS SUMMARY | 2024-12-25 20:15 | XMS_ITS | Encounter Summary ---
Author Organization [facility] Address [address] [place] [address] Care Team Providers Care Blanket Washer Name Role Phone Mahogany Peñaloza MD Primary Care Provider [phone] Abdiel Harris MD Unavailable Encounter Details Date Type Department Care Team (Late st Contact Info) Description 12/07/2024 Medical Correspondence [facility] Health Information Management [address] [place] [address] [address] [place] [address] Scan, Non-Provider Social History Tobacco Use Types [...] on file Legal Sex Female 4:38 AM SADDLE STITCHER Gender Identity Female 09/24/2021 9:02 PM SADDLE STITCHER Sexual Orientation Not on file Occupation Industry Job Start Date Job End Date retired Not on file Not on file Not on file documented as of this encounter Plan of Treatment Not on file documented as of this encounter Visit Diagnoses Not on filedocumented in this encounter Care Teams Blanket Washer Relationship Specialty Start Date End Date Mahogany Peñaloza MD [facility] [address] [place] [address] PCP - General Internal Medicine 12/28/19 Abdiel Harris MD [facility] NEUROLOGICAL [facility] [address] [address] [address] Physician Neurology 06/06/23 documented as of this encounter
--- OUTSIDE RECORDS SUMMARY | 2024-12-25 20:15 | XMS_ITS | Encounter Summary ---
Author Organization [place] Address [address] [place] [address] Care Team Providers Care Housing Liaison Name Role Phone Mahogany Peñaloza MD Primary Care Provider Lori Maloney MD Unavailable [phone] Marc Hicks PhD Unavailable [phone] Abdiel Harris MD Unavailable Reason for Visit * Reason Onset Date Comments Forms 03/28/2020 medical records Encounter Details Date Type Department Care Team (Late st Contact Info) Description 03/28/[address] [facility] Neurology [address] [facility] 3rd [place] [address] Lori Maloney MD [address] [place] [id number] Forms (medical records) Social History Tobacco Use Types Packs/Day Years Used Date Smoking Tobacco: Never Smokeless Tobacco: Never Alcohol Use Standard Drinks/Week Comments Not Currently 0 (1 standard drink = 0.6 oz pur e alcohol) PHQ-2 Answer Date Recorded PHQ-2 Score 0 12/29/2019 Comments Unknown Sex and Gender Information Value Date Recorded Sex Assigned at Not on file Legal Sex Female 4:38 AM ASP DEVELOPER Gender Identity Female 09/24/2021 9:02 PM ASP DEVELOPER Sexual Orientation Not on file Occupation Industry Job Start Date Job End Date retired Not on file Not on file Not on file documented as of this encounter Miscellaneous Notes * Telephone Encounter - Zhane Wing - 03/28/2020 2:[address] [facility] Call Center Phone Message May a [...] on filedocumented in this encounter Care Teams Housing Liaison Relationship Specialty Start Date End Date Mahogany Peñaloza MD [facility] [address] [place] [address] PCP - General Internal Medicine 12/28/19 Lori Maloney MD [address] [place] [address] Assigned Neuroscience Provider 08/12/20 03/08/23 Marc Hicks, PhD [address] [place] [address] Assigned Behavioral Health Provider 09/10/21 01/25/23 Abdiel Harris MD [facility]INIC [address] [address] Physician Neurology 06/06/23 documented as of this encounter
--- OUTSIDE RECORDS SUMMARY | 2024-12-25 20:15 | XMS_ITS | Encounter Summary ---
Author Organization [facility] Address [address] [place] [address] Care Team Providers Care Field Artillery Basic Name Role Phone Mahogany Peñaloza MD Primary Care Provider Lori Maloney MD Unavailable [phone] Marc Hicks PhD Unavailable [phone] Abdiel Harris MD Unavailable Encounter Details Date Type Department Care Team (Late st Contact Info) Description 01/12/2020 [facility] Medical Advice [facility] Neurology [address] [place] [address] [address] [place] [address] Lori Maloney MD [address] [place] [address] Social History Tobacco Use Types Packs/Day Years Used Date Smoking Tobacco: Never Smokeless Tobacco: Never Alcohol Use Standard Drinks/Week Comments Not Currently 0 (1 standard drink = 0.6 oz pur e alcohol) PHQ-2 Answer Date Recorded PHQ-2 Score 0 12/29/2019 Comments Unknown Sex and Gender Information Value Date Recorded Sex Assigned at Not on file Legal Sex Female 4:38 AM MOBILITY SCOOTER REPAIRER Gender Identity Female 09/24/2021 9:02 PM MOBILITY SCOOTER REPAIRER Sexual Orientation Not on file Occupation Industry [...] on filedocumented in this encounter Care Teams Field Artillery Basic Relationship Specialty Start Date End Date Mahogany Peñaloza MD [facility] [address] [place] [address] PCP - General Internal Medicine 12/28/19 Lori Maloney MD [address] [place] [address] 727875 Assigned Neuroscience Provider 08/12/20 03/08/23 Marc Hicks, PhD [address] [place] [address] Assigned Behavioral Health Provider 09/10/21 01/25/23 Abdiel Harris MD [facility] NEUROLOGICAL [facility] [address] [address] [address] Physician Neurology 06/06/23 documented as of this encounter
--- OUTSIDE RECORDS SUMMARY | 2024-12-25 20:15 | XMS_ITS | Encounter Summary ---
Author Organization [facility] Address [address] [place] [address] Care Team Providers Care Engine Service Repairer Name Role Phone Mahogany Peñaloza MD Primary Care Provider Lori Maloney MD Unavailable [phone] Marc Hicks PhD Unavailable [phone] Abdiel Harris MD Unavailable Encounter Details Date Type Department Care Team (Late st Contact Info) Description 11/13/2021 [facility] Medical Advice [facility] Neurology Clinic [address] [place] [address] Maria R Soto, [place] Social [...] on file Legal Sex Female 4:38 AM MARKETING REGIONAL CONSULTANT Gender Identity Female 09/24/2021 9:02 PM MARKETING REGIONAL CONSULTANT Sexual Orientation Not on file Occupation Industry Job Start Date Job End Date retired Not on file Not on file Not on file documented as of this encounter Plan of Treatment Not on file documented as of this encounter Visit Diagnoses Not on filedocumented in this encounter Care Teams Engine Service Repairer Relationship Specialty Start Date End Date Mahogany Peñaloza MD [facility] [address] [place] [address] PCP - General Internal Medicine 12/28/19 Lori Maloney MD [address] [place] [address] Assigned Neuroscience Provider 08/12/20 03/08/23 Marc Hicks, PhD [address] [place] [address] Assigned Behavioral Health Provider 09/10/21 01/25/23 Abdiel Harris MD [facility] NEUROLOGICAL [facility] [address] [address] Physician Neurology 06/06/23 documented as of this encounter
--- OUTSIDE RECORDS SUMMARY | 2024-12-25 20:15 | XMS_ITS | Encounter Summary ---
Author Organization [facility] Address [address] [place] [address] Care Team Providers Care Equity Research Associate Name Role Phone Mahogany Peñaloza MD Primary Care Provider [phone] Lori Maloney MD Unavailable [phone] Marc Hicks PhD Unavailable [phone] Abdiel Harris MD Unavailable Reason for Visit * Reason Onset Date Comments neuropsychological testing 06/21/2020 Encounter Details Date Type Department Care Team (Late st Contact Info) Description 06/21/2020 Telephone [facility] Neurology [address] [facility] 3rd [place] [address] Lori Maloney MD [address] [place] [address] neuropsychological testing Social History Tobacco [...] on file Legal Sex Female 4:38 AM SALES CONSULTANT INSURANCE Gender Identity Female 09/24/2021 9:02 PM SALES CONSULTANT INSURANCE Sexual Orientation Not on file Occupation Industry Job Start Date Job End Date retired Not on file Not on file Not on file documented as of this encounter Miscellaneous Notes * Telephone Encounter - Sandy Marcus - 06/21/2020 10:08 AM CDT [facility] Call Center Phone Message May [...] on filedocumented in this encounter Care Teams Equity Research Associate Relationship Specialty Start Date End Date Mahogany Peñaloza MD [address] [address] PCP - General Internal Medicine 12/28/19 Lori Maloney MD [address] [place] [address] 770965 Assigned Neuroscience Provider 08/12/20 03/08/23 Marc Hicks, PhD [address] [place] [address] 836725 Assigned Behavioral Health Provider 09/10/21 01/25/23 Abdiel Harris MD [facility] NEUROLOGICAL [facility] [address] [address] [address] Physician Neurology 06/06/23 documented as of this encounter
--- OUTSIDE RECORDS SUMMARY | 2024-12-25 20:15 | XMS_ITS | Encounter Summary ---
Author Organization [place] Address [address] [place] [address] Care Team Providers Care Archivist Name Role Phone Mahogany Peñaloza MD Primary Care Provider Lori Maloney MD Unavailable [phone] Marc Hicks PhD Unavailable [phone] Abdiel Harris MD Unavailable Reason for Visit * Reason Onset Date Comments Call Back 11/08/2021 mri today Encounter Details Date Type Department Care Team (Late st Contact Info) Description 11/08/2021 Telephone [facility] Neurology Clinic [address] [address] Lori Maloney MD [address] [place] [address] Call Back (mri today 11/08/21 ) [...] on file Legal Sex Female 4:38 AM WATCH HAIRSPRING 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 Gender Identity Female 09/24/2021 9:02 PM WATCH HAIRSPRING ASSEMBLER Sexual Orientation Not on file Occupation Industry Job Start Date Job End Date retired Not on file Not on file Not on file documented as of this encounter Miscellaneous Notes * Telephone Encounter - Naila Schwartz - 11/08/2021 12:14 PM CST [facility] Call Center Phone Message May a [...] Center ([facility]): neurology Travel Screening: Not Applicable H HAIRSPRING ASSEMBLER documented in this encounter Plan of Treatment Not on file documented as of this encounter Visit Diagnoses Not on filedocumented in this encounter Care Teams Archivist Relationship Specialty Start Date End Date Mahogany Peñaloza MD [facility] [address] [address] PCP - General Internal Medicine 12/28/19 Lori Maloney MD [address] [place] [address] Assigned Neuroscience Provider 08/12/20 03/08/23 Marc Hicks, PhD [address] [place] [address] Assigned Behavioral Health Provider 09/10/21 01/25/23 Abdiel Harris MD [facility] NEUROLOGICAL [facility] [address] [address] [address] Physician Neurology 06/06/23 documented as of this encounter
--- OUTSIDE RECORDS SUMMARY | 2024-12-25 20:15 | XMS_ITS | Clinical Summary ---
Author Organization [facility] Address [address] [place] [address] Care Team Providers Care Issue Clerk Name Role Phone Mahogany Peñaloza MD Primary Care Provider [phone] Allergies No known active allergies Medications ASPIRIN [...] Department Care Team Description 10/28/2024 7:45 AM PETROLEUM ENGINEER - 10/28/2024 11:59 PM PETROLEUM ENGINEER Hospital Encounter Adan Valenzuela MD 10/28/2024 Orders Only [facility] [address] [place] [address] Adan Valenzuela MD 1 scan: (1-Ord) [facility] 10/28/2024 Orders Only [facility] [address] [facility] [address] [place] [address] Adan Valenzuela MD <No scans attached> 10/28/[address] [facility] [address] [facility] [address] [place] [address] Adan Valenzuela MD colonoscopy, screening 10/27/2024 Telephone [facility] [address] [place] [address] Adan Valenzuela MD Questions 10/23/2024 Office Visit [facility] [address] [place] [address] Latasha Gifford MD Telehealth ([facility]) 10/20/2024 Telephone [facility] [address] [place] [address] Adan Valenzuela MD Appointment Reminder (Colonoscopy at [facility]) from Last 3 Months Immunizations Name Administration Dates Next Due COVID-19 vaccine ([employer] NTO4IT 30mcg/0.3mL) HARPAL JOHNSON 12/31/2020,12/10/2020 Influenza A (H1N1), [...] on file Legal Sex Female 6:13 AM PETROLEUM ENGINEER Gender Identity Not on file Sexual Orientation Not on file 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 on file Not on file [...] CDT Oxygen Saturation 98% 10/11/2012 8:57 AM PETROLEUM ENGINEER Inhaled Oxygen Concentration - - Weight 73.1 [...] Comments COLONOSCOPY SCREENING Routine 10/28/2024 12:00 AM PETROLEUM ENGINEER Encounter for screening colonoscopy SCAN-MAMMOGRAPHY REPORT 09/02/2014 12:00 AM PETROLEUM ENGINEER XR DXA BONE DENSITY 2 SITES AXIAL Routine 08/18/2013 4:48 PM CDT DISORDER BONE AND CARTILAGE, UNSPEC LDL CHOLESTEROL,DIRECT Routine 08/12/2013 8:08 PM CDT HYPERLIPIDEMIA SURGICAL PROCEDURE (TYPE PROCEDURE DESCRIPTION BELOW) Encounter for screening colonoscopy from Last 3 Months or Most Recently Relevant to Health Maintenance Results * COLONOSCOPY SCREENING (10/28/2024 12:00 AM PETROLEUM ENGINEER) us Adan Valenzuela MD GI PROCEDURE ORD Final Re sult * SCAN-MAMMOGRAPHY REPORT (09/02/2014 12:00 AM PETROLEUM ENGINEER) Anatomical Region Laterality Modality Other Narrative 09/07/2014 6:43 AM PETROLEUM ENGINEER Procedure Note Scanner - 09/02/2014 12:00 AM [...] CDT) LDL CHOLESTEROL,D IRECT 138 Undefined mg/dL [facility] Comment: RISK CATEGORY LDL GOAL (mg/dL) Vascular disease and/or diabetes (<100) Multiple (2+) risk factors (<130) 0-1 risk factor (<160) Blood specimen (specimen) BLOOD SPECIMEN / Unknown 08/12/2013 8:08 PM CDT 08/12/2013 7:48 PM CDT Shireen Lewis GEOLOGICAL SURVEY FIELD ASSISTANT CHEMISTRY Final Result [facility] INTERNAL ZIP [id number] [place] [address] from Last 3 Months or Most Recently Relevant to Health Maintenance Insurance [employer] [place] BLUE MR [place] ONLY Care Teams Issue Clerk Relationship Specialty Start Date End Date Mahogany Peñaloza MD [address] [place] [address] PCP - General Internal Medicine 09/28/19
--- OUTSIDE RECORDS SUMMARY | 2024-12-25 20:15 | XMS_ITS | Clinical Summary ---
Author Organization [place] Address [address] [place] [address] Care Team Providers Care Pipe Washer Name Role Phone Mahogany Peñaloza MD Primary Care Provider [phone] Abdiel Harris MD Unavailable Allergies No known [...] needed. Do not drive arrange for a cart driver 2 tablet 1 Active Active Problems [...] familial (H) (Primary Dx) 12/07/2024 Medical Correspondence [facility] Information Management [address] [place] [address] [address] [place] [address] Scan, Non-Provider from Last 3 Months Family [...] on file Legal Sex Female 4:38 AM MAINTENANCE CONSTRUCTION HELPER Gender Identity Female 09/24/2021 9:02 PM MAINTENANCE CONSTRUCTION HELPER Sexual Orientation Not on file Occupation [...] IMAGING - HIM SCAN 09/28/2024 12:00 AM MAINTENANCE CONSTRUCTION HELPER from Last 3 Months Results * MRI Imaging - HIM Scan (09/28/2024 12:00 AM MAINTENANCE CONSTRUCTION HELPER) Anatomical Region Laterality Modality Other 09/28/2024 Provider Outside [facility] MRI ORDERABLES Final Result from Last 3 Months Insurance [facility] [place] [employer] MEDICARE [facility] [place] [employer] MEDICARE [facility] MEDICARE Care Teams Pipe Washer Relationship Specialty Start Date End Date Mahogany Peñaloza MD [address] [id number] PCP - General Internal Medicine 12/28/19 Abdiel Harris MD [facility] NEUROLOGICAL [facility] [address] [address] [id number] Physician Neurology 06/06/23
--- OUTSIDE RECORDS SUMMARY | 2024-12-25 20:15 | XMS_ITS | Encounter Summary ---
Author Organization [facility] Address [address] [place] [address] Care Team Providers Care Geoscientist Name Role Phone Mahogany Peñaloza MD Primary Care Provider Lori Maloney MD Unavailable [phone] Marc Hicks PhD Unavailable [phone] Abdiel Harris MD Unavailable Encounter Details Date Type Department Care Team (Late st Contact Info) Description 04/24/2022 [facility] Medical Advice [facility] Neurology Clinic [address] [place] [address] Maria R Soto, [place] Social [...] on file Legal Sex Female 4:38 AM STEEL ROLLER Gender Identity Female 09/24/2021 9:02 PM STEEL ROLLER Sexual Orientation Not on file Occupation Industry Job Start Date Job End Date retired Not on file Not on file Not on file documented as of this encounter Plan of Treatment Not on file documented as of this encounter Visit Diagnoses Not on filedocumented in this encounter Care Teams Geoscientist Relationship Specialty Start Date End Date Mahogany Peñaloza MD [facility] [address] [place] [address] PCP - General Internal Medicine 12/28/19 Lori Maloney MD [address] [place] [address] Assigned Neuroscience Provider 08/12/20 03/08/23 Marc Hicks, PhD [address] [place] [address] Assigned Behavioral Health Provider 09/10/21 01/25/23 Abdiel Harris MD [facility] NEUROLOGICAL [facility] [address] [address] Physician Neurology 06/06/23 documented as of this encounter
--- OUTSIDE RECORDS SUMMARY | 2024-12-25 20:15 | XMS_ITS | Encounter Summary ---
Author Organization [place] Address [address] [place] [address] Care Team Providers Care Experimental Technician Name Role Phone Mahogany Peñaloza MD Primary Care Provider Abdiel Harris MD Unavailable Reason for Visit * Reason Onset Date Comments Call Back 06/20/2023 Questions regard ing appointment Encounter Details Date Type Department Care Team (Late st Contact Info) Description 06/20/2023 [facility] Neuropsychology [address] [address] Marc Hicks, PhD [address] [place] [address] Call Back (Questions regarding appointment) Social [...] on file Legal Sex Female 4:38 AM FIELD SPEC Gender Identity Female 09/24/2021 9:02 PM FIELD SPEC Sexual Orientation Not on file Occupation Industry Job Start Date Job End Date retired Not on file Not on file Not on file documented as of this encounter Miscellaneous Notes * Telephone Encounter - Paty Davis Fransico - 06/20/2023 9:31 AM CDT [facility] Call Center Phone Message May a [...] on filedocumented in this encounter Care Teams Experimental Technician Relationship Specialty Start Date End Date Mahogany Peñaloza MD [facility] [address] [place] [address] PCP - General Internal Medicine 12/28/19 Abdiel Harris MD [facility] [address] [address] Physician Neurology 06/06/23 documented as of this encounter
--- OUTSIDE RECORDS SUMMARY | 2024-12-25 20:15 | XMS_ITS | Encounter Summary ---
Author Organization [place] Address [address] [place] [address] Care Team Providers Care Chief Privacy Officer Name Role Phone Mahogany Peñaloza MD Primary Care Provider Lori Maloney MD Unavailable [phone] Marc Hicks PhD Unavailable [phone] Abdiel Harris MD Unavailable Encounter Details Date Type Department Care Team (Late st Contact Info) Description 09/11/2021 [facility] [place] [facility] [address] [place] [address] Maria R Soto, [place] Social [...] on file Legal Sex Female 4:38 AM SUPERVISOR SANDBLASTER Gender Identity Female 09/24/2021 9:02 PM SUPERVISOR SANDBLASTER Sexual Orientation Not on file Occupation Industry Job Start Date Job End Date retired Not on file Not on file Not on file documented as of this encounter Plan of Treatment Not on file documented as of this encounter Visit Diagnoses Not on filedocumented in this encounter Care Teams Chief Privacy Officer Relationship Specialty Start Date End Date Mahogany Peñaloza MD [facility] [address] [place] [address] PCP - General Internal Medicine 12/28/19 Lori Maloney MD [address] [place] [address] Assigned Neuroscience Provider 08/12/20 03/08/23 Marc Hicks, PhD [address] [place] [address] Assigned Behavioral Health Provider 09/10/21 01/25/23 Abdiel Harris MD [facility] NEUROLOGICAL [facility] [address] [address] Physician Neurology 06/06/23 documented as of this encounter
== END 2024-12-25 20:25 | disposition home or self-care (01) ==
LOC: ED 20:13
PROVIDERS: Emergency Provider Emergency Medicine; PCP Internal Medicine
DX: R51.9 Headache, unspecified (principal); R25.1 Tremor, unspecified
CPT/HCPCS: 70450; 99283; 99284

== ENCOUNTER 2025-02-10 08:00 | Outpatient (CLI) | payer MEDICARE, BC, SELFPAY | END 2025-02-10 08:01 | disposition home or self-care (01) | LOC: NFLDREF 02-11 22:44 | PROVIDERS: PCP Internal Medicine; Referring Provider Internal Medicine; Visit Provider Internal Medicine | DX: M81.0 Age-related osteoporosis without current pathological fracture (principal); I10 Essential (primary) hypertension; I67.9 Cerebrovascular disease, unspecified; E67.3 Hypervitaminosis D | CPT/HCPCS: 80048; 80061; 82306 ==

== ENCOUNTER 2025-04-20 10:20 | Outpatient (CLI) | payer MEDICARE, BC, SELFPAY | END 2025-04-20 10:21 | disposition home or self-care (01) | PROVIDERS: PCP Internal Medicine; Visit Provider Internal Medicine | DX: R53.1 Weakness (principal) | CPT/HCPCS: 82550; 86140 ==

== ENCOUNTER 2025-05-17 10:23 | Emergency (ER) | payer MEDICARE, BC, SELFPAY ==
--- OUTSIDE RECORDS SUMMARY | 2025-05-17 10:27 | XMS_ITS | Clinical Summary ---
Author Organization [facility] Address [address] [facility] , [address] [place] [address] Phone Care Team Providers Care Air Conditioning Installer Supervisor Name Role Phone 1CareTeamNurse-MA, 1CareTeamNurse-MA Unavailable Unavailable Conditions or Problems Problem Name Problem Code Onset Date Status Entry Date Provider Comment Standard Description Annotate Decondition ing [id number] 102 (SNOMED CT) 03/03 Active 03/03 Denise Talamantes PA-C Physical deconditioning Dementia in other diseases classified elsewhere, mild, without behavioral disturbance , psychotic disturbance , mood disturbance , and anxiety 53339951 (SNOMED CT) 04/16 Active 05/06 Liat Rendon Dementia Alzheimer's disease - and family h/o AD G30.8 (ICD-10-CM) 02/13 Active 02/13 Abdiel Harris MD Other Alzheimer's disease Unspecified dementia, mild, without behavioral disturbance , psychotic disturbance , mood disturbance , and anxiety 36794808 (SNOMED CT) 04/16 Inactive 05/06 Margaret Jaime Dementia Dementia in conditions classified elsewhere without behavioral disturbance 794244264 (SNOMED CT) 04/16 Inactive 05/06 Emmanuelle Daniels [place] Dementia associated with another disease Mild cognitive impairment vs mild dementia 988954317 (SNOMED CT) 06/05 Active 06/05 Abdiel Harris MD Mild neurocognitive disorder Other Alzheimer's disease - in her family 34004346 (SNOMED CT) 02/13 Inactive 02/13 Abdiel Harris MD Alzheimer's disease 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 Maximum dose of 900/day gabapentin 16367661233 Denise Talamantes PA-C CETIRIZINE HCL 10 MG TABS cetirizine 26566867612 Denise Talamantes PA-C GABAPENTIN 100 MG CAPS Take 3 caps in the morning, 1 cap midday and 2 caps in the evening. gabapentin 87223695555 Denise MIKE-Alfredo GABAPENTIN 100 MG CAPS 1 capsule by mouth as directed : 1 to 3 caps during the day time as needed anxiety and tremor. In addition take 100 mg per night and may increase by 100 mg per night as needed until restless leg and anxiety controlled or until 600 mg/night gabapentin 71296249736 Abdiel Harris MD GABAPENTIN 100 MG CAPS Take 1 to 3 caps during the day time as needed for anxiety and tremor. In addition take 100 mg per night and may increase by 100 mg per night as needed until restless leg and anxiety controlled or until 600 mg/night. Maximum dose of 900/day gabapentin 32221424135 Abdiel Harris MD DONEPEZIL HCL 10 MG TABS (one) tablet by mouth every morning by mouth donepezil 91279007725 Abdiel Harris MD GABAPENTIN 100 MG CAPS 1 capsule by mouth as directed : 1 to 3 caps during the day time as needed anxiety and tremor. In addition take 100 mg per night and may increase by 100 mg per night as needed until restless leg and anxiety controlled or until 600 mg/night gabapentin 75892164731 Abdiel Harris MD ATENOLOL 25 MG TABS Take 4 tablet by mouth once a day atenolol 34571523646 Deniseerich Cheek Cherucheril PA-C DONEPEZIL HCL 10 MG TABS Take 1/2 tablet by mouth every night at bedtime for 30 days, then take 1 tablet by mouth every night at bedtime donepezil 40160083641 Denise Stewartil PA-C LISINOPRIL 2.5 MG TABS lisinopril 11271131138 Deniseerich Stewartil PA-C ATENOLOL 50 MG TABS Take 2 tablet by mouth every evening or 100 mg per night atenolol 35526483429 Deniseerich Stewartil PA-C LISINOPRIL 2.5 MG TABS lisinopril 35927490091 Denise Stewartil PA-C ROSUVASTATIN CALCIUM 5 MG TABS rosuvastatin 11491287893 Denise Stewartil PA-C RESTASIS 0.05 % EMUL INSTILL 1 DROP INTO BOTH EYES TWICE DAILY cyclosporine 64391619414 Denise Stewartil PA-C LISINOPRIL 10 MG TABS lisinopril 17716328925 Denise Stewartil PA-C LATANOPROST 0.005 % SOLN latanoprost 78117757099 Denise Stewartil PA-C ATENOLOL 25 MG TABS Take 3 tablet by mouth every evening atenolol 67380454976 Deniseerich Blackucheril PA-C ALENDRONATE SODIUM 70 MG TABS Take 1 tablet by mouth once a week alendronate 49609379139 Denise Stewartil PA-C TYLENOL 325 MG TABS 2 tab BID acetaminophen 29427439231 Denise Talamantes CA-C ASPIRIN 325 MG TABS 1 tab daily aspirin 64251666493 Denise Talamantes CA-C CETIRIZINE HCL 10 MG TABS cetirizine 37499040870 Denise Talamantes CA-C MULTI-VITAMIN TABS multivitamin 36424808625 Denise Adia Talamantes CA-C FISH OIL 500 MG CAPS omega 9-kxr-uto-fish oil 40901982014 Denise Talamantes CA-C MELATONIN TR 1 MG CR-TABS 5 mg qhs melatonin 50278837525 Denise Talamantes CA-C ATENOLOL 25 MG TABS TAKE THREE TABLETS BY MOUTH DAILY atenolol 62614354068 Abdiel Harris MD ATENOLOL 50 MG TABS Take 2 tablet by mouth every evening or 100 mg per night atenolol 97984534683 Abdiel Harris MD ATENOLOL 25 MG TABS Take 2 tablet by mouth once a day May increase to 3 tabs or 75 mg per day after 10 days if tremor not better atenolol 71443992264 Abdiel Harris MD ATENOLOL 25 MG TABS TAKE THREE TABLETS BY MOUTH DAILY atenolol 88371575093 Abdiel Harris MD LISINOPRIL 2.5 MG TABS lisinopril 65102039451 Abdiel Harris MD LISINOPRIL 2.5 MG TABS lisinopril 12750819414 Abdiel Harris MD ATENOLOL 25 MG TABS Take 2 tablet by mouth once a day May increase to 3 tabs or 75 mg per day after 10 days if tremor not better atenolol 63665576740 Abdiel Harris MD Medications Administered No information [...] performed and results reviewed. Total score [MMSE] [id number] Normal Total scor e [MoCA] MMSE SCORE 29 Total scor e [MMSE] Lab Report: [place] AD DETECT( R) APOE ISOFORM, PLASMA [id number] [...] Plan of Care Type Date Detail Appointment 11:00 AM [address] [facility], [address], [place], [address], Appointment 10:30 AM [address], [address], [place], [address], Appointment 11:20 AM Abdiel Harris MD, [address], [address], [place], [address], Appointment 05:00 PM Abdiel Harris MD, [address], [address], [place], [address], Appointment 10:00 AM [address], [address], [place], [address], Referral Other Referral Referral Other Referral Referral [...] up Pending order Follow up Pending order MRI-Brain W/WO Pending order MRI-Brain W/WO Pending order Leqembi (lecanem ab) Infusion Pending order Follow up Pending order Follow up ANASTASIA Pending order Follow up Pending order Follow up ANASTASIA Pending order Patient Instruct ions Pending order Physical Therapy Pending order MRI-Brain W/O Pending order Follow [...] Code Procedure Name Date Entry Date ORDERS Patient Instructions ORDERS Physical Therapy CPT-50680 MRI Brain W/O [id number] MRI-Brain W/O ORDERS Follow up ORDERS Other Referral ORDERS Other Referral ORDERS Other Referral ORDERS Patient Instructions ORDERS Psychiatry Referral ORDERS Follow up with Neurologist or ANASTASIA [id number] MRI-Brain W/O [id number] MRI-Brain W/O CPT-12063 MRI Brain W/O ORDERS Follow up ANASTASIA ORDERS Patient Instructions ORDERS Other Referral ORDERS Other Referral [id number] Documentation of current medicatio ns ORDERS Alzheimer Treatment Education with ANASTASIA 14/07/06 CPT-21461 MRI Brain W/O [id number] MRI-Brain W/O ORDERS Patient Instructions SCT-[id number] Documentation of current medicatio ns ORDERS Other Referral ORDERS PET Scan Beta-amyloid 05/06 ORDERS Follow up ANASTASIA ORDERS Patient Instructions ORDERS Patient Instructions ORDERS AD-Detect Apolipopro tein E (ApoE) Isoform Plasma ORDERS Neuropsychology Evaluation 2 CPT-87457 Npsy Interview w/Provider - 1st hour 2023 CPT-26562 Npsy Interp/Rpt by Provider - 1st hour 20 13/04/27 CPT-01956 Npsy Interp/Rpt by Provider - 3 hours 01/24/27 CPT-95180 Npsy Test by Tech (2+ Tests) - 1st 30 min CPT-29890 Npsy Test by Tech (2+ Tests) - 2.5 hours ORDERS Patient Instructions ORDERS Patient Instructions ORDERS Patient Instructions ORDERS Follow up ANASTASIA [facility] [address]-4 MMSE ORDERS Instructions for Staff 01/12 ORDERS Follow up with Neurologist or ANASTASIA [facility]-[id number] Documentation of current medicatio ns ORDERS Instructions for Staff 02/13 [facility]-[id number] Documentation of current medicatio ns ORDERS TSH Vital Signs Date Name Value Unit Description Heart Rate 68 /min pulse rate Immunizations No information available. Advance Directives No information available.
--- OUTSIDE RECORDS SUMMARY | 2025-05-17 10:28 | XMS_ITS | Encounter Summary ---
Author Organization [place] Address [address] [place] [address] Care Team Providers Care Music Instructor Name Role Phone Mahogany Peñaloza MD Primary Care Provider Lori Maloney MD Unavailable [phone] Marc Hicks PhD Unavailable [phone] Abdiel Harris MD Unavailable Encounter Details Date Type Department Care Team (Late st Contact Info) Description 01/12/2020 [facility] [place] [facility] [address] [place] [address] [address] [place] [address] Lori Maloney MD [address] [place] [address] Social History Tobacco Use Types Packs/Day Years Used Date Smoking Tobacco: Never Smokeless Tobacco: Never Alcohol Use Standard Drinks/Week Comments Not Currently 0 (1 standard drink = 0.6 oz pur e alcohol) PHQ-2 Answer Date Recorded PHQ-2 Score 0 12/29/2019 Comments Unknown Sex and Gender Information Value Date Recorded Sex Assigned at Not on file Legal Sex Female 4:38 AM CLERICAL METHODS ANALYST Gender Identity Female 09/24/2021 9:02 PM CLERICAL METHODS ANALYST Sexual Orientation Not on file Occupation Industry [...] on filedocumented in this encounter Care Teams Music Instructor Relationship Specialty Start Date End Date Mahogany Peñaloza MD [facility] [address] [place] [address] PCP - General Internal Medicine 12/28/19 Lori Maloney MD [address] [place] [address] Assigned Neuroscience Provider 08/12/20 03/08/23 Marc Hicks, PhD [address] [place] [address] Assigned Behavioral Health Provider 09/10/21 01/25/23 Abdiel Harris MD [facility] NEUROLOGICAL [facility] [address] [address] Physician Neurology 06/06/23 documented as of this encounter
--- OUTSIDE RECORDS SUMMARY | 2025-05-17 10:28 | XMS_ITS | Encounter Summary ---
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 classified elsewhere, mild, without behavioral disturbance, psychotic disturbance, mood disturbance, and anxiety (H) Mild cognitive impairment Postural tremor Neuropathy Visual disturbance Focal Alzheimer disease (H) Denise Beauchamp PA-C [facility] [address] [place] [address] Phone: tel: fax: Referral ID Status Reason Start Date Expiration Date V isits Requested Visits Authorized [id number] Referral NOT Required 04/29/2025 04/29/2026 1 1 Question Answer Reason for Referral: Memory Care Patient Scheduling Instructions: [facility] will call you to coordinate your care as prescribed by your provider. If you don't hear from a payable representative within 2 business days, please call . Additional Information: Referral to [facility] dementia specialist regarding possible familial Alzheimer's disease. Comments [facility] External Fax Details Provider: Denise Talamantes Affiliated with: [facility] Location: [place], [place] Phone number: [phone] Fax number: [phone] OR Patient: No Medical records received with referral? Yes, Records sent to HIM with referral [facility] will call you to coordinate your care as prescribed by your provider. If you don't hear from a payable representative within 2 business days, please call . Encounter Details Date Type Department Care Team (Latest Contact Info) Description 04/29/2025 Transcribe Orders GENERIC EXTERNAL DATA DEPARTMENT Denise Beauchamp PA-C [facility] NEUROLOGICAL [address] [place] [address] Physical deconditioning (Primary Dx); Family history of Alzheimer's disease; Dementia in other diseases classified elsewhere, mild, without behavioral disturbance, psychotic disturbance, mood disturbance, and anxiety (H); Mild cognitive impairment; Postural tremor; Neuropathy; Visual disturbance; Focal Alzheimer disease (H) Social History Tobacco Use Types Packs/Day Years [...] on file Legal Sex Female 4:38 AM MANAGER TECHNICAL 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 Gender Identity Female 09/24/2021 9:02 PM MANAGER TECHNICAL TRAINING Sexual Orientation Not on file Occupation Industry Job Start Date Job End Date retired Not on file Not on file Not on file documented as of this encounter Plan of Treatment Scheduled Referrals Name Type Priority Associated Diagnoses Orde r Schedule Adult Neurology Employee Services Manager Referral Referral Routine: Next available opening Physical deconditioning Family history of Alzheimer's disease Dementia in other diseases classified elsewhere, mild, without behavioral disturbance, psychotic disturbance, mood disturbance, and anxiety (H) Mild cognitive impairment Postural tremor Neuropathy Visual disturbance Focal Alzheimer Disease (H) Expected: 04/29/2025 (Approximate), Expires: 04/29/2026 documented as of this encounter Visit Diagnoses Diagnosis Physical deconditioning- Primary Debility, unspecified Family history of Alzheimer's disease Family history of other condition Dementia in other diseases classified elsewhere, mild, without behavioral disturbance, psychotic disturbance, mood disturbance, and anxiety (H) Mild cognitive impairment Mild cognitive impairment, so stated Postural tremor Essential and other specified forms of tremor Neuropathy Mononeuritis of unspecified site Visual disturbance Unspecified visual disturbance Focal Alzheimer disease (H) documented in this encounter Care Teams Perioperative Assistant Relationship Specialty Start Date End Date Mahogany Peñaloza MD [facility] [address] [place] [address] PCP - General Internal Medicine 12/28/19 Abdiel Harris MD [facility] [address] [address] Physician Neurology 06/06/23 documented as of this encounter
--- OUTSIDE RECORDS SUMMARY | 2025-05-17 10:28 | XMS_ITS | Encounter Summary ---
Author Organization [place] Address [address] [place] [address] Care Team Providers Care Pewter Finisher Name Role Phone Mahogany Peñaloza MD Primary Care Provider Lori Maloney MD Unavailable [phone] Marc Hicks PhD Unavailable [phone] Abdiel Harris MD Unavailable Encounter Details Date Type Department Care Team (Late st Contact Info) Description 09/11/2021 [facility] [place] Medical Advice [facility] Neurology Clinic [address] [place] [address] Maria R Soto, [place] Social [...] on file Legal Sex Female 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 TITLE I TEACHER Gender Identity Female 09/24/2021 9:02 PM TITLE I TEACHER Sexual Orientation Not on file Occupation Industry Job Start Date Job End Date retired Not on file Not on file Not on file documented as of this encounter Plan of Treatment Not on file documented as of this encounter Visit Diagnoses Not on filedocumented in this encounter Care Teams Pewter Finisher Relationship Specialty Start Date End Date Mahogany Peñaloza MD [facility] [address] [place] [address] PCP - General Internal Medicine 12/28/19 Lori Maloney MD [address] [place] [address] Assigned Neuroscience Provider 08/12/20 03/08/23 Marc Hicks, PhD [address] [place] [address] Assigned Behavioral Health Provider 09/10/21 01/25/23 Abdiel Harris MD [facility] NEUROLOGICAL [facility] [address] [address] Physician Neurology 06/06/23 documented as of this encounter
--- OUTSIDE RECORDS SUMMARY | 2025-05-17 10:28 | XMS_ITS | Clinical Summary ---
Author Organization [place] Address [address] [place] [address] Care Team Providers Care Fly Maker Name Role Phone Mahogany Peñaloza MD Primary Care Provider [phone] Abdiel Harris MD Unavailable Allergies No known [...] needed. Do not drive arrange for a charter driver 2 tablet 1 Active Active Problems [...] Encounters Date Type Department Care Team Description 04/29/2025 Transcribe Orders GENERIC EXTERNAL DATA DEPARTMENT Denise Beauchamp PA-C Physical deconditioning (Primary Dx); Family history of Alzheimer's disease; Dementia in other diseases classified elsewhere, mild, without behavioral disturbance, psychotic disturbance, mood disturbance, and anxiety (H); Mild cognitive impairment; Postural tremor; Neuropathy; Visual disturbance; Focal Alzheimer disease (H) 04/20/2025 Medical Correspondence [facility] Information Management [address] [place] [address] Scan, Non-Provider from Last 3 Months Family [...] on file Legal Sex Female 4:38 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 Gender Identity Female 09/24/2021 9:02 PM TOOL MAINTENANCE TECHNICIAN Sexual Orientation Not on file Occupation [...] OF HM ORDERS 1950 CT COLONOGRAPHY 1952 DIABETES SCREENING 1952 FIT 1952 FLEX SIG 1952 LIPID 1952 MAMMO SCREENING 1952 TSH W/FREE T4 REFLEX 1952 sDNA (Cologuard) 1952 HEPATITIS C SCREENING 01/05/1970 MEDICARE ANNUAL WELLNESS VISIT 01/05/2017 FALL RISK ASSESSMENT 12/28/2020 12/29/2019, 12/29/19 20 COVID-19 VACCINE ( season) 2024 01/09/2024, 08/29/2023, 05/09/2023, Additional history exists PHQ-2 (once per calendar year) 2024 09/04/2021, 04/11/2021, 12/29/2019, Additional history exists INFLUENZA VACCINE (#1) 2025 , 07/23/2022, 08/08/2021, Additional history exists RSV VACCINE (1 - 1-dose 75+ series) 01/05/2027 DEXA 08/18/2028 08/18/2013 COLONOSCOPY 09/28/2029 09/28/2019 COLORECTAL CANCER SCREENING 09/28/2029 DTAP/TDAP/TD VACCINE (3 - Td or Tdap) 01/09/2032 01/08/2022, 08/15/2012, 06/08/2003 PNEUMOCOCCAL VACCINE 50+ YEARS Completed 09/01/2018, 08/09/2017 ZOSTER VACCINE Completed 12/17/2018, 01/2019, 10/12/2018, Additional history exists HPV VACCINE (No Doses Required) Completed MENINGITIS VACCINE Aged Out No longer eligible based on patient's age to complete this topic Insurance [facility] [place] BLUE MEDICARE [facility] [place] BLUE MEDICARE [facility] MEDICARE Care Teams Fly Maker Relationship Specialty Start Date End Date Mahogany Peñaloza MD [facility] [address] [place] [address] PCP - General Internal Medicine 12/28/19 Abdiel Harris MD [facility] NEUROLOGICAL [address] [address] Physician Neurology 06/06/23
--- OUTSIDE RECORDS SUMMARY | 2025-05-17 10:28 | XMS_ITS | Encounter Summary ---
Author Organization [place] Address [address] [place] [address] Care Team Providers Care News Internship Name Role Phone Mahogany Peñaloza MD Primary Care Provider Abdiel Harris MD Unavailable Encounter Details Date Type Department Care Team (Late st Contact Info) Description 04/20/2025 Medical Correspondence [facility] Health Information Management [address] [place] [address] [address] [place] [address] Scan, Non-Provider Social History Tobacco Use Types [...] on file Legal Sex Female 4:38 AM UKE DRIVER Gender Identity Female 09/24/2021 9:02 PM UKE DRIVER Sexual Orientation Not on file Occupation Industry Job Start Date Job End Date retired Not on file Not on file Not on file documented as of this encounter Plan of Treatment Not on file documented as of this encounter Visit Diagnoses Not on filedocumented in this encounter Care Teams News Internship Relationship Specialty Start Date End Date Mahogany Peñaloza MD [facility] [address] [place] [address] PCP - General Internal Medicine 12/28/19 Abdiel Harris MD [facility] NEUROLOGICAL [facility] [address] [address] Physician Neurology 06/06/23 documented as of this encounter
--- OUTSIDE RECORDS SUMMARY | 2025-05-17 10:28 | XMS_ITS | Clinical Summary ---
Author Organization [facility] Address [address] [place] [address] Care Team Providers Care Perinatal Coordinator Name Role Phone Mahogany Peñaloza MD Primary Care Provider [phone] Allergies No known active allergies Medications ASPIRIN [...] repeat in 5 years Unspecified hypothyroidism Immunizations Immunization Administration Dates Next Due COVID-19 vaccine (Tekmi 30mcg/0.3mL) HARPAL JOHNSON 12/31/2020,12/10/2020 Influenza A (H1N1), [...] on file Legal Sex Female 6:13 AM CORRECTIONS CASEWORKER Gender Identity Not on file Sexual Orientation Not on file 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 Not on file Not on file [...] CDT Oxygen Saturation 98% 10/11/2012 8:57 AM CORRECTIONS CASEWORKER Inhaled Oxygen Concentration - - Weight 73.1 [...] age 18+ 01/05/1970 Hepatitis C screening for age 18-79 01/05/1970 RSV vaccine for adults or (1 - [...] ( season) 2024 07/20/2021, 12/31/2020, 12/10/2020 Influenza Vaccine (#1) 2025 9, 09/01/2018, 08/09/2017, Additional history exists Colonoscopy through age 75 10/28/203110/28, 09/28/2019, 09/28/2019, Additional history exists Pneumococcal series for age 50+ Completed 09/01/2018, 08/09/2017 Zoster (shingles) series for age 50+ Completed 12/17/2018, 11/24/2018, 10/12/2018, Additional history exists Hepatitis B series for 19+ Aged Out N o longer eligible based on patient's age to complete this topic Procedures Procedure Name Priority Date/Time Associated Diagnosis Comments COLONOSCOPY SCREENING Routine 10/28/2024 12:00 AM CORRECTIONS CASEWORKER Encounter for screening colonoscopy SCAN-MAMMOGRAPHY REPORT 09/02/2014 12:00 AM CORRECTIONS CASEWORKER XR DXA BONE DENSITY 2 SITES AXIAL Routine 08/18/2013 4:48 PM CDT DISORDER BONE AND CARTILAGE, UNSPEC LDL CHOLESTEROL,DIRECT Routine 08/12/2013 8:08 PM CDT HYPERLIPIDEMIA from Last 3 Months or Most Recently Relevant to Health Maintenance Results * COLONOSCOPY SCREENING (10/28/2024 12:00 AM CORRECTIONS CASEWORKER) us Adan Valenzuela MD GI PROCEDURE ORD Final Re sult * SCAN-MAMMOGRAPHY REPORT (09/02/2014 12:00 AM CORRECTIONS CASEWORKER) Anatomical Region Laterality Modality Other Narrative 09/07/2014 6:43 AM CORRECTIONS CASEWORKER Procedure Note Scanner - 09/02/2014 12:00 AM CST us Scanner OTHER Final Result * (ABNORMAL) XR DXA BONE DENSITY 2 SITES (08/18/2013 4:48 PM CDT) Anatomical Region Laterality Modality Spine, HIPS, HIPL, HIPR Other Narrative 08/19/2013 4:49 PM CDT Please see scanned document for results of this study. Procedure Note Ibis Peña Jaret - 08/19/2013 Please see scanned document for results of this study. us Shireen Lewis WATCH MANUFACTURING SUPERVISOR DEXA Final Result * LDL CHOLESTEROL,DIRECT (08/12/2013 8:08 PM CDT) LDL CHOLESTEROL,D IRECT 138 Undefined mg/dL [facility] Comment: RISK CATEGORY LDL GOAL (mg/dL) Vascular disease and/or diabetes (<100) Multiple (2+) risk factors (<130) 0-1 risk factor (<160) Blood specimen (specimen) BLOOD SPECIMEN / Unknown 08/12/2013 8:08 PM CDT 08/12/2013 7:48 PM CDT Shireen Lewis NP CHEMISTRY Final Result [facility] INTERNAL ZIP [id number] [place] [address] from Last 3 Months or Most Recently Relevant to Health Maintenance Insurance [facility] BLUE MR PB ONLY Care Teams Perinatal Coordinator Relationship Specialty Start Date End Date Mahogany Peñaloza MD [address] [place] [address] PCP - General Internal Medicine 09/28/19
--- OUTSIDE RECORDS SUMMARY | 2025-05-17 10:28 | XMS_ITS | Encounter Summary ---
Author Organization [facility] Address [address] [place] [address] Care Team Providers Care Drug Safety Assistant Name Role Phone Mahogany Peñaloza MD Primary Care Provider [phone] Lori Maloney MD Unavailable [phone] Marc Hicks PhD Unavailable [phone] Abdiel Harris MD Unavailable Encounter Details Date Type Department Care Team (Late st Contact Info) Description 04/24/2022 [facility] Medical Advice [facility]rology [facility] [address] [place] [address] Maria R Soto, AUSTEN Social [...] on file Legal Sex Female 4:38 AM HEADWAITRESS Gender Identity Female 09/24/2021 9:02 PM HEADWAITRESS Sexual Orientation Not on file Occupation Industry Job Start Date Job End Date retired Not on file Not on file Not on file documented as of this encounter Plan of Treatment Not on file documented as of this encounter Visit Diagnoses Not on filedocumented in this encounter Care Teams Drug Safety Assistant Relationship Specialty Start Date End Date Mahogany Peñaloza MD [facility] [address] [place] [address] PCP - General Internal Medicine 12/28/19 Lori Maloney MD [address] [place] [address] Assigned Neuroscience Provider 08/12/20 03/08/23 Marc Hicks, PhD [address] [place] [id number] Assigned Behavioral Health Provider 09/10/21 01/25/23 Abdiel Harris MD [facility] NEUROLOGICAL [facility] [address] [address] Physician Neurology 06/06/23 documented as of this encounter
--- OUTSIDE RECORDS SUMMARY | 2025-05-17 10:28 | XMS_ITS | Encounter Summary ---
Author Organization [facility] Address [address] [place] [address] Care Team Providers Care African History Professor Name Role Phone Mahogany Peñaloza MD Primary Care Provider Lori Maloney MD Unavailable [phone] Marc Hicks PhD Unavailable [phone] Abdiel Harris MD Unavailable Encounter Details Date Type Department Care Team (Late st Contact Info) Description 01/03/2022 [facility] Medical Advice [facility] Neurology Clinic [address] [place] [address] Maria R Soto, AUSTEN Social [...] on file Legal Sex Female 4:38 AM GLOBE TESTER Gender Identity Female 09/24/2021 9:02 PM GLOBE TESTER Sexual Orientation Not on file Occupation Industry Job Start Date Job End Date retired Not on file Not on file Not on file COVID-19 Exposure Response Date Recorded In the last month, have you been in contact with someone who was confirmed or suspected to have Coronavirus / COVID-19? No / Unsure 12/28/2021 2:27 PM GLOBE TESTER documented as of this encounter Plan of Treatment Not on file documented as of this encounter Visit Diagnoses Not on filedocumented in this encounter Care Teams African History Professor Relationship Specialty Start Date End Date Mahogany Peñaloza MD [facility] [address] [place] [address] PCP - General Internal Medicine 12/28/19 Lori Maloney MD [address] [place] [address] Assigned Neuroscience Provider 08/12/20 03/08/23 Marc Hicks, PhD [address] [place] [address] Assigned Behavioral Health Provider 09/10/21 01/25/23 Abdiel Harris MD [facility] NEUROLOGICAL [facility] [address] [address] [address] Physician Neurology 06/06/23 documented as of this encounter
--- OUTSIDE RECORDS SUMMARY | 2025-05-17 10:28 | XMS_ITS | Encounter Summary ---
Author Organization [facility] Address [address] [place] [address] Care Team Providers Care Track Laying Machine Operator Name Role Phone Mahogany Peñaloza MD Primary Care Provider Lori Maloney MD Unavailable [phone] Marc Hicks PhD Unavailable [phone] Abdiel Harris MD Unavailable Encounter Details Date Type Department Care Team (Late st Contact Info) Description 11/13/2021 [facility] [place] Neurology Clinic [address] [place] [address] Maria R Soto, AUSTEN Social [...] on file Legal Sex Female 4:38 AM YARD WORKER Gender Identity Female 09/24/2021 9:02 PM YARD WORKER Sexual Orientation Not on file Occupation Industry Job Start Date Job End Date retired Not on file Not on file Not on file documented as of this encounter Plan of Treatment Not on file documented as of this encounter Visit Diagnoses Not on filedocumented in this encounter Care Teams Track Laying Machine Operator Relationship Specialty Start Date End Date Mahogany Peñaloza MD [facility] [address] [place] [address] PCP - General Internal Medicine 12/28/19 Lori Maloney MD [address] [place] [address] Assigned Neuroscience Provider 08/12/20 03/08/23 Marc Hicks, PhD [address] [place] [address] Assigned Behavioral Health Provider 09/10/21 01/25/23 Abdiel Harris MD [facility] NEUROLOGICAL [facility] [address] [address] Physician Neurology 06/06/23 documented as of this encounter
[2025-05-17 10:30] VITALS: BP 113/68; PULSE 51; RESP 18; TEMP 37.5; O2SAT 99; BMI 22.1
--- NOTE | 2025-05-17 10:52 | ED.GENADULT ---
HPI - General Adult General Chief complaint: Unspecified Complaint, Adult Stated complaint: shaking, having hard time speaking Time Seen by Provider: 05/17/25 10:38 Source: patient Mode of arrival: ambulatory Limitations: no limitations History of Present Illness HPI narrative: Patient is a 75-year-old female with history of Alzheimer's dementia, essential tremor, chronic arm and leg weakness presents today with worsening weakness. Patient currently takes gabapentin for anxiety, sleep, tremor and RLS symptoms. Patient has had significant weakness since at least December of this year. With an MRI done in January of this year showing stable moderate cerebral atrophy. She was taken off of her rosuvastatin is at the beginning of April for continued weakness and an increase in her CK. She states that today she has the week as she has ever been. She states that her muscles essentially are not strong enough to hold her up. She feels like she can fall over any time. She states that it is bilateral, weakness is not localized to 1 side. She feels much shaking than usual with her tremor being worse it has ever been. She also complains of stuttering which is never happened before. Related Data Home Medications ?Medication ?Instructions ?Recorded ?Confirmed cyclosporine 0.05 % eye drops in a 1 drp ophthalmic (eye) BID 10/25/22 05/17/25 dropperette (Restasis) latanoprost 0.005 % eye drops 1 drp ophthalmic (eye) HS 10/25/22 05/17/25 melatonin 5 mg tablet,immediate 5 mg PO HS 10/25/22 05/17/25 and extended release multivitamin (Multiple Vitamins 1 tab PO QAM 10/25/22 05/17/25 tablet) omega-3 fatty acids 1,250 mg 1,250 mg PO BID 10/25/22 05/17/25 capsule donepezil 10 mg tablet 10 mg PO DAILY 05/14/24 05/17/25 sennosides 8.6 mg tablet (senna) 8.6 mg PO DAILY PRN 05/14/24 05/17/25 gabapentin 100 mg capsule 400 mg PO HS 10/06/24 05/17/25 acetaminophen 500 mg tablet 1,000 mg PO DAILY 10/24/24 05/17/25 diphenhydramine 25 2 tab PO HS 10/24/24 05/17/25 mg-acetaminophen 500 mg tablet (Tylenol PM Extra Strength) lecanemab-irmb IV Q14D 10/24/24 04/20/25 mupirocin 2 % topical ointment topical BID PRN 02/11/25 04/20/25 propylene glycol [Systane Balance] ophthalmic (eye) QID 02/11/25 04/20/25 prednisolone acetate 1 % eye 1 drp ophthalmic (eye) QAM 04/20/25 05/17/25 drops,suspension Previous Rx's ?Medication ?Instructions ?Recorded alendronate 70 mg tablet 70 mg PO QWEEK #12 tabs 02/11/25 lisinopril 10 mg tablet 10 mg PO DAILY #90 tabs 02/11/25 rosuvastatin 5 mg tablet 5 mg PO DAILY #90 tabs 02/11/25 atenolol 100 mg tablet 100 mg PO QDAY #90 tabs 03/02/25 Allergies Allergy/AdvReac Type Severity Reaction Status Date / Time amoxicillin Allergy Intermediate vomiting Verified 05/17/25 10:37 diarrhea clavulanic acid Allergy Mild Verified 05/17/25 10:37 Review of Systems Status of ROS: Reports: 10 or more systems reviewed and unremarkable except as noted in History and below PFSH PFSH Surgical History 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 - Corneal transplant status (ICD-10) History of bilateral cataract extraction ?Z98.41 - Cataract extraction status, right eye (ICD-10) ?Z98.42 - Cataract extraction status, left eye (ICD-10) History of tonsillectomy ?Z90.89 - Acquired absence of other organs (ICD-10) History of hemorrhoidectomy ?Z98.890 - Other specified postprocedural states (ICD-10) Family History Brother Alzheimers disease, Onset Age: 50 Mother Alzheimers disease, Onset Age: 80 Social History What is your current living situation?: I presently have a place to live Problems where you live: no known problems Problems where you live details: N/A In the past 12 months, utilities in danger of being shut off: no In past 12 months, lack of transportation kept you from medical appts, meetings, work, or getting things needed for daily living: no In the past 12 mos, have been you worried that your food would run out before you had money to buy more?: never true In the past 12 mos, the food you bought just didn't last and you didn't have money to buy more?: never true Highest level of school completed/degree received: Bachelor's degree Smoking Status: Never smoker Second hand tobacco smoke exposure: No How often do you have a drink containing alcohol: never How often do you have six or more drinks on one occasion: Never AUDIT-C Alcohol total score: 0 Non-prescribed substance use: denies use How often does anyone, including family, friends and others, physically hurt you: never How often does anyone, including family, friends and others, insult or talk down to you: never How often does anyone, including family, friends and others, threaten you with harm: never How often does anyone, including family, friends and others, scream or curse at you: never service: No Exam Narrative: Exam Narrative: Well-nourished well-developed patient in no acute distress. Alert and oriented x3. Answers questions appropriately. Mood and affect are appropriate. Thoughts are goal oriented and rational. No tangential or magical thinking noted. Patient speaks in full sentences without needing to catch her breath. Patient is stuttering. HEENT: Normocephalic atraumatic. Pupils are equally round reactive to light. Extraocular muscles are intact. Conjunctivae are moist without any icterus noted. Moist mucous membranes. Posterior pharynx is normal. Cardiovascular: Bradycardic. Lungs: Clear to auscultation bilaterally no wheezes rhonchi or rales are appreciated. Patient takes deep breaths without any discomfort. Abdomen: Soft and nontender nondistended with normal bowel sounds. Extremities: Bilateral lower extremities are without edema. Skin: Well perfused without any obvious rashes. Strength is 4/5 of the lower extremities, both distal and proximal muscle groups. 5/5 of the upper extremities. Hand steam cleaner is normal and symmetric. Patient has a very significant intention tremor. Const: Vital Signs, click to edit/add: Vital Signs - 24 hr 05/17/25 10:30 05/17/25 12:56 Temperature 99.5 F Pulse Rate [Right Pulse Oximeter] 51 L 54 L Respiratory Rate 18 16 Blood Pressure [Le ft Upper Arm] 113/68 136/73 Pulse Oximetry 99 98 Oxygen Delivery Me thod Room Air Room Air Course Course ED Course: Patient's workup was unremarkable. CK looked better than it did at the beginning of the month. I did speak to Dr. Reyna, neurology at [facility] who did mention that sometimes gabapentin can cause worsening tremor. Did not suggest further imaging at this time. Vital Signs Vital signs: Initial Vital Signs Temperature 99.5 F 05/17/25 10:30 Temperature Source Temporal Artery Scan 05/17/25 10:30 Pulse Rate 51 L 05/17/25 10:30 Pulse Rhythm Regular 05/17/25 10:30 Pulse Strength 3+ Normal 05/17/25 10:30 Respiratory Rate 18 05/17/25 10:30 Blood Pressure 113/68 05/17/25 10:30 Blood Pressure Mean 83 05/17/25 10:30 Blood Pressure Position Sitting 05/17/25 10:30 Pulse Oximetry 99 05/17/25 10:30 Oxygen Delivery Method Room Air 05/17/25 10:30 Vital Signs Temperature 99.5 F 05/17/25 10:30 Pulse Rate 51 L 05/17/25 10:30 Respiratory Rate 18 05/17/25 10:30 Blood Pressure 113/68 05/17/25 10:30 Pulse Oximetry 99 05/17/25 10:30 Oxygen Delivery Method Room Air 05/17/25 10:30 Temperature 99.5 F 05/17/25 10:30 Pulse Rate 54 L 05/17/25 12:56 Respiratory Rate 16 05/17/25 12:56 Blood Pressure 136/73 05/17/25 12:56 Pulse Oximetry 98 05/17/25 12:56 Oxygen Delivery Method Room Air 05/17/25 12:56 Medications Administered Medications: Discontinued Medications Generic Name Dose Route Start Last Admin Trade Name Freq PRN Reason Stop Dose Admin Sodium Chloride 500 mls @ 500 mls/hr 05/17/25 11:38 05/17/25 13:23 0.9 % Sodium Chloride 500 Ml IV 05/17/25 12:37 Infused .Q1H ONE Infusion Medical Decision Making MDM Narrative Medical decision making narrative: 75-year-old female with weakness and worsening intention tremor. Seems to be likely a progression of her current disease as the symptoms are not necessarily new for her. Recommend she follow-up with neurology this week. Lab Data Lab results reviewed: Yes I reviewed the patient's lab results Labs: Lab Results 05/17/25 05/17/25 Range/Units 11:06 11:23 WBC 4.12 L (4.50-11.00) K/uL RBC 3.72 L (4.00-5.20) m/uL Hgb 11.9 L (12.0-16.0) gm/dL Hct 37.3 (33.0-51.0) % MCV 100 (80-100) fL MCH 32 (26-34) pg MCHC 32 (32-36) gm/dL RDW Coeff of Jacek 11.9 (11.5-15.5) % Plt Count 285 (140-440) K/uL Neut % (Auto) 43.1 (42.0-72.0) % Lymph % (Auto) 40.8 (20-44) % York % (Auto) 11.7 H (0.0-11.0) % Eos % (Auto) 2.7 (0.0-7.0) % Baso % (Auto) 1.2 (0.0-3.0) % Neut # (Auto) 1.80 (1.7-7.0) K/uL Lymph # (Auto) 1.70 (0.90-2.90) K/uL York # (Auto) 0.50 (0.00-0.90) K/UL Eos # (Auto) 0.10 (0.00-0.50) K/uL Baso # (Auto) 0.00 (0.00-0.30) K/uL Abs Immat Gran (auto) 0.00 (0.00-0.30) K/uL Imm/Tot Granulo (auto) 0.5 % ESR 23 H (2-20) mm/hr Sodium 138 (135-149) mmol/L Potassium 4.3 (3.6-5.1) mmol/L Chloride 103 (96-114) mmol/L Carbon Dioxide 30 (20-32) mmol/L Anion Gap 5 L (7-15) mEq/L BUN 20 (7-30) mg/dL Creatinine 0.9 (0.5-1.5) mg/dL Estimated Creat Clear 41.45 Estimated GFR 68 ml/min Glucose 85 (60-115) mg/dL Lactate 2.1 H (0.5-1.9) mmol/L Calcium 9.7 (8.4-10.6) mg/dL Magnesium 2.4 (1.5-2.6) mg/dL Total Bilirubin 0.3 (0.1-1.5) mg/dL Direct Bilirubin 0.0 (0.0-0.5) mg/dL AST 43 H (12-35) U/L ALT 20 (4-35) U/L Alkaline Phosphatase 56 (40-150) U/L Total Creatine Kinase 142 H (41-117) U/L Troponin I < 0.01 (0.01-0.04) ng/mL C-Reactive Protein < 0.5 L (0.5-1.0) mg/dL Total Protein 7.0 (6.0-8.3) g/dL Albumin 3.9 (3.3-5.0) g/dL Procalcitonin < 0.03 L (<0.50) ng/mL TSH 1.270 (0.270-4.20) uIU/mL SARS-CoV-2 (PCR) Negative SARS-CoV-2 (Negative) Monoscreen Negative (Negative) Influenza Type A (PCR) Negative PCR FLU A (Negative) Influenza Type B (PCR) Negative PCR FLU B (Negative) Discharge Plan Discharge Clinical Impression: Weakness, Intention tremor Patient Disposition: Home w/ Parent or Adult Condition: Stable Additional Instructions: Make sure you are careful when moving around your home. Recommend you follow-up with your neurologist this week. Prescriptions: No Action latanoprost 0.005 % drops 1 drp ophthalmic (eye) HS cyclosporine [Restasis] 0.05 % dropperette 1 drp ophthalmic (eye) BID sennosides [senna] 8.6 mg tablet 8.6 mg PO DAILY PRN donepezil 10 mg tablet 10 mg PO DAILY prednisolone acetate 1 % drops,suspension 1 drp ophthalmic (eye) QAM omega-3 fatty acids 1,250 mg capsule 1,250 mg PO BID multivitamin [Multiple Vitamins] Tablet 1 tab PO QAM melatonin 5 mg tablet, IR and ER, biphasic 5 mg PO HS gabapentin 100 mg capsule 400 mg PO HS propylene glycol [Systane Balance] ophthalmic (eye) QID mupirocin 2 % ointment topical BID PRN alendronate 70 mg tablet 70 mg PO QWEEK Qty: 12 3RF Patient Comments: Takes on , Saturday or Saturday lisinopril 10 mg tablet 10 mg PO DAILY Qty: 90 3RF rosuvastatin 5 mg tablet 5 mg PO DAILY Qty: 90 3RF atenolol 100 mg tablet 100 mg PO QDAY Qty: 90 3RF acetaminophen 500 mg tablet 1,000 mg PO DAILY diphenhydramine-acetaminophen [Tylenol PM Extra Strength] 25-500 mg tablet 2 tab PO HS lecanemab-irmb IV Q14D Rx Instructions: EVERY OTHER WEEK, CLINICAL TRIAL Follow Up/Referrals: Mahogany Peñaloza MD [Primary Care Provider, Internal Medicine] Stand Alone Forms: [facility] Info Instructions
[2025-05-17 11:30] LABS: Lactate* 2.1 mmol/L (0.5-1.9)
--- OUTSIDE RECORDS SUMMARY | 2025-05-17 11:36 | XMS_ITS | Clinical Summary ---
Author Organization [facility] Address [address] , [address] [place] [address] Phone Care Team Providers Care Solutions Engineer Name Role Phone 1CareTeamNurse-MA, 1CareTeamNurse-MA Unavailable Unavailable Conditions or Problems Problem Name Problem Code Onset Date Status Entry Date Provider Comment Standard Description Annotate Decondition ing [id number] (SNOMED CT) 03/03 Active 03/03 Denise Talamantes PA-C Physical deconditioning Dementia in other diseases classified elsewhere, mild, without behavioral disturbance , psychotic disturbance , mood disturbance , and anxiety 62809300 (SNOMED CT) 04/16 Active 05/06 Liat Rendon Dementia Alzheimer's disease - and family h/o AD G30.8 (ICD-10-CM) 02/13 Active 02/13 Abdiel Harris MD Other Alzheimer's disease Unspecified dementia, mild, without behavioral disturbance , psychotic disturbance , mood disturbance , and anxiety 18631240 (SNOMED CT) 04/16 Inactive 05/06 Margaret Jaime Dementia Dementia in conditions classified elsewhere without behavioral disturbance 537973967 (SNOMED CT) 04/16 Inactive 05/06 Emmanuelle Daniels [place] Dementia associated with another disease Mild cognitive impairment vs mild dementia 261226999 (SNOMED CT) 06/05 Active 06/05 Abdiel Harris MD Mild neurocognitive disorder Other Alzheimer's disease - in her family 78286509 (SNOMED CT) 02/13 Inactive 02/13 Abdiel Harris MD Alzheimer's disease 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 Maximum dose of 900/day gabapentin 51578054960 Denise Talamantes PA-C CETIRIZINE HCL 10 MG TABS cetirizine 51194955953 Denise Talamantes PA-C GABAPENTIN 100 MG CAPS Take 3 caps in the morning, 1 cap midday and 2 caps in the evening. gabapentin 43329130178 Denise MIKE-Alfredo GABAPENTIN 100 MG CAPS 1 capsule by mouth as directed : 1 to 3 caps during the day time as needed anxiety and tremor. In addition take 100 mg per night and may increase by 100 mg per night as needed until restless leg and anxiety controlled or until 600 mg/night gabapentin 11898259422 Abdiel Harris MD GABAPENTIN 100 MG CAPS Take 1 to 3 caps during the day time as needed for anxiety and tremor. In addition take 100 mg per night and may increase by 100 mg per night as needed until restless leg and anxiety controlled or until 600 mg/night. Maximum dose of 900/day gabapentin 48578232449 Abdiel Harris MD DONEPEZIL HCL 10 MG TABS (one) tablet by mouth every morning by mouth donepezil 89496482626 Abdiel Harris MD GABAPENTIN 100 MG CAPS 1 capsule by mouth as directed : 1 to 3 caps during the day time as needed anxiety and tremor. In addition take 100 mg per night and may increase by 100 mg per night as needed until restless leg and anxiety controlled or until 600 mg/night gabapentin 70215988477 Abdiel Harris MD ATENOLOL 25 MG TABS Take 4 tablet by mouth once a day atenolol 51733694649 Deniseerich Cheek Cherucheril PA-C DONEPEZIL HCL 10 MG TABS Take 1/2 tablet by mouth every night at bedtime for 30 days, then take 1 tablet by mouth every night at bedtime donepezil 50276597729 Denise Stewartil PA-C LISINOPRIL 2.5 MG TABS lisinopril 85132507449 Deniseerich Stewartil PA-C ATENOLOL 50 MG TABS Take 2 tablet by mouth every evening or 100 mg per night atenolol 50173492374 Deniseerich Stewartil PA-C LISINOPRIL 2.5 MG TABS lisinopril 20119829538 Denise Stewartil PA-C ROSUVASTATIN CALCIUM 5 MG TABS rosuvastatin 28533759599 Denise Stewartil PA-C RESTASIS 0.05 % EMUL INSTILL 1 DROP INTO BOTH EYES TWICE DAILY cyclosporine 15518934695 Denise Stewartil PA-C LISINOPRIL 10 MG TABS lisinopril 50558514500 Denise Stewartil PA-C LATANOPROST 0.005 % SOLN latanoprost 46147401634 Denise Stewartil PA-C ATENOLOL 25 MG TABS Take 3 tablet by mouth every evening atenolol 80774009528 Deniseerich Blackucheril PA-C ALENDRONATE SODIUM 70 MG TABS Take 1 tablet by mouth once a week alendronate 12739344163 Denise Stewartil PA-C TYLENOL 325 MG TABS 2 tab BID acetaminophen 52824458209 Denise Talamantes MS-C ASPIRIN 325 MG TABS 1 tab daily aspirin 24863327277 Denise Talamantes MS-C CETIRIZINE HCL 10 MG TABS cetirizine 23613397347 Denise Talamantes MS-C MULTI-VITAMIN TABS multivitamin 28347267758 Denise Adia Talamantes MS-C FISH OIL 500 MG CAPS omega 8-qyi-pne-fish oil 84546706946 Denise Talamantes MS-C MELATONIN TR 1 MG CR-TABS 5 mg qhs melatonin 86501758413 Denise Talamantes MS-C ATENOLOL 25 MG TABS TAKE THREE TABLETS BY MOUTH DAILY atenolol 93338828882 Abdiel Harris MD ATENOLOL 50 MG TABS Take 2 tablet by mouth every evening or 100 mg per night atenolol 42308931641 Abdiel Harris MD ATENOLOL 25 MG TABS Take 2 tablet by mouth once a day May increase to 3 tabs or 75 mg per day after 10 days if tremor not better atenolol 94708241533 Abdiel Harris MD ATENOLOL 25 MG TABS TAKE THREE TABLETS BY MOUTH DAILY atenolol 78857962689 Abdiel Harris MD LISINOPRIL 2.5 MG TABS lisinopril 14605971344 Abdiel Harris MD LISINOPRIL 2.5 MG TABS lisinopril 99816007423 Abdiel Harris MD ATENOLOL 25 MG TABS Take 2 tablet by mouth once a day May increase to 3 tabs or 75 mg per day after 10 days if tremor not better atenolol 40648846887 Abdiel Harris MD Medications Administered No information [...] performed and results reviewed. Total score [MMSE] [id number] Normal Total scor e [MoCA] MMSE SCORE 29 Total scor e [MMSE] Lab Report: [employer] AD DETECT( R) APOE ISOFORM, PLASMA [id number] [...] Detail Appointment 11:00 AM [address] [facility], [address], [place], [address], Appointment 10:30 AM [address], [address], [place], [address], Appointment 11:20 AM Abdiel Harris MD, [address], [address], [place], [address], Appointment 05:00 PM Abdiel Harris MD, [address], [address], [place], [address], Appointment 10:00 AM [address], [address], [place], [address], Referral Other Referral Referral Other Referral Referral [...] Date ORDERS Patient Instructions ORDERS Physical Therapy CPT-04800 MRI Brain W/O [id number] MRI-Brain W/O ORDERS Follow up ORDERS Other Referral ORDERS Other Referral ORDERS Other Referral ORDERS Patient Instructions ORDERS Psychiatry Referral ORDERS Follow up with Neurologist or ANASTASIA [id number] MRI-Brain W/O [id number] MRI-Brain W/O CPT-20322 MRI Brain W/O ORDERS Follow up ANASTASIA ORDERS Patient Instructions ORDERS Other Referral ORDERS Other Referral [id number] Documentation of current medicatio ns ORDERS Alzheimer Treatment Education with ANASTASIA 14/07/06 CPT-86200 MRI Brain W/O [id number] MRI-Brain W/O ORDERS Patient Instructions SCT-[id number] Documentation of current medicatio ns ORDERS Other Referral ORDERS PET Scan Beta-amyloid 05/06 ORDERS Follow up ANASTASIA ORDERS Patient Instructions ORDERS Patient Instructions ORDERS AD-Detect Apolipopro tein E (ApoE) Isoform Plasma ORDERS Neuropsychology Evaluation 2 CPT-73752 Npsy Interview w/Provider - 1st hour 2023 CPT-14860 Npsy Interp/Rpt by Provider - 1st hour 20 13/04/27 CPT-45741 Npsy Interp/Rpt by Provider - 3 hours 01/24/27 CPT-25622 Npsy Test by Tech (2+ Tests) - 1st 30 min CPT-69048 Npsy Test by Tech (2+ Tests) - 2.5 hours ORDERS Patient Instructions ORDERS Patient Instructions ORDERS Patient Instructions ORDERS Follow up ANASTASIA [facility] [address]-3 MMSE ORDERS Instructions for Staff 01/12 ORDERS Follow up with Neurologist or ANASTASIA [facility]-[id number] Documentation of current medicatio ns ORDERS Instructions for Staff 02/13 [facility]-[id number] Documentation of current medicatio ns ORDERS TSH Vital Signs Date Name Value Unit Description Heart Rate 68 /min pulse rate Immunizations No information available. Advance Directives No information available.
[2025-05-17 11:43] LABS: Hematocrit 37.3 % (33.0-51.0); Hemoglobin* 11.9 gm/dL (12.0-16.0); Immature Granulocytes Pct Auto 0.5 %; Mean Corpuscular HGB Conc 32 gm/dL (32-36); Mean Corpuscular Hemoglobin 32 pg (26-34); Mean Corpuscular Volume 100 fL (80-100); RDW Coefficient of Variation % 11.9 % (11.5-15.5); Red Blood Count 3.72 m/uL (4.00-5.20); White Blood Count* 4.12 K/uL (4.50-11.00)
[2025-05-17 11:49] LABS: Immature Granulocytes Abs Auto 0.00 K/uL (0.00-0.30); Lymphocytes Absolute Auto 1.70 K/uL (0.90-2.90); Slide Review Reflex No
[2025-05-17] MEDS: 0.9 % SODIUM CHLORIDE 500 ML 500 ML IV (11:54)
[2025-05-17 11:55] LABS: PCR FLU A Negative PCR FLU A (Negative); PCR FLU B Negative PCR FLU B (Negative); SARS PCR* Negative SARS-CoV-2 (Negative)
[2025-05-17 12:11] LABS: Albumin* 3.9 g/dL (3.3-5.0); Chloride* 103 mmol/L (96-114); Sodium* 138 mmol/L (135-149)
[2025-05-17 12:12] LABS: Potassium* 4.3 mmol/L (3.6-5.1)
[2025-05-17 12:14] LABS: Alanine Aminotransferase* 20 U/L (4-35); Alkaline Phosphatase* 56 U/L (40-150); Anion Gap 5 mEq/L (7-15); Aspartate Amino Transferase* 43 U/L (12-35); Bilirubin Direct* 0.0 mg/dL (0.0-0.5); Bilirubin Total* 0.3 mg/dL (0.1-1.5); Blood Urea Nitrogen* 20 mg/dL (7-30); Calcium* 9.7 mg/dL (8.4-10.6); Carbon Dioxide* 30 mmol/L (20-32); Creatine Kinase* 142 U/L (41-117); Creatinine* 0.9 mg/dL (0.5-1.5); Est. Creatinine Clearance* 41.45; Estimated Glomerular Filt Rate 68 ml/min; Glucose* 85 mg/dL (60-115); Total Protein* 7.0 g/dL (6.0-8.3)
[2025-05-17 12:16] LABS: Mono Screen* Negative (Negative)
[2025-05-17 12:36] LABS: Procalcitonin* < 0.03 ng/mL (<0.50)
[2025-05-17 12:56] VITALS: BP 136/73; PULSE 54; RESP 16; O2SAT 98
[2025-05-17 12:57] LABS: Erythrocyte SedimentationRate* 23 mm/hr (2-20)
[2025-05-17 14:06] LABS: Appearance Urine Clear (Clear)
== END 2025-05-17 14:45 | disposition home or self-care (01) ==
PROVIDERS: Emergency Provider Family Medicine; PCP Internal Medicine
DX: R53.1 Weakness (principal); G25.2 Other specified forms of tremor; G30.9 Alzheimer's disease, unspecified; F02.80 Dementia in other diseases classified elsewhere, unspecified severity, without behavioral disturbance, psychotic disturbance, mood disturbance, and anxiety; Z79.899 Other long term (current) drug therapy
CPT/HCPCS: 36415; 80048; 80076; 81001; 82550; 83605; 83735; 84145; 84443; 84484; 85025; 85651; 86140; 86308; 87086; 87631; 96360; 99284; J7030

== ENCOUNTER 2025-06-04 09:35 | Outpatient (CLI) | payer MEDICARE, BC, SELFPAY | END 2025-06-04 09:36 | disposition home or self-care (01) | PROVIDERS: PCP Internal Medicine; Referring Provider Internal Medicine; Visit Provider Internal Medicine | DX: R53.1 Weakness (principal) | CPT/HCPCS: 82550 ==

== ENCOUNTER 2025-07-13 08:45 | Outpatient (RCR) | payer MEDICARE, BC, SELFPAY | END 2025-07-20 14:26 | disposition home or self-care (01) | PROVIDERS: PCP Internal Medicine; Visit Provider Physician Assistant | DX: R53.81 Other malaise (principal); G30.8 Other Alzheimer's disease; F02.A0 Dementia in other diseases classified elsewhere, mild, without behavioral disturbance, psychotic disturbance, mood disturbance, and anxiety; G25.2 Other specified forms of tremor; G62.9 Polyneuropathy, unspecified; H53.9 Unspecified visual disturbance; Z51.89 Encounter for other specified aftercare | CPT/HCPCS: 97110; 97112; 97161 ==